=== PATIENT | female | born 1990 | race Caucasian/White ===

== ENCOUNTER 2022-10-09 01:19 | Inpatient (IN) | payer MEDICAID, SELFPAY ==
[2022-10-09] VITALS (14 sets, daily range): BP systolic 87–139; BP diastolic 51–93; PULSE 80–105; RESP 15–24; TEMP 36.2–37.2; O2SAT 90–100; BMI 23.3
--- NOTE | 2022-10-09 01:49 | ED_ITS ---
HPI - Alcohol General Chief Complaint: ETOH/Substance Use Stated Complaint: ETOH Time Seen by Provider: 10/09/22 01:42 Source: EMS Mode of arrival: EMS Limitations: other (Intoxicated) History of Present Illness HPI narrative: Patient comes to the emergency room via EMS. Patient is too intoxicated at this time to give any history, HPI obtained from EMS. Seems that the patient called from home, requesting to be brought to the hospital, stated that she needed help and requesting detox. The patient told EMS that the patient had ?just completed detox? went home and drank a very large amount of vodka without specifying. When patient was asked about SI or HI by EMS, patient denied either. Related Data Allergies Allergy/AdvReac Type Severity Reaction Status Date / Time No Known Allergies Allergy Verified 10/09/22 01:38 Review of Systems Review of Systems: Yes Unobtainable due to mental condition (Alcohol intoxication) PMFSH Past Medical History Medical History Alcohol abuse Social History Social History Advance Directives: No Advance Directives Information Provided: Yes Physical Exam ED Vital Signs: Vital Signs - 24 hr 10/09/22 01:28 10/09/22 02:35 10/09/22 05:27 Temperature 98.6 F 98.0 F Pulse Rate 102 H 96 97 Respiratory Rate 15 24 H 20 Blood Pressure 107/70 108/66 101/59 L Pulse Oximetry 90 L 95 97 Oxygen Delivery Method Room Air Nasal Cannula Room Air Oxygen Flow Rate 2 BMI result Body Mass Index 23.3 Const Other: Appearance: Alert. Easily arousable, somnolent Eyes: bilateral myadriasis, Pupils equal, round and reactive to light. ENT: Pharynx normal. Neck: Normal inspection. Neck supple. No lymph nodes noted. No crepitus CVS: Normal heart rate and rhythm. Pulses normal. Normal S1 and S2 Respiratory: No respiratory distress. Breath sounds normal. No Wheezing. No rales Abdomen: Soft and nontender. No rigidity. No distention. Skin: Skin warm and dry. Normal skin color. Normal skin turgor. Extremities: No lower extremity edema. No Lacerations. No Rash Neuro: Very intoxicated unable to participate in cranial nerve assessment Psych: calm, intoxicated Course Course Course Narrative: Labs pending. We will get a consult from the care team or head athletic trainer/strength coach when the patient is sober. Physician observation started at 01:50 Patient's alcohol level is 545, patient receiving IV fluids. At this time, 05:50, patient is slightly more awake and alert, patient is still too intoxicated but is able to manage getting up to the commode with assistance Medical Decision Making Differential Diagnosis Differential Diagnoses: The differential diagnosis associated with the presentation includes (Alcohol abuse, substance abuse) Admission/Observation Consideration of admission/observation: Escalation of care including admission/observation considered (Patient will remain under observation until she gets over to obtain a consult from the care team or head athletic trainer/strength coach to assist alcohol detox bed) Lab Data Result Diagrams: 10/09/22 01:50 10/09/22 01:50 Labs: Lab Results 10/09/22 10/09/22 10/09/22 Range/Units 01:50 01:50 01:50 WBC 6.7 (4.8-10.8) X10*3/uL RBC 4.40 (4.20-5.50) X10*6/uL Hgb 14.1 (12.0-16.0) g/dl Hct 40.6 (37.0-47.0) % MCV 92.3 (80.0-98.0) fL MCH 32.0 (27.0-33.0) pg MCHC 34.7 (31.0-35.0) g/dl RDW 12.7 (11.0-16.0) % Plt Count 183 (160-400) X10*3/uL MPV 9.6 (9.4-12.3) fL Immature Gran % (Auto) 0.6 H (0.0-0.4) % Neut % (Auto) 17.1 L (45-73) % Lymph % (Auto) 71.6 H (20-40) % [place] % (Auto) 9.1 (2-11) % Eos % (Auto) 1.0 (0-4) % Baso % (Auto) 0.6 (0-2) % Lymph # (Auto) 4.8 (1.2-4.9) X10*3/uL [place] # (Auto) 0.6 (0.1-1.2) X10*3/uL Eos # (Auto) 0.1 (0.0-0.4) X10*3/uL Baso # (Auto) 0.0 (0.0-0.2) X10*3/uL Abs Immat Gran (auto) 0.04 H (0.00-0.03) X10*3/uL Absolute Neuts (auto) 1.1 L (2.0-8.3) x10*3/uL Absolute Nucleated RBC 0.000 (0.0-0.012) X10*3/uL Nucleated RBC % (auto) 0.0 (0.0-0.2) /100WBC Smear Tech's Comments VERIFIED Sodium 144 (135-145) mmol/L Potassium 3.5 (3.3-5.1) mmol/L Chloride 108 (96-108) mmol/L Carbon Dioxide 21 L (22-29) mmol/L Anion Gap 19 (12-20) BUN 6 L (9-16) mg/dL Creatinine 0.74 (0.5-1.4) mg/dL Estim Creat Clear Calc 101.2 Estimated GFR > 60 Random Glucose 125 H (60-115) mg/dL Calcium 9.3 (8.4-10.2) mg/dL Total Bilirubin 0.5 (0.0-1.0) mg/dL Direct Bilirubin 0.3 (0.0-0.5) mg/dL AST 291 H (5-31) U/L ALT 283 H (0-31) U/L Alkaline Phosphatase 95 (39-117) U/L Total Protein 7.7 (6.5-8.0) g/dL Albumin 4.6 (3.5-5.0) g/dL Beta HCG, Quant < 2 mIU/mL Ethyl Alcohol 545 H* mg/dL COVID-19 (YAZ) Negative (Negative) COVID-19 Clin Com See Note Discharge Plan Discharge Clinical Impression: Alcoholic intoxication Patient Disposition: Still a Patient
[2022-10-09 01:57] LABS: Basophils Percent Auto 0.6 % (0-2); Eosinophils Absolute Auto 0.1 X10*3/uL (0.0-0.4); Hematocrit 40.6 % (37.0-47.0); Hemoglobin 14.1 g/dl (12.0-16.0); Imm Gran Abs Auto 0.04 X10*3/uL (0.00-0.03); Imm Gran Pct Auto 0.6 % (0.0-0.4); Lymphocytes Absolute Auto 4.8 X10*3/uL (1.2-4.9); Lymphocytes Percent Auto 71.6 % (20-40); MANUAL DIFF FLAG SCAN; Mean Corpuscular HGB Conc 34.7 g/dl (31.0-35.0); Mean Corpuscular Volume 92.3 fL (80.0-98.0); Mean Platelet Volume 9.6 fL (9.4-12.3); Monocytes Absolute Auto 0.6 X10*3/uL (0.1-1.2); Monocytes Percent Auto 9.1 % (2-11); Neutrophils Absolute Auto 1.1 x10*3/uL (2.0-8.3); Neutrophils Percent Auto 17.1 % (45-73); Platelet Count 183 X10*3/uL (160-400); Red Cell Distribution Width 12.7 % (11.0-16.0); SCAN SMEAR FLAG 1; White Blood Count 6.7 X10*3/uL (4.8-10.8)
[2022-10-09 02:18] LABS: COVID-19 Test Negative (Negative)
[2022-10-09 02:27] LABS: Alanine Aminotransferase 283 U/L (0-31); Albumin Level 4.6 g/dL (3.5-5.0); Alkaline Phosphatase 95 U/L (39-117); Anion Gap 19 (12-20); Aspartate Amino Transferase 291 U/L (5-31); Bilirubin Direct 0.3 mg/dL (0.0-0.5); Bilirubin Total 0.5 mg/dL (0.0-1.0); Blood Urea Nitrogen 6 mg/dL (9-16); Calcium 9.3 mg/dL (8.4-10.2); Carbon Dioxide 21 mmol/L (22-29); Chloride 108 mmol/L (96-108); Creatinine Clr Calc Pharmacy 101.2; Estimated Glomerular Filt Rate > 60; Ethanol 545 mg/dL; Glucose Random 125 mg/dL (60-115); HCG Quantitative < 2 mIU/mL; Potassium 3.5 mmol/L (3.3-5.1); Sodium 144 mmol/L (135-145); Total Protein 7.7 g/dL (6.5-8.0)
--- NOTE | 2022-10-09 02:36 | PC.NURSE ---
Pt sleeping at the bedside. o2 sat noted at 89% RA. Head of the bed elevated. Pt started on 2L NC. Current o2at 96%. Breaths are even and unlabored with equal chest rises. No apparent distress noted. MD aware. Will continue to monitor.
[2022-10-09 02:42] LABS: SLIDE REVIEW VERIFIED
[2022-10-09] MEDS: ondansetron HCL 4 MG/2 ML VIAL IVPUSH ×2 (06:00→14:28)
[2022-10-09] MEDS: 0.9 % Sodium Chloride 2,000 ML 999 ML IVCONT (06:00)
[2022-10-09] MEDS: Acetaminophen 325 MG TABLET 650 MG PO (06:31)
[2022-10-09 08:14] LABS: Amphetamine Screen Urine Not Detected (Not Detect); Barbiturates, Urine Not Detected (Not Detect); Benzodiazepines Screen Urine POSITIVE (Not Detect); Cannabinoid Screen Urine Not Detected (Not Detect); Cocaine Screen Urine Not Detected (Not Detect); Fentanyl, urine Not Detected (Not Detect); Opiate Screen Urine Not Detected (Not Detect); Phencyclidine Screen Urine Not Detected (Not Detect)
--- NOTE | 2022-10-09 10:20 | MHC.CARE ---
CARE Team responded to consult request to meet with patient who is unknown to [facility] and arrived to the ED last night with a BAL of 545. Spoke to patient in room 20 in the main ED, she was alert, oriented and open to this discussion regarding her alcohol use, current needs, resources and barriers to recovery. She appeared her stated age, somewhat disheveled, did maintain eye contact, was tearful at times, said she felt guilty and disappointed with continued relapses. Patient reported that she was at [facility] detox in [place] from 10/02/22-10/06/22 but left AMA because she tested positive for the flu therefore had to isolate in her room and could not be with others or attend groups. Relapsed on alcohol within a day, drank nearly a fifth of vodka yesterday. Patient was scheduled to start [facility] yesterday but called and said she could not attend and believes she can start Tuesday morning. 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 Patient is living with her parents, does not have a car or any day structure. Has an 8 year-old daughter who lives with her father, patient has visitation and DCF is involved. At this time, patient is firm that [facility] will not take her back because she left AMA, that is her preferred facility because she is able to use her phone and has been there several times, she declined referral to [facility] or other local detoxes. Patient is interested in MAT and was given information about [facility], at this time she is not feeling well, Recovery or CARE Team will follow up later to offer detox
[2022-10-09] MEDS: Acetaminophen 325 MG TABLET 975 MG PO (13:15)
[2022-10-09 13:41] LABS: Influenza A Negative (Negative); Influenza B2 Negative (Negative)
[2022-10-09] MEDS: 0.9 % Sodium Chloride 1,000 ML 999 ML IV (14:21)
[2022-10-09] MEDS: LORazepam 2 MG/ML VIAL 1 MG IVPUSH (14:28)
[2022-10-09] MEDS: Ketorolac Tromethamine 30 MG/ML VIAL IVPUSH (14:28)
--- NOTE | 2022-10-09 14:55 | MHC.RECOVSUP ---
? Reason for consult:ETOH o? Current location:ED20? o? Identified substance use concern:? -? Seeking ATS (detox) ?? Intervention: o? ATS bed search completed o? Harm reduction discussion ? Plan:Order LYFT to [facility]. ? Additional information:RC met with pt, discussed harm reduction and detox. RC was successful in finding pt a bed for tonight at 9pm at [facility]. Please have pt dischsrged and sent to [facility] to be admitted for 9 pm tonight.
[2022-10-09] MEDS: LORazepam 1 MG TABLET 2 MG PO (18:49)
[2022-10-10 00:54] VITALS: BP 143/98; PULSE 85; PULSE 98; RESP 23; TEMP 37.3; O2SAT 97
[2022-10-10 01:49] VITALS: BP 141/103; PULSE 85; RESP 16; TEMP 36.8; O2SAT 95
--- NOTE | 2022-10-10 02:19 | P.HPHOSP_ITS ---
History of Present Illness Date of Service: 10/10/22 Chief Complaint: alcohol withdrawal 32-year-old female with past medical history of alcohol abuse presents to the hospital with alcohol intoxication that eventually turned into withdrawal. Patient reports that she was discharged from rehab facility for detox about 1 week ago. Patient reports that she started drinking heavily about 3 days ago, she came into the hospital after calling EMS herself for severe intoxication. On her arrival to the ED patient's alcohol level was found to be over 500. Patient was managed in the ED for alcohol intoxication, patient initially wanted to be sent back to rehab, but then refused, by the time she was ready to be discharged home, she had started with severe withdrawals. Patient feels very anxious, jittery, reports that her last drink was about 12 hours prior. She denies any chest pain, no palpitations, no abdominal pain nausea or vomiting, no diarrhea constipation, no urinary symptoms and no lower extremity edema. on review of her vitals show elevated BP, otherwise stable Labs significant for WBC count of 7.3, hemoglobin of 11.6, hematocrit 30.7, labs otherwise unremarkable patient reports that she does not like phenobarb it does not make her feel well, and requesting Ativan taper Review of Systems Review of Systems: Yes all other systems are reviewed and are negative [facility] Medical History Alcohol abuse Family History Other No family history of coronary artery disease Surgical History No pertinent past surgical history Social History Alcohol intake: current Alcohol intake frequency: a few times a week Alcohol type: hard liquor Smoked in Last 30 Days: No Use of substances other than those prescribed or required for medical reasons: No Advance Directives: No Advance Directives Information Provided: Yes Patient : No Meds Allergies Allergy/AdvReac Type Severity Reaction Status Date / Time No Known Allergies Allergy Verified 10/09/22 01:38 Active Medications: Current Medications Sodium Chloride (Ns) 1,000 mls @ 999 mls/hr IVCONT .Q1H1M ONE Stop: 10/10/22 02:51 Pharmacy Consult (Consult Rx Etoh Phenob Im/Po) 1 each MISCELLANE ONCE PRN; Protocol PRN Reason: Consult order Physical Exam Vital Signs and Narrative: Vital Signs: Last Vital Signs Temp 98.3 F 10/10/22 01:49 Pulse 85 10/10/22 01:49 Resp 16 10/10/22 01:49 BP 141/103 H 10/10/22 01:49 Pulse Ox 95 10/10/22 01:49 O2 Del Method 10/10/22 01:49 O2 Flow Rate 2 10/09/22 02:35 BMI result Body Mass Index 23.3 Const: General: cooperative and no acute distress Orientation/consciousness: patient oriented x3 Eyes: General: appearance normal, both eyes and all related structures Pupils: Equal, round and reactive pupils present Resp: Effort & Inspection: normal respiratory effort Auscultation: clear to auscultation bilaterally Cardio: Rate: regular rate Rhythm: regular rhythm GI: Palpation (GI): Soft to palpation Auscultation: normal bowel sounds Skin: General skin exam: no rashes or lesions noted Neuro: Other: asterixis present General: patient oriented x3 Cranial nerves: Yes Equal, round and reactive pupils present Cognition (Neuro): normal cognition Extrem: General: Yes normal to inspection and Yes no pedal edema Results Labs CBC and Chem 7: 10/10/22 05:39 10/10/22 05:39 Labs: Laboratory Results - last 24 hr 10/09/22 10/09/22 10/09/22 01:50 01:50 01:50 Smear Tech's Comments VERIFIED Anion Gap 19 Estim Creat Clear Calc 101.2 Estimated GFR > 60 Random Glucose 125 H Calcium 9.3 Total Bilirubin 0.5 Direct Bilirubin 0.3 AST 291 H ALT 283 H Alkaline Phosphatase 95 Total Protein 7.7 Albumin 4.6 Beta HCG, Quant < 2 Urine Opiates Screen Urine Fentanyl Screen Ur Barbiturates Screen Ur Phencyclidine Scrn Ur Amphetamines Screen U Benzodiazepines Scrn Urine Cocaine Screen U Marijuana (THC) Screen Ethyl Alcohol 545 H* COVID-19 (YAZ) Negative COVID-19 Clin Com See Note Influenza Type A (ANASTASIA) Influenza Type B (ANASTASIA) Influenza A & B Note 10/09/22 10/09/22 07:51 13:15 Smear Tech's Comments Anion Gap Estim Creat Clear Calc Estimated GFR Random Glucose Calcium Total Bilirubin Direct Bilirubin AST ALT Alkaline Phosphatase Total Protein Albumin Beta HCG, Quant Urine Opiates Screen Not Detected Urine Fentanyl Screen Not Detected Ur Barbiturates Screen Not Detected Ur Phencyclidine Scrn Not Detected Ur Amphetamines Screen Not Detected U Benzodiazepines Scrn POSITIVE H Urine Cocaine Screen Not Detected U Marijuana (THC) Screen Not Detected Ethyl Alcohol COVID-19 (YAZ) COVID-19 Clin Com Influenza Type A (ANASTASIA) Negative Influenza Type B (ANASTASIA) Negative Influenza A & B Note See Note Assessment and Plan (1) Alcoholic intoxication: Status: Acute (2) Alcohol withdrawal: Status: Acute Plan 32-year-old female with past medical history of alcohol abuse, being admitted for alcohol withdrawal # alcohol abuse with withdrawal - denies any history of alcohol withdrawal seizures or delirium - will treat with Ativan protocol for alcohol withdrawal - thiamine and folic acid - patient no longer interested in inpatient rehab DVT prophylaxis: Lovenox Time Spent With Patient Time: Total time managing care of this patient today ____ minutes. Quality Stroke Does the patient have a stroke diagnosis?: No VTE Prior VTE?: No VTE Risk Level:: Medical - low VTE Device Contraindication: Treatment Not Indicated VTE Drug Contraindication: Treatment Not Indicated
[2022-10-10] MEDS: ondansetron HCL 4 MG/2 ML VIAL IVPUSH (03:05)
[2022-10-10] MEDS: LORazepam 2 MG/ML VIAL IVPUSH (03:05)
[2022-10-10] MEDS: 0.9 % Sodium Chloride 1,000 ML 999 ML IVCONT (03:05)
--- NOTE | 2022-10-10 03:24 | PC.NURSE ---
Pt's BP is stable, pt is sinus tachy on the monitor. pt's meds was given as order. pt's CIWA was 14.
[2022-10-10 05:43] LABS: MANUAL DIFF FLAG NO
[2022-10-10 05:45] LABS: Basophils Percent Auto 0.4 % (0-2); Eosinophils Absolute Auto 0.1 X10*3/uL (0.0-0.4); Eosinophils Percent Auto 0.8 % (0-4); Hematocrit 33.7 % (37.0-47.0); Hemoglobin 11.6 g/dl (12.0-16.0); Imm Gran Abs Auto 0.02 X10*3/uL (0.00-0.03); Imm Gran Pct Auto 0.3 % (0.0-0.4); Lymphocytes Absolute Auto 1.5 X10*3/uL (1.2-4.9); Lymphocytes Percent Auto 21.2 % (20-40); Mean Corpuscular HGB Conc 34.4 g/dl (31.0-35.0); Mean Corpuscular Hemoglobin 31.8 pg (27.0-33.0); Mean Corpuscular Volume 92.3 fL (80.0-98.0); Mean Platelet Volume 9.7 fL (9.4-12.3); Monocytes Absolute Auto 0.6 X10*3/uL (0.1-1.2); Neutrophils Percent Auto 69.3 % (45-73); Platelet Count 158 X10*3/uL (160-400); Red Blood Count 3.65 X10*6/uL (4.20-5.50); Red Cell Distribution Width 12.6 % (11.0-16.0); White Blood Count 7.3 X10*3/uL (4.8-10.8)
[2022-10-10] MEDS: LORazepam 1 MG TABLET PO ×4 (06:02→16:05)
--- NOTE | 2022-10-10 06:03 | PC.NURSE ---
Addendum entered by Cruz Yee 10/10/22 06:08: CIWA was a 6. Original Note: Pt's v/S are stable, Pt was medicated as order. On the med rec there is a lorazapam 2mg, it was not given d/t there were an order for the same med IV push, and the IV push was given at 02:00am.
[2022-10-10 06:06] VITALS: BP 134/95; PULSE 91; RESP 20; TEMP 37.4; O2SAT 97
[2022-10-10 06:12] LABS: Anion Gap 12 (12-20); Blood Urea Nitrogen 5 mg/dL (9-16); Calcium 7.5 mg/dL (8.4-10.2); Carbon Dioxide 23 mmol/L (22-29); Chloride 106 mmol/L (96-108); Creatinine Clr Calc Pharmacy 129.1; Estimated Glomerular Filt Rate > 60; Glucose Random 86 mg/dL (60-115); Potassium 3.2 mmol/L (3.3-5.1); Sodium 138 mmol/L (135-145)
[2022-10-10] MEDS: Thiamine HCL 100 MG TABLET PO (07:33)
[2022-10-10] MEDS: Folic Acid 1 MG TABLET PO (07:33)
--- NOTE | 2022-10-10 09:25 | PHA.MEDREC ---
Pharmacy Consult ? Medication Reconciliation Pharmacy has completed the medication reconciliation.
[2022-10-10 10:50] VITALS: BP 126/88; PULSE 77; RESP 18; TEMP 36.4; O2SAT 95
--- NOTE | 2022-10-10 11:26 | MHC.CM.PN ---
CM ATTEMPTED TO MEET W/PT HOWEVER PT NOT ON UNIT, CM TO REVISIT.
[2022-10-10] MEDS: Acetaminophen 325 MG TABLET 650 MG PO (11:55)
[2022-10-10] MEDS: Escitalopram Oxalate 10 MG TABLET PO (12:32)
[2022-10-10] MEDS: Potassium Chloride Packet 20 MEQ PACKET 40 MEQ PO (12:32)
--- NOTE | 2022-10-10 15:06 | PM.EVENT ---
Event Note Date of Service: 10/10/22 Event Note: Patient was admitted worker or withdrawal this mornin by hopsitalist team seen and examined again Still anxious and tremulous Physical exam: unchanged Assessment and plan coordinated in H&P note Continue Ativan protocol, CIWA, thiamine folic acid forest fire prevention specialist consult. Time Spent With Patient Time: Total time managing care of this patient today ____ minutes.
[2022-10-10 15:33] VITALS: BP 130/85; PULSE 75; RESP 18; TEMP 37.1; O2SAT 95
[2022-10-10 16:00] LABS: Alanine Aminotransferase 159 U/L (0-31); Albumin Level 3.8 g/dL (3.5-5.0); Alkaline Phosphatase 67 U/L (39-117); Aspartate Amino Transferase 110 U/L (5-31); Bilirubin Direct 0.4 mg/dL (0.0-0.5); Bilirubin Total 1.1 mg/dL (0.0-1.0); Total Protein 6.2 g/dL (6.5-8.0)
[2022-10-10] MEDS: Magnesium Oxide 400 MG TABLET PO (16:05)
[2022-10-10] MEDS: 0.9 % Sodium Chloride Flush 3 ML SYRINGE IVFLUSH (16:05)
[2022-10-10] MEDS: Magnesium Sulfate/H2O 2 GM/50 ML PIGGYBACK IV (16:06)
--- NOTE | 2022-10-10 16:14 | MHC.CM.PN ---
EMR REVIEWED, PT ADMITTED W/ETOH WITHDRAWAL, CM MET W/PT WHO REPORTS SHE JUST GOT OUT OF [facility] AND HAS OUPT SA TX AT [facility], PT REPORTS SHE IS INDEP W/ALL CARE, DENIES USE OF DME/HOME SERVICES AND IS WILLING TO MEET W/RECOVERY TEAM HOWEVER DOES NOT WANT INPT TX AT THIS TIME. PT VERIFIES PCP IS [facility] CAMACHO, GABRIEL X2 AND PT EDUCATED ON AND DECLINES TO COMPLETE A HCP. ANTIC D/C HOME NO SERVICES, PT WILL ARRANGE FOR [facility] OR [facility] HOME.
--- NOTE | 2022-10-10 18:01 | PM.EVENT ---
Event Note Date of Service: 10/10/22 Event Note: Patient wishing to sign out AMA. States withdrawals are manageable. See was 0-1. Stands the risk. Patient to sign out AMA. States will return to [facility] outpatient in a.m. Time Spent With Patient Time: Total time managing care of this patient today ____ minutes.
--- NOTE | 2022-10-10 18:09 | PC.NURSE ---
pt wanted to leave AMA. pt wanted to be in her own bed and did not believe her withdrawal symptoms were as bad. CIWA score was a 1. Dr. kowalski made aware. dr. kowalski at bedside to talk with patient. pt verbalized understanding of leaving ama and that she would resume her outpt detox program. IV removed. AMA paperwork signed.
[2022-10-10 19:19] LABS: Magnesium 1.2 mg/dL (1.6-2.6)
--- NOTE | 2022-10-11 08:09 | PM.EVENT ---
Event Note Date of Service: 10/11/22 Event Note: Patient was admitted for alcohol withdrawal was started on Ativan subsequently left against medical advice-risk of leaving is against my get medical advise discussed with her in detail length. Final diagnosis: Alcohol withdrawal Elevated LFT possibly related to alcohol use. Hypokalemia and hypomagnesemia-possible related to alcohol use also, repleted but patient left afterwards without any repeat labs. Time Spent With Patient Time: Total time managing care of this patient today ____ minutes.
== END 2022-10-10 18:12 | disposition left against medical advice (07) | DRG 425 ==
LOC: HO.ED 10-10 01:55 → HO.EDOVER 10-10 02:55 → HO.S3 10-10 07:56
PROVIDERS: Physician Assistant; Admitting Provider Internal Medicine; Emergency Provider Emergency Medicine; PCP Nurse Practitioner Family; Visit Provider Internal Medicine
DX: E83.42 Hypomagnesemia (principal); E87.6 Hypokalemia; F10.129 Alcohol abuse with intoxication, unspecified; F10.139 Alcohol abuse with withdrawal, unspecified; Y90.8 Blood alcohol level of 240 mg/100 ml or more; Z20.822 Contact with and (suspected) exposure to COVID-19; Z79.899 Other long term (current) drug therapy
CPT/HCPCS: 36415; 80048; 80076; 80307; 82077; 83735; 84702; 85025; 87502; 87635; 96361; 96374; 96375; 96376; 99285; J1885; J2060; J2405; J3475

== ENCOUNTER 2022-10-12 23:57 | Emergency (ER) | payer OTHER, SELFPAY ==
[2022-10-13 00:10] VITALS: BP 113/88; PULSE 95; O2SAT 95; BMI 29.6
--- NOTE | 2022-10-13 00:24 | ED.ALCOHOL ---
HPI - Alcohol General Chief Complaint: ETOH/Substance Use Stated Complaint: ETOH Time Seen by Provider: 10/13/22 00:10 Source: patient Mode of arrival: EMS Limitations: no limitations History of Present Illness HPI narrative: Patient alcoholic , left detox 2 days ago been drinking vodka mostly comes here as she would like to go to detox now patient did not eat for last 2 days just drinking alcohol no hallucination or delusion no abdominal pain Related Data Home Medications Medication Instructions Recorded Confirmed acetaminophen 325 mg tablet 650 mg PO Q6H PRN Pain 10/10/22 10/10/22 escitalopram oxalate 10 mg tablet 1 tab PO DAILY 10/10/22 10/10/22 folic acid 1 mg tablet 1 tab PO DAILY 10/10/22 10/10/22 multivitamin-iron 9 mg-folic acid 1 tab PO DAILY 10/10/22 10/10/22 400 mcg-calcium and minerals tablet (Therapeutic-M) thiamine HCl (vitamin B1) 100 mg 1 tab PO DAILY 10/10/22 10/10/22 tablet Previous Rx's Medication Instructions Recorded magnesium 250 mg tablet 250 mg PO DAILY #3 tabs 10/11/22 potassium chloride 10 mEq 10 meq PO DAILY #3 caps 10/11/22 capsule,extended release Allergies Allergy/AdvReac Type Severity Reaction Status Date / Time No Known Allergies Allergy Verified 10/09/22 01:38 Review of Systems Review of Systems: Yes all other systems are reviewed and are negative [facility] Past Medical History Medical History Alcohol abuse Surgical History No pertinent past surgical history Family History Family History Other No family history of coronary artery disease Social History Social History Household Members: None Housing: Apartment Do you presently have visiting nurse or other home services: No Alcohol intake: current Alcohol intake frequency: a few times a week Alcohol type: hard liquor Patient Tobacco Use Status: Never used Tobacco Advance Directives: No Advance Directives Information Provided: No service: No Current occupational status: unemployed Physical Exam ED Vital Signs: Vital Signs - 24 hr 10/13/22 02:50 10/13/22 05:31 Temperature 98.6 F 98.5 F Pulse Rate 80 86 Respiratory Rate 22 H 20 Blood Pressure 95/53 L 108/64 Pulse Oximetry 97 97 Oxygen Delivery Method Room Air Room Air BMI result Body Mass Index 29.6 Appearance: Alert. Oriented X3. No acute distress. etoh++ Eyes: PERRLA, No Nystagmus ENT: Pharynx normal. Oral Mucosa moist Neck: Normal inspection. Neck supple. CVS: Normal heart rate and rhythm. Pulses normal. Respiratory: No respiratory distress. Equal air entry bilateral, no wheezing/rales/rhonchi Abdomen: Soft and nontender. Bowel sounds are present, no mass palpable, no CVA tenderness Skin: Skin warm and dry. Normal skin color. Normal skin turgor. Extremities: No lower extremity edema. No calf tenderness Neuro: Oriented X 3. No motor deficit. No sensory deficit.No cerebellar signs , cranial nerves II-XII intact Medical Decision Making Lab Data MDM Lab Attestation statement: I reviewed the patient's lab results. Result Diagrams: 10/13/22 01:16 10/13/22 01:16 Labs: Lab Results 10/13/22 10/13/22 10/13/22 Range/Units 01:16 01:16 01:16 WBC 7.6 (4.8-10.8) X10*3/uL RBC 4.04 L (4.20-5.50) X10*6/uL Hgb 12.6 (12.0-16.0) g/dl Hct 37.6 (37.0-47.0) % MCV 93.1 (80.0-98.0) fL MCH 31.2 (27.0-33.0) pg MCHC 33.5 (31.0-35.0) g/dl RDW 13.0 (11.0-16.0) % Plt Count 239 D (160-400) X10*3/uL MPV 9.6 (9.4-12.3) fL Immature Gran % (Auto) 0.3 (0.0-0.4) % Neut % (Auto) 46.3 (45-73) % Lymph % (Auto) 41.2 H (20-40) % [place] % (Auto) 9.0 (2-11) % Eos % (Auto) 2.5 (0-4) % Baso % (Auto) 0.7 (0-2) % Lymph # (Auto) 3.1 (1.2-4.9) X10*3/uL [place] # (Auto) 0.7 (0.1-1.2) X10*3/uL Eos # (Auto) 0.2 (0.0-0.4) X10*3/uL Baso # (Auto) 0.1 (0.0-0.2) X10*3/uL Abs Immat Gran (auto) 0.02 (0.00-0.03) X10*3/uL Absolute Neuts (auto) 3.5 (2.0-8.3) x10*3/uL Absolute Nucleated RBC 0.000 (0.0-0.012) X10*3/uL Nucleated RBC % (auto) 0.0 (0.0-0.2) /100WBC Sodium 147 H (135-145) mmol/L Potassium 3.8 (3.3-5.1) mmol/L Chloride 109 H (96-108) mmol/L Carbon Dioxide 26 (22-29) mmol/L Anion Gap 16 (12-20) BUN 7 L (9-16) mg/dL Creatinine 0.59 (0.5-1.4) mg/dL Estim Creat Clear Calc 142.3 Estimated GFR > 60 Random Glucose 100 (60-115) mg/dL Calcium 8.9 D (8.4-10.2) mg/dL Magnesium 1.9 (1.6-2.6) mg/dL Total Bilirubin 0.4 (0.0-1.0) mg/dL AST 60 H (5-31) U/L ALT 95 H (0-31) U/L Alkaline Phosphatase 107 (39-117) U/L Total Protein 6.9 (6.5-8.0) g/dL Albumin 4.1 (3.5-5.0) g/dL Lipase 43 (8-78) U/L Beta HCG, Quant < 2 mIU/mL Ethyl Alcohol mg/dL COVID-19 (YAZ) Negative (Negative) COVID-19 Clin Com See Note 10/13/22 Range/Units 01:16 WBC (4.8-10.8) X10*3/uL RBC (4.20-5.50) X10*6/uL Hgb (12.0-16.0) g/dl Hct (37.0-47.0) % MCV (80.0-98.0) fL MCH (27.0-33.0) pg MCHC (31.0-35.0) g/dl RDW (11.0-16.0) % Plt Count (160-400) X10*3/uL MPV (9.4-12.3) fL Immature Gran % (Auto) (0.0-0.4) % Neut % (Auto) (45-73) % Lymph % (Auto) (20-40) % [place] % (Auto) (2-11) % Eos % (Auto) (0-4) % Baso % (Auto) (0-2) % Lymph # (Auto) (1.2-4.9) X10*3/uL [place] # (Auto) (0.1-1.2) X10*3/uL Eos # (Auto) (0.0-0.4) X10*3/uL Baso # (Auto) (0.0-0.2) X10*3/uL Abs Immat Gran (auto) (0.00-0.03) X10*3/uL Absolute Neuts (auto) (2.0-8.3) x10*3/uL Absolute Nucleated RBC (0.0-0.012) X10*3/uL Nucleated RBC % (auto) (0.0-0.2) /100WBC Sodium (135-145) mmol/L Potassium (3.3-5.1) mmol/L Chloride (96-108) mmol/L Carbon Dioxide (22-29) mmol/L Anion Gap (12-20) BUN (9-16) mg/dL Creatinine (0.5-1.4) mg/dL Estim Creat Clear Calc Estimated GFR Random Glucose (60-115) mg/dL Calcium (8.4-10.2) mg/dL Magnesium (1.6-2.6) mg/dL Total Bilirubin (0.0-1.0) mg/dL AST (5-31) U/L ALT (0-31) U/L Alkaline Phosphatase (39-117) U/L Total Protein (6.5-8.0) g/dL Albumin (3.5-5.0) g/dL Lipase (8-78) U/L Beta HCG, Quant mIU/mL Ethyl Alcohol 423 H* mg/dL COVID-19 (YAZ) (Negative) COVID-19 Clin Com Medications Administered Discontinued Medications Generic Name Dose Route Start Last Admin Trade Name Freq PRN Reason Stop Dose Admin Sodium Chloride 1,000 mls @ 999 mls/hr 10/13/22 00:24 10/13/22 03:46 Ns IV 10/13/22 01:24 Infused .Q1H1M ONE Infusion Sodium Chloride 1,000 mls @ 999 mls/hr 10/13/22 03:59 10/13/22 04:00 Ns IV 10/13/22 04:59 Infused .Q1H1M ONE Infusion Discharge Plan Discharge Clinical Impression: Alcoholic intoxication Patient Disposition: Still a Patient Prescriptions: No Action acetaminophen 325 mg tablet 650 mg PO Q6H PRN (Reason: Pain) thiamine HCl (vitamin B1) 100 mg tablet 1 tab PO DAILY folic acid 1 mg tablet 1 tab PO DAILY Therapeutic-M 9 mg iron-400 mcg tablet 1 tab PO DAILY escitalopram oxalate 10 mg tablet 1 tab PO DAILY potassium chloride 10 mEq capsule, extended release 10 meq PO DAILY Qty: 3 0RF magnesium 250 mg tablet 250 mg PO DAILY Qty: 3 0RF Interventions: [place]-Suicide Risk Severity Scale Last Done: 10/13/22 02:46
[2022-10-13 01:22] LABS: MANUAL DIFF FLAG NO
[2022-10-13 01:23] LABS: Basophils Absolute Auto 0.1 X10*3/uL (0.0-0.2); Basophils Percent Auto 0.7 % (0-2); Eosinophils Absolute Auto 0.2 X10*3/uL (0.0-0.4); Eosinophils Percent Auto 2.5 % (0-4); Hematocrit 37.6 % (37.0-47.0); Hemoglobin 12.6 g/dl (12.0-16.0); Imm Gran Abs Auto 0.02 X10*3/uL (0.00-0.03); Imm Gran Pct Auto 0.3 % (0.0-0.4); Lymphocytes Absolute Auto 3.1 X10*3/uL (1.2-4.9); Lymphocytes Percent Auto 41.2 % (20-40); Mean Corpuscular HGB Conc 33.5 g/dl (31.0-35.0); Mean Corpuscular Hemoglobin 31.2 pg (27.0-33.0); Mean Corpuscular Volume 93.1 fL (80.0-98.0); Mean Platelet Volume 9.6 fL (9.4-12.3); Monocytes Absolute Auto 0.7 X10*3/uL (0.1-1.2); Neutrophils Absolute Auto 3.5 x10*3/uL (2.0-8.3); Neutrophils Percent Auto 46.3 % (45-73); Platelet Count 239 X10*3/uL (160-400); Red Blood Count 4.04 X10*6/uL (4.20-5.50); White Blood Count 7.6 X10*3/uL (4.8-10.8)
--- NOTE | 2022-10-13 01:27 | MHC.EDTECH ---
labs drawn, sent to lab. pt ambulated with one assist to bathroom. pt up and drinking gingerale at this time.
[2022-10-13 01:37] LABS: COVID-19 Test Negative (Negative)
[2022-10-13 01:43] LABS: Ethanol 423 mg/dL
[2022-10-13 01:55] LABS: Alanine Aminotransferase 95 U/L (0-31); Albumin Level 4.1 g/dL (3.5-5.0); Alkaline Phosphatase 107 U/L (39-117); Anion Gap 16 (12-20); Aspartate Amino Transferase 60 U/L (5-31); Bilirubin Total 0.4 mg/dL (0.0-1.0); Blood Urea Nitrogen 7 mg/dL (9-16); Calcium 8.9 mg/dL (8.4-10.2); Carbon Dioxide 26 mmol/L (22-29); Chloride 109 mmol/L (96-108); Creatinine Clr Calc Pharmacy 142.3; Estimated Glomerular Filt Rate > 60; Glucose Random 100 mg/dL (60-115); HCG Quantitative < 2 mIU/mL; Lipase 43 U/L (8-78); Magnesium 1.9 mg/dL (1.6-2.6); Potassium 3.8 mmol/L (3.3-5.1); Sodium 147 mmol/L (135-145); Total Protein 6.9 g/dL (6.5-8.0)
[2022-10-13] MEDS: 0.9 % Sodium Chloride 1,000 ML 999 ML IV ×2 (02:45→03:00)
[2022-10-13 02:50] VITALS: BP 95/53; PULSE 80; RESP 22; TEMP 37; O2SAT 97
[2022-10-13 05:31] VITALS: BP 108/64; PULSE 86; RESP 20; TEMP 36.9; O2SAT 97
[2022-10-13 07:15] VITALS: BP 103/60; PULSE 87; RESP 16; TEMP 36.4; O2SAT 96
[2022-10-13] MEDS: chlordiazePOXIDE HCl 25 MG CAPSULE 50 MG PO (07:24)
--- NOTE | 2022-10-13 09:10 | MHC.RECOVRN ---
This technical writer and editor met w/ pt. Pt alert, resting in hui bed. Pt states was at [facility] [place]/[facility] Pt reports reoccurrence of drinking alcohol past few days. Pt reports 10-12 shots daily for past few days. Pt reports no history of ETOH related seizures. Pt states does not feel right, clammy, pins and needles in feed, I want a room/to get admitted . This technical writer and editor reviewed that ED is full, hence hui bed. This technical writer and editor reviewed pt not necessarily going to get admitted if not medically necessary. Pt states I don't feel right, requesting vitals . This technical writer and editor and pt discussed detox. Pt states is not interested in detox at the moment, until after the holidays. Pt has a stable place to stay, pt reports owns a condo. Pt states has a friend that is going to be staying with them for the next few days for support. This technical writer and editor to provide recovery tools, list of detoxes, contact information for pt to follow up in the community. This technical writer and editor spoke with Frida Castañeda, whom was taking another set of vitals.
[2022-10-13 09:11] VITALS: BP 119/66; PULSE 75; RESP 16; TEMP 36.9; O2SAT 96
--- NOTE | 2022-10-13 10:04 | PC.NURSE ---
TEARFUL, NO TREMORS, ALERT, SPEECH CLEAR, SKIN WPD, DOES NOT WANT TO GO TO DETOX UNTIL AFTER JANICE , REPORTS 5 DAYS WITHOUT ETOH WHILE ADMITTED AND AT DETOX FOR A FEW DAYS THEN HAD TWO DAYS OF DRINKING, VS HAVE BEEN STABLE, STEADY GAIT, TO BEDSIDE, VAN VOUCHER PROVIDED
== END 2022-10-13 10:10 | disposition home or self-care (01) ==
PROVIDERS: Internal Medicine; Emergency Provider Student in an Organized Health Care Education/Training Program
DX: F10.220 Alcohol dependence with intoxication, uncomplicated (principal); Y90.8 Blood alcohol level of 240 mg/100 ml or more; Z20.822 Contact with and (suspected) exposure to COVID-19
CPT/HCPCS: 36415; 80053; 82077; 83690; 83735; 84702; 85025; 87635; 96360; 99284

== ENCOUNTER 2022-11-04 10:51 | Emergency (ER) | payer OTHER, SELFPAY ==
--- NOTE | ~2022-11-04 | XR_ITS ---
EXAMINATION: XR CHEST CLINICAL INFORMATION: Alcohol intoxication with low O2 saturation COMPARISON: None TECHNIQUE: 2 views of the chest were obtained. FINDINGS: There is a tiny bit of blunting of the right costophrenic angle laterally but not posteriorly. The exam is otherwise unremarkable and no other significant abnormality is noted involving the heart, lungs, mediastinum, bony thorax or soft tissues. XR/XR chest 2V IMPRESSION: No acute intrathoracic disease.
[2022-11-04 11:13] VITALS: BP 112/73; PULSE 81; RESP 16; O2SAT 90
--- NOTE | 2022-11-04 11:18 | ECG_ITS ---
Test Reason : ETOH INTOXICATION Blood Pressure : / mmHG Vent. Rate : 091 BPM Atrial Rate : 091 BPM P-R Int : 148 ms QRS Dur : 090 ms QT Int : 382 ms P-R-T Axes : 049 047 016 degrees QTc Int : 469 ms Normal sinus rhythm Normal ECG No previous ECGs available Referred By: Emma Chavez Electronically Signed By:Geronimo Quinonez
[2022-11-04 11:36] LABS: MANUAL DIFF FLAG NO
[2022-11-04 11:37] VITALS: BP 112/73; BP 120/76; PULSE 81; PULSE 88; RESP 16; RESP 18; TEMP 36.8; O2SAT 92; O2SAT 97; BMI 34.8
[2022-11-04 11:42] LABS: Prothrombin Time 11.9 SEC (10.0-13.1)
[2022-11-04 11:44] LABS: Basophils Absolute Auto 0.1 X10*3/uL (0.0-0.2); Basophils Percent Auto 0.7 % (0-2); Eosinophils Percent Auto 0.4 % (0-4); Hematocrit 38.1 % (37.0-47.0); Hemoglobin 12.9 g/dl (12.0-16.0); Lymphocytes Absolute Auto 4.5 X10*3/uL (1.2-4.9); Lymphocytes Percent Auto 45.5 % (20-40); Mean Corpuscular HGB Conc 33.9 g/dl (31.0-35.0); Mean Corpuscular Hemoglobin 30.8 pg (27.0-33.0); Mean Corpuscular Volume 90.9 fL (80.0-98.0); Mean Platelet Volume 9.5 fL (9.4-12.3); Monocytes Absolute Auto 0.5 X10*3/uL (0.1-1.2); Monocytes Percent Auto 4.6 % (2-11); Neutrophils Absolute Auto 4.8 x10*3/uL (2.0-8.3); Neutrophils Percent Auto 47.8 % (45-73); Platelet Count 307 X10*3/uL (160-400); Red Blood Count 4.19 X10*6/uL (4.20-5.50); Red Cell Distribution Width 12.2 % (11.0-16.0)
--- NOTE | 2022-11-04 11:44 | MHC.RECOVRN ---
Briefly met with pt in ED10 to discuss substance use. Pt reports drinking half a big bottle of vodka daily x 5 days and is requesting ATS. Pt reports having been at [facility] x 3 weeks and discharging 5 days ago. Pt will go to any ATS with and available bed. T/w will conduct bedsearch.
[2022-11-04] MEDS: Ondansetron ODT 4 MG TAB.RAPDIS TRANSLINGU (11:52)
[2022-11-04 12:01] LABS: Alanine Aminotransferase 41 U/L (0-31); Albumin Level 4.3 g/dL (3.5-5.0); Alkaline Phosphatase 57 U/L (39-117); Anion Gap 14 (12-20); Aspartate Amino Transferase 31 U/L (5-31); Bilirubin Total 0.3 mg/dL (0.0-1.0); Blood Urea Nitrogen 9 mg/dL (9-16); Calcium 8.9 mg/dL (8.4-10.2); Carbon Dioxide 25 mmol/L (22-29); Chloride 104 mmol/L (96-108); Creatinine Clr Calc Pharmacy 91.1; Estimated Glomerular Filt Rate > 60; Ethanol 422 mg/dL; Glucose Random 94 mg/dL (60-115); Lipase 31 U/L (8-78); Magnesium 1.9 mg/dL (1.6-2.6); Potassium 3.3 mmol/L (3.3-5.1); Sodium 140 mmol/L (135-145); Total Protein 7.3 g/dL (6.5-8.0)
[2022-11-04 12:06] LABS: HCG Quantitative < 2 mIU/mL
[2022-11-04 12:22] LABS: Influenza A PCR NEGATIVE (Negative); Influenza B PCR NEGATIVE (Negative); Resp Syncy Virus RNA Qual PCR NEGATIVE (Negative); SARS COV2 PCR INHOUSE NEGATIVE (Negative)
--- NOTE | 2022-11-04 12:35 | ED_ITS ---
HPI - Alcohol General Chief Complaint: ETOH/Substance Use Stated Complaint: ETOH INTOX,WANTS DETOX Time Seen by Provider: 11/04/22 10:57 Source: patient Mode of arrival: ambulatory Limitations: no limitations History of Present Illness HPI narrative: 32-year-old female with a past medical history of alcohol abuse presenting to the ER with complaints of alcohol intoxication requesting detox. Reports she just strained prior to arrival. Reports that she was just discharged from a detox center approximately 5 days ago and felt like she needed to be there for longer. She reports that she was at [facility]. She reports that she drinks half a bottle of vodka daily. Reports she does not mix it with any other drinks. Denies any drug usage. Denies any SI/HI/auditory visualizations thoughts of self-injury. Reports she has never had a withdrawal seizure. Patient reports she is having some nausea. Denies any dizziness, headaches, neck pain/stiffness, fevers, cough, sore throat, chest pain or shortness of breath, abdominal pain, vomiting, constipation, dysuria, abnormal vaginal discharge, diarrhea, rashes, recent travel or sick contacts or any other symptoms complaints or concerns at this time. MD complaint: alcohol intoxication, desires rehab and medical clearance for d etox facility Last drink: Just prior to admission Chronic alcohol use: Yes Previous visits for alcohol intoxication: Yes Recent trauma: No Associated symptoms: nausea Treatments prior to arrival: none Related Data Home Medications Medication Instructions Recorded Confirmed acetaminophen 325 mg tablet 650 mg PO Q6H PRN Pain 10/10/22 10/10/22 escitalopram oxalate 10 mg tablet 1 tab PO DAILY 10/10/22 10/10/22 folic acid 1 mg tablet 1 tab PO DAILY 10/10/22 10/10/22 multivitamin-iron 9 mg-folic acid 1 tab PO DAILY 10/10/22 10/10/22 400 mcg-calcium and minerals tablet (Therapeutic-M) thiamine HCl (vitamin B1) 100 mg 1 tab PO DAILY 10/10/22 10/10/22 tablet Previous Rx's Medication Instructions Recorded magnesium 250 mg tablet 250 mg PO DAILY #3 tabs 10/11/22 potassium chloride 10 mEq 10 meq PO DAILY #3 caps 10/11/22 capsule,extended release Allergies Allergy/AdvReac Type Severity Reaction Status Date / Time No Known Allergies Allergy Verified 10/09/22 01:38 Review of Systems Review of Systems: Constitutional : No Fever, No Chills ENT/Mouth : No Ear Pain, No Nasal Congestion, No sore throat Eyes: No Eye Pain, No Swelling, No Redness Cardiovascular : No Chest Pain, No SOB Respiratory : No Cough, No Sputum, No Dyspnea Gastrointestinal : No ingestions, No Nausea, No Vomiting, No Diarrhea, No Hematochezia, No Melena Genitourinary : No Dysuria, No Urinary Frequency, No Hematuria Musculoskeletal : No Myalgias Skin : No Skin Lesions, No rash Neuro : No Weakness, No Numbness, No Paresthesias, No Dizziness, No Headache Psych : + Anxiety, No Depression, No SI, No thoughts of self injury, No HI, No AVH, Heme/Lymph: No Lymphadenopathy Endocrine : No Polyuria, No Polydipsia Yes all other systems are reviewed and are negative [facility] Past Medical History Attestation statement: The following information was validated with the patient. Source: old records reviewed and nursing notes reviewed Medical History Alcohol abuse Surgical History No pertinent past surgical history Family History Family History Other No family history of coronary artery disease Social History Social History Household Members: None Housing: Apartment Do you presently have visiting nurse or other home services: No Alcohol intake: current Alcohol intake frequency: a few times a week Alcohol type: hard liquor Patient Tobacco Use Status: Never used Tobacco Advance Directives: No Advance Directives Information Provided: No service: No Current occupational status: unemployed Physical Exam ED Vital Signs: Vital Signs - 24 hr 11/04/22 11:13 11/04/22 11:37 11/04/22 11:37 Temperature 98.3 F 98.3 F Pulse Rate 81 81 81 Respiratory Rate 16 16 18 Blood Pressure 112/73 112/73 112/73 Pulse Oximetry 90 L 92 92 Oxygen Delivery Method Room Air Room Air Room Air 11/04/22 15:41 Temperature Pulse Rate 104 H Respiratory Rate 18 Blood Pressure 112/71 Pulse Oximetry 93 Oxygen Delivery Method Room Air BMI result Body Mass Index 34.8 vital signs have been reviewed as normal and appeared to be correct. Blood pressure normal. Heart rate normal. Respiration rate normal. Temperature 90. Oxygen saturation normal. Appearance: Alert. Oriented X3. No acute distress. Head: Normal external exam. Normocephalic. Atraumatic. No Márquez signs noted. No raccoon eyes noted Eyes: PERRLA. EOMI. Conjunctiva and sclera normal. Eyelids normal. ENT: EAC normal. TM's Normal. No septal hematoma noted. No hemotympanum noted. Pharynx normal. Uvula midline. Moist mucous membranes. No lesions/ulcerations or masses noted on the tongue. Normal voice. No trismus noted. No drooling noted. No muffled voice noted. Neck: Normal inspection. Neck supple. FROM. No adenopathy. Thyroid Normal. No tracheal deviation noted. No crepitus is noted. No meningeal signs. No neck mass noted. No signs of trauma noted. CVS: Normal heart rate and rhythm. Heart sound normal. Pulses normal throughout. No murmurs/rales/gallops. Respiratory: No respiratory distress. Painless inspiration. Breath sounds normal. No wheezes/rales/rhonchi noted. Chest nontender. No crepitus is noted. No signs of trauma noted. No accessory muscle usage noted or decreased air movement noted. No signs of trauma. Abdomen: Soft and nontender. Bowel sounds normal in all 4 quadrants. No distention noted. No organomegaly noted. No visible injury noted. Back: No CVA tenderness. Full range of motion noted. Nontender. No signs of trauma. Patient neuro intact bilaterally and distally on all 4 extremities. Patient's reflexes intact bilaterally and distally on all 4 extremities. No rashes/lesion/induration/fluctuance or signs of infection noted. Skin: Skin warm and dry. Normal skin color. Normal skin turgor. No rashes/lesions/lacerations noted. Extremities: No lower extremity edema. No calf tenderness is noted. Extremities exhibit normal range of motion and nontender. Neuro: Oriented X 3. No motor deficit. No sensory deficit. Reflexes normal. Normal steady gait. No focal neuro deficits noted. CN's II-XII intact b ilaterally? Vascular: + radial pulses/+ 2 distal pedal pulses/+2 dorsalis pedis b/l. Normal cap refill. No cyanosis noted to upper extremity nails and lower extremity toes nails. Course Course Course Narrative: 11:20am - 32yoF c PMHx of alcohol abuse currently drinks half a bottle of vodka daily presenting for detox. Reports she drank prior to arrival. Reports some nausea. Denies SI/HI/auditory visualizations thoughts of self-injury. Denies ever having withdrawal seizure from alcohol. Denies any other symptoms complaints or concerns at this time On exam patient is alert and active not in any acute distress. No withdrawal symptoms at this time. Oxygen 90% on room air otherwise all other vitals are within normal limits. Lungs clear to auscultation CV RRR. Abdomen is soft nontender. The patient presents with symptoms consistent with alcohol intoxication disorder. Not consistent with alcohol withdrawal symptom at this time, acute ingestions; no evidence of toxidrome. Not consistent with alcohol ketoacidosis. Plan: Will obtain labs, COVID/RSV/flu swab, drugs of abuse screen, ethanol level, EKG, CIWA wall score. Provide 4 mg of Zofran and re-evaluate. Reevaluation(s) Reevaluation #1: Labs reviewed - patient's ALT 41 which is improved when compared to prior. - Ethanol level 422. - Patient negative for COVID/RSV/flu. Otherwise all other labs are within normal limits. EKG normal sinus rhythm with ventricular rate of 91 with a normal [place] interval normal QRS duration normal QT/QTC interval. No acute ischemic change are noted. No prior EKG in our system to compare to at this time. Therefore at this time patient will need to be sober to be evaluated by the care team/substance health and wellness coach is for possible detox placement. Time: 12:43 Reevaluation #2: - patient was cleared and a bed was found for detox at [facility] although patient reports she is not ready at this time for detox and she would like to be di scharged at this time. Time: 16:13 Medical Decision Making Lab Data [facility] Lab Attestation statement: I reviewed the patient's lab results. 11/04/22 11:31 11/04/22 11:31 Labs: Lab Results 11/04/22 11/04/22 11/04/22 Range/Units 11:26 11:31 11:31 WBC 10.0 (4.8-10.8) X10*3/uL RBC 4.19 L (4.20-5.50) X10*6/uL Hgb 12.9 (12.0-16.0) g/dl Hct 38.1 (37.0-47.0) % MCV 90.9 (80.0-98.0) fL MCH 30.8 (27.0-33.0) pg MCHC 33.9 (31.0-35.0) g/dl RDW 12.2 (11.0-16.0) % Plt Count 307 D (160-400) X10*3/uL MPV 9.5 (9.4-12.3) fL Immature Gran % (Auto) 1.0 H (0.0-0.4) % Neut % (Auto) 47.8 (45-73) % Lymph % (Auto) 45.5 H (20-40) % [place] % (Auto) 4.6 (2-11) % Eos % (Auto) 0.4 (0-4) % Baso % (Auto) 0.7 (0-2) % Lymph # (Auto) 4.5 (1.2-4.9) X10*3/uL [place] # (Auto) 0.5 (0.1-1.2) X10*3/uL Eos # (Auto) 0.0 (0.0-0.4) X10*3/uL Baso # (Auto) 0.1 (0.0-0.2) X10*3/uL Abs Immat Gran (auto) 0.10 H (0.00-0.03) X10*3/uL Absolute Neuts (auto) 4.8 (2.0-8.3) x10*3/uL Absolute Nucleated RBC 0.000 (0.0-0.012) X10*3/uL Nucleated RBC % (auto) 0.0 (0.0-0.2) /100WBC PT 11.9 (10.0-13.1) SEC INR 1.0 (0.9-1.1) Sodium (135-145) mmol/L Potassium (3.3-5.1) mmol/L Chloride (96-108) mmol/L Carbon Dioxide (22-29) mmol/L Anion Gap (12-20) BUN (9-16) mg/dL Creatinine (0.5-1.4) mg/dL Estim Creat Clear Calc Estimated GFR Random Glucose (60-115) mg/dL Calcium (8.4-10.2) mg/dL Magnesium (1.6-2.6) mg/dL Total Bilirubin (0.0-1.0) mg/dL AST (5-31) U/L ALT (0-31) U/L Alkaline Phosphatase (39-117) U/L Total Protein (6.5-8.0) g/dL Albumin (3.5-5.0) g/dL Lipase (8-78) U/L Beta HCG, Quant mIU/mL Urine Color Urine Appearance Urine pH (5.0-9.0) Ur Specific [place] (1.005-1.025) Urine Protein (Neg-Trace) mg/dL Urine Glucose (UA) (Negative) mg/dL Urine Ketones (Negative) mg/dL Urine Blood (Negative) Urine Nitrite (Negative) Ur Leukocyte Esterase (Negative) Urine RBC (0-2) /HPF Urine WBC (0-5) /HPF Ur Squamous Epith Cells (0-2) /HPF Urine Bacteria (None Seen) Hyaline Casts (0-2) /LPF Ethyl Alcohol mg/dL Influenza Type A (PCR) NEGATIVE (Negative) Influenza Type B (PCR) NEGATIVE (Negative) RSV RNA Qual (PCR) NEGATIVE (Negative) SARS-CoV-2 RNA (RT-PCR) NEGATIVE (Negative) 11/04/22 11/04/22 Range/Units 11:31 15:42 WBC (4.8-10.8) X10*3/uL RBC (4.20-5.50) X10*6/uL Hgb (12.0-16.0) g/dl Hct (37.0-47.0) % MCV (80.0-98.0) fL MCH (27.0-33.0) pg MCHC (31.0-35.0) g/dl RDW (11.0-16.0) % Plt Count (160-400) X10*3/uL MPV (9.4-12.3) fL Immature Gran % (Auto) (0.0-0.4) % Neut % (Auto) (45-73) % Lymph % (Auto) (20-40) % Garrard % (Auto) (2-11) % Eos % (Auto) (0-4) % Baso % (Auto) (0-2) % Lymph # (Auto) (1.2-4.9) X10*3/uL [place] # (Auto) (0.1-1.2) X10*3/uL Eos # (Auto) (0.0-0.4) X10*3/uL Baso # (Auto) (0.0-0.2) X10*3/uL Abs Immat Gran (auto) (0.00-0.03) X10*3/uL Absolute Neuts (auto) (2.0-8.3) x10*3/uL Absolute Nucleated RBC (0.0-0.012) X10*3/uL Nucleated RBC % (auto) (0.0-0.2) /100WBC PT (10.0-13.1) SEC INR (0.9-1.1) Sodium 140 (135-145) mmol/L Potassium 3.3 (3.3-5.1) mmol/L Chloride 104 (96-108) mmol/L Carbon Dioxide 25 (22-29) mmol/L Anion Gap 14 (12-20) BUN 9 (9-16) mg/dL Creatinine 0.66 (0.5-1.4) mg/dL Estim Creat Clear Calc 91.1 Estimated GFR > 60 Random Glucose 94 (60-115) mg/dL Calcium 8.9 (8.4-10.2) mg/dL Magnesium 1.9 (1.6-2.6) mg/dL Total Bilirubin 0.3 (0.0-1.0) mg/dL AST 31 (5-31) U/L ALT 41 H (0-31) U/L Alkaline Phosphatase 57 (39-117) U/L Total Protein 7.3 (6.5-8.0) g/dL Albumin 4.3 (3.5-5.0) g/dL Lipase 31 (8-78) U/L Beta HCG, Quant < 2 mIU/mL Urine Color Yellow Urine Appearance Clear Urine pH 6.5 (5.0-9.0) Ur Specific [place] 1.010 (1.005-1.025) Urine Protein Negative (Neg-Trace) mg/dL Urine Glucose (UA) Negative (Negative) mg/dL Urine Ketones Negative (Negative) mg/dL Urine Blood Negative (Negative) Urine Nitrite Negative (Negative) Ur Leukocyte Esterase Trace H (Negative) Urine RBC 0-2 (0-2) /HPF Urine WBC 0-5 (0-5) /HPF Ur Squamous Epith Cells 6-10 (0-2) /HPF Urine Bacteria 2+ (None Seen) Hyaline Casts 0-2 (0-2) /LPF Ethyl Alcohol 422 H* mg/dL Influenza Type A (PCR) (Negative) Influenza Type B (PCR) (Negative) RSV RNA Qual (PCR) (Negative) SARS-CoV-2 RNA (RT-PCR) (Negative) Independent Interpretation I performed an independent interpretation of an: EKG (EKG normal sinus rhythm with ventricular rate of 91 with a normal [place] interval normal QRS duration normal QT/QTC interval. No acute ischemic change are noted. No prior EKG in our system to compare to at this time.) and Plain X-Ray Interpretation: FINDINGS: There is a tiny bit of blunting of the right costophrenic angle laterally but not posteriorly. The exam is otherwise unremarkable and no other significant abnormality is noted involving the heart, lungs, mediastinum, bony thorax or soft tissues. XR/XR chest 2V IMPRESSION: No acute intrathoracic disease. Radiology Impression Discussion of test interpretation with radiology: I have reviewed the radio logist's reading. External Record Review External record reviewed: Inpatient record Social Determinants Patient?s care significantly limited by Social Determinants of Health including: Alcoholism and drug addiction in family Medications Administered Discontinued Medications Generic Name Dose Route Start Last Admin Trade Name Freq PRN Reason Stop Dose Admin Ondansetron HCl 4 mg 11/04/22 11:20 11/04/22 11:52 Ondansetron Odt 4 Mg Tab.Rapdis TRANSLINGU 11/04/22 11:21 4 mg ONCE ONE Administration Discharge Plan Discharge Clinical Impression: Alcoholic intoxication Patient Disposition: Home, Self-Care Instructions: Alcohol Intoxication (ED) Prescriptions: No Action acetaminophen 325 mg tablet 650 mg PO Q6H PRN (Reason: Pain) thiamine HCl (vitamin B1) 100 mg tablet 1 tab PO DAILY folic acid 1 mg tablet 1 tab PO DAILY Therapeutic-M 9 mg iron-400 mcg tablet 1 tab PO DAILY escitalopram oxalate 10 mg tablet 1 tab PO DAILY potassium chloride 10 mEq capsule, extended release 10 meq PO DAILY Qty: 3 0RF magnesium 250 mg tablet 250 mg PO DAILY Qty: 3 0RF Referrals: Physician,Unknown J [Primary Care Provider] - (your pcp as needed)
--- NOTE | 2022-11-04 14:15 | PC.NURSE ---
Patient more awake behavior appropriate vomiting controlled will CTM
--- NOTE | 2022-11-04 14:26 | MHC.RECOVRN ---
[facility] has bed availability, referral being reviewed.
--- NOTE | 2022-11-04 14:30 | PC.NURSE ---
Verified with provider patient can eat will CTM
[2022-11-04 15:41] VITALS: BP 112/71; PULSE 104; RESP 18; O2SAT 93
[2022-11-04 15:55] LABS: Appearance Urine Clear; Color Urine Yellow; Glucose Urine UA Negative (Negative); Leukocyte Esterase Urine Trace (Negative); Nitrite Urine Negative (Negative); PH 6.5 (5.0-9.0); UMIC TRIGGER UACC YES; Urine Blood Negative (Negative); Urine Ketones Negative (Negative); Urine Protein Negative (Neg-Trace)
--- NOTE | 2022-11-04 16:02 | PC.NURSE ---
Patient resting comfortably no distress no agitation noted will CTM
[2022-11-04 16:07] LABS: Bacteria Urine 2+ (None Seen); Hyaline Casts Urine 0-2 /LPF (0-2); RBC Urine 0-2 /HPF (0-2); WBC Urine 0-5 /HPF (0-5)
--- NOTE | 2022-11-04 16:15 | MHC.RECOVRN ---
Pt completed intake with [facility] and offered bed, however, pt declined. Pt states I would rather go to [facility]. Plus I need to go home and get my clothes and stuff. RN and provider aware.
[2022-11-04 16:16] VITALS: BP 110/73; PULSE 106; RESP 18; O2SAT 91
[2022-11-04 16:19] LABS: Amphetamine Screen Urine Not Detected (Not Detect); Barbiturates, Urine Not Detected (Not Detect); Benzodiazepines Screen Urine Not Detected (Not Detect); Cannabinoid Screen Urine Not Detected (Not Detect); Cocaine Screen Urine Not Detected (Not Detect); Fentanyl, urine Not Detected (Not Detect); Opiate Screen Urine Not Detected (Not Detect); Phencyclidine Screen Urine Not Detected (Not Detect)
== END 2022-11-04 16:34 | disposition home or self-care (01) ==
PROVIDERS: Physician Assistant Medical; Emergency Provider Student in an Organized Health Care Education/Training Program
DX: F10.220 Alcohol dependence with intoxication, uncomplicated (principal); Y90.8 Blood alcohol level of 240 mg/100 ml or more; Z79.899 Other long term (current) drug therapy; Z20.822 Contact with and (suspected) exposure to COVID-19; Z20.828 Contact with and (suspected) exposure to other viral communicable diseases
CPT/HCPCS: 0241U; 36415; 71046; 80053; 80307; 81001; 81003; 82077; 83690; 83735; 84702; 85025; 85610; 93005; 99283; 99284

== ENCOUNTER 2022-11-05 10:36 | Emergency (ER) | payer OTHER, SELFPAY ==
[2022-11-05 10:42] VITALS: BP 130/82; PULSE 100; O2SAT 95
[2022-11-05 10:43] VITALS: BP 101/53; PULSE 96; RESP 14; TEMP 36.8; O2SAT 92; BMI 33.3
[2022-11-05 10:52] VITALS: BP 101/53; PULSE 98; RESP 16; TEMP 36.3; O2SAT 90
--- NOTE | 2022-11-05 12:52 | MHC.RECOVRN ---
Met with pt in ED21 to discuss desire for ATS. Pt reports she [place] [facility] [place], declines other [place] referrals. [facility] [place] at [place]. Pt informed and will follow up from home. Provider aware.
--- NOTE | 2022-11-05 14:35 | ED.ALCOHOL ---
HPI - Alcohol General Chief Complaint: ETOH/Substance Use Stated Complaint: ETOH Time Seen by Provider: 11/05/22 10:58 Source: patient and EMS Mode of arrival: EMS History of Present Illness HPI narrative: 32-year-old female with past medical history of ETOH abuse presenting to the ED for ETOH intoxication requesting detox. 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 Patient was seen and treated in our ED yesterday for similar symptoms, excepted to a detox however patient ended up refusing and was discharged home. Denies illicit drug use, recent falls/injury, trauma, headache, abdominal pain, nausea/vomiting. Denies SI/HI MD complaint: alcohol intoxication Last drink: Just prior to admission Related Data Home Medications Medication Instructions Recorded Confirmed acetaminophen 325 mg tablet 650 mg PO Q6H PRN Pain 10/10/22 10/10/22 escitalopram oxalate 10 mg tablet 1 tab PO DAILY 10/10/22 10/10/22 folic acid 1 mg tablet 1 tab PO DAILY 10/10/22 10/10/22 multivitamin-iron 9 mg-folic acid 1 tab PO DAILY 10/10/22 10/10/22 400 mcg-calcium and minerals tablet (Therapeutic-M) thiamine HCl (vitamin B1) 100 mg 1 tab PO DAILY 10/10/22 10/10/22 tablet Previous Rx's Medication Instructions Recorded magnesium 250 mg tablet 250 mg PO DAILY #3 tabs 10/11/22 potassium chloride 10 mEq 10 meq PO DAILY #3 caps 10/11/22 capsule,extended release Allergies Allergy/AdvReac Type Severity Reaction Status Date / Time No Known Allergies Allergy Verified 10/09/22 01:38 Review of Systems Review of Systems: Constitutional: No Fever, No Chills, No Night Sweats, No Fatigue, No Malaise ENT/Mouth: No Ear Pain, No Nasal Congestion, No sore throat, No Rhinorrhea, No Swallowing Difficulty Eyes: No Eye Pain, No Swelling, No Redness Cardiovascular: No Chest Pain, No SOB Respiratory: No Cough, No Sputum, No Dyspnea Gastrointestinal: No Nausea, No Vomiting, No Diarrhea, No Constipation, No Abdominal pain Genitourinary: No Dysuria, No Urinary Frequency, No Hematuria Musculoskeletal: No joint pain, No Myalgias, No Joint Swelling Skin: No Skin Lesions, No rash Neuro: No Weakness, No Headache Psych: No Anxiety/Panic, No Depression, No SI/HI/AH/VH, No Social Issues Yes all other systems are reviewed and are negative Constitutional: Constitutional: Reports as per [facility] Past Medical History Attestation statement: The following information was validated with the patient. Medical History Alcohol abuse Surgical History No pertinent past surgical history Family History Family History Other No family history of coronary artery disease Social History Social History Household Members: None Housing: Apartment Do you presently have visiting nurse or other home services: No Alcohol intake: current Alcohol intake frequency: a few times a week Alcohol type: hard liquor Patient Tobacco Use Status: Never used Tobacco Advance Directives: No Advance Directives Information Provided: Yes service: No Current occupational status: unemployed Physical Exam ED Vital Signs: Vital Signs - 24 hr 11/05/22 10:43 11/05/22 10:52 11/05/22 16:05 Temperature 98.2 F 97.3 F 98.5 F Pulse Rate 96 98 100 Respiratory Rate 14 16 18 Blood Pressure 101/53 L 101/53 L 101/58 L Pulse Oximetry 92 90 L 92 Oxygen Delivery Method Room Air Room Air Room Air BMI result Body Mass Index 33.3 Const Other: + ETOH odor on breath. Disheveled General: no acute distress and intoxicated appearing Orientation/consciousness: patient oriented x3 Limitations: no limitations [facility] Head: Yes normal to inspection and Yes atraumatic Ears: hearing grossly normal bilaterally General nose exam: Normal external nose present Face and sinus: Yes normal facial exam Mouth: Normal oral and palatal mucosa present Throat: Yes posterior oropharynx normal Eyes General: appearance normal, both eyes and all related structures EOM: EOMs intact bilaterally Neck Neck: Yes normal visual inspection and Yes no meningeal signs Resp Effort & Inspection: normal respiratory effort and no respiratory distress Auscultation: clear to auscultation bilaterally Cardio Rate: regular rate Heart sounds: S1 normal heart sound present and S2 normal heart sound present GI Inspection: Yes normal to inspection Palpation (GI): Soft to palpation, nontender, no guarding and not rigid Skin Rashes: no rashes Wounds: no wounds Neuro General: patient oriented x3, tone normal, moves all extremities, no meningeal signs, no focal motor deficits and CN's II-XI intact bilaterally Cranial nerves: Yes CN's II-XII intact bilaterally Extrem General: Yes normal to inspection Course Course Course Narrative: -[id number]--on re-evaluation discussed with patient if she is not willing to go to different detox pat has available beds then she can be discharged home > Now patient is willing to go to [facility]. Recovery aware -patient accepted to [facility] for 18:45. No evidence of withdrawal at this time 1800--ED care transferred to [facility] pending transfer to [facility] Medical Decision Making Medical Decision Making MDM Narrative: 32-year-old female with past medical history of ETOH abuse presenting to the ED for ETOH intoxication requesting detox. 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 On exam sating 90% on RA likely from positioning, ETOH odor on breath, intoxicated, no evidence of trauma, moving all extremities. Seeking detox. No evidence of ETOH withdrawal this time. Labs and Imaging reviewed from yesterday Plan: Recovery team consult Please refer to course for remaining clinical decision making, interpretation of labs/imaging results, and discussions with consultants and/or family members. 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 and was only interested in 1 detox which does not have any available beds.) Lab Data Labs: Lab Results 11/05/22 Range/Units 14:34 Urine Opiates Screen Not Detected (Not Detect) Urine Fentanyl Screen Not Detected (Not Detect) Ur Barbiturates Screen Not Detected (Not Detect) Ur Phencyclidine Scrn Not Detected (Not Detect) Ur Amphetamines Screen Not Detected (Not Detect) U Benzodiazepines Scrn Not Detected (Not Detect) Urine Cocaine Screen Not Detected (Not Detect) U Marijuana (THC) Screen Not Detected (Not Detect) External Record Review External record reviewed: Prior outpatient labs Prior ED record Social Determinants Patient?s care significantly limited by Social Determinants of Health including: Alcoholism and drug addiction in family and Problems related to primary support group Discharge Plan Discharge Clinical Impression: Alcoholic intoxication Patient Disposition: Xfer Inpatient Rehab Fac Transfer Details: [facility] Instructions: Alcohol Intoxication (ED) Prescriptions: No Action acetaminophen 325 mg tablet 650 mg PO Q6H PRN (Reason: Pain) thiamine HCl (vitamin B1) 100 mg tablet 1 tab PO DAILY folic acid 1 mg tablet 1 tab PO DAILY Therapeutic-M 9 mg iron-400 mcg tablet 1 tab PO DAILY escitalopram oxalate 10 mg tablet 1 tab PO DAILY potassium chloride 10 mEq capsule, extended release 10 meq PO DAILY Qty: 3 0RF magnesium 250 mg tablet 250 mg PO DAILY Qty: 3 0RF Referrals: [facility] [Outside]
--- NOTE | 2022-11-05 14:46 | MHC.RECOVRN ---
Pt decided she will go to [facility], currently doing phone intake.
[2022-11-05 15:01] LABS: Amphetamine Screen Urine Not Detected (Not Detect); Barbiturates, Urine Not Detected (Not Detect); Benzodiazepines Screen Urine Not Detected (Not Detect); Cannabinoid Screen Urine Not Detected (Not Detect); Cocaine Screen Urine Not Detected (Not Detect); Fentanyl, urine Not Detected (Not Detect); Opiate Screen Urine Not Detected (Not Detect); Phencyclidine Screen Urine Not Detected (Not Detect)
--- NOTE | 2022-11-05 15:47 | MHC.RECOVRN ---
Pt has bed at [facility] for 6:45PM. Will be transported via Lyft.
[2022-11-05 16:05] VITALS: BP 101/58; PULSE 100; RESP 18; TEMP 36.9; O2SAT 92
--- NOTE | 2022-11-05 18:51 | PC.NURSE ---
pt discharged to [facility], lift provided by care team
== END 2022-11-05 18:52 ==
PROVIDERS: Physician Assistant; Emergency Provider Emergency Medicine
DX: F10.129 Alcohol abuse with intoxication, unspecified (principal); Y90.9 Presence of alcohol in blood, level not specified; Z71.41 Alcohol abuse counseling and surveillance of alcoholic; Z79.899 Other long term (current) drug therapy
CPT/HCPCS: 80307; 99283

== ENCOUNTER 2022-11-18 07:52 | Emergency (ER) | payer OTHER, SELFPAY ==
--- NOTE | 2022-11-18 08:04 | ED.ALCOHOL ---
HPI - Alcohol General Chief Complaint: ETOH/Substance Use Stated Complaint: etoh x 4 days Time Seen by Provider: 11/18/22 07:53 Source: patient, EMS and old records reviewed Mode of arrival: EMS Limitations: no limitations History of Present Illness HPI narrative: 32 yo female with history of ETOH abuse/dependence, history of ETOH withdrawal who presents to the ER from home via EMS for evaluation after she has been drinking heavily for the last 4 days. She reports drinking 1 liter of hard alcohol the last 4 days. She just got out of rehab in [place] where she was for the last 3 weeks. She wants to get more help. She reports she is already feeling like she is detoxing - anxious, headache, nausea. Does not feel well. She lives home alone, has no job, no family. Denies SI. Denies other drug use. She has been to rehab 5 times and wants to go again. MD complaint: alcohol intoxication, alcohol withdrawal, alcohol dependence and desires rehab Last drink: Hours (ago) Chronic alcohol use: Yes Recent trauma: No Associated symptoms: nausea and depression Treatments prior to arrival: none Related Data Home Medications Medication Instructions Recorded Confirmed acetaminophen 325 mg tablet 650 mg PO Q6H PRN Pain 10/10/22 10/10/22 escitalopram oxalate 10 mg tablet 1 tab PO DAILY 10/10/22 10/10/22 folic acid 1 mg tablet 1 tab PO DAILY 10/10/22 10/10/22 multivitamin-iron 9 mg-folic acid 1 tab PO DAILY 10/10/22 10/10/22 400 mcg-calcium and minerals tablet (Therapeutic-M) thiamine HCl (vitamin B1) 100 mg 1 tab PO DAILY 10/10/22 10/10/22 tablet Previous Rx's Medication Instructions Recorded magnesium 250 mg tablet 250 mg PO DAILY #3 tabs 10/11/22 potassium chloride 10 mEq 10 meq PO DAILY #3 caps 10/11/22 capsule,extended release lorazepam 2 mg tablet (Ativan) 2 mg PO TID PRN alcohol withdrawal 11/18/22 #4 tabs Allergies Allergy/AdvReac Type Severity Reaction Status Date / Time No Known Allergies Allergy Verified 10/09/22 01:38 Review of Systems Review of Systems: Yes all other systems are reviewed and are negative [facility] Past Medical History Medical History Alcohol abuse Surgical History No pertinent past surgical history Family History Family History Other No family history of coronary artery disease Social History Social History Household Members: None Housing: Apartment Do you presently have visiting nurse or other home services: No Alcohol intake: current Alcohol intake frequency: a few times a week Alcohol type: hard liquor Patient Tobacco Use Status: Never used Tobacco service: No Current occupational status: unemployed Physical Exam ED Vital Signs: Vital Signs - 24 hr 11/18/22 08:08 11/18/22 08:21 11/18/22 10:16 Temperature 98.5 F 98.8 F 98.2 F Pulse Rate 88 92 105 H Respiratory Rate 16 20 16 Blood Pressure 130/93 H 122/83 105/56 L Pulse Oximetry 94 94 93 Oxygen Delivery Method Room Air Room Air Room Air 11/18/22 12:43 11/18/22 14:45 Temperature 98.3 F Pulse Rate 101 H 98 Respiratory Rate 20 18 Blood Pressure 92/54 L 111/73 Pulse Oximetry 93 96 Oxygen Delivery Method Room Air Room Air BMI result Body Mass Index 28.3 Appearance: Alert. Oriented X3. No acute distress. Smells of alcohol. Eyes: Pupils equal, round and reactive to light. ENT: Pharynx normal. Neck: Normal inspection. Neck supple. CVS: Normal heart rate and rhythm. Pulses normal. Respiratory: No respiratory distress. Breath sounds normal. Abdomen: Soft and nontender. +BS x4 Skin: Skin warm and dry. Normal skin color. Normal skin turgor. No rashes. Extremities: No lower extremity edema. Ecchymosis on right forearm. Neuro: Oriented X 3. No motor deficit. No sensory deficit. Pleasant and appropriate, intermittently slow to respond with slurred speech at times. Course Course Course Narrative: 32 yo female with history of ETOH abuse/dependence, hx withdrawal who recently spent 3 weeks at rehab presents to the ER intoxicated. Will get medical clearance labs and have recovery analyst see her. Reevaluation(s) Reevaluation #1: ETOH level 474. K slightly low, given oral KCl, motrin, zofran. Other labs showing mild transaminitis due to etoh abuse. Will place in physician observation. Physician observation started at 8:55am. 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 At the time observation was started patient's vital signs were stable. Patient is alert and oriented. Neuro exam is non-focal, intoxicated but pleasant. CV: RRR and lungs are clear. Will continue to monitor. Reevaluation #2: Patient is awake, alert, oriented and clinically sober. No bed available at the detox facility that she likes to go to. She reports that she is going to stay sober tonight and follow up with [facility] Ar[facility]. She is worried about withdrawal at home. Her last Ca was 9. Improved with Ativan. Will send 3 tablets of Ativan to her home so that she can manage her symptoms. She states she does not have any alcohol none, she drink at all this morning. She does not have a car to go get it, will were to get her Ativan. Motivation to stay sober is custody of her daughter. We discussed the importance of sobriety. Patient expressed understanding. She will follow-up with Day Garzon tomorrow. Medical Decision Making Differential Diagnosis Differential Diagnoses: The differential diagnosis associated with the presentation includes Alcohol intoxication, alcohol use disorder, alcohol withdrawal, polysubstance abuse, alcoholic hepatitis Admission/Observation Consideration of admission/observation: Escalation of care including admission/observation considered See only 9, improved with Ativan. Stable for discharge home with outpatient services. Consult Healthcare Provider Management of the patient was discussed with: Behavioral Health Provider Case discussed with Martha from recovery, she made appointments for [facility]. Lab Data MDM Lab Attestation statement: I reviewed the patient's lab results. Mild hypokalemia repleted orally, mild transaminitis, no evidence of acute alcoholic hepatitis 11/18/22 08:17 11/18/22 08:17 Labs: Lab Results 11/18/22 11/18/22 11/18/22 Range/Units 08:17 08:17 08:17 WBC 5.3 (4.8-10.8) X10*3/uL RBC 4.16 L (4.20-5.50) X10*6/uL Hgb 12.8 (12.0-16.0) g/dl Hct 36.6 L (37.0-47.0) % MCV 88.0 (80.0-98.0) fL MCH 30.8 (27.0-33.0) pg MCHC 35.0 (31.0-35.0) g/dl RDW 12.5 (11.0-16.0) % Plt Count 214 D (160-400) X10*3/uL MPV 9.0 L (9.4-12.3) fL Immature Gran % (Auto) 0.6 H (0.0-0.4) % Neut % (Auto) 23.7 L (45-73) % Lymph % (Auto) 64.4 H (20-40) % Harmon % (Auto) 10.1 (2-11) % Eos % (Auto) 0.6 (0-4) % Baso % (Auto) 0.6 (0-2) % Lymph # (Auto) 3.4 (1.2-4.9) X10*3/uL Harmon # (Auto) 0.5 (0.1-1.2) X10*3/uL Eos # (Auto) 0.0 (0.0-0.4) X10*3/uL Baso # (Auto) 0.0 (0.0-0.2) X10*3/uL Abs Immat Gran (auto) 0.03 (0.00-0.03) X10*3/uL Absolute Neuts (auto) 1.3 L (2.0-8.3) x10*3/uL Absolute Nucleated RBC 0.000 (0.0-0.012) X10*3/uL Nucleated RBC % (auto) 0.0 (0.0-0.2) /100WBC Smear Tech's Comments VERIFIED Sodium 141 (135-145) mmol/L Potassium 3.2 L (3.3-5.1) mmol/L Chloride 100 (96-108) mmol/L Carbon Dioxide 25 (22-29) mmol/L Anion Gap 19 (12-20) BUN 9 (9-16) mg/dL Creatinine 0.70 (0.5-1.4) mg/dL Estim Creat Clear Calc 117.3 Estimated GFR > 60 Random Glucose 112 (60-115) mg/dL Calcium 8.6 (8.4-10.2) mg/dL Magnesium 1.8 (1.6-2.6) mg/dL Total Bilirubin 0.3 (0.0-1.0) mg/dL Direct Bilirubin < 0.2 (0.0-0.5) mg/dL AST 49 H (5-31) U/L ALT 43 H (0-31) U/L Alkaline Phosphatase 75 (39-117) U/L Total Protein 7.1 (6.5-8.0) g/dL Albumin 4.2 (3.5-5.0) g/dL Urine Color Urine Appearance Urine pH (5.0-9.0) Ur Specific [place] (1.005-1.025) Urine Protein (Neg-Trace) mg/dL Urine Glucose (UA) (Negative) mg/dL Urine Ketones (Negative) mg/dL Urine Blood (Negative) Urine Nitrite (Negative) Ur Leukocyte Esterase (Negative) Urine RBC (0-2) /HPF Urine WBC (0-5) /HPF Ur Squamous Epith Cells (0-2) /HPF Urine Bacteria (None Seen) Hyaline Casts (0-2) /LPF Urine Test (NEGATIVE) Urine Opiates Screen (Not Detect) Urine Fentanyl Screen (Not Detect) Ur Barbiturates Screen (Not Detect) Ur Phencyclidine Scrn (Not Detect) Ur Amphetamines Screen (Not Detect) U Benzodiazepines Scrn (Not Detect) Urine Cocaine Screen (Not Detect) U Marijuana (THC) Screen (Not Detect) Ethyl Alcohol mg/dL COVID-19 (YAZ) Negative (Negative) COVID-19 Clin Com See Note 11/18/22 11/18/22 11/18/22 Range/Units 08:17 08:34 08:34 WBC (4.8-10.8) X10*3/uL RBC (4.20-5.50) X10*6/uL Hgb (12.0-16.0) g/dl Hct (37.0-47.0) % MCV (80.0-98.0) fL MCH (27.0-33.0) pg MCHC (31.0-35.0) g/dl RDW (11.0-16.0) % Plt Count (160-400) X10*3/uL MPV (9.4-12.3) fL Immature Gran % (Auto) (0.0-0.4) % Neut % (Auto) (45-73) % Lymph % (Auto) (20-40) % Harmon % (Auto) (2-11) % Eos % (Auto) (0-4) % Baso % (Auto) (0-2) % Lymph # (Auto) (1.2-4.9) X10*3/uL Harmon # (Auto) (0.1-1.2) X10*3/uL Eos # (Auto) (0.0-0.4) X10*3/uL Baso # (Auto) (0.0-0.2) X10*3/uL Abs Immat Gran (auto) (0.00-0.03) X10*3/uL Absolute Neuts (auto) (2.0-8.3) x10*3/uL Absolute Nucleated RBC (0.0-0.012) X10*3/uL Nucleated RBC % (auto) (0.0-0.2) /100WBC Smear Tech's Comments Sodium (135-145) mmol/L Potassium (3.3-5.1) mmol/L Chloride (96-108) mmol/L Carbon Dioxide (22-29) mmol/L Anion Gap (12-20) BUN (9-16) mg/dL Creatinine (0.5-1.4) mg/dL Estim Creat Clear Calc Estimated GFR Random Glucose (60-115) mg/dL Calcium (8.4-10.2) mg/dL Magnesium (1.6-2.6) mg/dL Total Bilirubin (0.0-1.0) mg/dL Direct Bilirubin (0.0-0.5) mg/dL AST (5-31) U/L ALT (0-31) U/L Alkaline Phosphatase (39-117) U/L Total Protein (6.5-8.0) g/dL Albumin (3.5-5.0) g/dL Urine Color Yellow Urine Appearance Clear Urine pH 6.5 (5.0-9.0) Ur Specific [place] 1.015 (1.005-1.025) Urine Protein 100 (2+) H (Neg-Trace) mg/dL Urine Glucose (UA) Negative (Negative) mg/dL Urine Ketones Trace (Negative) mg/dL Urine Blood Large (3+) H (Negative) Urine Nitrite Negative (Negative) Ur Leukocyte Esterase Trace H (Negative) Urine RBC 3-5 H (0-2) /HPF Urine WBC 0-5 (0-5) /HPF Ur Squamous Epith Cells 6-10 (0-2) /HPF Urine Bacteria None Seen (None Seen) Hyaline Casts 0-2 (0-2) /LPF Urine Test NEGATIVE (NEGATIVE) Urine Opiates Screen (Not Detect) Urine Fentanyl Screen (Not Detect) Ur Barbiturates Screen (Not Detect) Ur Phencyclidine Scrn (Not Detect) Ur Amphetamines Screen (Not Detect) U Benzodiazepines Scrn (Not Detect) Urine Cocaine Screen (Not Detect) U Marijuana (THC) Screen (Not Detect) Ethyl Alcohol 474 H* mg/dL COVID-19 (YAZ) (Negative) COVID-19 Clin Com 11/18/22 Range/Units 08:34 WBC (4.8-10.8) X10*3/uL RBC (4.20-5.50) X10*6/uL Hgb (12.0-16.0) g/dl Hct (37.0-47.0) % MCV (80.0-98.0) fL MCH (27.0-33.0) pg MCHC (31.0-35.0) g/dl RDW (11.0-16.0) % Plt Count (160-400) X10*3/uL MPV (9.4-12.3) fL Immature Gran % (Auto) (0.0-0.4) % Neut % (Auto) (45-73) % Lymph % (Auto) (20-40) % Harmon % (Auto) (2-11) % Eos % (Auto) (0-4) % Baso % (Auto) (0-2) % Lymph # (Auto) (1.2-4.9) X10*3/uL Harmon # (Auto) (0.1-1.2) X10*3/uL Eos # (Auto) (0.0-0.4) X10*3/uL Baso # (Auto) (0.0-0.2) X10*3/uL Abs Immat Gran (auto) (0.00-0.03) X10*3/uL Absolute Neuts (auto) (2.0-8.3) x10*3/uL Absolute Nucleated RBC (0.0-0.012) X10*3/uL Nucleated RBC % (auto) (0.0-0.2) /100WBC Smear Tech's Comments Sodium (135-145) mmol/L Potassium (3.3-5.1) mmol/L Chloride (96-108) mmol/L Carbon Dioxide (22-29) mmol/L Anion Gap (12-20) BUN (9-16) mg/dL Creatinine (0.5-1.4) mg/dL Estim Creat Clear Calc Estimated GFR Random Glucose (60-115) mg/dL Calcium (8.4-10.2) mg/dL Magnesium (1.6-2.6) mg/dL Total Bilirubin (0.0-1.0) mg/dL Direct Bilirubin (0.0-0.5) mg/dL AST (5-31) U/L ALT (0-31) U/L Alkaline Phosphatase (39-117) U/L Total Protein (6.5-8.0) g/dL Albumin (3.5-5.0) g/dL Urine Color Urine Appearance Urine pH (5.0-9.0) Ur Specific [place] (1.005-1.025) Urine Protein (Neg-Trace) mg/dL Urine Glucose (UA) (Negative) mg/dL Urine Ketones (Negative) mg/dL Urine Blood (Negative) Urine Nitrite (Negative) Ur Leukocyte Esterase (Negative) Urine RBC (0-2) /HPF Urine WBC (0-5) /HPF Ur Squamous Epith Cells (0-2) /HPF Urine Bacteria (None Seen) Hyaline Casts (0-2) /LPF Urine Test (NEGATIVE) Urine Opiates Screen Not Detected (Not Detect) Urine Fentanyl Screen Not Detected (Not Detect) Ur Barbiturates Screen Not Detected (Not Detect) Ur Phencyclidine Scrn Not Detected (Not Detect) Ur Amphetamines Screen Not Detected (Not Detect) U Benzodiazepines Scrn POSITIVE H (Not Detect) Urine Cocaine Screen Not Detected (Not Detect) U Marijuana (THC) Screen Not Detected (Not Detect) Ethyl Alcohol mg/dL COVID-19 (YAZ) (Negative) COVID-19 Clin Com External Record Review External record reviewed: Office record, Outpatient record and Prior outpatient radiology Prescription Management I considered prescription management with: Other (Anxiolytics, benzodiazepines for alcohol withdrawal) Chronic Conditions Patient?s care impacted by: Other (Alcohol use disorder) Social Determinants Patient?s care significantly limited by Social Determinants of Health including: Alcoholism and drug addiction in family Medications Administered Discontinued Medications Generic Name Dose Route Start Last Admin Trade Name Freq PRN Reason Stop Dose Admin Ibuprofen 600 mg 11/18/22 08:03 11/18/22 08:24 Ibuprofen 600 Mg Tablet PO 11/18/22 08:04 600 mg ONCE ONE Administration Lorazepam 1 mg 11/18/22 14:30 11/18/22 14:46 Lorazepam 1 Mg Tablet PO 11/18/22 14:31 1 mg ONCE ONE Administration Ondansetron HCl 4 mg 11/18/22 08:03 11/18/22 08:24 Ondansetron Odt 4 Mg Tab.Rapdis TRANSLINGU 11/18/22 08:04 4 mg ONCE ONE Administration Potassium Chloride 40 meq 11/18/22 08:55 11/18/22 09:18 Potassium Chloride Er 20 Meq Tab.Er.Prt PO 11/18/22 08:56 40 meq ONCE ONE Administration Critical Care Time Critical Care Time Critical Care Time: No Discharge Plan Discharge Clinical Impression: Alcoholic intoxication, Transaminitis, Acute hypokalemia Patient Disposition: Home, Self-Care Instructions: Alcohol Use Disorder (ED) Additional Instructions: Do not drink alcohol. Take the prescribed Ativan as needed for withdrawal symptoms. Go to your appointment tomorrow with Day Garzon at [facility]. Prescriptions: New lorazepam [Ativan] 2 mg tablet 2 mg PO TID PRN (Reason: alcohol withdrawal) Qty: 4 0RF No Action acetaminophen 325 mg tablet 650 mg PO Q6H PRN (Reason: Pain) thiamine HCl (vitamin B1) 100 mg tablet 1 tab PO DAILY folic acid 1 mg tablet 1 tab PO DAILY Therapeutic-M 9 mg iron-400 mcg tablet 1 tab PO DAILY escitalopram oxalate 10 mg tablet 1 tab PO DAILY potassium chloride 10 mEq capsule, extended release 10 meq PO DAILY Qty: 3 0RF magnesium 250 mg tablet 250 mg PO DAILY Qty: 3 0RF Referrals: No Tavares NP [Primary Care Provider] - Interventions: [place]-Suicide Risk Severity Scale Last Done: 11/18/22 15:23
[2022-11-18 08:08] VITALS: BP 123/82; BP 130/93; PULSE 86; PULSE 88; RESP 16; TEMP 36.9; O2SAT 94; O2SAT 95; BMI 28.3
[2022-11-18 08:21] VITALS: BP 122/83; PULSE 92; RESP 20; TEMP 37.1; O2SAT 94
[2022-11-18] MEDS: Ondansetron ODT 4 MG TAB.RAPDIS TRANSLINGU (08:24)
[2022-11-18] MEDS: Ibuprofen 600 MG TABLET PO (08:24)
[2022-11-18 08:36] LABS: Basophils Percent Auto 0.6 % (0-2); Eosinophils Percent Auto 0.6 % (0-4); Hematocrit 36.6 % (37.0-47.0); Hemoglobin 12.8 g/dl (12.0-16.0); Imm Gran Abs Auto 0.03 X10*3/uL (0.00-0.03); Imm Gran Pct Auto 0.6 % (0.0-0.4); Lymphocytes Absolute Auto 3.4 X10*3/uL (1.2-4.9); Lymphocytes Percent Auto 64.4 % (20-40); MANUAL DIFF FLAG SCAN; Mean Corpuscular Hemoglobin 30.8 pg (27.0-33.0); Monocytes Absolute Auto 0.5 X10*3/uL (0.1-1.2); Monocytes Percent Auto 10.1 % (2-11); Neutrophils Absolute Auto 1.3 x10*3/uL (2.0-8.3); Neutrophils Percent Auto 23.7 % (45-73); Platelet Count 214 X10*3/uL (160-400); Red Blood Count 4.16 X10*6/uL (4.20-5.50); Red Cell Distribution Width 12.5 % (11.0-16.0); SCAN SMEAR FLAG 1; White Blood Count 5.3 X10*3/uL (4.8-10.8)
[2022-11-18 08:44] LABS: Appearance Urine Clear; Color Urine Yellow; Glucose Urine UA Negative (Negative); Leukocyte Esterase Urine Trace (Negative); Nitrite Urine Negative (Negative); PH 6.5 (5.0-9.0); Specific Gravity - Urine 1.015 (1.005-1.025); UMIC TRIGGER UACC YES; Urine Blood Large (3+) (Negative); Urine Ketones Trace mg/dL (Negative); Urine Protein 100 (2+) mg/dL (Neg-Trace)
[2022-11-18 08:46] LABS: UPreg QC Valid YES; Urine Pregnancy NEGATIVE (NEGATIVE)
[2022-11-18 08:52] LABS: Alanine Aminotransferase 43 U/L (0-31); Albumin Level 4.2 g/dL (3.5-5.0); Alkaline Phosphatase 75 U/L (39-117); Anion Gap 19 (12-20); Aspartate Amino Transferase 49 U/L (5-31); Bilirubin Direct < 0.2 mg/dL (0.0-0.5); Bilirubin Total 0.3 mg/dL (0.0-1.0); Blood Urea Nitrogen 9 mg/dL (9-16); Calcium 8.6 mg/dL (8.4-10.2); Carbon Dioxide 25 mmol/L (22-29); Chloride 100 mmol/L (96-108); Creatinine Clr Calc Pharmacy 117.3; Estimated Glomerular Filt Rate > 60; Ethanol 474 mg/dL; Glucose Random 112 mg/dL (60-115); Magnesium 1.8 mg/dL (1.6-2.6); Potassium 3.2 mmol/L (3.3-5.1); Sodium 141 mmol/L (135-145); Total Protein 7.1 g/dL (6.5-8.0)
[2022-11-18 08:54] LABS: Bacteria Urine None Seen (None Seen); Hyaline Casts Urine 0-2 /LPF (0-2); WBC Urine 0-5 /HPF (0-5)
[2022-11-18 08:55] LABS: COVID-19 Test Negative (Negative); IDNOW Serial# 9DB6401D; SLIDE REVIEW VERIFIED
[2022-11-18 08:55] LABS: Amphetamine Screen Urine Not Detected (Not Detect); Barbiturates, Urine Not Detected (Not Detect); Benzodiazepines Screen Urine POSITIVE (Not Detect); Cannabinoid Screen Urine Not Detected (Not Detect); Cocaine Screen Urine Not Detected (Not Detect); Fentanyl, urine Not Detected (Not Detect); Opiate Screen Urine Not Detected (Not Detect); Phencyclidine Screen Urine Not Detected (Not Detect)
[2022-11-18] MEDS: Potassium Chloride ER 20 MEQ TAB.ER.PRT 40 MEQ PO (09:18)
--- NOTE | 2022-11-18 09:22 | MHC.RECOVRN ---
Met with pt in ED8 to discuss alcohol use and discharge plan. Pt is only intersted in [facility], however, no bed available. Pt reports having been discharged from [facility] about 5 days ago. Discussed recovery resources and supports, pt reports having a naltrexone prescription at home, becomes tearful and states states I've been too scared to start it. Educated pt regarding [facility], pt interested in intake appt. Appt made at the [facility] for 2:15PM on 11/19/22. Pt provided with [facility] information and t/w contact information if needed. ED provider aware.
--- NOTE | 2022-11-18 09:46 | PC.NURSE ---
Patient sleeping no distress noted
[2022-11-18 10:16] VITALS: BP 105/56; PULSE 105; RESP 16; TEMP 36.8; O2SAT 93
--- NOTE | 2022-11-18 12:30 | PC.NURSE ---
Patient sleeping easily aroused will CTM
[2022-11-18 12:43] VITALS: BP 92/54; PULSE 101; RESP 20; TEMP 36.8; O2SAT 93
--- NOTE | 2022-11-18 12:52 | PC.NURSE ---
Patient awake ambulatory to bathroom with steady independent gait
--- NOTE | 2022-11-18 13:40 | PC.NURSE ---
Patient sleeping easily aroused continues to feel unwell per patient some nausea no vomiting headache upset stomach will CTM
[2022-11-18 14:45] VITALS: BP 111/73; PULSE 98; RESP 18; O2SAT 96
[2022-11-18] MEDS: LORazepam 1 MG TABLET PO (14:46)
--- NOTE | 2022-11-18 15:20 | PC.NURSE ---
Patient reports that she doesnt fell
--- NOTE | 2022-11-18 15:21 | PC.NURSE ---
Patient sleeping easily aroused reports minimal improvement post ativan
[2022-11-18] MEDS: LORazepam 1 MG TABLET 2 MG PO (16:35)
[2022-11-18 16:36] VITALS: BP 133/82; PULSE 105; RESP 18; O2SAT 95
== END 2022-11-18 16:50 | disposition home or self-care (01) ==
PROVIDERS: Physician Assistant; Emergency Provider Student in an Organized Health Care Education/Training Program; PCP Nurse Practitioner Family
DX: F10.129 Alcohol abuse with intoxication, unspecified (principal); E87.6 Hypokalemia; R74.01 Elevation of levels of liver transaminase levels; Y90.8 Blood alcohol level of 240 mg/100 ml or more; Z20.828 Contact with and (suspected) exposure to other viral communicable diseases; Z20.822 Contact with and (suspected) exposure to COVID-19; Z79.899 Other long term (current) drug therapy
CPT/HCPCS: 80048; 80076; 80307; 81001; 81025; 82077; 83735; 85025; 87635; 99284

== ENCOUNTER 2022-11-18 20:53 | Emergency (ER) | payer OTHER, SELFPAY ==
[2022-11-18 21:03] VITALS: BP 123/85; PULSE 101; RESP 20; TEMP 37.1; O2SAT 93
[2022-11-18 21:06] VITALS: BP 139/91; PULSE 100; O2SAT 95; BMI 32.3
--- NOTE | 2022-11-18 21:37 | ED_ITS ---
HPI - Alcohol General Chief Complaint: ETOH/Substance Use Stated Complaint: Etoh Time Seen by Provider: 11/18/22 21:04 Source: patient and EMS Mode of arrival: EMS Limitations: no limitations History of Present Illness HPI narrative: Patient comes to the emergency room via ambulance complaining of alcohol intoxication. Patient was discharged this morning for the same reason. Patient states that she went home, had more alcohol to drink. PD was called, EMS brought the patient. Patient states that she feels well, patient requesting food, states she has not eaten since this morning. Denies nausea vomiting or diarrhea at this time. Related Data Home Medications Medication Instructions Recorded Confirmed acetaminophen 325 mg tablet 650 mg PO Q6H PRN Pain 10/10/22 10/10/22 escitalopram oxalate 10 mg tablet 1 tab PO DAILY 10/10/22 10/10/22 folic acid 1 mg tablet 1 tab PO DAILY 10/10/22 10/10/22 multivitamin-iron 9 mg-folic acid 1 tab PO DAILY 10/10/22 10/10/22 400 mcg-calcium and minerals tablet (Therapeutic-M) thiamine HCl (vitamin B1) 100 mg 1 tab PO DAILY 10/10/22 10/10/22 tablet Previous Rx's Medication Instructions Recorded magnesium 250 mg tablet 250 mg PO DAILY #3 tabs 10/11/22 potassium chloride 10 mEq 10 meq PO DAILY #3 caps 10/11/22 capsule,extended release lorazepam 2 mg tablet (Ativan) 2 mg PO TID PRN alcohol withdrawal 11/18/22 #4 tabs Allergies Allergy/AdvReac Type Severity Reaction Status Date / Time No Known Allergies Allergy Verified 10/09/22 01:38 Review of Systems Review of Systems: Constitutional : No Weight loss, No Fever, No Chills, No Night Sweats, No Fatigue, No Malaise ENT/Mouth : No Hearing loss, No Ear Pain, No Nasal Congestion, No Sinus Pain, No Hoarseness, No sore throat, No Rhinorrhea, No Swallowing Difficulty Eyes: No Eye Pain, No Swelling, No Redness, No Foreign Body, No Discharge, No Vision Changes Cardiovascular : No Chest Pain, No SOB, No Dyspnea on Exertion, No Orthopnea, No Edema, No Palpitations Respiratory : No Cough, No Sputum, No Wheezing, No Smoke Exposure, No Dyspnea Gastrointestinal : No Nausea, No Vomiting, No Diarrhea, No Constipation, No abdominal Pain, No Hematochezia, No Melena Genitourinary : no irregular bleeding, No Dysuria, No Urinary Frequency, No Hematuria, No Urinary Incontinence, No Urgency, No Flank Pain, No Urinary Flow Changes, No Hesitancy Musculoskeletal : No joint pain, No Myalgias, No Joint Swelling Skin : No Skin Lesions, No rash Neuro : No Weakness, No Numbness, No Paresthesias, No Loss of Consciousness, No Dizziness, No Headache Psych : No Anxiety/Panic, No Depression, No SI/HI/AH/VH, admits to drinking alcohol Heme/Lymph: No Bruising, No Bleeding,No Lymphadenopathy Endocrine : No Polyuria, No Polydipsia, No Temperature Intolerance [facility] Past Medical History Medical History Alcohol abuse Surgical History No pertinent past surgical history Family History Family History Other No family history of coronary artery disease Social History Social History Household Members: None Housing: Apartment Do you presently have visiting nurse or other home services: No Alcohol intake: current Alcohol intake frequency: 3 or more drinks per day Alcohol type: hard liquor Patient Tobacco Use Status: Never used Tobacco Smoked in Last 30 Days: No Use of substances other than those prescribed or required for medical reasons: No Advance Directives: No Advance Directives Information Provided: No service: No Current occupational status: unemployed Physical Exam ED Vital Signs: Vital Signs - 24 hr 11/18/22 21:03 11/18/22 23:32 Temperature 98.8 F 98.2 F Pulse Rate 101 H 98 Respiratory Rate 20 19 Blood Pressure 123/85 117/80 Pulse Oximetry 93 94 Oxygen Delivery Method Room Air Room Air BMI result Body Mass Index 32.3 Const Other: Appearance: Alert. Oriented X3. No acute distress. Normal speech, not slurry Eyes: Pupils equal, round and reactive to light. ENT: Pharynx normal. Neck: Normal inspection. Neck supple. No lymph nodes noted. No crepitus CVS: Normal heart rate and rhythm. Pulses normal. Normal S1 and S2 Respiratory: No respiratory distress. Breath sounds normal. No Wheezing. No rales Abdomen: Soft and nontender. No rigidity. No distention. Skin: Skin warm and dry. Normal skin color. Normal skin turgor. Extremities: No lower extremity edema. No Lacerations. No Rash Neuro: Oriented X 3. No motor deficit. No sensory deficit. Moving all extremities. No slurred speech. CN 2 through 12 grossly intact Psych: calm, cooperative, normal affect Course Course Course Narrative: -this morning, patient's potassium was slightly decreased and was repleted. We will go ahead and check it again. -chemical recovery operator is aware of the patient, now at bedside. Medical Decision Making Medical Decision Making [facility] Narrative: -patient was seen by the chemical recovery operator. Patient has an appointment at [facility] tomorrow morning. -plan: Metabolic to [facility] and discharge -patient not suicidal homicidal -physician of [facility] started at 00:20 -sign out given to Dr. Dawson Differential Diagnosis Differential Diagnoses: The differential diagnosis associated with the presentation includes (Alcohol intoxication, alcohol dependence) Lab Data 11/18/22 21:58 11/18/22 21:58 Labs: Lab Results 11/18/22 11/18/22 11/18/22 Range/Units 21:58 21:58 21:58 WBC 4.9 (4.8-10.8) X10*3/uL RBC 4.15 L (4.20-5.50) X10*6/uL Hgb 12.8 (12.0-16.0) g/dl Hct 36.6 L (37.0-47.0) % MCV 88.2 (80.0-98.0) fL MCH 30.8 (27.0-33.0) pg MCHC 35.0 (31.0-35.0) g/dl RDW 12.6 (11.0-16.0) % Plt Count 221 (160-400) X10*3/uL MPV 9.1 L (9.4-12.3) fL Immature Gran % (Auto) 0.2 (0.0-0.4) % Neut % (Auto) 22.8 L (45-73) % Lymph % (Auto) 67.1 H (20-40) % [place] % (Auto) 8.9 (2-11) % Eos % (Auto) 0.4 (0-4) % Baso % (Auto) 0.6 (0-2) % Lymph # (Auto) 3.3 (1.2-4.9) X10*3/uL [place] # (Auto) 0.4 (0.1-1.2) X10*3/uL Eos # (Auto) 0.0 (0.0-0.4) X10*3/uL Baso # (Auto) 0.0 (0.0-0.2) X10*3/uL Abs Immat Gran (auto) 0.01 (0.00-0.03) X10*3/uL Absolute Neuts (auto) 1.1 L (2.0-8.3) x10*3/uL Absolute Nucleated RBC 0.000 (0.0-0.012) X10*3/uL Nucleated RBC % (auto) 0.0 (0.0-0.2) /100WBC Sodium 144 (135-145) mmol/L Potassium 3.2 L (3.3-5.1) mmol/L Chloride 103 (96-108) mmol/L Carbon Dioxide 25 (22-29) mmol/L Anion Gap 19 (12-20) BUN 6 L (9-16) mg/dL Creatinine 0.70 (0.5-1.4) mg/dL Estim Creat Clear Calc 125.4 Estimated GFR > 60 Random Glucose 102 (60-115) mg/dL Calcium 8.9 (8.4-10.2) mg/dL Total Bilirubin 0.4 (0.0-1.0) mg/dL Direct Bilirubin 0.2 (0.0-0.5) mg/dL AST 52 H (5-31) U/L ALT 47 H (0-31) U/L Alkaline Phosphatase 73 (39-117) U/L Total Protein 7.2 (6.5-8.0) g/dL Albumin 4.3 (3.5-5.0) g/dL Urine Opiates Screen (Not Detect) Urine Fentanyl Screen (Not Detect) Ur Barbiturates Screen (Not Detect) Ur Phencyclidine Scrn (Not Detect) Ur Amphetamines Screen (Not Detect) U Benzodiazepines Scrn (Not Detect) Urine Cocaine Screen (Not Detect) U Marijuana (THC) Screen (Not Detect) Ethyl Alcohol 422 H* mg/dL 11/18/22 Range/Units 23:43 WBC (4.8-10.8) X10*3/uL RBC (4.20-5.50) X10*6/uL Hgb (12.0-16.0) g/dl Hct (37.0-47.0) % MCV (80.0-98.0) fL MCH (27.0-33.0) pg MCHC (31.0-35.0) g/dl RDW (11.0-16.0) % Plt Count (160-400) X10*3/uL MPV (9.4-12.3) fL Immature Gran % (Auto) (0.0-0.4) % Neut % (Auto) (45-73) % Lymph % (Auto) (20-40) % [place] % (Auto) (2-11) % Eos % (Auto) (0-4) % Baso % (Auto) (0-2) % Lymph # (Auto) (1.2-4.9) X10*3/uL [place] # (Auto) (0.1-1.2) X10*3/uL Eos # (Auto) (0.0-0.4) X10*3/uL Baso # (Auto) (0.0-0.2) X10*3/uL Abs Immat Gran (auto) (0.00-0.03) X10*3/uL Absolute Neuts (auto) (2.0-8.3) x10*3/uL Absolute Nucleated RBC (0.0-0.012) X10*3/uL Nucleated RBC % (auto) (0.0-0.2) /100WBC Sodium (135-145) mmol/L Potassium (3.3-5.1) mmol/L Chloride (96-108) mmol/L Carbon Dioxide (22-29) mmol/L Anion Gap (12-20) BUN (9-16) mg/dL Creatinine (0.5-1.4) mg/dL Estim Creat Clear Calc Estimated GFR Random Glucose (60-115) mg/dL Calcium (8.4-10.2) mg/dL Total Bilirubin (0.0-1.0) mg/dL Direct Bilirubin (0.0-0.5) mg/dL AST (5-31) U/L ALT (0-31) U/L Alkaline Phosphatase (39-117) U/L Total Protein (6.5-8.0) g/dL Albumin (3.5-5.0) g/dL Urine Opiates Screen Not Detected (Not Detect) Urine Fentanyl Screen Not Detected (Not Detect) Ur Barbiturates Screen Not Detected (Not Detect) Ur Phencyclidine Scrn Not Detected (Not Detect) Ur Amphetamines Screen Not Detected (Not Detect) U Benzodiazepines Scrn Not Detected (Not Detect) Urine Cocaine Screen Not Detected (Not Detect) U Marijuana (THC) Screen Not Detected (Not Detect) Ethyl Alcohol mg/dL Medications Administered Discontinued Medications Generic Name Dose Route Start Last Admin Trade Name Freq PRN Reason Stop Dose Admin Potassium Chloride 40 meq 11/18/22 22:34 11/18/22 23:25 Potassium Chloride Packet 20 Meq Packet PO 11/18/22 22:35 40 meq ONCE ONE Administration Discharge Plan Discharge Clinical Impression: Alcohol abuse Patient Disposition: Home, Self-Care Instructions: Abuse of Alcohol (ED) Additional Instructions: Please follow-up with your primary care physician tomorrow. If you have any worsening or new symptoms, please return to the emergency room or call 911 Prescriptions: No Action acetaminophen 325 mg tablet 650 mg PO Q6H PRN (Reason: Pain) thiamine HCl (vitamin B1) 100 mg tablet 1 tab PO DAILY folic acid 1 mg tablet 1 tab PO DAILY Therapeutic-M 9 mg iron-400 mcg tablet 1 tab PO DAILY escitalopram oxalate 10 mg tablet 1 tab PO DAILY potassium chloride 10 mEq capsule, extended release 10 meq PO DAILY Qty: 3 0RF magnesium 250 mg tablet 250 mg PO DAILY Qty: 3 0RF lorazepam [Ativan] 2 mg tablet 2 mg PO TID PRN (Reason: alcohol withdrawal) Qty: 4 0RF Interventions: [facility]-Suicide Risk Severity Scale Last Done: 11/18/22 21:10
--- NOTE | 2022-11-18 21:40 | MHC.RECOVSUP ---
? Reason for consult:ETOH o? Current location:ED18? o? Identified substance use concern:? -? Support ? Intervention: o? MAT started or to be started o? Community resources provided o? Harm reduction discussion ? Plan: o? Follow up tomorrow? ? Additional information:[facility] met with pt and provided her with [facility] card and pamphlet for [facility] services, pt states she has an appointment with [facility] tomorrow.
[2022-11-18 22:02] LABS: MANUAL DIFF FLAG NO
[2022-11-18 22:04] LABS: Basophils Percent Auto 0.6 % (0-2); Eosinophils Percent Auto 0.4 % (0-4); Hematocrit 36.6 % (37.0-47.0); Hemoglobin 12.8 g/dl (12.0-16.0); Imm Gran Abs Auto 0.01 X10*3/uL (0.00-0.03); Imm Gran Pct Auto 0.2 % (0.0-0.4); Lymphocytes Absolute Auto 3.3 X10*3/uL (1.2-4.9); Lymphocytes Percent Auto 67.1 % (20-40); Mean Corpuscular Hemoglobin 30.8 pg (27.0-33.0); Mean Corpuscular Volume 88.2 fL (80.0-98.0); Mean Platelet Volume 9.1 fL (9.4-12.3); Monocytes Absolute Auto 0.4 X10*3/uL (0.1-1.2); Monocytes Percent Auto 8.9 % (2-11); Neutrophils Absolute Auto 1.1 x10*3/uL (2.0-8.3); Neutrophils Percent Auto 22.8 % (45-73); Platelet Count 221 X10*3/uL (160-400); Red Blood Count 4.15 X10*6/uL (4.20-5.50); Red Cell Distribution Width 12.6 % (11.0-16.0); SCAN SMEAR FLAG 1; White Blood Count 4.9 X10*3/uL (4.8-10.8)
[2022-11-18 22:16] LABS: Ethanol 422 mg/dL
[2022-11-18 22:19] LABS: Alanine Aminotransferase 47 U/L (0-31); Albumin Level 4.3 g/dL (3.5-5.0); Alkaline Phosphatase 73 U/L (39-117); Anion Gap 19 (12-20); Aspartate Amino Transferase 52 U/L (5-31); Bilirubin Direct 0.2 mg/dL (0.0-0.5); Bilirubin Total 0.4 mg/dL (0.0-1.0); Blood Urea Nitrogen 6 mg/dL (9-16); Calcium 8.9 mg/dL (8.4-10.2); Carbon Dioxide 25 mmol/L (22-29); Chloride 103 mmol/L (96-108); Creatinine Clr Calc Pharmacy 125.4; Estimated Glomerular Filt Rate > 60; Glucose Random 102 mg/dL (60-115); Potassium 3.2 mmol/L (3.3-5.1); Sodium 144 mmol/L (135-145); Total Protein 7.2 g/dL (6.5-8.0)
[2022-11-18] MEDS: Potassium Chloride Packet 20 MEQ PACKET 40 MEQ PO (23:25)
[2022-11-18 23:32] VITALS: BP 117/80; PULSE 98; RESP 19; TEMP 36.8; O2SAT 94
[2022-11-18 23:59] LABS: Amphetamine Screen Urine Not Detected (Not Detect); Barbiturates, Urine Not Detected (Not Detect); Benzodiazepines Screen Urine Not Detected (Not Detect); Cannabinoid Screen Urine Not Detected (Not Detect); Cocaine Screen Urine Not Detected (Not Detect); Fentanyl, urine Not Detected (Not Detect); Opiate Screen Urine Not Detected (Not Detect); Phencyclidine Screen Urine Not Detected (Not Detect)
[2022-11-19] MEDS: LORazepam 1 MG TABLET 2 MG PO (01:13)
[2022-11-19 01:19] VITALS: BP 121/79; PULSE 97; RESP 16; O2SAT 94
--- NOTE | 2022-11-19 01:19 | PC.NURSE ---
Pt. alert and oriented, reporting moderate anxiety and slight nausea. Pt. scores a 5 on the CIWA scale. Previous score was 2. Pt. had a high etoh level upon arrival. Pt. also reports anxiety over her kids. Pt. medicated with ativan per DEC. Pt. requesting gingerale and food. Provided both to her. Will continue to monitor.
--- NOTE | 2022-11-19 01:37 | MHC.EDTECH ---
PT given a sandwich and Gingerale to eat
--- NOTE | 2022-11-19 02:20 | PC.NURSE ---
Pt. currently sleeping, respirations even and unlabored. No distress noted. Pt. remains on hospital monitor d/t low potassium level. Pt. was medicated previously with PO potassium.
[2022-11-19 05:26] VITALS: BP 121/77; PULSE 105; RESP 20; O2SAT 93
--- NOTE | 2022-11-19 06:13 | PC.NURSE ---
Pt. sleeping, respirations even and unlabored, no distress noted. Will continue to monitor.
[2022-11-19] MEDS: chlordiazePOXIDE HCl 25 MG CAPSULE PO (08:03)
[2022-11-19] MEDS: Ondansetron ODT 4 MG TAB.RAPDIS TRANSLINGU (08:03)
[2022-11-19 10:48] VITALS: BP 128/86; PULSE 110; RESP 16; TEMP 37.2; O2SAT 95
--- NOTE | 2022-11-19 11:44 | MHC.RECOVRN ---
Met with pt in ED18 to discuss discharge plan. Pt laying in bed, on her phone, reporting feeling clammy and not good. Discussed possibility of ATS level of care, pt states I can't go until Tuesday. Pt has appt today at 2PM at the [facility]. Pt still interested in following up with the [facility]. Discussed with Day Garzon APRN. Plan for pt to call to reschedule [facility] appt until more appropriate for outpatient level of care. Pt encouraged to call after ATS or when discharge planning at [facility]. Pt provided with t/w and [facility] contact information. Denies questions or concerns. RN aware.
== END 2022-11-19 12:32 | disposition home or self-care (01) ==
PROVIDERS: Emergency Provider Emergency Medicine; PCP Nurse Practitioner Family
DX: F10.129 Alcohol abuse with intoxication, unspecified (principal); Y90.8 Blood alcohol level of 240 mg/100 ml or more; Z79.899 Other long term (current) drug therapy
CPT/HCPCS: 36415; 80048; 80076; 80307; 82077; 85025; 99284; 99285

== ENCOUNTER 2022-11-19 21:39 | Emergency (ER) | payer OTHER, SELFPAY ==
[2022-11-19 21:50] VITALS: BP 140/92; PULSE 98; O2SAT 97; BMI 46.5
--- NOTE | 2022-11-19 21:56 | ED_ITS ---
HPI - Alcohol General Chief Complaint: ETOH/Substance Use Stated Complaint: ETOH Time Seen by Provider: 11/19/22 21:56 Source: patient and EMS Mode of arrival: EMS Limitations: no limitations History of Present Illness HPI narrative: 32-year-old female presents via EMS for ETOH intoxication and for detox placement. MD complaint: alcohol intoxication, alcohol dependence and desires rehab Last drink: Just prior to admission Chronic alcohol use: Yes Previous visits for alcohol intoxication: Yes Recent trauma: No Associated symptoms: denies other symptoms Treatments prior to arrival: none Related Data Home Medications Medication Instructions Recorded Confirmed acetaminophen 325 mg tablet 650 mg PO Q6H PRN Pain 10/10/22 10/10/22 escitalopram oxalate 10 mg tablet 1 tab PO DAILY 10/10/22 10/10/22 folic acid 1 mg tablet 1 tab PO DAILY 10/10/22 10/10/22 multivitamin-iron 9 mg-folic acid 1 tab PO DAILY 10/10/22 10/10/22 400 mcg-calcium and minerals tablet (Therapeutic-M) thiamine HCl (vitamin B1) 100 mg 1 tab PO DAILY 10/10/22 10/10/22 tablet Previous Rx's Medication Instructions Recorded magnesium 250 mg tablet 250 mg PO DAILY #3 tabs 10/11/22 potassium chloride 10 mEq 10 meq PO DAILY #3 caps 10/11/22 capsule,extended release lorazepam 2 mg tablet (Ativan) 2 mg PO TID PRN alcohol withdrawal 11/18/22 #4 tabs Allergies Allergy/AdvReac Type Severity Reaction Status Date / Time No Known Allergies Allergy Verified 10/09/22 01:38 Review of Systems Review of Systems: Constitutional: No Fever, No Chills Cardiovascular: No Chest Pain, No SOB Respiratory: No Cough, No Dyspnea Gastrointestinal: No Nausea, No Vomiting, No Diarrhea, No abdominal Pain Genitourinary: No Dysuria, No Hematuria Musculoskeletal: No joint pain, No Myalgias, No Joint Swelling Skin: No Skin lacerations, No rash Neuro: No Weakness, No Numbness, No Paresthesias, No Loss of Consciousness, No Dizziness, No Headache Psych: Positive alcohol intoxication and abuse, No Anxiety/Panic, No Depression Yes all other systems are reviewed and are negative PMFSH Past Medical History Attestation statement: The following information was validated with the patient. Source: old records reviewed Medical History Alcohol abuse Surgical History No pertinent past surgical history Family History Family History Other No family history of coronary artery disease Social History Social History Household Members: None Housing: Apartment Do you presently have visiting nurse or other home services: No Alcohol intake: current Alcohol intake frequency: 3 or more drinks per day Alcohol type: hard liquor Patient Tobacco Use Status: Never used Tobacco Smoked in Last 30 Days: No Use of substances other than those prescribed or required for medical reasons: No Advance Directives: No Advance Directives Information Provided: No service: No Current occupational status: unemployed Physical Exam ED Vital Signs: Vital Signs - 24 hr 11/19/22 23:40 Temperature 97.8 F Pulse Rate 93 Respiratory Rate 16 Blood Pressure 107/59 L Pulse Oximetry 95 Oxygen Delivery Method Room Air BMI result Body Mass Index 46.5 Appearance: Alert. Oriented X3. Moderate distress. Intoxicated. Eyes: Pupils equal, round and reactive to light. ENT: Pharynx normal. Neck: Normal inspection. Neck supple. CVS: Normal heart rate and rhythm. Pulses normal. Respiratory: No respiratory distress. Breath sounds normal. Abdomen: Soft and nontender. Skin: Skin warm and dry. Normal skin color. Normal skin turgor. Extremities: No lower extremity edema. Gait not assessed for safety. Neuro: No motor deficit. No sensory deficit. Cranial nerves 2-12 intact Course Course Course Narrative: 32-year-old female presents via EMS for alcohol dependency with withdrawal symptoms. Patient states to drink 40 nips per day and has been doing so for the past several weeks. She was evaluated here yesterday for ETOH intoxication. Patient is requesting detox at this time. Recovery team is not available, will order care team evaluation for detox placement. Will order CIWA Q 2, will medicate as needed. Upon presentation, patient is intoxicated, is not reporting any withdrawal symptoms at this time. Midnight blood alcohol level 430. will not be sober until the morning, care team will evaluate at that time. Patient will be pending detox. Physician observation started at this time. CIWA Q 2, Ativan p.r.n. Q 2 as needed for CIWA score. 01:26 sign-out to Dr. Ross. Medical Decision Making Differential Diagnosis Differential Diagnoses: The differential diagnosis associated with the presentation includes ETOH intoxication, ETOH abuse Consult Healthcare Provider Management of the patient was discussed with: Behavioral Health Provider Lab Data [facility] Lab Attestation statement: I reviewed the patient's lab results. 11/19/22 23:23 11/19/22 23:23 Labs: Lab Results 11/19/22 11/19/22 11/19/22 Range/Units 23:23 23:23 23:23 WBC 6.1 (4.8-10.8) X10*3/uL RBC 4.40 (4.20-5.50) X10*6/uL Hgb 13.5 (12.0-16.0) g/dl Hct 38.9 (37.0-47.0) % MCV 88.4 (80.0-98.0) fL MCH 30.7 (27.0-33.0) pg MCHC 34.7 (31.0-35.0) g/dl RDW 12.5 (11.0-16.0) % Plt Count 219 (160-400) X10*3/uL MPV 9.0 L (9.4-12.3) fL Immature Gran % (Auto) 0.3 (0.0-0.4) % Neut % (Auto) 26.0 L (45-73) % Lymph % (Auto) 64.7 H (20-40) % [place] % (Auto) 8.0 (2-11) % Eos % (Auto) 0.3 (0-4) % Baso % (Auto) 0.7 (0-2) % Lymph # (Auto) 4.0 (1.2-4.9) X10*3/uL [place] # (Auto) 0.5 (0.1-1.2) X10*3/uL Eos # (Auto) 0.0 (0.0-0.4) X10*3/uL Baso # (Auto) 0.0 (0.0-0.2) X10*3/uL Abs Immat Gran (auto) 0.02 (0.00-0.03) X10*3/uL Absolute Neuts (auto) 1.6 L (2.0-8.3) x10*3/uL Absolute Nucleated RBC 0.000 (0.0-0.012) X10*3/uL Nucleated RBC % (auto) 0.0 (0.0-0.2) /100WBC Smear Tech's Comments VERIFIED Sodium 145 (135-145) mmol/L Potassium 3.3 (3.3-5.1) mmol/L Chloride 103 (96-108) mmol/L Carbon Dioxide 28 (22-29) mmol/L Anion Gap 17 (12-20) BUN 4 L (9-16) mg/dL Creatinine 0.63 (0.5-1.4) mg/dL Estim Creat Clear Calc 170.4 Estimated GFR > 60 Random Glucose 100 (60-115) mg/dL Calcium 9.3 (8.4-10.2) mg/dL Total Bilirubin 0.5 (0.0-1.0) mg/dL AST 41 H (5-31) U/L ALT 46 H (0-31) U/L Alkaline Phosphatase 81 (39-117) U/L Total Protein 7.4 (6.5-8.0) g/dL Albumin 4.4 (3.5-5.0) g/dL Salicylates < 5.0 L (15-30) mg/dL Urine Opiates Screen (Not Detect) Urine Fentanyl Screen (Not Detect) Acetaminophen < 17 (<30) mcg/mL Ur Barbiturates Screen (Not Detect) Ur Phencyclidine Scrn (Not Detect) Ur Amphetamines Screen (Not Detect) U Benzodiazepines Scrn (Not Detect) Urine Cocaine Screen (Not Detect) U Marijuana (THC) Screen (Not Detect) Ethyl Alcohol 432 H* mg/dL 11/19/22 Range/Units 23:35 WBC (4.8-10.8) X10*3/uL RBC (4.20-5.50) X10*6/uL Hgb (12.0-16.0) g/dl Hct (37.0-47.0) % MCV (80.0-98.0) fL MCH (27.0-33.0) pg MCHC (31.0-35.0) g/dl RDW (11.0-16.0) % Plt Count (160-400) X10*3/uL MPV (9.4-12.3) fL Immature Gran % (Auto) (0.0-0.4) % Neut % (Auto) (45-73) % Lymph % (Auto) (20-40) % [place] % (Auto) (2-11) % Eos % (Auto) (0-4) % Baso % (Auto) (0-2) % Lymph # (Auto) (1.2-4.9) X10*3/uL [place] # (Auto) (0.1-1.2) X10*3/uL Eos # (Auto) (0.0-0.4) X10*3/uL Baso # (Auto) (0.0-0.2) X10*3/uL Abs Immat Gran (auto) (0.00-0.03) X10*3/uL Absolute Neuts (auto) (2.0-8.3) x10*3/uL Absolute Nucleated RBC (0.0-0.012) X10*3/uL Nucleated RBC % (auto) (0.0-0.2) /100WBC Smear Tech's Comments Sodium (135-145) mmol/L Potassium (3.3-5.1) mmol/L Chloride (96-108) mmol/L Carbon Dioxide (22-29) mmol/L Anion Gap (12-20) BUN (9-16) mg/dL Creatinine (0.5-1.4) mg/dL Estim Creat Clear Calc Estimated GFR Random Glucose (60-115) mg/dL Calcium (8.4-10.2) mg/dL Total Bilirubin (0.0-1.0) mg/dL AST (5-31) U/L ALT (0-31) U/L Alkaline Phosphatase (39-117) U/L Total Protein (6.5-8.0) g/dL Albumin (3.5-5.0) g/dL Salicylates (15-30) mg/dL Urine Opiates Screen Not Detected (Not Detect) Urine Fentanyl Screen Not Detected (Not Detect) Acetaminophen (<30) mcg/mL Ur Barbiturates Screen Not Detected (Not Detect) Ur Phencyclidine Scrn Not Detected (Not Detect) Ur Amphetamines Screen Not Detected (Not Detect) U Benzodiazepines Scrn POSITIVE H (Not Detect) Urine Cocaine Screen Not Detected (Not Detect) U Marijuana (THC) Screen Not Detected (Not Detect) Ethyl Alcohol mg/dL External Record Review External record reviewed: Outpatient record and Prior outpatient labs Social Determinants Patient?s care significantly limited by Social Determinants of Health including: Other Social Determinant of Health Medications Administered Generic Name Dose Route Start Last Admin Trade Name Freq PRN Reason Stop Dose Admin Lorazepam 2 mg 11/20/22 00:34 11/20/22 01:24 Lorazepam 1 Mg Tablet PO 2 mg Q2H PRN Administration Alcohol Withdrawal Discontinued Medications Generic Name Dose Route Start Last Admin Trade Name Freq PRN Reason Stop Dose Admin Sodium Chloride 1,000 mls @ 999 mls/hr 11/19/22 22:00 11/19/22 22:15 Ns IVCONT 11/19/22 23:00 999 mls/hr .[id number] MALA Administration Discharge Plan Discharge Clinical Impression: Alcohol abuse, Alcoholic intoxication Patient Disposition: Still a Patient Prescriptions: No Action acetaminophen 325 mg tablet 650 mg PO Q6H PRN (Reason: Pain) thiamine HCl (vitamin B1) 100 mg tablet 1 tab PO DAILY folic acid 1 mg tablet 1 tab PO DAILY Therapeutic-M 9 mg iron-400 mcg tablet 1 tab PO DAILY escitalopram oxalate 10 mg tablet 1 tab PO DAILY potassium chloride 10 mEq capsule, extended release 10 meq PO DAILY Qty: 3 0RF magnesium 250 mg tablet 250 mg PO DAILY Qty: 3 0RF lorazepam [Ativan] 2 mg tablet 2 mg PO TID PRN (Reason: alcohol withdrawal) Qty: 4 0RF Interventions: [facility]-Suicide Risk Severity Scale Last Done: 11/19/22 22:16
[2022-11-19] MEDS: 0.9 % Sodium Chloride 1,000 ML 999 ML IVCONT (22:15)
--- NOTE | 2022-11-19 22:15 | PC.NURSE ---
est IV line 20g R AC 1L NS per MAR running
--- NOTE | 2022-11-19 22:49 | PC.NURSE ---
pt calm and cooperative desires detox pupils dilated about 5mm in diameter speech slurred pt admits to taking 40+ shots of alc denies any drug use admits to not taking meds prescribed to her when she was discharged yesterday states no seizure hx d/t w/s, however states that experiences APONTE, N/V when in w/d
[2022-11-19 23:28] LABS: Basophils Percent Auto 0.7 % (0-2); Eosinophils Percent Auto 0.3 % (0-4); Hematocrit 38.9 % (37.0-47.0); Hemoglobin 13.5 g/dl (12.0-16.0); Imm Gran Abs Auto 0.02 X10*3/uL (0.00-0.03); Imm Gran Pct Auto 0.3 % (0.0-0.4); Lymphocytes Percent Auto 64.7 % (20-40); MANUAL DIFF FLAG SCAN; Mean Corpuscular HGB Conc 34.7 g/dl (31.0-35.0); Mean Corpuscular Hemoglobin 30.7 pg (27.0-33.0); Mean Corpuscular Volume 88.4 fL (80.0-98.0); Monocytes Absolute Auto 0.5 X10*3/uL (0.1-1.2); Neutrophils Absolute Auto 1.6 x10*3/uL (2.0-8.3); Platelet Count 219 X10*3/uL (160-400); Red Cell Distribution Width 12.5 % (11.0-16.0); SCAN SMEAR FLAG 1; White Blood Count 6.1 X10*3/uL (4.8-10.8)
[2022-11-19 23:40] VITALS: BP 107/59; PULSE 93; RESP 16; TEMP 36.6; O2SAT 95
[2022-11-19 23:50] LABS: Ethanol 432 mg/dL
[2022-11-19 23:51] LABS: SLIDE REVIEW VERIFIED
[2022-11-19 23:57] LABS: Amphetamine Screen Urine Not Detected (Not Detect); Barbiturates, Urine Not Detected (Not Detect); Benzodiazepines Screen Urine POSITIVE (Not Detect); Cannabinoid Screen Urine Not Detected (Not Detect); Cocaine Screen Urine Not Detected (Not Detect); Fentanyl, urine Not Detected (Not Detect); Opiate Screen Urine Not Detected (Not Detect); Phencyclidine Screen Urine Not Detected (Not Detect)
[2022-11-20 00:02] LABS: Acetaminophen LAB < 17 mcg/mL (<30); Alanine Aminotransferase 46 U/L (0-31); Albumin Level 4.4 g/dL (3.5-5.0); Alkaline Phosphatase 81 U/L (39-117); Anion Gap 17 (12-20); Aspartate Amino Transferase 41 U/L (5-31); Bilirubin Total 0.5 mg/dL (0.0-1.0); Blood Urea Nitrogen 4 mg/dL (9-16); Calcium 9.3 mg/dL (8.4-10.2); Carbon Dioxide 28 mmol/L (22-29); Chloride 103 mmol/L (96-108); Creatinine Clr Calc Pharmacy 170.4; Estimated Glomerular Filt Rate > 60; Glucose Random 100 mg/dL (60-115); Potassium 3.3 mmol/L (3.3-5.1); Salicylate < 5.0 mg/dL (15-30); Sodium 145 mmol/L (135-145); Total Protein 7.4 g/dL (6.5-8.0)
--- NOTE | 2022-11-20 00:43 | PC.NURSE ---
Addendum entered by Jose David Romero RN 11/20/22 04:20: The pt has been getting OOB occasionally, asking why isn't this Ativan helping me. I'm feeling worse and I just want to sleep. I ambulated back to patients room with her and obtained her vital signs, which were WNL. She was mildly diaphoretic, admits to a APONTE and to feeling anxious. CIWA score is 9 at this time and PO Ativan has been given per NIBBLER OPERATOR order. Pt is resting in bed, taking PO fluids without difficulty. Will continue to monitor. Original Note: I assumed nursing care of Elisabet at 2300 from [facility]. Elisabet has been resting in hallway stretcher, occasionally sitting up and ambulating to and from the bathroom independently and with slow but steady gait. Elisabet admits to mild nausea. She is taking PO fluids without difficulty. She has been voiing without difficulty - urine spec obtained and sent to lab. IVF's are infusing per provider order. Elisabet is oriented x 3, calm and cooperative. She is voluntary and states she is waiting for a bed to be open a [place] where she would be allowed to have her cell phone while undergoing detox treatment. She denies SI. She denies HI. She is occasionally tearful. There are no tremors, no diaphoresis. She does not appear or admit to bein anxious. She complains of mild nausea without vomiting. No hallucinations. CIWA 2 at this time. PLAN: re-eval in the morning, per Soheila Barnes NP.
[2022-11-20] MEDS: LORazepam 1 MG TABLET 2 MG PO ×2 (01:24→03:29)
[2022-11-20 02:30] VITALS: BP 112/75; PULSE 93; RESP 16; O2SAT 95
[2022-11-20 03:24] LABS: COVID-19 Test Negative (Negative); IDNOW Serial# 6674DD1D
[2022-11-20 03:26] VITALS: BP 112/76; PULSE 93; RESP 16; O2SAT 96
[2022-11-20 06:18] VITALS: BP 113/79; PULSE 94; RESP 16; TEMP 36.6; O2SAT 99
--- NOTE | 2022-11-20 07:07 | PC.NURSE ---
assumed care of patient, pt resting comfortably in bed, VSS, requesting detox, here voluntarily
--- NOTE | 2022-11-20 11:23 | PC.NURSE ---
substance counselor at bedside, pt to be discharged home with resources
--- NOTE | 2022-11-20 11:53 | MHC.RECOVSUP ---
? Reason for consult:Recovery Support o Current location:ED8 o Identified substance use concern: AUD? - Withdrawal ? ?Intervention: o Community resources provided o Harm reduction discussion ? Additional information:?Patient consultation with team prior to entry. Patient disclosed that she would go to detox after a commitment with her daughter this afternoon. Community resources were provided along with harm reduction strategies. Patient was discharged.
== END 2022-11-20 11:25 | disposition home or self-care (01) ==
PROVIDERS: Nurse Practitioner Family; Emergency Provider Internal Medicine
DX: F10.120 Alcohol abuse with intoxication, uncomplicated (principal); Y90.8 Blood alcohol level of 240 mg/100 ml or more; R45.1 Restlessness and agitation; Z20.822 Contact with and (suspected) exposure to COVID-19; Z79.899 Other long term (current) drug therapy
CPT/HCPCS: 36415; 80053; 80143; 80179; 80307; 82077; 85025; 87635; 99284; 99285

== ENCOUNTER 2022-11-20 19:05 | Emergency (ER) | payer OTHER, SELFPAY ==
[2022-11-20 19:12] VITALS: BP 124/84; PULSE 110; RESP 16; O2SAT 97; BMI 29.1
--- NOTE | 2022-11-20 19:25 | ED.ALCOHOL ---
HPI - Alcohol General Chief Complaint: ETOH/Substance Use Stated Complaint: SEEKING DETOX PER EMS Time Seen by Provider: 11/20/22 19:25 Source: patient Mode of arrival: ambulatory Limitations: no limitations History of Present Illness HPI narrative: 32-year-old female presents via EMS for ETOH intoxication. MD complaint: alcohol intoxication Last drink: Just prior to admission Chronic alcohol use: Yes Previous visits for alcohol intoxication: Yes Related Data Home Medications Medication Instructions Recorded Confirmed acetaminophen 325 mg tablet 650 mg PO Q6H PRN Pain 10/10/22 10/10/22 escitalopram oxalate 10 mg tablet 1 tab PO DAILY 10/10/22 10/10/22 folic acid 1 mg tablet 1 tab PO DAILY 10/10/22 10/10/22 multivitamin-iron 9 mg-folic acid 1 tab PO DAILY 10/10/22 10/10/22 400 mcg-calcium and minerals tablet (Therapeutic-M) thiamine HCl (vitamin B1) 100 mg 1 tab PO DAILY 10/10/22 10/10/22 tablet Previous Rx's Medication Instructions Recorded magnesium 250 mg tablet 250 mg PO DAILY #3 tabs 10/11/22 potassium chloride 10 mEq 10 meq PO DAILY #3 caps 10/11/22 capsule,extended release lorazepam 2 mg tablet (Ativan) 2 mg PO TID PRN alcohol withdrawal 11/18/22 #4 tabs Allergies Allergy/AdvReac Type Severity Reaction Status Date / Time No Known Allergies Allergy Verified 10/09/22 01:38 Review of Systems Review of Systems: Yes Unobtainable due to mental status (Intoxicated) [facility] Past Medical History Attestation statement: The following information was validated with the patient. Source: old records reviewed Medical History Alcohol abuse Surgical History No pertinent past surgical history Family History Family History Other No family history of coronary artery disease Social History Social History Household Members: None Housing: Apartment Do you presently have visiting nurse or other home services: No Alcohol intake: current Alcohol intake frequency: 3 or more drinks per day Alcohol type: hard liquor Patient Tobacco Use Status: Never used Tobacco Advance Directives: No Advance Directives Information Provided: No service: No Current occupational status: unemployed Physical Exam ED Vital Signs: Vital Signs - 24 hr 11/20/22 19:12 11/20/22 23:36 11/21/22 00:54 Temperature 98.2 F Pulse Rate 110 H 109 H 97 Respiratory Rate 16 20 16 Blood Pressure 124/84 114/77 115/69 Pulse Oximetry 97 96 97 Oxygen Delivery Method Room Air Room Air Room Air BMI result Body Mass Index 29.1 Appearance: Alert. Intoxicated. Eyes: Pupils equal, round and reactive to light. ENT: Pharynx normal. Neck: Normal inspection. Neck supple. CVS: Normal heart rate and rhythm. Pulses normal. Respiratory: No respiratory distress. Breath sounds normal. Abdomen: Soft and nontender. Skin: Skin warm and dry. Normal skin color. Normal skin turgor. Extremities: No lower extremity edema. Gait not assessed for safety. Neuro: No motor deficit. No sensory deficit. Cranial nerves 2-12 intact. Course Course Course Narrative: 32-year-old female presents via EMS for alcohol intoxication. Patient is unable to speak in sentences. Requiring O2 to maintain oxygen saturation above 90%. This is patient's 3rd presentation in 48 hours for ETOH intoxication. Will order labs. Based on patient's consistent presentation to the emergency department 7 times this past month for alcohol intoxication. At this time I do not feel that this patient is safe to make her own decisions, will order section 12 at this time based on patient's destructive behavior. I feel that this patient requires care team consult and possibly a Section 35. 23:49 patient argumentative, demanding her phone, requesting to leave. Blood alcohol level at 20:00 was 468. Patient is not clinically sober at this time. Patient is threatening this [employer] as well as other staff members, states that her father is a audiology doctor and that ?no one here knows what they are doing?. Care team counselor at bedside, trying to redirect this patient. Patient unable to be redirected. 00:02 patient is verbally aggressive, unable to be redirected. Security called, plan of care is for sedation. 01:51 patient is sleeping, even unlabored respirations. Physician observation. Medical Decision Making Differential Diagnosis Differential Diagnoses: The differential diagnosis associated with the presentation includes Alcohol abuse Consult Healthcare Provider Management of the patient was discussed with: Behavioral Health Provider Lab Data [facility] Lab Attestation statement: I reviewed the patient's lab results. Labs: Lab Results 11/20/22 11/20/22 Range/Units 20:02 20:02 Ethyl Alcohol 468 H* mg/dL COVID-19 ([facility]) Negative (Negative) COVID-19 Clin Com See Note External Record Review External record reviewed: Outpatient record and Prior outpatient labs Chronic Conditions Patient?s care impacted by: Other (Alcoholism) Social Determinants Patient?s care significantly limited by Social Determinants of Health including: Other Social Determinant of Health Medications Administered Discontinued Medications Generic Name Dose Route Start Last Admin Trade Name Freq PRN Reason Stop Dose Admin Diphenhydramine HCl 50 mg 11/21/22 00:01 11/21/22 00:19 Diphenhydramine Hcl 50 Mg/Ml Vial IM 11/21/22 00:02 50 mg ONCE ONE Administration Haloperidol Lactate 5 mg 11/21/22 00:01 11/21/22 00:18 Haloperidol Lactate 5 Mg/Ml Vial IM 11/21/22 00:02 5 mg STAT STA Administration Lorazepam 2 mg 11/21/22 00:01 11/21/22 00:19 Lorazepam 2 Mg/Ml Vial IM 11/21/22 00:02 2 mg STAT STA Administration Discharge Plan Discharge Clinical Impression: Alcohol abuse, Alcoholic intoxication Patient Disposition: Still a Patient Prescriptions: No Action acetaminophen 325 mg tablet 650 mg PO Q6H PRN (Reason: Pain) thiamine HCl (vitamin B1) 100 mg tablet 1 tab PO DAILY folic acid 1 mg tablet 1 tab PO DAILY Therapeutic-M 9 mg iron-400 mcg tablet 1 tab PO DAILY escitalopram oxalate 10 mg tablet 1 tab PO DAILY potassium chloride 10 mEq capsule, extended release 10 meq PO DAILY Qty: 3 0RF magnesium 250 mg tablet 250 mg PO DAILY Qty: 3 0RF lorazepam [Ativan] 2 mg tablet 2 mg PO TID PRN (Reason: alcohol withdrawal) Qty: 4 0RF Interventions: Hopkins-Suicide Risk Severity Scale Last Done: 11/20/22 22:57
[2022-11-20 20:20] LABS: Ethanol 468 mg/dL
[2022-11-20 20:30] LABS: COVID-19 Test Negative (Negative); IDNOW Serial# 6674DD1D
--- NOTE | 2022-11-20 23:05 | PC.NURSE ---
Patient sectioned 12 by Soheila, ED provider for self destructing behavior d/t ETOH abuse. Patient denies SI/HI. Patient is alert to self and place only. Patient reports mild nausea, no vomiting, Patient ambulated by appliance service technician to the restroom. Gait is noted to be slow and unsteady. Patient changed over in the pod jake and pants in presence of appliance service technician and security. Patient belongings to be placed in the pod locker.
--- NOTE | 2022-11-20 23:19 | MHC.CARE ---
CARE Team called Wesley Lubin and she reported having no beds available tonight for a female, however to call tomorrow to verify if any openings.
[2022-11-20 23:36] VITALS: BP 114/77; PULSE 109; RESP 20; O2SAT 96
[2022-11-21] VITALS (10 sets, daily range): BP systolic 91–127; BP diastolic 66–91; PULSE 86–115; RESP 16–20; TEMP 36.6–36.8; O2SAT 95–97
[2022-11-21] MEDS: Haloperidol Lactate 5 MG/ML VIAL IM (00:18)
[2022-11-21] MEDS: LORazepam 2 MG/ML VIAL IM (00:19)
[2022-11-21] MEDS: diphenhydrAMINE HCL 50 MG/ML VIAL IM (00:19)
[2022-11-21 02:06] LABS: Appearance Urine Clear; Color Urine Yellow; Glucose Urine UA Negative (Negative); Leukocyte Esterase Urine Negative (Negative); Nitrite Urine Negative (Negative); PH 7.5 (5.0-9.0); Specific Gravity - Urine <= 1.005 (1.005-1.025); UMIC TRIGGER UA YES; Urine Blood Moderate (2+) (Negative); Urine Ketones Negative (Negative); Urine Protein Negative (Neg-Trace)
[2022-11-21 02:08] LABS: UPreg QC Valid YES; Urine Pregnancy NEGATIVE (NEGATIVE)
[2022-11-21 02:16] LABS: Amphetamine Screen Urine Not Detected (Not Detect); Barbiturates, Urine Not Detected (Not Detect); Benzodiazepines Screen Urine Not Detected (Not Detect); Cannabinoid Screen Urine Not Detected (Not Detect); Cocaine Screen Urine Not Detected (Not Detect); Fentanyl, urine Not Detected (Not Detect); Opiate Screen Urine Not Detected (Not Detect); Phencyclidine Screen Urine Not Detected (Not Detect)
[2022-11-21 02:19] LABS: Bacteria Urine None Seen (None Seen); Hyaline Casts Urine 0-2 /LPF (0-2); RBC Urine 0-2 /HPF (0-2); Squamous Epithelial Cell Urine 0-2 /HPF (0-2); WBC Urine 0-5 /HPF (0-5)
--- NOTE | 2022-11-21 06:04 | PC.NURSE ---
Re-assessment: Pt's V/S are stable, Pt has been sleeping.
[2022-11-21] MEDS: chlordiazePOXIDE HCl 25 MG CAPSULE PO (12:16)
--- NOTE | 2022-11-21 13:17 | MHC.RECOVSUP ---
? Reason for consult:Recovery Support o ?Current location: ED 9? o ?Identified substance use concern: AUD ? - Withdrawal - Seeking ATS (detox) - Support ? ?Intervention: o ATS bed search started/completed/in process o MAT started or to be started o Community resources provided o Harm reduction discussion ? Additional information:?Case consult with Care Team prior to entry. Pt. returned to the ED from yesterday's visit in hopes to get into [facility]. I was able to connect with admissions and complete the process along with a Lift. We reviewed harm reduction strategies and I encouraged her to stay in the process with positive affirmations.
== END 2022-11-21 12:32 | disposition home or self-care (01) ==
PROVIDERS: Nurse Practitioner Family; Emergency Provider Internal Medicine
DX: F10.120 Alcohol abuse with intoxication, uncomplicated (principal); Y90.8 Blood alcohol level of 240 mg/100 ml or more; Z20.822 Contact with and (suspected) exposure to COVID-19; Z79.899 Other long term (current) drug therapy
CPT/HCPCS: 36415; 80307; 81001; 81025; 82077; 87635; 96372; 99285; J1200; J2060

== ENCOUNTER 2022-12-11 18:29 | Emergency (ER) | payer OTHER, SELFPAY ==
[2022-12-11 18:39] VITALS: BP 103/65; BP 129/75; PULSE 103; PULSE 98; RESP 16; TEMP 37; O2SAT 94; O2SAT 98; BMI 33.6
--- NOTE | 2022-12-11 19:36 | ED.GENADULT ---
HPI - General Adult General Chief complaint: ETOH/Substance Use Stated complaint: crisis Time Seen by Provider: 12/11/22 19:06 Source: patient, RN notes reviewed and old records reviewed Mode of arrival: EMS Limitations: other (intoxication) History of Present Illness HPI narrative: 32-year-old female past medical history significant for alcohol abuse presents for evaluation of ?alcohol abuse screen? There is some confusion is the initial complaint. EMS had reported that the patient was suicidal and drunk. The patient told nursing staff and myself separately that she is not depressed or suicidal, she has never been suicidal She reports that she called the ambulance herself ?because I drank too much. ? She states she is feeling ?drunk and hungry. ? She has no other complaints or concerns at this time. Related Data Home Medications Medication Instructions Recorded Confirmed acetaminophen 325 mg tablet 650 mg PO Q6H PRN Pain (Scale 12/11/22 12/11/22 Score 4-6) escitalopram oxalate 20 mg tablet 1 tab PO DAILY 12/11/22 12/11/22 hydroxyzine pamoate 25 mg capsule 1 cap PO TID 12/11/22 12/11/22 melatonin 3 mg tablet 1 tab PO BEDTIME 12/11/22 12/11/22 naltrexone 50 mg tablet 1 tab PO DAILY 12/11/22 12/11/22 trazodone 50 mg tablet 1 tab PO BEDTIME 12/11/22 12/11/22 Allergies Allergy/AdvReac Type Severity Reaction Status Date / Time No Known Allergies Allergy Verified 10/09/22 01:38 Review of Systems Constitutional: Constitutional: Reports as per HPI, Denies chills and Denies fatigue Cardiovascular: Cardiovascular: Denies chest pain and Denies dyspnea Respiratory: Respiratory: Denies cough and Denies dyspnea Gastrointestinal: Gastrointestinal: Denies abdominal pain, Denies constipation and Denies vomiting Genitourinary: Genitourinary: Denies dysuria Endocrine: Endocrine: Denies fatigue PMFSH Past Medical History Medical History Alcohol abuse Surgical History No pertinent past surgical history Family History Family History Other No family history of coronary artery disease Social History Social History Household Members: None Housing: Apartment Do you presently have visiting nurse or other home services: No Alcohol intake: current Alcohol intake frequency: 3 or more drinks per day Alcohol type: hard liquor Patient Tobacco Use Status: Never used Tobacco Advance Directives: No Advance Directives Information Provided: No service: No Current occupational status: unemployed Physical Exam ED Vital Signs: Vital Signs - 24 hr 12/11/22 18:39 Temperature 98.6 F Pulse Rate 98 Respiratory Rate 16 Blood Pressure 103/65 Pulse Oximetry 94 Oxygen Delivery Method Room Air BMI result Body Mass Index 33.6 Const General: healthy appearing, comfortable, no acute distress, alert and awake Nutritional Appearance: well nourished Orientation/consciousness: patient oriented x3 HENMT Head: Yes normocephalic and Yes atraumatic Eyes Eyelids: Yes eyelids normal Conjunctivae: conjunctivae normal Sclerae: sclerae normal Corneas: corneas normal Pupils: Equal, round and reactive pupils present EOM: EOMs intact bilaterally Resp Effort & Inspection: normal respiratory effort, able to speak in complete sentences, no audible wheezes and not labored Skin General skin exam: no rashes or lesions noted and elasticity normal Lesions: no lesions Rashes: no rashes Neuro General: patient oriented x3 Cranial nerves: Yes Equal, round and reactive pupils present Extrem General: Yes full ROM Course Reevaluation(s) Reevaluation #1: Patient is requesting discharge at this time. The patient's alcohol level came back at 368. She is very clear that she was never suicidal. The patient is ambulating with a steady, even gait, speaking in clear sensorium. She is getting agitated as she had not been allowed to leave yet. I reviewed her history, her alcohol has been well over 400 many times and as high as 545. The patient is high risk for withdrawal to keep her against her will. We will discharge the patient and she will call for a sober ride home. Time: 21:51 Medical Decision Making Medical Decision Making MDM Narrative: 32-year-old female presents for evaluation of alcohol abuse. There is some question of whether she was initially reporting SI. She denies this to all staff members at this hospital but it was reported by EMS. The patient will require a sober re-evaluation and possible care team consult. Differential Diagnosis Alcohol abuse Alcohol use disorder Acute alcohol intoxication Substance abuse Polysubstance abuse Depression Suicidal ideation Lab Data 02/18/23 21:01 12/11/22 21:01 Labs: Lab Results 12/11/22 12/11/22 12/11/22 Range/Units 20:27 21:01 21:01 WBC 7.0 (4.8-10.8) X10*3/uL RBC 4.56 (4.20-5.50) X10*6/uL Hgb 13.7 (12.0-16.0) g/dl Hct 40.7 (37.0-47.0) % MCV 89.3 (80.0-98.0) fL MCH 30.0 (27.0-33.0) pg MCHC 33.7 (31.0-35.0) g/dl RDW 12.9 (11.0-16.0) % Plt Count 320 D (160-400) X10*3/uL MPV 9.1 L (9.4-12.3) fL Immature Gran % (Auto) 0.6 H (0.0-0.4) % Neut % (Auto) 42.7 L (45-73) % Lymph % (Auto) 51.0 H (20-40) % Ponce % (Auto) 4.5 (2-11) % Eos % (Auto) 0.3 (0-4) % Baso % (Auto) 0.9 (0-2) % Lymph # (Auto) 3.6 (1.2-4.9) X10*3/uL Ponce # (Auto) 0.3 (0.1-1.2) X10*3/uL Eos # (Auto) 0.0 (0.0-0.4) X10*3/uL Baso # (Auto) 0.1 (0.0-0.2) X10*3/uL Abs Immat Gran (auto) 0.04 H (0.00-0.03) X10*3/uL Absolute Neuts (auto) 3.0 (2.0-8.3) x10*3/uL Absolute Nucleated RBC 0.000 (0.0-0.012) X10*3/uL Nucleated RBC % (auto) 0.0 (0.0-0.2) /100WBC Sodium 141 (135-145) mmol/L Potassium 4.0 D (3.3-5.1) mmol/L Chloride 100 (96-108) mmol/L Carbon Dioxide 21 L (22-29) mmol/L Anion Gap 24 H (12-20) BUN 9 (9-16) mg/dL Creatinine 0.66 (0.5-1.4) mg/dL Estim Creat Clear Calc 135.6 Estimated GFR > 60 Random Glucose 76 (60-115) mg/dL Calcium 9.1 (8.4-10.2) mg/dL Magnesium (1.6-2.6) mg/dL Total Bilirubin 0.4 (0.0-1.0) mg/dL AST 27 (5-31) U/L ALT 33 H (0-31) U/L Alkaline Phosphatase 65 (39-117) U/L Total Protein 7.4 (6.5-8.0) g/dL Albumin 4.5 (3.5-5.0) g/dL Ethyl Alcohol mg/dL COVID-19 ([facility]) Negative (Negative) COVID-19 Clin Com See Note 12/11/22 Range/Units 21:01 WBC (4.8-10.8) X10*3/uL RBC (4.20-5.50) X10*6/uL Hgb (12.0-16.0) g/dl Hct (37.0-47.0) % MCV (80.0-98.0) fL MCH (27.0-33.0) pg MCHC (31.0-35.0) g/dl RDW (11.0-16.0) % Plt Count (160-400) X10*3/uL MPV (9.4-12.3) fL Immature Gran % (Auto) (0.0-0.4) % Neut % (Auto) (45-73) % Lymph % (Auto) (20-40) % Ponce % (Auto) (2-11) % Eos % (Auto) (0-4) % Baso % (Auto) (0-2) % Lymph # (Auto) (1.2-4.9) X10*3/uL Ponce # (Auto) (0.1-1.2) X10*3/uL Eos # (Auto) (0.0-0.4) X10*3/uL Baso # (Auto) (0.0-0.2) X10*3/uL Abs Immat Gran (auto) (0.00-0.03) X10*3/uL Absolute Neuts (auto) (2.0-8.3) x10*3/uL Absolute Nucleated RBC (0.0-0.012) X10*3/uL Nucleated RBC % (auto) (0.0-0.2) /100WBC Sodium (135-145) mmol/L Potassium (3.3-5.1) mmol/L Chloride (96-108) mmol/L Carbon Dioxide (22-29) mmol/L Anion Gap (12-20) BUN (9-16) mg/dL Creatinine (0.5-1.4) mg/dL Estim Creat Clear Calc Estimated GFR Random Glucose (60-115) mg/dL Calcium (8.4-10.2) mg/dL Magnesium 1.8 (1.6-2.6) mg/dL Total Bilirubin (0.0-1.0) mg/dL AST (5-31) U/L ALT (0-31) U/L Alkaline Phosphatase (39-117) U/L Total Protein (6.5-8.0) g/dL Albumin (3.5-5.0) g/dL Ethyl Alcohol 386 H* mg/dL COVID-19 ([facility]) (Negative) COVID-19 Clin Com Discharge Plan Discharge Clinical Impression: Alcoholic intoxication Patient Disposition: Home, Self-Care Instructions: Alcohol Intoxication (ED) Additional Instructions: Avoid excessive consumption of alcohol Return to the ER for any depressive or suicidal thoughts Prescriptions: No Action acetaminophen 325 mg tablet 650 mg PO Q6H PRN (Reason: Pain (Scale Score 4-6)) trazodone 50 mg tablet 1 tab PO BEDTIME naltrexone 50 mg tablet 1 tab PO DAILY melatonin 3 mg tablet 1 tab PO BEDTIME hydroxyzine pamoate 25 mg capsule 1 cap PO TID escitalopram oxalate 20 mg tablet 1 tab PO DAILY
[2022-12-11 21:07] LABS: MANUAL DIFF FLAG NO
[2022-12-11 21:08] LABS: COVID-19 Test Negative (Negative); IDNOW Serial# BCCEAD1C
[2022-12-11 21:13] LABS: Basophils Absolute Auto 0.1 X10*3/uL (0.0-0.2); Basophils Percent Auto 0.9 % (0-2); Eosinophils Percent Auto 0.3 % (0-4); Hematocrit 40.7 % (37.0-47.0); Hemoglobin 13.7 g/dl (12.0-16.0); Imm Gran Abs Auto 0.04 X10*3/uL (0.00-0.03); Imm Gran Pct Auto 0.6 % (0.0-0.4); Lymphocytes Absolute Auto 3.6 X10*3/uL (1.2-4.9); Mean Corpuscular HGB Conc 33.7 g/dl (31.0-35.0); Mean Corpuscular Volume 89.3 fL (80.0-98.0); Mean Platelet Volume 9.1 fL (9.4-12.3); Monocytes Absolute Auto 0.3 X10*3/uL (0.1-1.2); Monocytes Percent Auto 4.5 % (2-11); Neutrophils Percent Auto 42.7 % (45-73); Platelet Count 320 X10*3/uL (160-400); Red Blood Count 4.56 X10*6/uL (4.20-5.50); Red Cell Distribution Width 12.9 % (11.0-16.0)
[2022-12-11 21:38] LABS: Ethanol 386 mg/dL; Magnesium 1.8 mg/dL (1.6-2.6)
[2022-12-11 21:40] LABS: Alanine Aminotransferase 33 U/L (0-31); Albumin Level 4.5 g/dL (3.5-5.0); Alkaline Phosphatase 65 U/L (39-117); Anion Gap 24 (12-20); Aspartate Amino Transferase 27 U/L (5-31); Bilirubin Total 0.4 mg/dL (0.0-1.0); Blood Urea Nitrogen 9 mg/dL (9-16); Calcium 9.1 mg/dL (8.4-10.2); Carbon Dioxide 21 mmol/L (22-29); Chloride 100 mmol/L (96-108); Creatinine Clr Calc Pharmacy 135.6; Estimated Glomerular Filt Rate > 60; Glucose Random 76 mg/dL (60-115); Sodium 141 mmol/L (135-145); Total Protein 7.4 g/dL (6.5-8.0)
== END 2022-12-11 22:07 | disposition home or self-care (01) ==
PROVIDERS: Emergency Provider Emergency Medicine
DX: F10.220 Alcohol dependence with intoxication, uncomplicated (principal); Y90.8 Blood alcohol level of 240 mg/100 ml or more; Z20.822 Contact with and (suspected) exposure to COVID-19
CPT/HCPCS: 36415; 80053; 82077; 83735; 85025; 87635; 99283

== ENCOUNTER 2022-12-16 21:21 | Emergency (ER) | payer OTHER, SELFPAY ==
--- NOTE | ~2022-12-16 | CT_ITS ---
EXAMINATION: CT CHEST, ABDOMEN AND PELVIS WITH CONTRAST CLINICAL INFORMATION: Fall, trauma COMPARISON: None TECHNIQUE: Multidetector volumetric imaging was performed through the chest, abdomen and pelvis following the administration of 85 mL of Omnipaque 350 intravenous contrast. Sagittal and coronal reformatted images were obtained on the technologist's workstation. Axial MIP volume rendering provided. This CT examination was performed using dose optimization techniques as appropriate, variously including the following: *Automated exposure control *Adjustment of mA and/or kV according to patient size (this includes techniques or standardized protocols for targeted exams where dose is matched to indication/reason for exam; i.e. extremities or head) *Use of iterative reconstruction technique DLP: 892 mGy-cm FINDINGS: CHEST: Lungs: No regions of consolidation bilaterally. Mediastinum: Visualized thyroid gland is unremarkable. There are subcentimeter mediastinal lymph nodes within the range of normal variation. Cardiac size is within normal limits; no pericardial effusion. Aorta appears unremarkable. Pleura: There is no significant effusion. No pleural mass or thickening. Chest Wall/Axilla: Unremarkable. ABDOMEN/PELVIS: Liver, Gallbladder, Biliary Tree: The liver is normal in size, shape, and attenuation. No focal hepatic lesion or biliary ductal dilatation is present. Cholelithiasis is noted. Pancreas: Unremarkable. Spleen: Unremarkable. Adrenal Glands: Unremarkable. Kidneys and Ureters: Bilateral nephrograms are symmetric. No hydronephrosis or obstructing calculus identified. Bladder: Mild diffuse mural prominence which may be due to underdistention. Gastrointestinal Tract: No evidence of bowel obstruction or significant wall thickening. The appendix is unremarkable. No free fluid or free air is seen. Abdominal Wall: No hernia is demonstrated. Lymphovascular Structures: Lymph nodes: Normal. Vascular: Unremarkable. Pelvic Viscera: Unremarkable. OSSEOUS STRUCTURES: No acute fracture identified. 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 CT/CT abdomen pelvis w IV con IMPRESSION: 1. No acute traumatic findings identified in the chest, abdomen, or pelvis. 2. Cholelithiasis.
--- NOTE | ~2022-12-16 | CT_ITS ---
EXAMINATION: NONCONTRAST HEAD CT NONCONTRAST CERVICAL SPINE CT INDICATION INFORMATION: Fall, pain COMPARISON: None TECHNIQUE: Separate noncontrast CT examinations of the head and cervical spine were performed. Coronal head CT images and coronal and sagittal cervical spine images were created at the technologist workstation. DLP: 1210 mGy-cm DOSE LOWERING TECHNIQUES: This CT examination was performed using dose optimization techniques as appropriate, variously including the following: - Automated exposure control - Adjustment of mA and/or kV according to patient size (this includes techniques or standardized protocols for targeted exams were dose is matched to indication/reason for exam; i.e. extremities or head) - Use of iterative reconstruction technique FINDINGS: Head: There is no evidence of acute intracranial hemorrhage or territorial infarction. No abnormal mass-effect or midline shift is seen. Funes to white matter differentiation is well preserved. No extra-axial fluid collections are identified. The ventricles are normal in size. There is no abnormal attenuation within the brain parenchyma. The osseous structures and soft tissues are normal. The mastoid air cells and visualized portions of the paranasal sinuses are well-aerated. Cervical spine: There is reversal of the normal cervical lordosis. There is otherwise anatomic alignment of the vertebral bodies and posterior elements. Vertebral body heights are maintained. There is disc space narrowing at C4-C5 with partial ankylosis posteriorly. No evidence of acute fracture. No prevertebral soft tissue swelling. Visualized portions of the lung apices are unremarkable. The thyroid gland is unremarkable. CT/CT cervical spine wo IV con IMPRESSION: No acute findings identified in the head or cervical spine.
--- NOTE | ~2022-12-16 | CT_ITS ---
EXAMINATION: NONCONTRAST HEAD CT NONCONTRAST CERVICAL SPINE CT INDICATION INFORMATION: Fall, pain COMPARISON: None TECHNIQUE: Separate noncontrast CT examinations of the head and cervical spine were performed. Coronal head CT images and coronal and sagittal cervical spine images were created at the technologist workstation. DLP: 1210 mGy-cm DOSE LOWERING TECHNIQUES: This CT examination was performed using dose optimization techniques as appropriate, variously including the following: - Automated exposure control - Adjustment of mA and/or kV according to patient size (this includes techniques or standardized protocols for targeted exams were dose is matched to indication/reason for exam; i.e. extremities or head) - Use of iterative reconstruction technique FINDINGS: Head: There is no evidence of acute intracranial hemorrhage or territorial infarction. No abnormal mass-effect or midline shift is seen. Funes to white matter differentiation is well preserved. No extra-axial fluid collections are identified. The ventricles are normal in size. There is no abnormal attenuation within the brain parenchyma. The osseous structures and soft tissues are normal. The mastoid air cells and visualized portions of the paranasal sinuses are well-aerated. Cervical spine: There is reversal of the normal cervical lordosis. There is otherwise anatomic alignment of the vertebral bodies and posterior elements. Vertebral body heights are maintained. There is disc space narrowing at C4-C5 with partial ankylosis posteriorly. No evidence of acute fracture. No prevertebral soft tissue swelling. Visualized portions of the lung apices are unremarkable. The thyroid gland is unremarkable. CT/CT head/brain wo IV con IMPRESSION: No acute findings identified in the head or cervical spine.
[2022-12-16 21:33] VITALS: BP 104/72; PULSE 110; PULSE 114; RESP 16; TEMP 36.2; O2SAT 94; O2SAT 95; BMI 33.3
--- NOTE | 2022-12-16 22:00 | PC.NURSE ---
PT A&Ox3, calm and cooperative. Denies SI/HI. States she wants to be sectioned 35. Reports last drink of a lot of vodka was at 8pm. CIWA score 0.
--- NOTE | 2022-12-16 22:10 | ECG_ITS ---
Test Reason : FALL- etoh Blood Pressure : / mmHG Vent. Rate : 096 BPM Atrial Rate : 096 BPM P-R Int : 134 ms QRS Dur : 086 ms QT Int : 356 ms P-R-T Axes : 051 048 031 degrees QTc Int : 449 ms Normal sinus rhythm Normal ECG When compared with ECG of 04-NOV-2022 11:38, No significant change was found Referred By: Jesus Flores Electronically Signed By:SERJIO LIN
--- NOTE | 2022-12-16 22:29 | PC.NURSE ---
IV line established, blood work collected and sent to lab.
[2022-12-16 22:36] LABS: MANUAL DIFF FLAG NO
[2022-12-16 22:37] LABS: Basophils Percent Auto 0.4 % (0-2); Eosinophils Percent Auto 0.3 % (0-4); Hemoglobin 13.9 g/dl (12.0-16.0); Imm Gran Abs Auto 0.03 X10*3/uL (0.00-0.03); Imm Gran Pct Auto 0.3 % (0.0-0.4); Lymphocytes Absolute Auto 4.4 X10*3/uL (1.2-4.9); Lymphocytes Percent Auto 44.3 % (20-40); Mean Corpuscular HGB Conc 33.9 g/dl (31.0-35.0); Mean Corpuscular Hemoglobin 30.3 pg (27.0-33.0); Mean Corpuscular Volume 89.3 fL (80.0-98.0); Mean Platelet Volume 8.8 fL (9.4-12.3); Monocytes Absolute Auto 0.5 X10*3/uL (0.1-1.2); Monocytes Percent Auto 4.6 % (2-11); Neutrophils Percent Auto 50.1 % (45-73); Platelet Count 225 X10*3/uL (160-400); Red Blood Count 4.59 X10*6/uL (4.20-5.50); Red Cell Distribution Width 13.2 % (11.0-16.0); White Blood Count 9.9 X10*3/uL (4.8-10.8)
--- NOTE | 2022-12-16 22:39 | ED.GENADULT ---
HPI - General Adult General Chief complaint: ETOH/Substance Use Stated complaint: ETOH Time Seen by Provider: 12/16/22 22:05 Source: patient and EMS Mode of arrival: EMS Limitations: other (poor historian ) History of Present Illness HPI narrative: This is a 32-year-old female history of alcohol abuse, transaminitis presenting to the emergency department with acute alcohol intoxication via ambulance, according to EMS and patient patient was seen earlier today at [facility], she requested detox and wanted a Section 35, she reports that they did not have a bed for placement so she decided to leave against medical advice and start drinking again. Patient tells me she drank ?a lot of vodka ?, she reports she drinks around 18 nips of vodka a day, last drink was just prior to arrival. Patient tells me she would like detox. Denies SI and HI. Very intoxicated, I was called to evaluate this patient after she was found on the ground near her bed, unsure if she hit her head, she did not lose consciousness. Not on blood thinners. Denies pain or medical complaints however poor historian and intoxicated Related Data Home Medications Medication Instructions Recorded Confirmed acetaminophen 325 mg tablet 650 mg PO Q6H PRN Pain (Scale 12/11/22 12/11/22 Score 4-6) escitalopram oxalate 20 mg tablet 1 tab PO DAILY 12/11/22 12/11/22 hydroxyzine pamoate 25 mg capsule 1 cap PO TID 12/11/22 12/11/22 melatonin 3 mg tablet 1 tab PO BEDTIME 12/11/22 12/11/22 naltrexone 50 mg tablet 1 tab PO DAILY 12/11/22 12/11/22 trazodone 50 mg tablet 1 tab PO BEDTIME 12/11/22 12/11/22 Allergies Allergy/AdvReac Type Severity Reaction Status Date / Time No Known Allergies Allergy Verified 10/09/22 01:38 Review of Systems Review of Systems: Constitutional : No Weight loss, No Fever, No Chills, No Fatigue, No Malaise ENT/Mouth : No sore throat, No Rhinorrhea Eyes: No Eye Pain, No Swelling, No Redness Cardiovascular : No Chest Pain, No SOB, No Dyspnea on Exertion, No Orthopnea, No Edema, No Palpitations Respiratory : No Cough, No Sputum, No Wheezing Gastrointestinal : No Nausea, No Vomiting, No Diarrhea, No Constipation, No abdominal Pain, No Hematochezia, No Melena Genitourinary : No Dysuria, No Urinary Frequency, No Hematuria, Musculoskeletal : No joint pain, No Myalgias, No Joint Swelling Skin : No Skin Lesions, No rash Neuro : No Weakness, No Numbness, No Dizziness, No Headache Psych : No Anxiety/Panic, No Depression All other systems reviewed and are negative Yes all other systems are reviewed and are negative [facility] Past Medical History Attestation statement: The following information was validated with the patient. Source: old records reviewed and nursing notes reviewed Medical History Alcohol abuse Surgical History No pertinent past surgical history Family History Family History Other No family history of coronary artery disease Social History Social History Household Members: None Housing: Apartment Do you presently have visiting nurse or other home services: No Alcohol intake: current Alcohol intake frequency: 3 or more drinks per day Alcohol type: hard liquor Patient Tobacco Use Status: Never used Tobacco Smoked in Last 30 Days: No Use of substances other than those prescribed or required for medical reasons: No Advance Directives: No Advance Directives Information Provided: Yes Patient : No service: No Current occupational status: unemployed Physical Exam ED Vital Signs: Vital Signs - 24 hr 12/16/22 21:33 Temperature 97.1 F Pulse Rate 110 H Respiratory Rate 16 Blood Pressure 104/72 Pulse Oximetry 94 Oxygen Delivery Method Room Air BMI result Body Mass Index 33.3 Vital signs significant for slight tachycardia. Appearance: Alert.? Oriented X3.? No acute distress.? Patient smells like alcohol Head: Normocephalic, atraumatic, no step-offs or deformities Eyes: Pupils equal, round and reactive to light.? ENT: Pharynx normal.? Neck: Normal inspection.? Neck supple.? CVS: Normal heart rate and rhythm.? Pulses normal.? Respiratory: No respiratory distress.? Breath sounds normal.? Abdomen: Soft and nontender.? Skin: Skin warm and dry.? Normal skin color.? Normal skin turgor.? Extremities: No lower extremity edema.? No calf ttp. 5/5 strength to bilateral upper and lower extremities Neuro: Oriented X 3.? No motor deficit.? No sensory deficit. CN 2-12 intact Course Reevaluation(s) Reevaluation #1: Patient's CBC appears to be around patient's baseline. Patient's chemistry with no acute electrolyte abnormalities requiring intervention. UA without infection. Urine toxicology negative. Ethanol level 488. COVID negative. At this time CT scans pending. Patient requesting detox Time: 01:22 Reevaluation #2: Patient will be placed in observation to allow more time to be evaluated by the coach operator, into a well for clinical sobriety. Scans pending. Sign out to Time: 01:25 Medical Decision Making Medical Decision Making [facility] Narrative: 2219 32-year-old female presents w/acute alcohol intoxication, seeking detox. Fell in this department, unwhitnessed denies LOC. PE- intoxicated female. Following commands. Neuro nonfocal. Smells like alcohol. Will obtain medical clearance and have her evaluated by the coach operator is and or care team. Will obtain trauma scans as patient did fall and she is under the influence of alcohol will rule out traumatic injuries to chest, abdomen and pelvis and will rule out intracranial hemorrhage in stroke. Although unlikely. Differential Diagnosis Differential Diagnoses: The differential diagnosis associated with the presentation includes Will obtain trauma scans as patient did fall and she is under the influence of alcohol will rule out traumatic injuries to chest, abdomen and pelvis and will rule out intracranial hemorrhage in stroke. Although unlikely. Admission/Observation Consideration of admission/observation: Escalation of care including admission/observation considered Likely detox bed search. Lab Data [facility] Lab Attestation statement: I reviewed the patient's lab results. 12/16/22 22:18 12/16/22 22:18 Labs: Lab Results 12/16/22 12/16/22 12/16/22 Range/Units 22:18 22:18 22:18 WBC 9.9 (4.8-10.8) X10*3/uL RBC 4.59 (4.20-5.50) X10*6/uL Hgb 13.9 (12.0-16.0) g/dl Hct 41.0 (37.0-47.0) % MCV 89.3 (80.0-98.0) fL MCH 30.3 (27.0-33.0) pg MCHC 33.9 (31.0-35.0) g/dl RDW 13.2 (11.0-16.0) % Plt Count 225 D (160-400) X10*3/uL MPV 8.8 L (9.4-12.3) fL Immature Gran % (Auto) 0.3 (0.0-0.4) % Neut % (Auto) 50.1 (45-73) % Lymph % (Auto) 44.3 H (20-40) % Gulf % (Auto) 4.6 (2-11) % Eos % (Auto) 0.3 (0-4) % Baso % (Auto) 0.4 (0-2) % Lymph # (Auto) 4.4 (1.2-4.9) X10*3/uL [place] # (Auto) 0.5 (0.1-1.2) X10*3/uL Eos # (Auto) 0.0 (0.0-0.4) X10*3/uL Baso # (Auto) 0.0 (0.0-0.2) X10*3/uL Abs Immat Gran (auto) 0.03 (0.00-0.03) X10*3/uL Absolute Neuts (auto) 5.0 (2.0-8.3) x10*3/uL Absolute Nucleated RBC 0.000 (0.0-0.012) X10*3/uL Nucleated RBC % (auto) 0.0 (0.0-0.2) /100WBC Sodium 147 H (135-145) mmol/L Potassium 3.3 (3.3-5.1) mmol/L Chloride 108 (96-108) mmol/L Carbon Dioxide 24 (22-29) mmol/L Anion Gap 18 (12-20) BUN 6 L (9-16) mg/dL Creatinine 0.68 (0.5-1.4) mg/dL Estim Creat Clear Calc 130.9 Estimated GFR > 60 Random Glucose 111 (60-115) mg/dL Calcium 9.0 (8.4-10.2) mg/dL Magnesium 1.7 (1.6-2.6) mg/dL Total Bilirubin 0.6 (0.0-1.0) mg/dL AST 32 H (5-31) U/L ALT 24 (0-31) U/L Alkaline Phosphatase 63 (39-117) U/L Total Protein 7.7 (6.5-8.0) g/dL Albumin 4.5 (3.5-5.0) g/dL Beta HCG, Quant < 2 mIU/mL Urine Color Urine Appearance Urine pH (5.0-9.0) Ur Specific [place] (1.005-1.025) Urine Protein (Neg-Trace) mg/dL Urine Glucose (UA) (Negative) mg/dL Urine Ketones (Negative) mg/dL Urine Blood (Negative) Urine Nitrite (Negative) Ur Leukocyte Esterase (Negative) Urine RBC (0-2) /HPF Urine WBC (0-5) /HPF Ur Squamous Epith Cells (0-2) /HPF Urine Bacteria (None Seen) Hyaline Casts (0-2) /LPF Urine Opiates Screen (Not Detect) Urine Fentanyl Screen (Not Detect) Ur Barbiturates Screen (Not Detect) Ur Phencyclidine Scrn (Not Detect) Ur Amphetamines Screen (Not Detect) U Benzodiazepines Scrn (Not Detect) Urine Cocaine Screen (Not Detect) U Marijuana (THC) Screen (Not Detect) Ethyl Alcohol 488 H* mg/dL COVID-19 (YAZ) (Negative) COVID-19 Clin Com 12/16/22 12/16/22 12/16/22 Range/Units 22:19 23:42 23:42 WBC (4.8-10.8) X10*3/uL RBC (4.20-5.50) X10*6/uL Hgb (12.0-16.0) g/dl Hct (37.0-47.0) % MCV (80.0-98.0) fL MCH (27.0-33.0) pg MCHC (31.0-35.0) g/dl RDW (11.0-16.0) % Plt Count (160-400) X10*3/uL MPV (9.4-12.3) fL Immature Gran % (Auto) (0.0-0.4) % Neut % (Auto) (45-73) % Lymph % (Auto) (20-40) % Gulf % (Auto) (2-11) % Eos % (Auto) (0-4) % Baso % (Auto) (0-2) % Lymph # (Auto) (1.2-4.9) X10*3/uL [place] # (Auto) (0.1-1.2) X10*3/uL Eos # (Auto) (0.0-0.4) X10*3/uL Baso # (Auto) (0.0-0.2) X10*3/uL Abs Immat Gran (auto) (0.00-0.03) X10*3/uL Absolute Neuts (auto) (2.0-8.3) x10*3/uL Absolute Nucleated RBC (0.0-0.012) X10*3/uL Nucleated RBC % (auto) (0.0-0.2) /100WBC Sodium (135-145) mmol/L Potassium (3.3-5.1) mmol/L Chloride (96-108) mmol/L Carbon Dioxide (22-29) mmol/L Anion Gap (12-20) BUN (9-16) mg/dL Creatinine (0.5-1.4) mg/dL Estim Creat Clear Calc Estimated GFR Random Glucose (60-115) mg/dL Calcium (8.4-10.2) mg/dL Magnesium (1.6-2.6) mg/dL Total Bilirubin (0.0-1.0) mg/dL AST (5-31) U/L ALT (0-31) U/L Alkaline Phosphatase (39-117) U/L Total Protein (6.5-8.0) g/dL Albumin (3.5-5.0) g/dL Beta HCG, Quant mIU/mL Urine Color Yellow Urine Appearance Clear Urine pH 7.0 (5.0-9.0) Ur Specific [place] <= 1.005 (1.005-1.025) Urine Protein Negative (Neg-Trace) mg/dL Urine Glucose (UA) Negative (Negative) mg/dL Urine Ketones Negative (Negative) mg/dL Urine Blood Negative (Negative) Urine Nitrite Negative (Negative) Ur Leukocyte Esterase Trace H (Negative) Urine RBC 0-2 (0-2) /HPF Urine WBC 0-5 (0-5) /HPF Ur Squamous Epith Cells 0-2 (0-2) /HPF Urine Bacteria None Seen (None Seen) Hyaline Casts 0-2 (0-2) /LPF Urine Opiates Screen Not Detected (Not Detect) Urine Fentanyl Screen Not Detected (Not Detect) Ur Barbiturates Screen Not Detected (Not Detect) Ur Phencyclidine Scrn Not Detected (Not Detect) Ur Amphetamines Screen Not Detected (Not Detect) U Benzodiazepines Scrn Not Detected (Not Detect) Urine Cocaine Screen Not Detected (Not Detect) U Marijuana (THC) Screen Not Detected (Not Detect) Ethyl Alcohol mg/dL COVID-19 (YAZ) Negative (Negative) COVID-19 Clin Com See Note Independent Interpretation I performed an independent interpretation of an: CT Scan Radiology Impression Discussion of test interpretation with radiology: I have reviewed the radiologist's reading. Core Measures AMI core measures followed: Yes Measure exclusions: not indicated Critical Care Time Critical Care Time Critical Care Time: No Discharge Plan Discharge Clinical Impression: Alcohol abuse, Alcoholic intoxication, Fall Patient Disposition: Still a Patient Prescriptions: No Action acetaminophen 325 mg tablet 650 mg PO Q6H PRN (Reason: Pain (Scale Score 4-6)) trazodone 50 mg tablet 1 tab PO BEDTIME naltrexone 50 mg tablet 1 tab PO DAILY melatonin 3 mg tablet 1 tab PO BEDTIME hydroxyzine pamoate 25 mg capsule 1 cap PO TID escitalopram oxalate 20 mg tablet 1 tab PO DAILY Interventions: [place]-Suicide Risk Severity Scale Last Done: 12/16/22 21:38
[2022-12-16 22:51] LABS: COVID-19 Test Negative (Negative); IDNOW Serial# 08D9AD1C
[2022-12-16 22:52] LABS: Ethanol 488 mg/dL
[2022-12-16 22:54] LABS: Alanine Aminotransferase 24 U/L (0-31); Albumin Level 4.5 g/dL (3.5-5.0); Alkaline Phosphatase 63 U/L (39-117); Anion Gap 18 (12-20); Aspartate Amino Transferase 32 U/L (5-31); Bilirubin Total 0.6 mg/dL (0.0-1.0); Blood Urea Nitrogen 6 mg/dL (9-16); Carbon Dioxide 24 mmol/L (22-29); Chloride 108 mmol/L (96-108); Creatinine Clr Calc Pharmacy 130.9; Estimated Glomerular Filt Rate > 60; Glucose Random 111 mg/dL (60-115); Magnesium 1.7 mg/dL (1.6-2.6); Potassium 3.3 mmol/L (3.3-5.1); Sodium 147 mmol/L (135-145); Total Protein 7.7 g/dL (6.5-8.0)
--- NOTE | 2022-12-16 23:45 | PC.NURSE ---
Pt ambulated to BR with staff assist, unsteady gait.
[2022-12-16 23:47] LABS: Appearance Urine Clear; Color Urine Yellow; Glucose Urine UA Negative (Negative); Leukocyte Esterase Urine Trace (Negative); Nitrite Urine Negative (Negative); Specific Gravity - Urine <= 1.005 (1.005-1.025); UMIC TRIGGER UACC YES; Urine Blood Negative (Negative); Urine Ketones Negative (Negative); Urine Protein Negative (Neg-Trace)
[2022-12-16 23:55] LABS: Bacteria Urine None Seen (None Seen); Hyaline Casts Urine 0-2 /LPF (0-2); RBC Urine 0-2 /HPF (0-2); Squamous Epithelial Cell Urine 0-2 /HPF (0-2); WBC Urine 0-5 /HPF (0-5)
[2022-12-17 00:01] LABS: Amphetamine Screen Urine Not Detected (Not Detect); Barbiturates, Urine Not Detected (Not Detect); Benzodiazepines Screen Urine Not Detected (Not Detect); Cannabinoid Screen Urine Not Detected (Not Detect); Cocaine Screen Urine Not Detected (Not Detect); Fentanyl, urine Not Detected (Not Detect); Opiate Screen Urine Not Detected (Not Detect); Phencyclidine Screen Urine Not Detected (Not Detect)
[2022-12-17 00:19] LABS: HCG Quantitative < 2 mIU/mL
--- NOTE | 2022-12-17 01:06 | PC.NURSE ---
RADHA Brice watched Pt lower self to knees on the floor. Pt states I need to use the bathroom and get more water, is the only way to get things around here . Pt redirected and told to ask for needs, not to climb out of stretcher.
--- NOTE | 2022-12-17 01:46 | MHC.EDTECH ---
at approxiamately 0100 as this fiction and nonfiction writer prose was leaving room 14. I witnessed this patient put her self on the floor. When I got to her and asked why she put herself on the floor she stated I put myself on the floor because thats the only way I can get some help. Patient also stated that all she wants to do is go pee have some more gingerale and get sectioned for help. This fiction and nonfiction writer prose helped patient up to the bathroom then back to her bed.
[2022-12-17] MEDS: iohexoL 350 MG/ML 100 ML INFUS..BTL 85 ML IV (02:09)
--- NOTE | 2022-12-17 02:20 | PC.NURSE ---
This investigative writer was in a Pt room when Pt stated Im just going to put myself on the floor to get some attention , Pt redirectef a
[2022-12-17 03:27] VITALS: BP 107/61; PULSE 119; RESP 18; O2SAT 95
[2022-12-17] MEDS: LORazepam 1 MG TABLET 2 MG PO ×2 (03:35→09:46)
[2022-12-17] MEDS: Fluconazole 150 MG TABLET PO (03:36)
[2022-12-17 06:09] VITALS: BP 108/61; PULSE 100; RESP 19; TEMP 37.1; O2SAT 94
--- NOTE | 2022-12-17 09:44 | MHC.RECOVRN ---
This marketing copywriter met w/ patient, patient was resting under blankets, awake to verbal command. Patient reports not drinking for one month, reoccurrence past few weeks. Patient reports drinking daily for past 10 days, 15 nips daily. 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 Patient has been through [facility], [facility] in the past. Patient reports called [facility] this week and is on the waitlist. Patient is not interested in [facility] detox bedsearch at this time. Reivewed resouces and left at bedside. Reviewed risks of withdrawal and importance of medical management of withdrawal. Patient verbalized understanding. This marketing copywriter to coordinate [employer] transport for patient. Provider aware.
[2022-12-17] MEDS: Nystatin Cream 15 GM TUBE 1 APPL TOPICAL (10:24)
--- NOTE | 2022-12-17 11:14 | PC.NURSE ---
change in plan of care pt was taken for a section 35 by [facility].
== END 2022-12-17 11:14 | disposition home or self-care (01) ==
PROVIDERS: Physician Assistant; Emergency Provider Internal Medicine
DX: F10.220 Alcohol dependence with intoxication, uncomplicated (principal); Y90.8 Blood alcohol level of 240 mg/100 ml or more; Z91.81 History of falling; Z20.822 Contact with and (suspected) exposure to COVID-19; Z79.899 Other long term (current) drug therapy; R74.01 Elevation of levels of liver transaminase levels; R00.0 Tachycardia, unspecified
CPT/HCPCS: 36415; 70450; 71260; 72125; 74177; 80053; 80307; 81001; 82077; 83735; 84702; 85025; 87635; 93005; 99285; Q9967

== ENCOUNTER 2023-01-20 12:24 | Emergency (ER) | payer OTHER, SELFPAY ==
[2023-01-20 12:30] VITALS: BP 117/76; BP 130/90; PULSE 90; PULSE 92; RESP 18; TEMP 37; O2SAT 94; BMI 33.3
--- NOTE | 2023-01-20 12:37 | ED.GENADULT ---
HPI - General Adult General Chief complaint: ETOH/Substance Use <COMFORT Valenzuela - Last Filed: 01/20/23 17:41> Stated complaint: ETOH <COMFORT Valenzuela - Last Filed: 01/20/23 17:41> Time Seen by Provider: 01/20/23 12:36 <COMFORT Valenzuela - Last Filed: 01/20/23 17:41> Source: patient and EMS <COMFORT Valenzuela - Last Filed: 01/20/23 17:41> Mode of arrival: EMS <COMFORT Valenzuela - Last Filed: 01/20/23 17:41> Limitations: no limitations <COMFORT Valenzuela - Last Filed: 01/20/23 17:41> History of Present Illness HPI narrative: Patient is a 32 year old assigned female at with a history of alcohol abuse presenting to the emergency department today, intoxicated, requesting more help via a section 12. Patient states that she was in a treatment facility for 10 days and got out 4 days ago and would like more help by getting a section 12 placed on her. Patient states that she denies any HI or SI. Patient denies any dizziness, lightheadedness, abdominal pain, nausea, vomiting, fever, chills, blurry vision, double vision, loss of vision, chest pain, difficulty breathing, shortness of breath, back pain, night sweats, pain with urination, increased urinary frequency, increased urinary urgency, blood in her urine or stool, syncope or a near syncopal episode, recent trauma or falls, bowel incontinence, bladder incontinence, bowel retention, bladder retention, or any other complaints at this time. <COMFORT Valenzuela - Last Filed: 01/20/23 17:41> Severity: mild <COMFORT Valenzuela - Last Filed: 01/20/23 17:41> Relieving factors: none <COMFORT Valenzuela - Last Filed: 01/20/23 17:41> Exacerbating factors: none <COMFORT Valenzuela - Last Filed: 01/20/23 17:41> Associated symptoms: denies other symptoms <COMFORT Valenzuela - Last Filed: 01/20/23 17:41> Treatments prior to arrival: none <COMFORT Valenzuela - Last Filed: 01/20/23 17:41> Related Data Home medications: Home Medications Medication Instructions Recorded Confirmed acetaminophen 325 mg tablet 650 mg PO Q6H PRN Pain (Scale 12/11/22 12/11/22 Score 4-6) escitalopram oxalate 20 mg tablet 1 tab PO DAILY 12/11/22 12/11/22 hydroxyzine pamoate 25 mg capsule 1 cap PO TID 12/11/22 12/11/22 melatonin 3 mg tablet 1 tab PO BEDTIME 12/11/22 12/11/22 naltrexone 50 mg tablet 1 tab PO DAILY 12/11/22 12/11/22 trazodone 50 mg tablet 1 tab PO BEDTIME 12/11/22 12/11/22 escitalopram oxalate 20 mg tablet 1 tab PO DAILY 12/17/22 12/17/22 <COMFORT Valenzuela - Last Filed: 01/20/23 17:41> Allergies/adverse reactions: Allergies Allergy/AdvReac Type Severity Reaction Status Date / Time No Known Allergies Allergy Verified 01/20/23 12:53 <COMFORT Valenzuela - Last Filed: 01/20/23 17:41> Review of Systems Constitutional: Constitutional: Reports no additional constitutional complaints, Denies chills, Denies fever(s) and Denies night sweats <COMFORT Valenzuela - Last Filed: 01/20/23 17:41> Eyes: Eyes: Reports no additional eye complaints, Denies blurry vision, Denies change in vision, Denies diplopia, Denies eye discharge, Denies loss of vision and Denies eye pain <COMFORT Valenzuela Last Filed: 01/20/23 17:41> ENT: Denies dizziness <COMFORT Valenzuela - Last Filed: 01/20/23 17:41> Cardiovascular: Cardiovascular: Reports no additional cardiovascular complaints, Denies chest pain, Denies lightheadedness, Denies Loss of Consciousness and Denies dyspnea <COMFORT Valenzuela - Last Filed: 01/20/23 17:41> Respiratory: Respiratory: Reports no additional respiratory complaints and Denies dyspnea <COMFORT Valenzuela Last Filed: 01/20/23 17:41> Gastrointestinal: Gastrointestinal: Reports no additional gastrointestinal complaints, Denies abdominal pain, Denies melena, Denies hematochezia, Denies change in bowel habits and Denies change in stool character <COMFORT Valenzuela - Last Filed: 01/20/23 17:41> Genitourinary: Genitourinary: Denies hematuria, Denies urinary frequency, Denies dysuria, Denies urinary incontinence, Denies urinary hesitancy and Denies urinary urgency <COMFORT Valenzuela - Last Filed: 01/20/23 17:41> Musculoskeletal: Musculoskeletal: Reports no additional musculoskeletal complaints, Denies numbness and Denies tingling <COMFORT Valenzuela - Last Filed: 01/20/23 17:41> Neurologic: Denies dizziness, Denies loss of vision, Denies numbness and Denies tingling <COMFORT Valenzuela - Last Filed: 01/20/23 17:41> Psychiatric: Psychiatric: Reports no additional psychiatric complaints <COMFORT Valenzuela - Last Filed: 01/20/23 17:41> Endocrine: Endocrine: Reports no additional endocrine complaints <COMFORT Valenzuela - Last Filed: 01/20/23 17:41> Hematologic/Lymphatic: Hematologic/Lymphatic: Reports no additional hematologic/lymphatic complaints <COMFOTR Valenzuela - Last Filed: 01/20/23 17:41> Allergic/Immunologic: Allergic/Immunologic: Reports no additional allergic/immunologic complaints <COMFORT Valenzuela - Last Filed: 01/20/23 17:41> PMFSH Past Medical History Attestation statement: The following information was validated with the patient. <COMFORT Valenzuela - Last Filed: 01/20/23 17:41> Source: old records reviewed and nursing notes reviewed <COMFORT Valenzuela - Last Filed: 01/20/23 17:41> Medical History: Medical History Alcohol abuse <COMFORT Valenzuela - Last Filed: 01/20/23 17:41> Surgical History: Surgical History No pertinent past surgical history <COMFORT Valenzuela - Last Filed: 01/20/23 17:41> Family History Family History: Family History Other No family history of coronary artery disease <COMFORT Valenzuela - Last Filed: 01/20/23 17:41> Social History Social History: Social History Household Members: None Housing: Apartment Do you presently have visiting nurse or other home services: No Alcohol intake: current Alcohol intake frequency: 3 or more drinks per day Alcohol type: hard liquor Patient Tobacco Use Status: Never used Tobacco Use of substances other than those prescribed or required for medical reasons: No Advance Directives: No service: No Current occupational status: unemployed <COMFORT Valenzuela - Last Filed: 01/20/23 17:41> Physical Exam ED Vital Signs: Vital Signs - 24 hr 01/20/23 12:30 01/20/23 14:00 01/20/23 16:00 Temperature 98.6 F Pulse Rate 92 124 H 112 H Respiratory Rate 18 16 14 Blood Pressure 117/76 126/83 Pulse Oximetry 94 88 L 94 Oxygen Delivery Method Room Air Room Air Nasal Cannula Oxygen Flow Rate 1.5 01/20/23 18:00 Temperature 98.4 F Pulse Rate 121 H Respiratory Rate 18 Blood Pressure 116/78 Pulse Oximetry 95 Oxygen Delivery Method Room Air Oxygen Flow Rate BMI result Body Mass Index 33.3 <COMFORT Valenzuela - Last Filed: 01/20/23 17:41> Vital Signs - 24 hr 01/20/23 12:30 01/20/23 14:00 01/20/23 16:00 Temperature 98.6 F Pulse Rate 92 124 H 112 H Respiratory Rate 18 16 14 Blood Pressure 117/76 126/83 Pulse Oximetry 94 88 L 94 Oxygen Delivery Method Room Air Room Air Nasal Cannula Oxygen Flow Rate 1.5 01/20/23 18:00 Temperature 98.4 F Pulse Rate 121 H Respiratory Rate 18 Blood Pressure 116/78 Pulse Oximetry 95 Oxygen Delivery Method Room Air Oxygen Flow Rate BMI result Body Mass Index 33.3 <Juan Esparza - Last Filed: 01/20/23 20:06> Const General: cooperative, no acute distress, alert and awake <COMFORT Valenzuela - Last Filed: 01/20/23 17:41> Nutritional Appearance: well nourished <COMFORT Valenzuela - Last Filed: 01/20/23 17:41> Orientation/consciousness: patient oriented x3 <COMFORT Valenzuela - Last Filed: 01/20/23 17:41> Limitations: no limitations <Yennifer Rene SC - Last Filed: 01/20/23 17:41> HENMT Head: Yes normal to inspection and Yes atraumatic <Yennifer Rene SC - Last Filed: 01/20/23 17:41> Ears: hearing grossly normal bilaterally and external ears normal <Yennifer Rene SC - Last Filed: 01/20/23 17:41> General nose exam: Normal external nose present, no nasal discharge noted and no epistaxis <Yennifer Rene SC - Last Filed: 01/20/23 17:41> Face and sinus: Yes normal facial exam, No abrasion and No laceration <Yennifer Rene SC - Last Filed: 01/20/23 17:41> Mouth: Normal oral and palatal mucosa present, no drooling and no muffled voice <Yennifer Rene SC - Last Filed: 01/20/23 17:41> Eyes General: appearance normal, both eyes and all related structures <Yennifer Rene SC - Last Filed: 01/20/23 17:41> Periorbital: periorbital findings normal <Yennifer Rene SC - Last Filed: 01/20/23 17:41> Eyelids: Yes eyelids normal <Yennifer Rene SC - Last Filed: 01/20/23 17:41> Conjunctivae: conjunctivae normal <Yennifer Rene SC - Last Filed: 01/20/23 17:41> Pupils: Equal, round and reactive pupils present <Yennifer Callawaynajma SC - Last Filed: 01/20/23 17:41> EOM: EOMs intact bilaterally <Yennifer Callawaynajma SC - Last Filed: 01/20/23 17:41> Neck Neck: Yes normal visual inspection, Yes full ROM and Yes no lymphadenopathy <Yennifer Callawaynajma SC - Last Filed: 01/20/23 17:41> Chest Chest palpation & inspection: normal inspection of the chest <Yennifer Callawaynajma SC - Last Filed: 01/20/23 17:41> Resp Effort & Inspection: normal respiratory effort and able to speak in complete sentences <Yennifer Rene SC - Last Filed: 01/20/23 17:41> Auscultation: clear to auscultation bilaterally <Yennifer Reen PA - Last Filed: 01/20/23 17:41> Cardio Rate: regular rate <Yennifer Rene PA - Last Filed: 01/20/23 17:41> Rhythm: regular rhythm <Yennifer Rene PA - Last Filed: 01/20/23 17:41> GI Inspection: Yes normal to inspection <Yennifer Rene PA - Last Filed: 01/20/23 17:41> Palpation (GI): Soft to palpation, not firm, nontender and no guarding <Yennifer Rene PA - Last Filed: 01/20/23 17:41> Neuro General: patient oriented x3 and moves all extremities <Yennifer Rene PA - Last Filed: 01/20/23 17:41> Cranial nerves: Yes Equal, round and reactive pupils present <Yennifer Rene PA - Last Filed: 01/20/23 17:41> Cognition (Neuro): normal cognition <Yennifer Rene PA - Last Filed: 01/20/23 17:41> Motor exam (neuro): 5/5 motor strength present throughout <Yennifer Rene PA - Last Filed: 01/20/23 17:41> Sensory Exam: Normal double simultaneous stimulation for sensation <Yennifer Rene PA - Last Filed: 01/20/23 17:41> Coordination: [id number] test normal <Yennifer Rene PA - Last Filed: 01/20/23 17:41> Extrem General: Yes normal to inspection, Yes full ROM and Yes capillary refill normal <Yennifer Rene PA - Last Filed: 01/20/23 17:41> Psych Appearance: grossly normal <Yennifer Rene PA - Last Filed: 01/20/23 17:41> Mental Status: mental status grossly normal <Yennifer Rene PA - Last Filed: 01/20/23 17:41> Affect: normal affect <Yennifer Rene PA - Last Filed: 01/20/23 17:41> Attitude: cooperative <Yennifer Rene PA - Last Filed: 01/20/23 17:41> Thought process: Normal thought process present <Yennifer Callawaynajma PA - Last Filed: 01/20/23 17:41> Thought content: Normal thought content present <COMFORT Valenzuela - Last Filed: 01/20/23 17:41> Insight: Good insight present (Psych) <COMFORT Valenzuela - Last Filed: 01/20/23 17:41> Course Reevaluation(s) Reevaluation #1: 32-year-old female received in sign-out pending care team assessment. Unfortunately erythema not be able to evaluate the patient for another 7 hours. The patient was involuntarily stain to be seen by the care team. She not no longer wants to wait. She would like to be discharged home with the care of her father. I evaluate the patient personally and she denies any SI or HI. She will seek inpatient detox on her own an outpatient basis. The patient did request 1 dose of Ativan to help prevent the urge to drink more when she gets home. I feel this is appropriate. <Juan Esparza - Last Filed: 01/20/23 20:06> Time: 20:04 <Juan Esparza - Last Filed: 01/20/23 20:06> Medications Administered Discontinued Medications Generic Name Dose Route Start Last Admin Trade Name Freq PRN Reason Stop Dose Admin Lorazepam 2 mg 01/20/23 15:30 01/20/23 15:46 Lorazepam 1 Mg Tablet PO 01/20/23 15:31 2 mg ONCE ONE Administration Lorazepam 2 mg 01/20/23 16:39 01/20/23 16:46 Lorazepam 2 Mg/Ml Vial IVPUSH 01/20/23 16:40 2 mg ONCE ONE Administration <COMFORT Valenzuela - Last Filed: 01/20/23 17:41> Medications Administered Discontinued Medications Generic Name Dose Route Start Last Admin Trade Name Freq PRN Reason Stop Dose Admin Lorazepam 2 mg 01/20/23 15:30 01/20/23 15:46 Lorazepam 1 Mg Tablet PO 01/20/23 15:31 2 mg ONCE ONE Administration Lorazepam 2 mg 01/20/23 16:39 01/20/23 16:46 Lorazepam 2 Mg/Ml Vial IVPUSH 01/20/23 16:40 2 mg ONCE ONE Administration <Juan Esparza - Last Filed: 01/20/23 20:06> Medical Decision Making Medical Decision Making [facility] Narrative: Patient is a 32 year old assigned female at with a history of alcohol abuse presenting to the emergency department today requesting more help. Patient's physical exam was unremarkable. Patient's blood work was unremarkable except for the ethanol level of 456. Patient's urine showed no acute process. Patient is currently awaiting evaluation from the CARE / Recovery team. <COMFORT Valenzuela - Last Filed: 01/20/23 17:41> Differential Diagnosis Differential Diagnoses: The differential diagnosis associated with the presentation includes <COMFORT Valenzuela - Last Filed: 01/20/23 17:41> alcohol intoxication <COMFORT Valenzuela - Last Filed: 01/20/23 17:41> Lab Data [facility] Lab Attestation statement: I reviewed the patient's lab results. <COMFORT Valenzuela - Last Filed: 01/20/23 17:41> Result Diagrams: 01/20/23 13:32 01/20/23 13:32 <COMFORT Valenzuela - Last Filed: 01/20/23 17:41> Labs: Lab Results 01/20/23 01/20/23 01/20/23 Range/Units 13:32 13:32 13:32 WBC 5.7 (4.8-10.8) X10*3/uL RBC 4.49 (4.20-5.50) X10*6/uL Hgb 13.8 (12.0-16.0) g/dl Hct 40.5 (37.0-47.0) % MCV 90.2 (80.0-98.0) fL MCH 30.7 (27.0-33.0) pg MCHC 34.1 (31.0-35.0) g/dl RDW 13.2 (11.0-16.0) % Plt Count 189 (160-400) X10*3/uL MPV 9.4 (9.4-12.3) fL Immature Gran % (Auto) 0.4 (0.0-0.4) % Neut % (Auto) 39.7 L (45-73) % Lymph % (Auto) 55.2 H (20-40) % [place] % (Auto) 3.5 (2-11) % Eos % (Auto) 0.7 (0-4) % Baso % (Auto) 0.5 (0-2) % Lymph # (Auto) 3.1 (1.2-4.9) X10*3/uL [place] # (Auto) 0.2 (0.1-1.2) X10*3/uL Eos # (Auto) 0.0 (0.0-0.4) X10*3/uL Baso # (Auto) 0.0 (0.0-0.2) X10*3/uL Abs Immat Gran (auto) 0.02 (0.00-0.03) X10*3/uL Absolute Neuts (auto) 2.3 (2.0-8.3) x10*3/uL Absolute Nucleated RBC 0.000 (0.0-0.012) X10*3/uL Nucleated RBC % (auto) 0.0 (0.0-0.2) /100WBC Sodium 145 (135-145) mmol/L Potassium 4.3 D (3.3-5.1) mmol/L Chloride 102 (96-108) mmol/L Carbon Dioxide 29 (22-29) mmol/L Anion Gap 18 (12-20) BUN 8 L (9-16) mg/dL Creatinine 0.70 (0.5-1.4) mg/dL Estim Creat Clear Calc 127.2 Estimated GFR > 60 Random Glucose 87 (60-115) mg/dL Calcium 9.0 (8.4-10.2) mg/dL Total Bilirubin 0.6 (0.0-1.0) mg/dL AST 51 H (5-31) U/L ALT 46 H (0-31) U/L Alkaline Phosphatase 58 (39-117) U/L Total Protein 7.4 (6.5-8.0) g/dL Albumin 4.4 (3.5-5.0) g/dL Urine Color Urine Appearance Urine pH (5.0-9.0) Ur Specific [place] (1.005-1.025) Urine Protein (Neg-Trace) mg/dL Urine Glucose (UA) (Negative) mg/dL Urine Ketones (Negative) mg/dL Urine Blood (Negative) Urine Nitrite (Negative) Ur Leukocyte Esterase (Negative) Urine RBC (0-2) /HPF Urine WBC (0-5) /HPF Ur Squamous Epith Cells (0-2) /HPF Urine Bacteria (None Seen) Hyaline Casts (0-2) /LPF Urine Test (NEGATIVE) Salicylates < 5.0 L (15-30) mg/dL Urine Opiates Screen (Not Detect) Urine Fentanyl Screen (Not Detect) Acetaminophen < 17 (<30) mcg/mL Ur Barbiturates Screen (Not Detect) Ur Phencyclidine Scrn (Not Detect) Ur Amphetamines Screen (Not Detect) U Benzodiazepines Scrn (Not Detect) Urine Cocaine Screen (Not Detect) U Marijuana (THC) Screen (Not Detect) Ethyl Alcohol 456 H* mg/dL COVID-19 (YAZ) Negative (Negative) COVID-19 Clin Com See Note 01/20/23 01/20/23 01/20/23 Range/Units 14:30 14:30 14:30 WBC (4.8-10.8) X10*3/uL RBC (4.20-5.50) X10*6/uL Hgb (12.0-16.0) g/dl Hct (37.0-47.0) % MCV (80.0-98.0) fL MCH (27.0-33.0) pg MCHC (31.0-35.0) g/dl RDW (11.0-16.0) % Plt Count (160-400) X10*3/uL MPV (9.4-12.3) fL Immature Gran % (Auto) (0.0-0.4) % Neut % (Auto) (45-73) % Lymph % (Auto) (20-40) % [place] % (Auto) (2-11) % Eos % (Auto) (0-4) % Baso % (Auto) (0-2) % Lymph # (Auto) (1.2-4.9) X10*3/uL [place] # (Auto) (0.1-1.2) X10*3/uL Eos # (Auto) (0.0-0.4) X10*3/uL Baso # (Auto) (0.0-0.2) X10*3/uL Abs Immat Gran (auto) (0.00-0.03) X10*3/uL Absolute Neuts (auto) (2.0-8.3) x10*3/uL Absolute Nucleated RBC (0.0-0.012) X10*3/uL Nucleated RBC % (auto) (0.0-0.2) /100WBC Sodium (135-145) mmol/L Potassium (3.3-5.1) mmol/L Chloride (96-108) mmol/L Carbon Dioxide (22-29) mmol/L Anion Gap (12-20) BUN (9-16) mg/dL Creatinine (0.5-1.4) mg/dL Estim Creat Clear Calc Estimated GFR Random Glucose (60-115) mg/dL Calcium (8.4-10.2) mg/dL Total Bilirubin (0.0-1.0) mg/dL AST (5-31) U/L ALT (0-31) U/L Alkaline Phosphatase (39-117) U/L Total Protein (6.5-8.0) g/dL Albumin (3.5-5.0) g/dL Urine Color Yellow Urine Appearance Clear Urine pH 6.5 (5.0-9.0) Ur Specific [place] <= 1.005 (1.005-1.025) Urine Protein Negative (Neg-Trace) mg/dL Urine Glucose (UA) Negative (Negative) mg/dL Urine Ketones Trace (Negative) mg/dL Urine Blood Small (1+) H (Negative) Urine Nitrite Negative (Negative) Ur Leukocyte Esterase Negative (Negative) Urine RBC 0-2 (0-2) /HPF Urine WBC 0-5 (0-5) /HPF Ur Squamous Epith Cells 0-2 (0-2) /HPF Urine Bacteria None Seen (None Seen) Hyaline Casts 0-2 (0-2) /LPF Urine Test NEGATIVE (NEGATIVE) Salicylates (15-30) mg/dL Urine Opiates Screen Not Detected (Not Detect) Urine Fentanyl Screen Not Detected (Not Detect) Acetaminophen (<30) mcg/mL Ur Barbiturates Screen Not Detected (Not Detect) Ur Phencyclidine Scrn Not Detected (Not Detect) Ur Amphetamines Screen Not Detected (Not Detect) U Benzodiazepines Scrn Not Detected (Not Detect) Urine Cocaine Screen Not Detected (Not Detect) U Marijuana (THC) Screen Not Detected (Not Detect) Ethyl Alcohol mg/dL COVID-19 (YAZ) (Negative) COVID-19 Clin Com <COMFORT Valenzuela - Last Filed: 01/20/23 17:41> Lab Results 01/20/23 01/20/23 01/20/23 Range/Units 13:32 13:32 13:32 WBC 5.7 (4.8-10.8) X10*3/uL RBC 4.49 (4.20-5.50) X10*6/uL Hgb 13.8 (12.0-16.0) g/dl Hct 40.5 (37.0-47.0) % MCV 90.2 (80.0-98.0) fL MCH 30.7 (27.0-33.0) pg MCHC 34.1 (31.0-35.0) g/dl RDW 13.2 (11.0-16.0) % Plt Count 189 (160-400) X10*3/uL MPV 9.4 (9.4-12.3) fL Immature Gran % (Auto) 0.4 (0.0-0.4) % Neut % (Auto) 39.7 L (45-73) % Lymph % (Auto) 55.2 H (20-40) % [place] % (Auto) 3.5 (2-11) % Eos % (Auto) 0.7 (0-4) % Baso % (Auto) 0.5 (0-2) % Lymph # (Auto) 3.1 (1.2-4.9) X10*3/uL [place] # (Auto) 0.2 (0.1-1.2) X10*3/uL Eos # (Auto) 0.0 (0.0-0.4) X10*3/uL Baso # (Auto) 0.0 (0.0-0.2) X10*3/uL Abs Immat Gran (auto) 0.02 (0.00-0.03) X10*3/uL Absolute Neuts (auto) 2.3 (2.0-8.3) x10*3/uL Absolute Nucleated RBC 0.000 (0.0-0.012) X10*3/uL Nucleated RBC % (auto) 0.0 (0.0-0.2) /100WBC Sodium 145 (135-145) mmol/L Potassium 4.3 D (3.3-5.1) mmol/L Chloride 102 (96-108) mmol/L Carbon Dioxide 29 (22-29) mmol/L Anion Gap 18 (12-20) BUN 8 L (9-16) mg/dL Creatinine 0.70 (0.5-1.4) mg/dL Estim Creat Clear Calc 127.2 Estimated GFR > 60 Random Glucose 87 (60-115) mg/dL Calcium 9.0 (8.4-10.2) mg/dL Total Bilirubin 0.6 (0.0-1.0) mg/dL AST 51 H (5-31) U/L ALT 46 H (0-31) U/L Alkaline Phosphatase 58 (39-117) U/L Total Protein 7.4 (6.5-8.0) g/dL Albumin 4.4 (3.5-5.0) g/dL Urine Color Urine Appearance Urine pH (5.0-9.0) Ur Specific [place] (1.005-1.025) Urine Protein (Neg-Trace) mg/dL Urine Glucose (UA) (Negative) mg/dL Urine Ketones (Negative) mg/dL Urine Blood (Negative) Urine Nitrite (Negative) Ur Leukocyte Esterase (Negative) Urine RBC (0-2) /HPF Urine WBC (0-5) /HPF Ur Squamous Epith Cells (0-2) /HPF Urine Bacteria (None Seen) Hyaline Casts (0-2) /LPF Urine Test (NEGATIVE) Salicylates < 5.0 L (15-30) mg/dL Urine Opiates Screen (Not Detect) Urine Fentanyl Screen (Not Detect) Acetaminophen < 17 (<30) mcg/mL Ur Barbiturates Screen (Not Detect) Ur Phencyclidine Scrn (Not Detect) Ur Amphetamines Screen (Not Detect) U Benzodiazepines Scrn (Not Detect) Urine Cocaine Screen (Not Detect) U Marijuana (THC) Screen (Not Detect) Ethyl Alcohol 456 H* mg/dL COVID-19 (YAZ) Negative (Negative) COVID-19 Clin Com See Note 01/20/23 01/20/23 01/20/23 Range/Units 14:30 14:30 14:30 WBC (4.8-10.8) X10*3/uL RBC (4.20-5.50) X10*6/uL Hgb (12.0-16.0) g/dl Hct (37.0-47.0) % MCV (80.0-98.0) fL MCH (27.0-33.0) pg MCHC (31.0-35.0) g/dl RDW (11.0-16.0) % Plt Count (160-400) X10*3/uL MPV (9.4-12.3) fL Immature Gran % (Auto) (0.0-0.4) % Neut % (Auto) (45-73) % Lymph % (Auto) (20-40) % [place] % (Auto) (2-11) % Eos % (Auto) (0-4) % Baso % (Auto) (0-2) % Lymph # (Auto) (1.2-4.9) X10*3/uL [place] # (Auto) (0.1-1.2) X10*3/uL Eos # (Auto) (0.0-0.4) X10*3/uL Baso # (Auto) (0.0-0.2) X10*3/uL Abs Immat Gran (auto) (0.00-0.03) X10*3/uL Absolute Neuts (auto) (2.0-8.3) x10*3/uL Absolute Nucleated RBC (0.0-0.012) X10*3/uL Nucleated RBC % (auto) (0.0-0.2) /100WBC Sodium (135-145) mmol/L Potassium (3.3-5.1) mmol/L Chloride (96-108) mmol/L Carbon Dioxide (22-29) mmol/L Anion Gap (12-20) BUN (9-16) mg/dL Creatinine (0.5-1.4) mg/dL Estim Creat Clear Calc Estimated GFR Random Glucose (60-115) mg/dL Calcium (8.4-10.2) mg/dL Total Bilirubin (0.0-1.0) mg/dL AST (5-31) U/L ALT (0-31) U/L Alkaline Phosphatase (39-117) U/L Total Protein (6.5-8.0) g/dL Albumin (3.5-5.0) g/dL Urine Color Yellow Urine Appearance Clear Urine pH 6.5 (5.0-9.0) Ur Specific [place] <= 1.005 (1.005-1.025) Urine Protein Negative (Neg-Trace) mg/dL Urine Glucose (UA) Negative (Negative) mg/dL Urine Ketones Trace (Negative) mg/dL Urine Blood Small (1+) H (Negative) Urine Nitrite Negative (Negative) Ur Leukocyte Esterase Negative (Negative) Urine RBC 0-2 (0-2) /HPF Urine WBC 0-5 (0-5) /HPF Ur Squamous Epith Cells 0-2 (0-2) /HPF Urine Bacteria None Seen (None Seen) Hyaline Casts 0-2 (0-2) /LPF Urine Test NEGATIVE (NEGATIVE) Salicylates (15-30) mg/dL Urine Opiates Screen Not Detected (Not Detect) Urine Fentanyl Screen Not Detected (Not Detect) Acetaminophen (<30) mcg/mL Ur Barbiturates Screen Not Detected (Not Detect) Ur Phencyclidine Scrn Not Detected (Not Detect) Ur Amphetamines Screen Not Detected (Not Detect) U Benzodiazepines Scrn Not Detected (Not Detect) Urine Cocaine Screen Not Detected (Not Detect) U Marijuana (THC) Screen Not Detected (Not Detect) Ethyl Alcohol mg/dL COVID-19 (YAZ) (Negative) COVID-19 Clin Com <Juan Esparza - Last Filed: 01/20/23 20:06> Discharge Plan Discharge Clinical Impression: Alcohol abuse <COMFORT Valenzuela - Last Filed: 01/20/23 17:41> Patient Disposition: Home, Self-Care <COMFORT Valenzuela - Last Filed: 01/20/23 17:41> Instructions: Abuse of Alcohol (ED) <OCMFORT Valenzuela - Last Filed: 01/20/23 17:41> Additional Instructions: Return for any new or worsening symptoms. Otherwise plan to search for detox on your own as planned <COMFORT Valenzuela - Last Filed: 01/20/23 17:41> Prescriptions: No Action escitalopram oxalate 20 mg tablet 1 tab PO DAILY acetaminophen 325 mg tablet 650 mg PO Q6H PRN (Reason: Pain (Scale Score 4-6)) trazodone 50 mg tablet 1 tab PO BEDTIME naltrexone 50 mg tablet 1 tab PO DAILY melatonin 3 mg tablet 1 tab PO BEDTIME hydroxyzine pamoate 25 mg capsule 1 cap PO TID escitalopram oxalate 20 mg tablet 1 tab PO DAILY <COMFORT Valenzuela - Last Filed: 01/20/23 17:41> Interventions: Elmo-Suicide Risk Severity Scale Last Done: 01/20/23 12:52 <COMFORT Valenzuela - Last Filed: 01/20/23 17:41>
--- NOTE | 2023-01-20 12:55 | PC.NURSE ---
Addendum entered by Yon Saini RN 01/20/23 13:02: NON-COMPLIANT WITH MEDS Original Note: FROM HOME. RELEASE FROM SECT 35 4-5 DAYS AGO. WAS UPSET BECAUSE OF BEING D/C'd , STARTED DRINKING AGAIN. DAILY DRINKER, LAST DRINK VODKA X1 HR AGO. A+O x4. REQUESTING TO BE SECTION 12. DENIES SI/HI.
[2023-01-20 13:36] LABS: MANUAL DIFF FLAG NO
[2023-01-20 13:38] LABS: Basophils Percent Auto 0.5 % (0-2); Eosinophils Percent Auto 0.7 % (0-4); Hematocrit 40.5 % (37.0-47.0); Hemoglobin 13.8 g/dl (12.0-16.0); Imm Gran Abs Auto 0.02 X10*3/uL (0.00-0.03); Imm Gran Pct Auto 0.4 % (0.0-0.4); Lymphocytes Absolute Auto 3.1 X10*3/uL (1.2-4.9); Lymphocytes Percent Auto 55.2 % (20-40); Mean Corpuscular HGB Conc 34.1 g/dl (31.0-35.0); Mean Corpuscular Hemoglobin 30.7 pg (27.0-33.0); Mean Corpuscular Volume 90.2 fL (80.0-98.0); Mean Platelet Volume 9.4 fL (9.4-12.3); Monocytes Absolute Auto 0.2 X10*3/uL (0.1-1.2); Monocytes Percent Auto 3.5 % (2-11); Neutrophils Absolute Auto 2.3 x10*3/uL (2.0-8.3); Neutrophils Percent Auto 39.7 % (45-73); Platelet Count 189 X10*3/uL (160-400); Red Blood Count 4.49 X10*6/uL (4.20-5.50); Red Cell Distribution Width 13.2 % (11.0-16.0); White Blood Count 5.7 X10*3/uL (4.8-10.8)
[2023-01-20 13:59] LABS: Alanine Aminotransferase 46 U/L (0-31); Albumin Level 4.4 g/dL (3.5-5.0); Alkaline Phosphatase 58 U/L (39-117); Anion Gap 18 (12-20); Aspartate Amino Transferase 51 U/L (5-31); Bilirubin Total 0.6 mg/dL (0.0-1.0); Blood Urea Nitrogen 8 mg/dL (9-16); Carbon Dioxide 29 mmol/L (22-29); Chloride 102 mmol/L (96-108); Creatinine Clr Calc Pharmacy 127.2; Estimated Glomerular Filt Rate > 60; Ethanol 456 mg/dL; Glucose Random 87 mg/dL (60-115); Potassium 4.3 mmol/L (3.3-5.1); Salicylate < 5.0 mg/dL (15-30); Sodium 145 mmol/L (135-145); Total Protein 7.4 g/dL (6.5-8.0)
[2023-01-20 14:00] VITALS: BP 126/83; PULSE 124; RESP 16; O2SAT 88
[2023-01-20 14:10] LABS: COVID-19 Test Negative (Negative); IDNOW Serial# BCCEAD1C
[2023-01-20 14:17] LABS: Acetaminophen LAB < 17 mcg/mL (<30)
--- NOTE | 2023-01-20 14:26 | PC.NURSE ---
PT CHANGED INTO HOSPITAL ATTIRE, BELONGINGS LIST COMPLETED, PT'S BELONGINGS PLACED IN LOCKER 10, PT HAS HER CELL PHONE WITH HER, SECURITY AWARE. SNACK GIVEN, PT SWALLOWED LIQUIDS AND SOLIDS WITHOUT DIFFICULTY. PT SEEN BY EM FROM RECOVERY TEAM. WILL CONTINUE TO MONITOR.
--- NOTE | 2023-01-20 14:31 | MHC.RECOVRN ---
This publications writer met w/ patient, patient was resting in bed, under blanket, alert to verbal command. Patient reports interested in Section 12, patient denies SI/HI. Patient states does not want Section 35, patient unsure about detox at this time. Patient states had called [facility], patient states [facility] will not take for detox. Patient incoherent at times, addiction/recovery team to follow up when patient more alert/awake in regard to detox and/or recovery supports. Provider aware.
[2023-01-20 14:41] LABS: UPreg QC Valid YES; Urine Pregnancy NEGATIVE (NEGATIVE)
[2023-01-20 14:42] LABS: Appearance Urine Clear; Color Urine Yellow; Glucose Urine UA Negative (Negative); Leukocyte Esterase Urine Negative (Negative); Nitrite Urine Negative (Negative); PH 6.5 (5.0-9.0); Specific Gravity - Urine <= 1.005 (1.005-1.025); UMIC TRIGGER UA YES; Urine Blood Small (1+) (Negative); Urine Ketones Trace mg/dL (Negative); Urine Protein Negative (Neg-Trace)
[2023-01-20 14:50] LABS: Bacteria Urine None Seen (None Seen); Hyaline Casts Urine 0-2 /LPF (0-2); RBC Urine 0-2 /HPF (0-2); Squamous Epithelial Cell Urine 0-2 /HPF (0-2); WBC Urine 0-5 /HPF (0-5)
[2023-01-20 14:51] LABS: Amphetamine Screen Urine Not Detected (Not Detect); Barbiturates, Urine Not Detected (Not Detect); Benzodiazepines Screen Urine Not Detected (Not Detect); Cannabinoid Screen Urine Not Detected (Not Detect); Cocaine Screen Urine Not Detected (Not Detect); Fentanyl, urine Not Detected (Not Detect); Opiate Screen Urine Not Detected (Not Detect); Phencyclidine Screen Urine Not Detected (Not Detect)
[2023-01-20] MEDS: LORazepam 1 MG TABLET 2 MG PO (15:46)
[2023-01-20 16:00] VITALS: PULSE 112; RESP 14; O2SAT 94
[2023-01-20] MEDS: LORazepam 2 MG/ML VIAL IVPUSH (16:46)
--- NOTE | 2023-01-20 16:50 | PC.NURSE ---
20g IV INSERTED IN LAC. VSS, PT DENIES SI/HI. LAST CIWA 5. WILL CONTINUE TO MONITOR.
--- NOTE | 2023-01-20 17:54 | PC.NURSE ---
Patient becoming more oriented, she is asking staff for opinions on what she should do, she continues to ask about being sectioned for her mental health, however continues to deny SI/HI. She is ambulating around unit and having some increased activity. She is a/ox4.
[2023-01-20 18:00] VITALS: BP 116/78; PULSE 121; RESP 18; TEMP 36.9; O2SAT 95
--- NOTE | 2023-01-20 18:28 | PC.NURSE ---
Updated job coach/job developer, coming on shift of situation and that patient was requesting to talk with him. He is currently bedside with patient
[2023-01-20 20:00] VITALS: BP 125/74; PULSE 133; RESP 18; TEMP 36.9; O2SAT 95
[2023-01-20] MEDS: LORazepam 1 MG TABLET PO (20:18)
--- NOTE | 2023-01-20 20:35 | MHC.RECOVSUP ---
? Reason for consult:ETOH o? Current location:ED18? o? Identified substance use concern:? -? Support ? Intervention: o? Community resources provided o? Harm reduction discussion ? Plan:Discharge ? Additional information:ISABELLE met with this pt and discussed treatment, but the pt refused to go back to treatment because she just spent 28 days in sec 35. Rc provided pt with recovery resources.
--- NOTE | 2023-01-20 20:37 | PC.NURSE ---
Assumed care of pt. at 1900. Pt. sitting in bed at this time with dad at bedside. Pt. states she doesn't want to wait for care team who won't be able to meet with her until 330am when she's clinically sober. Pt. just wants to leave. Pt. continues to deny SI/HI. Pt. spoke with provider as she's ready to go home. D/C processed. Pt. will continue to seek detox on her own with the help of her dad.
== END 2023-01-20 20:41 | disposition home or self-care (01) ==
PROVIDERS: Physician Assistant Medical; Emergency Provider Emergency Medicine; PCP Nurse Practitioner Family
DX: F10.129 Alcohol abuse with intoxication, unspecified (principal); Y90.8 Blood alcohol level of 240 mg/100 ml or more; Z20.822 Contact with and (suspected) exposure to COVID-19; Z20.828 Contact with and (suspected) exposure to other viral communicable diseases; Z79.899 Other long term (current) drug therapy
CPT/HCPCS: 36415; 80053; 80143; 80179; 80307; 81001; 81025; 82077; 85025; 87635; 96374; 99284; 99285; J2060

== ENCOUNTER 2023-01-20 22:02 | Emergency (ER) | payer OTHER, SELFPAY ==
[2023-01-20 22:04] VITALS: BP 126/87; PULSE 132; RESP 18; TEMP 36.3; O2SAT 94; BMI 33.3
[2023-01-20 23:09] LABS: COVID-19 Test Negative (Negative)
[2023-01-20 23:11] LABS: Ethanol 218 mg/dL
[2023-01-20] MEDS: LORazepam 1 MG TABLET 2 MG PO (23:30)
[2023-01-21 00:42] LABS: Amphetamine Screen Urine Not Detected (Not Detect); Barbiturates, Urine Not Detected (Not Detect); Benzodiazepines Screen Urine POSITIVE (Not Detect); Cannabinoid Screen Urine Not Detected (Not Detect); Cocaine Screen Urine Not Detected (Not Detect); Fentanyl, urine Not Detected (Not Detect); Opiate Screen Urine Not Detected (Not Detect); Phencyclidine Screen Urine Not Detected (Not Detect)
--- NOTE | 2023-01-21 01:57 | ED.ALCOHOL ---
HPI - Alcohol General Chief Complaint: Psychiatric Symptoms Stated Complaint: crisis, threatening to hurt herself Time Seen by Provider: 01/20/23 22:59 Source: patient Mode of arrival: ambulatory Limitations: no limitations History of Present Illness HPI narrative: History of depression and alcohol use since age 16 was sober for 28 days after a month stay in detox started drinking again for last 5 days was just discharged from the ER 2 hours ago as patient refused detox. Patient was bagging her dad to bring her to the liquor store for 2 nibs a she threatened to her dad saying she will jump out of the car if she if he does not bring drink for her. Patient denied any SI at this time patient had last drink around noon time ETOH level 218 on arrival Related Data Home Medications Medication Instructions Recorded Confirmed escitalopram oxalate 20 mg tablet 1 tab PO DAILY 12/11/22 01/20/23 hydroxyzine pamoate 25 mg capsule 1 cap PO TID 12/11/22 01/20/23 gabapentin 100 mg capsule 100 mg PO TID 01/20/23 01/20/23 Allergies Allergy/AdvReac Type Severity Reaction Status Date / Time No Known Allergies Allergy Verified 01/20/23 12:53 Review of Systems Review of Systems: Yes all other systems are reviewed and are negative [facility] Past Medical History Medical History Alcohol abuse Surgical History No pertinent past surgical history Family History Family History Other No family history of coronary artery disease Social History Social History Household Members: None Housing: Apartment Do you presently have visiting nurse or other home services: No Alcohol intake: current Alcohol intake frequency: 3 or more drinks per day Alcohol type: hard liquor Patient Tobacco Use Status: Never used Tobacco Use of substances other than those prescribed or required for medical reasons: No Advance Directives: No Advance Directives Information Provided: No service: No Current occupational status: unemployed Physical Exam ED Vital Signs: Vital Signs - 24 hr 01/20/23 22:04 01/21/23 06:20 Temperature 97.4 F 98.0 F Pulse Rate 132 H 102 H Respiratory Rate 18 16 Blood Pressure 126/87 133/86 Pulse Oximetry 94 93 Oxygen Delivery Method Room Air Room Air BMI result Body Mass Index 33.3 Appearance: Alert. Oriented X3. No acute distress. Anxios Eyes: PERRLA, No Nystagmus ENT: Pharynx normal. Oral Mucosa moist Neck: Normal inspection. Neck supple. CVS: Normal heart rate and rhythm. Pulses normal. Respiratory: No respiratory distress. Equal air entry bilateral, no wheezing/rales/rhonchi Abdomen: Soft and nontender. Bowel sounds are present, no mass palpable, no CVA tenderness Skin: Skin warm and dry. Normal skin color. Normal skin turgor. Extremities: No lower extremity edema. No calf tenderness psych: Depression+ slight anxious+ denies SI/HI/hallucination Neuro: Oriented X 3. No motor deficit. No sensory deficit.No cerebellar signs , cranial nerves II-XII intact Medical Decision Making Lab Data MDM Lab Attestation statement: I reviewed the patient's lab results. Labs: Lab Results 01/20/23 01/20/23 01/21/23 Range/Units 22:50 22:50 00:26 Urine Opiates Screen Not Detected (Not Detect) Urine Fentanyl Screen Not Detected (Not Detect) Ur Barbiturates Screen Not Detected (Not Detect) Ur Phencyclidine Scrn Not Detected (Not Detect) Ur Amphetamines Screen Not Detected (Not Detect) U Benzodiazepines Scrn POSITIVE H (Not Detect) Urine Cocaine Screen Not Detected (Not Detect) U Marijuana (THC) Screen Not Detected (Not Detect) Ethyl Alcohol 218 mg/dL COVID-19 (YAZ) Negative (Negative) COVID-19 Clin Com See Note Medications Administered Generic Name Dose Route Start Last Admin Trade Name Freq PRN Reason Stop Dose Admin Lorazepam 2 mg 01/21/23 05:47 01/21/23 06:07 Lorazepam 1 Mg Tablet PO 2 mg RQ4H WHILE AWAKE PRN Administration Alcohol Withdrawal Discontinued Medications Generic Name Dose Route Start Last Admin Trade Name Freq PRN Reason Stop Dose Admin Lorazepam 2 mg 01/20/23 23:23 01/20/23 23:30 Lorazepam 1 Mg Tablet PO 01/20/23 23:24 2 mg ONCE ONE Administration Discharge Plan Discharge Clinical Impression: Alcohol abuse Patient Disposition: Still a Patient Prescriptions: No Action hydroxyzine pamoate 25 mg capsule 1 cap PO TID escitalopram oxalate 20 mg tablet 1 tab PO DAILY gabapentin 100 mg capsule 100 mg PO TID Interventions: [place]-Suicide Risk Severity Scale Last Done: 01/21/23 00:36
--- NOTE | 2023-01-21 04:03 | PC.NURSE ---
Pt. seen earlier in the ER, but returned by Dad when she threatened to jump out of car if he wouldn't stop to buy her some alcohol. Pt. states that she didn't want to hurt herself and denies SI/HI. Pt. states she was upset and just wanted the alcohol and sleep. Pt. calm and cooperative since arrival. Pt. was medicated with PO ativan and has been asleep since. Care Team came by to see pt, however, pt. sleeping. Advised Glenn with care team to allow pt. to sleep and assess in the morning as pt. had stated she had been unable to sleep much over the last several days. Pt. has expressed that she needs more help than solely for detox stating she has unresolved mental health issues and would benefit from dual diagnosis treatment. Informed Care Team, Glenn, about this and he will pass along info to the morning staff. Pt's dad came in to see pt, however, pt. sleeping, therefore, he states he will wait in the waiting room and to inform him when pt. awake.
--- NOTE | 2023-01-21 04:21 | MHC.CARE ---
Pt was here at the ER on 01/20/23 seeking Detox and a section 12. Pt had a BAL of 456 at that time. She recently got out of a section 35 facility 5 days prior but has been drinking since. Pt initially requested Detox but didn't want to wait until 3:30am to be seen by the Care Team after her BAL was at 100. Pt requested discharge to her [facility] care. Pt was discharged. She returned back to the ER at 10:50pm after threatening to jump out of her Dads car because he wouldn't buy more alcohol for her. Pt is resting at 4am nurse López recommended that she be allowed to sleep and be seen in the morning with the possible thought of considering a Dual Diagnosis program referral for her.
[2023-01-21] MEDS: LORazepam 1 MG TABLET 2 MG PO ×2 (06:07→10:10)
--- NOTE | 2023-01-21 06:10 | PC.NURSE ---
Pt. woke up reporting some slight nausea, anxiety and a moderate headache. Pt. scores an 8 on the CIWA scale. Pt. medicated with ativan per DEC.
[2023-01-21 06:20] VITALS: BP 133/86; PULSE 102; RESP 16; TEMP 36.7; O2SAT 93
--- NOTE | 2023-01-21 08:16 | PC.NURSE ---
CARE team at bedside. Dad remains at bedside
[2023-01-21 09:30] VITALS: BP 141/85; PULSE 112; RESP 16; O2SAT 97
--- NOTE | 2023-01-21 09:55 | PC.NURSE ---
Plan for pt to see CARE team to determine detox and outpatient therapy services. Pt continues to deny SI or HI. Declines meds as pt states she doesn't take them regularly and reports already taking Lexapro. Awaiting CARE team. Dad at bedside at this time. VSS.
--- NOTE | 2023-01-21 10:12 | PC.NURSE ---
community living coach speaking with pt at this time
--- NOTE | 2023-01-21 11:33 | MHC.RECOVSUP ---
Met with pt in ED16 for potential ATS bed search. Pt reports having been discharged from section 35 and was drinking for approx 4 days before coming to the ED. Pt is currently not interested in attending an ATS facility as she would like to attend [facility] and therapy appointments. Pt is interested in meeting with [facility] and an appointment was made for 01/28/23 at 2pm. Pt will be dc today to stay at her fathers with a prescription of Librium that her father will help administer.
== END 2023-01-21 11:26 | disposition home or self-care (01) ==
PROVIDERS: Emergency Provider Internal Medicine
DX: F10.129 Alcohol abuse with intoxication, unspecified (principal); R00.0 Tachycardia, unspecified; R45.851 Suicidal ideations; Y90.7 Blood alcohol level of 200-239 mg/100 ml; Z20.822 Contact with and (suspected) exposure to COVID-19; Z20.828 Contact with and (suspected) exposure to other viral communicable diseases; Z79.899 Other long term (current) drug therapy
CPT/HCPCS: 36415; 80307; 82077; 87635; 99285; S9485

== ENCOUNTER → 2023-01-28 13:51 | Outpatient (BNVA) | payer OTHER, SELFPAY | PROVIDERS: Visit Provider Nurse Practitioner Psychiatric/Mental Health | DX: Z13.89 Encounter for screening for other disorder (principal) ==

== ENCOUNTER 2023-02-15 18:20 | Emergency (ER) | payer OTHER, SELFPAY ==
[2023-02-15 18:29] VITALS: BP 114/75; BP 136/97; PULSE 85; PULSE 98; RESP 18; TEMP 36.3; O2SAT 94; O2SAT 97; BMI 34.0
--- NOTE | 2023-02-15 20:31 | MHC.RECOVSUP ---
? Reason for consult:ETOH o? Current location:ED12? o? Identified substance use concern:? -? Seeking ATS (detox) -? Support ? Intervention: o? ATS bed search started/completed/in process o? Community resources provided ? Plan: o? Bed search in progress to [facility] o? Follow up tomorrow? ? Additional information:ISABELLE met with this pt and spoke to her about treatment, the pt stated she didn't want to at first but then agreed to go. ISABELLE called [facility] and they said to call back tomorrow, ISABELLE tried to call [facility] but no one answered the phone. ISABELLE also emailed staff at [facility], but they have no female beds available [facility]. Please follow up tomorrow.
[2023-02-15 20:37] VITALS: BP 108/63; PULSE 102; RESP 18; TEMP 36.7; O2SAT 96
[2023-02-15] MEDS: LORazepam 1 MG TABLET 2 MG PO (20:45)
[2023-02-15 21:20] LABS: Ethanol 362 mg/dL
--- NOTE | 2023-02-15 21:23 | ED_ITS ---
HPI - Alcohol General Chief Complaint: ETOH/Substance Use Stated Complaint: ETOH Time Seen by Provider: 02/15/23 18:26 Source: patient Mode of arrival: EMS Limitations: no limitations History of Present Illness HPI narrative: Patient comes to the emergency room complaining of alcohol intoxication. Patient was found home drunk by her father, the patient's father wanted to bring her to the emergency room but the patient declined, an ambulance was called and brought her to emergency room. Patient states that she has tried several times to stop drinking but she is having a rough time. Patient denies SI or HI. Related Data Home Medications Medication Instructions Recorded Confirmed escitalopram oxalate 20 mg tablet 1 tab PO DAILY 12/11/22 01/20/23 hydroxyzine pamoate 25 mg capsule 1 cap PO TID 12/11/22 01/20/23 gabapentin 100 mg capsule 100 mg PO TID 01/20/23 01/20/23 Previous Rx's Medication Instructions Recorded chlordiazepoxide HCl 25 mg capsule 25 mg PO Q6H PRN alcohol 01/21/23 withdrawal 3 days #10 caps Allergies Allergy/AdvReac Type Severity Reaction Status Date / Time No Known Allergies Allergy Verified 01/20/23 12:53 Review of Systems Review of Systems: Constitutional : No Weight loss, No Fever, No Chills, No Night Sweats, No Fatigue, No Malaise ENT/Mouth : No Hearing loss, No Ear Pain, No Nasal Congestion, No Sinus Pain, No Hoarseness, No sore throat, No Rhinorrhea, No Swallowing Difficulty Eyes: No Eye Pain, No Swelling, No Redness, No Foreign Body, No Discharge, No Vision Changes Cardiovascular : No Chest Pain, No SOB, No Dyspnea on Exertion, No Orthopnea, No Edema, No Palpitations Respiratory : No Cough, No Sputum, No Wheezing, No Smoke Exposure, No Dyspnea Gastrointestinal : No Nausea, No Vomiting, No Diarrhea, No Constipation, No abdominal Pain, No Hematochezia, No Melena Genitourinary : no irregular bleeding, No Dysuria, No Urinary Frequency, No Hematuria, No Urinary Incontinence, No Urgency, No Flank Pain, No Urinary Flow Changes, No Hesitancy Musculoskeletal : No joint pain, No Myalgias, No Joint Swelling Skin : No Skin Lesions, No rash Neuro : No Weakness, No Numbness, No Paresthesias, No Loss of Consciousness, No Dizziness, No Headache Psych : No Anxiety/Panic, No Depression, No SI/HI/AH/VH, alcohol abuse, trying to stop drinking but is hard for Heme/Lymph: No Bruising, No Bleeding,No Lymphadenopathy Endocrine : No Polyuria, No Polydipsia, No Temperature Intolerance [facility] Past Medical History Medical History Alcohol abuse Surgical History No pertinent past surgical history Family History Family History Other No family history of coronary artery disease Social History Social History Household Members: None Housing: Apartment Do you presently have visiting nurse or other home services: No Alcohol intake: current Alcohol intake frequency: 3 or more drinks per day Alcohol type: hard liquor Patient Tobacco Use Status: Never used Tobacco Smoked in Last 30 Days: No Use of substances other than those prescribed or required for medical reasons: No Advance Directives: No Advance Directives Information Provided: No Patient : No service: No Current occupational status: unemployed Physical Exam ED Vital Signs: Vital Signs - 24 hr 02/15/23 18:29 02/15/23 20:37 Temperature 97.3 F 98.0 F Pulse Rate 98 102 H Respiratory Rate 18 18 Blood Pressure 114/75 108/63 Pulse Oximetry 94 96 Oxygen Delivery Method Room Air Room Air BMI result Body Mass Index 34.0 Const Other: Appearance: Alert. Oriented X3. Intoxicated, still able to have a coherent conversation. Eyes: Pupils equal, round and reactive to light. ENT: Pharynx normal. Neck: Normal inspection. Neck supple. No lymph nodes noted. No crepitus CVS: Normal heart rate and rhythm. Pulses normal. Normal S1 and S2 Respiratory: No respiratory distress. Breath sounds normal. No Wheezing. No rales Abdomen: Soft and nontender. No rigidity. No distention. Skin: Skin warm and dry. Normal skin color. Normal skin turgor. Extremities: No lower extremity edema. No Lacerations. No Rash Neuro: Oriented X 3. No motor deficit. No sensory deficit. Moving all extremities. No slurred speech. CN 2 through 12 grossly intact Psych: calm, cooperative, crying Medical Decision Making Medical Decision Making MDM Narrative: -the care team evaluated the patient -initially patient was resistance to go to detox but eventually she agreed. -patient will likely have a bed by the morning. -patient received 1 dose of p.o. Ativan and 25 mg of Librium -physician operation started at 21:20 -sign-out given to Dr. Gill Differential Diagnosis Differential Diagnoses: The differential diagnosis associated with the presentation includes (Alcohol abuse, substance abuse, anxiety/depression) Admission/Observation Consideration of admission/observation: Escalation of care including admission/observation considered (Patient is under observation, patient will likely have a bed for detox in the morning) Lab Data Labs: Lab Results 02/15/23 Range/Units 20:56 Ethyl Alcohol 362 H* mg/dL Medications Administered Discontinued Medications Generic Name Dose Route Start Last Admin Trade Name Freq PRN Reason Stop Dose Admin Chlordiazepoxide HCl 25 mg 02/15/23 20:24 02/15/23 20:45 Chlordiazepoxide Hcl 25 Mg Capsule PO 02/15/23 20:25 Not Given ONCE ONE Lorazepam 2 mg 02/15/23 20:24 02/15/23 20:45 Lorazepam 1 Mg Tablet PO 02/15/23 20:25 2 mg ONCE ONE Administration Discharge Plan Discharge Clinical Impression: Alcoholic intoxication, Alcohol abuse Patient Disposition: Still a Patient Prescriptions: No Action hydroxyzine pamoate 25 mg capsule 1 cap PO TID escitalopram oxalate 20 mg tablet 1 tab PO DAILY gabapentin 100 mg capsule 100 mg PO TID chlordiazepoxide HCl 25 mg capsule 25 mg PO Q6H PRN (Reason: alcohol withdrawal) 3 Days Qty: 10 0RF
[2023-02-15 22:52] LABS: UPreg QC Valid YES
[2023-02-15 22:53] LABS: Appearance Urine Cloudy; Color Urine Yellow; Glucose Urine UA Negative (Negative); Leukocyte Esterase Urine Negative (Negative); Nitrite Urine Negative (Negative); UMIC TRIGGER UACC YES; Urine Blood Negative (Negative); Urine Ketones Trace mg/dL (Negative); Urine Protein 30 (1+) mg/dL (Neg-Trace)
[2023-02-15 22:54] LABS: Urine Pregnancy NEGATIVE (NEGATIVE)
[2023-02-15 22:58] LABS: Bacteria Urine 1+ (None Seen); Hyaline Casts Urine 0-2 /LPF (0-2); RBC Urine 0-2 /HPF (0-2); Squamous Epithelial Cell Urine >20 /HPF (0-2); WBC Urine 0-5 /HPF (0-5)
[2023-02-15 23:02] LABS: Amphetamine Screen Urine Not Detected (Not Detect); Barbiturates, Urine Not Detected (Not Detect); Benzodiazepines Screen Urine Not Detected (Not Detect); Cannabinoid Screen Urine Not Detected (Not Detect); Cocaine Screen Urine Not Detected (Not Detect); Fentanyl, urine Not Detected (Not Detect); Opiate Screen Urine Not Detected (Not Detect); Phencyclidine Screen Urine Not Detected (Not Detect)
[2023-02-16] VITALS: BP 101/59; PULSE 125; RESP 16; TEMP 37.3; O2SAT 95
[2023-02-16 01:55] VITALS: BP 112/79; PULSE 116; RESP 20; TEMP 36.9; O2SAT 95
[2023-02-16] MEDS: LORazepam 1 MG TABLET PO ×2 (02:23→08:13)
[2023-02-16 04:02] VITALS: BP 121/87; PULSE 101; RESP 19; TEMP 36.6; O2SAT 98
[2023-02-16 06:47] VITALS: BP 117/77; PULSE 113; RESP 18; TEMP 36.6; O2SAT 97
[2023-02-16 08:06] VITALS: BP 136/92; PULSE 119; RESP 16; O2SAT 96
== END 2023-02-16 08:20 | disposition home or self-care (01) ==
PROVIDERS: Emergency Provider Emergency Medicine
DX: F10.129 Alcohol abuse with intoxication, unspecified (principal); Y90.8 Blood alcohol level of 240 mg/100 ml or more; Z79.899 Other long term (current) drug therapy; Z71.41 Alcohol abuse counseling and surveillance of alcoholic
CPT/HCPCS: 36415; 80307; 81001; 81025; 82077; 99285

== ENCOUNTER 2023-03-03 11:58 | Emergency (ER) | payer OTHER, SELFPAY ==
--- NOTE | 2023-03-03 12:41 | ED_ITS ---
HPI - General Adult General Chief complaint: ETOH/Substance Use Stated complaint: alcohol withdraws Time Seen by Provider: 03/03/23 13:15 Source: patient Mode of arrival: EMS History of Present Illness HPI narrative: 33-year-old female who arrives via EMS, currently in an IOP but states that she relapsed approximately 2 weeks ago and last drank today. Patient becomes tearful when she is asked what her goals are for this visit because at this time she denies wanting to enter into an inpatient program. She denies any other medical problems and states her LMP-02/23/23 Related Data Home Medications Medication Instructions Recorded Confirmed escitalopram oxalate 20 mg tablet 1 tab PO DAILY 12/11/22 01/20/23 hydroxyzine pamoate 25 mg capsule 1 cap PO TID 12/11/22 01/20/23 gabapentin 100 mg capsule 100 mg PO TID 01/20/23 01/20/23 Previous Rx's Medication Instructions Recorded chlordiazepoxide HCl 25 mg capsule 25 mg PO Q6H PRN alcohol 01/21/23 withdrawal 3 days #10 caps Allergies Allergy/AdvReac Type Severity Reaction Status Date / Time No Known Allergies Allergy Verified 03/03/23 12:48 Review of Systems Review of Systems: Pertinent positives and negatives as stated in HPI [facility] Past Medical History Source: nursing notes reviewed Medical History Alcohol abuse Surgical History No pertinent past surgical history Family History Family History Other No family history of coronary artery disease Social History Social History Household Members: None Housing: Apartment Do you presently have visiting nurse or other home services: No Alcohol intake: current Alcohol intake frequency: 3 or more drinks per day Alcohol type: hard liquor Patient Tobacco Use Status: Never used Tobacco Advance Directives: No Advance Directives Information Provided: No service: No Current occupational status: unemployed Physical Exam ED Vital Signs: Vital Signs - 24 hr 03/03/23 12:42 03/03/23 14:31 03/03/23 16:00 Temperature 98.0 F 98 F 97.9 F Pulse Rate 109 H 95 84 Respiratory Rate 16 18 16 Blood Pressure 106/52 L 110/70 115/71 Pulse Oximetry 93 93 97 Oxygen Delivery Method Room Air Room Air Room Air 03/03/23 18:45 03/03/23 20:08 Temperature 98.4 F Pulse Rate 96 86 Respiratory Rate 18 14 Blood Pressure 119/77 121/78 Pulse Oximetry 94 96 Oxygen Delivery Method Room Air Room Air BMI result Body Mass Index 34.9 VITAL SIGNS: Reviewed. GENERAL: Well developed, well nourished, in no acute distress. HEAD: Normocephalic/atraumatic EYES: PERRLA, EOMI EARS: Ext canals without abnormality NOSE: Nares patent bilateral OROPHARYNX: no oral lesions noted, posterior pharynx clear NECK: Supple, no adenopathy LUNGS: Normal breath sounds. No adventitious sounds or accessory muscle use. SpO2<93> CARDIOVASCULAR: Regular rate and rhythm without noted murmurs ABDOMEN: Soft, epigastric discomfort, non-distended with bowel sounds. MUSCULOSKELETAL: No tenderness, deformities, or effusions noted on gross inspection. EXTREMITIES: No cyanosis, clubbing or edema. SKIN: Inspection of the skin reveals no rashes NEUROLOGIC: Alert but drowsy and oriented x 4. Strength and sensation to light touch were grossly intact x 4. Course Course Course Narrative: This is an RME: Additional HPI, ROS, PE not included below will be deferred to primary provider. 33 year old female presents w/ alcohol withdrawal unclear when last drink was. Typically drinks a lot of hard liquor. Unsure why she called the ambulance. Denies SI and HI. Poor historian but states has been sober for a while Pe patient lethargic appearing, drowsy. CIWA 0 Plan- labs, UA, DEL REAL Medications Administered Discontinued Medications Generic Name Dose Route Start Last Admin Trade Name Freq PRN Reason Stop Dose Admin Sodium Chloride 1,000 mls @ 999 mls/hr 03/03/23 14:00 03/03/23 15:31 Ns IV 03/03/23 15:00 Infused .Q1H1M MALA Infusion Sodium Chloride 1,000 mls @ 999 mls/hr 03/03/23 14:30 03/03/23 18:02 Ns IV 03/03/23 15:30 Infused .Q1H1M MALA Infusion Ondansetron HCl 4 mg 03/03/23 16:23 03/03/23 16:28 Ondansetron Hcl 4 Mg/2 Ml Vial IVPUSH 03/03/23 16:24 4 mg ONCE ONE Administration Ondansetron HCl 4 mg 03/03/23 19:42 03/03/23 19:46 Ondansetron Hcl 4 Mg/2 Ml Vial IVPUSH 03/03/23 19:43 4 mg ONCE ONE Administration Medical Decision Making Medical Decision Making [facility] Narrative: 33-year-old female with known severe alcohol use disorder arrives with last drink from this morning, denies SI/HI/wanting detox. Will hydrate and obtain basic labs. She denies any history of seizures. Review of all investigations negative for anything other than alcohol intoxication, patient is on a see walk, she continues to decline any further detox offer rings, she denies any SI/HI, she does not want to calling friends or family. Patient placed in physician observation because the patient needed more time for sobriety. At the time observation was started the patient's vital signs were stable, patient is alert and oriented, neuro: Nonfocal, CV RRR, lungs clear -I received sign-out from Dr. Church -patient is alert and oriented x4, no acute distress, vitals are stable, patient is ambulatory without any assistance. Patient is clinically sober ready for discharge -patient declined detox, denies SI or HI Differential Diagnosis Please see the discussion above Lab Data Please see the discussion above 03/03/23 13:26 03/03/23 13:26 Labs: Lab Results 03/03/23 03/03/23 03/03/23 Range/Units 13:26 13:26 13:46 WBC 9.3 (4.8-10.8) X10*3/uL RBC 4.80 (4.20-5.50) X10*6/uL Hgb 14.4 (12.0-16.0) g/dl Hct 41.5 (37.0-47.0) % MCV 86.5 (80.0-98.0) fL MCH 30.0 (27.0-33.0) pg MCHC 34.7 (31.0-35.0) g/dl RDW 12.6 (11.0-16.0) % Plt Count 441 H D (160-400) X10*3/uL MPV 9.0 L (9.4-12.3) fL Immature Gran % (Auto) 0.6 H (0.0-0.4) % Neut % (Auto) 45.3 (45-73) % Lymph % (Auto) 49.5 H (20-40) % Lyon % (Auto) 3.9 (2-11) % Eos % (Auto) 0.2 (0-4) % Baso % (Auto) 0.5 (0-2) % Lymph # (Auto) 4.6 (1.2-4.9) X10*3/uL Lyon # (Auto) 0.4 (0.1-1.2) X10*3/uL Eos # (Auto) 0.0 (0.0-0.4) X10*3/uL Baso # (Auto) 0.1 (0.0-0.2) X10*3/uL Abs Immat Gran (auto) 0.06 H (0.00-0.03) X10*3/uL Absolute Neuts (auto) 4.2 (2.0-8.3) x10*3/uL Absolute Nucleated RBC 0.000 (0.0-0.012) X10*3/uL Nucleated RBC % (auto) 0.0 (0.0-0.2) /100WBC Sodium 144 (135-145) mmol/L Potassium 3.9 (3.3-5.1) mmol/L Chloride 104 (96-108) mmol/L Carbon Dioxide 27 (22-29) mmol/L Anion Gap 17 (12-20) BUN 6 L (9-16) mg/dL Creatinine 0.74 (0.5-1.4) mg/dL Estim Creat Clear Calc 122.2 Estimated GFR > 60 Random Glucose 114 (60-115) mg/dL Calcium 9.5 (8.4-10.2) mg/dL Magnesium 2.1 (1.6-2.6) mg/dL Total Bilirubin 0.3 (0.0-1.0) mg/dL AST 25 (5-31) U/L ALT 20 (0-31) U/L Alkaline Phosphatase 62 (39-117) U/L Total Protein 8.0 (6.5-8.0) g/dL Albumin 4.6 (3.5-5.0) g/dL Lipase 18 (8-78) U/L Beta HCG, Quant < 2 mIU/mL Urine Color Urine Appearance Urine pH (5.0-9.0) Ur Specific [place] (1.005-1.025) Urine Protein (Neg-Trace) mg/dL Urine Glucose (UA) (Negative) mg/dL Urine Ketones (Negative) mg/dL Urine Blood (Negative) Urine Nitrite (Negative) Ur Leukocyte Esterase (Negative) Urine RBC (0-2) /HPF Urine WBC (0-5) /HPF Ur Squamous Epith Cells (0-2) /HPF Urine Bacteria (None Seen) Hyaline Casts (0-2) /LPF Urine Opiates Screen (Not Detect) Urine Fentanyl Screen (Not Detect) Ur Barbiturates Screen (Not Detect) Ur Phencyclidine Scrn (Not Detect) Ur Amphetamines Screen (Not Detect) U Benzodiazepines Scrn (Not Detect) Urine Cocaine Screen (Not Detect) U Marijuana (THC) Screen (Not Detect) Ethyl Alcohol 418 H* mg/dL COVID-19 (YAZ) Negative (Negative) COVID-19 Clin Com See Note 03/03/23 03/03/23 Range/Units 17:15 17:15 WBC (4.8-10.8) X10*3/uL RBC (4.20-5.50) X10*6/uL Hgb (12.0-16.0) g/dl Hct (37.0-47.0) % MCV (80.0-98.0) fL MCH (27.0-33.0) pg MCHC (31.0-35.0) g/dl RDW (11.0-16.0) % Plt Count (160-400) X10*3/uL MPV (9.4-12.3) fL Immature Gran % (Auto) (0.0-0.4) % Neut % (Auto) (45-73) % Lymph % (Auto) (20-40) % Lyon % (Auto) (2-11) % Eos % (Auto) (0-4) % Baso % (Auto) (0-2) % Lymph # (Auto) (1.2-4.9) X10*3/uL Lyon # (Auto) (0.1-1.2) X10*3/uL Eos # (Auto) (0.0-0.4) X10*3/uL Baso # (Auto) (0.0-0.2) X10*3/uL Abs Immat Gran (auto) (0.00-0.03) X10*3/uL Absolute Neuts (auto) (2.0-8.3) x10*3/uL Absolute Nucleated RBC (0.0-0.012) X10*3/uL Nucleated RBC % (auto) (0.0-0.2) /100WBC Sodium (135-145) mmol/L Potassium (3.3-5.1) mmol/L Chloride (96-108) mmol/L Carbon Dioxide (22-29) mmol/L Anion Gap (12-20) BUN (9-16) mg/dL Creatinine (0.5-1.4) mg/dL Estim Creat Clear Calc Estimated GFR Random Glucose (60-115) mg/dL Calcium (8.4-10.2) mg/dL Magnesium (1.6-2.6) mg/dL Total Bilirubin (0.0-1.0) mg/dL AST (5-31) U/L ALT (0-31) U/L Alkaline Phosphatase (39-117) U/L Total Protein (6.5-8.0) g/dL Albumin (3.5-5.0) g/dL Lipase (8-78) U/L Beta HCG, Quant mIU/mL Urine Color Yellow Urine Appearance Cloudy Urine pH 7.5 (5.0-9.0) Ur Specific [place] 1.015 (1.005-1.025) Urine Protein Negative (Neg-Trace) mg/dL Urine Glucose (UA) Negative (Negative) mg/dL Urine Ketones Negative (Negative) mg/dL Urine Blood Moderate (2+) H (Negative) Urine Nitrite Negative (Negative) Ur Leukocyte Esterase Trace H (Negative) Urine RBC 0-2 (0-2) /HPF Urine WBC 0-5 (0-5) /HPF Ur Squamous Epith Cells >20 (0-2) /HPF Urine Bacteria 1+ (None Seen) Hyaline Casts 0-2 (0-2) /LPF Urine Opiates Screen Not Detected (Not Detect) Urine Fentanyl Screen Not Detected (Not Detect) Ur Barbiturates Screen Not Detected (Not Detect) Ur Phencyclidine Scrn Not Detected (Not Detect) Ur Amphetamines Screen Not Detected (Not Detect) U Benzodiazepines Scrn Not Detected (Not Detect) Urine Cocaine Screen Not Detected (Not Detect) U Marijuana (THC) Screen Not Detected (Not Detect) Ethyl Alcohol mg/dL COVID-19 (YAZ) (Negative) COVID-19 Clin Com Independent Interpretation I performed an independent interpretation of an: EKG Discharge Plan Discharge Clinical Impression: Alcoholic intoxication, Alcohol use disorder, severe, dependence Patient Disposition: Home, Self-Care Instructions: Alcohol Intoxication (ED), Abuse of Alcohol (ED) Additional Instructions: Please follow-up with your primary care physician tomorrow. If you have any worsening or new symptoms, please return to the emergency room or call 911 Prescriptions: No Action hydroxyzine pamoate 25 mg capsule 1 cap PO TID escitalopram oxalate 20 mg tablet 1 tab PO DAILY gabapentin 100 mg capsule 100 mg PO TID chlordiazepoxide HCl 25 mg capsule 25 mg PO Q6H PRN (Reason: alcohol withdrawal) 3 Days Qty: 10 0RF
[2023-03-03 12:42] VITALS: BP 106/52; PULSE 109; RESP 16; TEMP 36.7; O2SAT 93; BMI 34.9
[2023-03-03 12:51] VITALS: BP 143/99; PULSE 110; O2SAT 94
[2023-03-03 13:32] LABS: MANUAL DIFF FLAG NO
[2023-03-03 13:36] LABS: Basophils Absolute Auto 0.1 X10*3/uL (0.0-0.2); Basophils Percent Auto 0.5 % (0-2); Eosinophils Percent Auto 0.2 % (0-4); Hematocrit 41.5 % (37.0-47.0); Hemoglobin 14.4 g/dl (12.0-16.0); Imm Gran Abs Auto 0.06 X10*3/uL (0.00-0.03); Imm Gran Pct Auto 0.6 % (0.0-0.4); Lymphocytes Absolute Auto 4.6 X10*3/uL (1.2-4.9); Lymphocytes Percent Auto 49.5 % (20-40); Mean Corpuscular HGB Conc 34.7 g/dl (31.0-35.0); Mean Corpuscular Volume 86.5 fL (80.0-98.0); Monocytes Absolute Auto 0.4 X10*3/uL (0.1-1.2); Monocytes Percent Auto 3.9 % (2-11); Neutrophils Absolute Auto 4.2 x10*3/uL (2.0-8.3); Neutrophils Percent Auto 45.3 % (45-73); Platelet Count 441 X10*3/uL (160-400); Red Cell Distribution Width 12.6 % (11.0-16.0); White Blood Count 9.3 X10*3/uL (4.8-10.8)
[2023-03-03] MEDS: 0.9 % Sodium Chloride 1,000 ML 999 ML IV ×2 (13:56→15:32)
[2023-03-03 14:15] LABS: Alanine Aminotransferase 20 U/L (0-31); Albumin Level 4.6 g/dL (3.5-5.0); Alkaline Phosphatase 62 U/L (39-117); Anion Gap 17 (12-20); Aspartate Amino Transferase 25 U/L (5-31); Bilirubin Total 0.3 mg/dL (0.0-1.0); Blood Urea Nitrogen 6 mg/dL (9-16); Calcium 9.5 mg/dL (8.4-10.2); Carbon Dioxide 27 mmol/L (22-29); Chloride 104 mmol/L (96-108); Creatinine Clr Calc Pharmacy 122.2; Estimated Glomerular Filt Rate > 60; Ethanol 418 mg/dL; Glucose Random 114 mg/dL (60-115); HCG Quantitative < 2 mIU/mL; Lipase 18 U/L (8-78); Magnesium 2.1 mg/dL (1.6-2.6); Potassium 3.9 mmol/L (3.3-5.1); Sodium 144 mmol/L (135-145)
[2023-03-03 14:30] LABS: COVID-19 Test Negative (Negative); IDNOW Serial# 08D9AD1C
[2023-03-03 14:31] VITALS: BP 110/70; PULSE 95; RESP 18; TEMP 36.6; O2SAT 93
--- NOTE | 2023-03-03 15:26 | PC.NURSE ---
patient sleeping. respirations are equal and unlabored. no signs of distress noted. will CTM
[2023-03-03 16:00] VITALS: BP 115/71; PULSE 84; RESP 16; TEMP 36.6; O2SAT 97
[2023-03-03] MEDS: ondansetron HCL 4 MG/2 ML VIAL IVPUSH ×2 (16:28→19:46)
--- NOTE | 2023-03-03 16:46 | MHC.RECOVSUP ---
Met with pt in ED20 for potential ATS bed search. Pt is not interested in ATS or any recovery assistance at this time. Pt had no other questions or concerns at this time. T/W informed nurse.
[2023-03-03 17:35] LABS: Appearance Urine Cloudy; Color Urine Yellow; Glucose Urine UA Negative (Negative); Leukocyte Esterase Urine Trace (Negative); Nitrite Urine Negative (Negative); PH 7.5 (5.0-9.0); Specific Gravity - Urine 1.015 (1.005-1.025); UMIC TRIGGER UACC YES; Urine Blood Moderate (2+) (Negative); Urine Ketones Negative (Negative); Urine Protein Negative (Neg-Trace)
[2023-03-03 17:39] LABS: Amphetamine Screen Urine Not Detected (Not Detect); Barbiturates, Urine Not Detected (Not Detect); Benzodiazepines Screen Urine Not Detected (Not Detect); Cannabinoid Screen Urine Not Detected (Not Detect); Cocaine Screen Urine Not Detected (Not Detect); Opiate Screen Urine Not Detected (Not Detect); Phencyclidine Screen Urine Not Detected (Not Detect)
[2023-03-03 17:42] LABS: Fentanyl, urine Not Detected (Not Detect)
--- NOTE | 2023-03-03 17:50 | PC.NURSE ---
patient reports feeling unwell . IVP zofran admin. will CTM for signs of withdrawal. call pacheco within reach
[2023-03-03 18:26] LABS: Bacteria Urine 1+ (None Seen); Hyaline Casts Urine 0-2 /LPF (0-2); RBC Urine 0-2 /HPF (0-2); Squamous Epithelial Cell Urine >20 /HPF (0-2); WBC Urine 0-5 /HPF (0-5)
[2023-03-03 18:45] VITALS: BP 119/77; PULSE 96; RESP 18; O2SAT 94
--- NOTE | 2023-03-03 19:20 | MHC.EDTECH ---
Patient is repeating she does not feel good, she feels like she is going into withdrawals. I attached the monitor to the patient and notified the nurse Nick. Ken
--- NOTE | 2023-03-03 20:07 | MHC.EDTECH ---
Gave patient 7.5oz abilio. SG
[2023-03-03 20:08] VITALS: BP 121/78; PULSE 86; RESP 14; TEMP 36.9; O2SAT 96
[2023-03-04 00:17] VITALS: BP 116/60; PULSE 80; RESP 17; O2SAT 97
== END 2023-03-04 00:18 | disposition home or self-care (01) ==
PROVIDERS: Physician Assistant; Emergency Provider Student in an Organized Health Care Education/Training Program
DX: F10.229 Alcohol dependence with intoxication, unspecified (principal); Y90.8 Blood alcohol level of 240 mg/100 ml or more; Z20.822 Contact with and (suspected) exposure to COVID-19; Z20.828 Contact with and (suspected) exposure to other viral communicable diseases; Z79.899 Other long term (current) drug therapy; Z71.41 Alcohol abuse counseling and surveillance of alcoholic
CPT/HCPCS: 80053; 80307; 81001; 83690; 83735; 84702; 85025; 87635; 96361; 96374; 96376; 99285; J2405

== ENCOUNTER 2023-04-29 16:53 | Emergency (ER) | payer MEDICAID, SELFPAY ==
[2023-04-29 16:58] VITALS: BP 126/56; BP 129/84; PULSE 106; PULSE 99; RESP 16; TEMP 36.5; O2SAT 94; O2SAT 96; BMI 34.1
--- NOTE | 2023-04-29 17:03 | ED.ALCOHOL ---
HPI - Alcohol General Chief Complaint: ETOH/Substance Use Stated Complaint: etoh, per ems Time Seen by Provider: 04/29/23 16:57 Source: patient Limitations: no limitations History of Present Illness HPI narrative: Patient comes to the emergency room complaining of alcohol intoxication and seeking detox. Patient states that she has tried several times to detox, last time 2 weeks ago. Patient meets to drinking alcohol heavily. Denies any falls. Related Data Home Medications Medication Instructions Recorded Confirmed escitalopram oxalate 20 mg tablet 1 tab PO DAILY 12/11/22 01/20/23 hydroxyzine pamoate 25 mg capsule 1 cap PO TID 12/11/22 01/20/23 gabapentin 100 mg capsule 100 mg PO TID 01/20/23 01/20/23 Previous Rx's Medication Instructions Recorded chlordiazepoxide HCl 25 mg capsule 25 mg PO Q6H PRN alcohol 01/21/23 withdrawal 3 days #10 caps Allergies Allergy/AdvReac Type Severity Reaction Status Date / Time No Known Allergies Allergy Verified 03/03/23 12:48 Review of Systems Review of Systems: Constitutional : No Weight loss, No Fever, No Chills, No Night Sweats, No Fatigue, No Malaise ENT/Mouth : No Hearing loss, No Ear Pain, No Nasal Congestion, No Sinus Pain, No Hoarseness, No sore throat, No Rhinorrhea, No Swallowing Difficulty Eyes: No Eye Pain, No Swelling, No Redness, No Foreign Body, No Discharge, No Vision Changes Cardiovascular : No Chest Pain, No SOB, No Dyspnea on Exertion, No Orthopnea, No Edema, No Palpitations Respiratory : No Cough, No Sputum, No Wheezing, No Smoke Exposure, No Dyspnea Gastrointestinal : No Nausea, No Vomiting, No Diarrhea, No Constipation, No abdominal Pain, No Hematochezia, No Melena Genitourinary : no irregular bleeding, No Dysuria, No Urinary Frequency, No Hematuria, No Urinary Incontinence, No Urgency, No Flank Pain, No Urinary Flow Changes, No Hesitancy Musculoskeletal : No joint pain, No Myalgias, No Joint Swelling Skin : No Skin Lesions, No rash Neuro : No Weakness, No Numbness, No Paresthesias, No Loss of Consciousness, No Dizziness, No Headache Psych : No Anxiety/Panic, No Depression, No SI/HI/AH/VH, complaining of alcohol intoxication Heme/Lymph: No Bruising, No Bleeding,No Lymphadenopathy Endocrine : No Polyuria, No Polydipsia, No Temperature Intolerance [facility] Past Medical History Medical History Alcohol abuse Surgical History No pertinent past surgical history Family History Family History Other No family history of coronary artery disease Social History Social History Household Members: None Housing: Apartment Do you presently have visiting nurse or other home services: No Alcohol intake: current Alcohol intake frequency: 3 or more drinks per day Alcohol type: hard liquor Patient Tobacco Use Status: Never used Tobacco Advance Directives: No Advance Directives Information Provided: No service: No Current occupational status: unemployed Physical Exam ED Vital Signs: Vital Signs - 24 hr 04/29/23 16:58 04/29/23 19:03 04/29/23 21:06 Temperature 97.7 F 98.5 F Pulse Rate 99 131 H 120 H Respiratory Rate 16 16 16 Blood Pressure 129/84 131/93 H 134/86 Pulse Oximetry 96 94 98 Oxygen Delivery Method Room Air Room Air Room Air 04/29/23 21:53 Temperature 97.4 F Pulse Rate 127 H Respiratory Rate 17 Blood Pressure 115/67 Pulse Oximetry 93 Oxygen Delivery Method BMI result Body Mass Index 34.1 Const Other: Appearance: Alert. Oriented X3. No acute distress. Patient intoxicated but able to answer coherently Eyes: Pupils equal, round and reactive to light. ENT: Pharynx normal. Neck: Normal inspection. Neck supple. No lymph nodes noted. No crepitus CVS: Normal heart rate and rhythm. Pulses normal. Normal S1 and S2 Respiratory: No respiratory distress. Breath sounds normal. No Wheezing. No rales Abdomen: Soft and nontender. No rigidity. No distention. Skin: Skin warm and dry. Normal skin color. Normal skin turgor. Extremities: No lower extremity edema. No Lacerations. No Rash Neuro: Oriented X 3. No motor deficit. No sensory deficit. Moving all extremities. No slurred speech. CN 2 through 12 grossly intact Psych: calm, cooperative, normal affect Course Course Course Narrative: -all of patient's labs pending -patient is not suicidal or homicidal, Section 12 not indicated -care team consult pending -physician observation started at 17:05 Medical Decision Making Medical Decision Making MDM Narrative: - the kidney evaluated the patient. They tried several facilities for detox. However, there are no beds available. Patient was given information to make her own phone calls - just before being discharged. Patient was starting to get anxious, tachycardic. Patient was given IV fluids and Ativan. Patient's heart rate back to 90, Resting comfortably. Patient ready for discharge - my interpretation of EKG: Normal sinus rhythm, heart rate 115, no ST segment depression or elevation, no T-wave inversion, QTC 481 - troponin negative Differential Diagnosis Differential Diagnoses: The differential diagnosis associated with the presentation includes ( alcohol intoxication, substance abuse) Lab Data 04/29/23 17:12 04/29/23 17:12 Labs: Lab Results 04/29/23 04/29/23 04/29/23 Range/Units 17:12 17:12 17:12 WBC 5.8 (4.8-10.8) X10*3/uL RBC 4.70 (4.20-5.50) X10*6/uL Hgb 14.0 (12.0-16.0) g/dl Hct 42.0 (37.0-47.0) % MCV 89.4 (80.0-98.0) fL MCH 29.8 (27.0-33.0) pg MCHC 33.3 (31.0-35.0) g/dl RDW 13.4 (11.0-16.0) % Plt Count 335 (160-400) X10*3/uL MPV 8.9 L (9.4-12.3) fL Immature Gran % (Auto) 0.2 (0.0-0.4) % Neut % (Auto) 27.6 L (45-73) % Lymph % (Auto) 64.6 H (20-40) % Elbert % (Auto) 5.5 (2-11) % Eos % (Auto) 0.7 (0-4) % Baso % (Auto) 1.4 (0-2) % Lymph # (Auto) 3.8 (1.2-4.9) X10*3/uL Elbert # (Auto) 0.3 (0.1-1.2) X10*3/uL Eos # (Auto) 0.0 (0.0-0.4) X10*3/uL Baso # (Auto) 0.1 (0.0-0.2) X10*3/uL Abs Immat Gran (auto) 0.01 (0.00-0.03) X10*3/uL Absolute Neuts (auto) 1.6 L (2.0-8.3) x10*3/uL Absolute Nucleated RBC 0.000 (0.0-0.012) X10*3/uL Nucleated RBC % (auto) 0.0 (0.0-0.2) /100WBC Smear Tech's Comments VERIFIED Sodium 142 (135-145) mmol/L Potassium 3.7 (3.3-5.1) mmol/L Chloride 100 (96-108) mmol/L Carbon Dioxide 25 (22-29) mmol/L Anion Gap 21 H (12-20) BUN 6 L (9-16) mg/dL Creatinine 0.70 (0.5-1.4) mg/dL Estim Creat Clear Calc 127.6 Estimated GFR > 60 Random Glucose 101 (60-115) mg/dL Calcium 9.4 (8.4-10.2) mg/dL Magnesium 2.1 (1.6-2.6) mg/dL Total Bilirubin 0.5 (0.0-1.0) mg/dL Direct Bilirubin 0.2 (0.0-0.5) mg/dL AST 48 H (5-31) U/L ALT 29 (0-31) U/L Alkaline Phosphatase 76 (39-117) U/L Troponin I High Sens (<3.5-17.0) ng/L Total Protein 8.4 H (6.5-8.0) g/dL Albumin 4.7 (3.5-5.0) g/dL Beta HCG, Quant < 2 mIU/mL Urine Opiates Screen (Not Detect) Urine Fentanyl Screen (Not Detect) Ur Barbiturates Screen (Not Detect) Ur Phencyclidine Scrn (Not Detect) Ur Amphetamines Screen (Not Detect) U Benzodiazepines Scrn (Not Detect) Urine Cocaine Screen (Not Detect) U Marijuana (THC) Screen (Not Detect) Ethyl Alcohol 509 H* mg/dL 04/29/23 04/29/23 Range/Units 21:48 Unknown WBC (4.8-10.8) X10*3/uL RBC (4.20-5.50) X10*6/uL Hgb (12.0-16.0) g/dl Hct (37.0-47.0) % MCV (80.0-98.0) fL MCH (27.0-33.0) pg MCHC (31.0-35.0) g/dl RDW (11.0-16.0) % Plt Count (160-400) X10*3/uL MPV (9.4-12.3) fL Immature Gran % (Auto) (0.0-0.4) % Neut % (Auto) (45-73) % Lymph % (Auto) (20-40) % Elbert % (Auto) (2-11) % Eos % (Auto) (0-4) % Baso % (Auto) (0-2) % Lymph # (Auto) (1.2-4.9) X10*3/uL Elbert # (Auto) (0.1-1.2) X10*3/uL Eos # (Auto) (0.0-0.4) X10*3/uL Baso # (Auto) (0.0-0.2) X10*3/uL Abs Immat Gran (auto) (0.00-0.03) X10*3/uL Absolute Neuts (auto) (2.0-8.3) x10*3/uL Absolute Nucleated RBC (0.0-0.012) X10*3/uL Nucleated RBC % (auto) (0.0-0.2) /100WBC Smear Tech's Comments Sodium (135-145) mmol/L Potassium (3.3-5.1) mmol/L Chloride (96-108) mmol/L Carbon Dioxide (22-29) mmol/L Anion Gap (12-20) BUN (9-16) mg/dL Creatinine (0.5-1.4) mg/dL Estim Creat Clear Calc Estimated GFR Random Glucose (60-115) mg/dL Calcium (8.4-10.2) mg/dL Magnesium (1.6-2.6) mg/dL Total Bilirubin (0.0-1.0) mg/dL Direct Bilirubin (0.0-0.5) mg/dL AST (5-31) U/L ALT (0-31) U/L Alkaline Phosphatase (39-117) U/L Troponin I High Sens < 2.7 (<3.5-17.0) ng/L Total Protein (6.5-8.0) g/dL Albumin (3.5-5.0) g/dL Beta HCG, Quant mIU/mL Urine Opiates Screen Not Detected (Not Detect) Urine Fentanyl Screen Not Detected (Not Detect) Ur Barbiturates Screen Not Detected (Not Detect) Ur Phencyclidine Scrn Not Detected (Not Detect) Ur Amphetamines Screen Not Detected (Not Detect) U Benzodiazepines Scrn Not Detected (Not Detect) Urine Cocaine Screen Not Detected (Not Detect) U Marijuana (THC) Screen Not Detected (Not Detect) Ethyl Alcohol mg/dL Medications Administered Discontinued Medications Generic Name Dose Route Start Last Admin Trade Name Freq PRN Reason Stop Dose Admin Sodium Chloride 1,000 mls @ 999 mls/hr 04/29/23 23:21 04/30/23 01:04 Ns IVCONT 04/30/23 00:21 Infused .Q1H1M ONE Infusion Lorazepam 2 mg 04/29/23 23:21 04/29/23 23:26 Lorazepam 2 Mg/Ml Vial IVPUSH 04/29/23 23:22 2 mg ONCE ONE Administration Discharge Plan Discharge Clinical Impression: Alcohol abuse, Alcoholic intoxication Patient Disposition: Home, Self-Care Instructions: Alcohol Intoxication (ED) Additional Instructions: Please follow-up with your primary care physician tomorrow. If you have any worsening or new symptoms, please return to the emergency room or call 911 Prescriptions: No Action hydroxyzine pamoate 25 mg capsule 1 cap PO TID escitalopram oxalate 20 mg tablet 1 tab PO DAILY gabapentin 100 mg capsule 100 mg PO TID chlordiazepoxide HCl 25 mg capsule 25 mg PO Q6H PRN (Reason: alcohol withdrawal) 3 Days Qty: 10 0RF
--- NOTE | 2023-04-29 17:11 | PC.NURSE ---
Addendum entered by Marisela Pappas 04/29/23 17:59: Addendum: JOSE 2, Dr. Seth manjarrez. Original Note: per pt seeking detox for ETOH, reports that she has had 20 shots of volka today.
[2023-04-29 19:03] VITALS: BP 131/93; PULSE 131; RESP 16; O2SAT 94
--- NOTE | 2023-04-29 20:10 | MHC.RECOVSUP ---
? Reason for consult:ETOH o? Current location:ED22H? o? Identified substance use concern:? -? Seeking ATS (detox) -? Support ? Intervention: o? ATS bed search started/completed/in process o? Community resources provided ? Plan: Continue bed search ? Additional information:RC met with this pt and discussed treatment options, pt stated she's interested in ATS treatment, RC started bedsearch and informed Dr. Ann of the plan. RC called multiple detox facilities, but couldn't find a bed for her. ISABELLE provided this pt with recovery resources as well as business card. Please follow up in the morning.
[2023-04-29 21:06] VITALS: BP 134/86; PULSE 120; RESP 16; TEMP 36.9; O2SAT 98
--- NOTE | 2023-04-29 21:27 | MHC.EDTECH ---
patient complaining of chest pain ,pt was moved to room 20 ,ekg taken and was read by provider ,vitals re check and patient was hooked up to service coordinator elderly facility .
[2023-04-29 21:53] VITALS: BP 115/67; PULSE 127; RESP 17; TEMP 36.3; O2SAT 93
--- NOTE | 2023-04-29 22:50 | MHC.EDTECH ---
Assist patient onto commode. Brought patient feminine pad, hospital underwear, and hygiene wipes. Then assist patient back onto bed.
--- NOTE | 2023-04-29 23:50 | PC.NURSE ---
restless/agitated, speech clear; attempting to get into rehab facility for alcohol detox; states had been sober for 2 years but broke up with boyfriend and started drinking again. gait steady. awaiting dispo.
== END 2023-04-30 01:39 | disposition home or self-care (01) ==
PROVIDERS: Emergency Provider Emergency Medicine
DX: F10.129 Alcohol abuse with intoxication, unspecified (principal); R00.0 Tachycardia, unspecified; Y90.8 Blood alcohol level of 240 mg/100 ml or more; Z79.899 Other long term (current) drug therapy
CPT/HCPCS: 36415; 80048; 80076; 80307; 83735; 84484; 84702; 85025; 93005; 96361; 96374; 99284; 99285; J2060

== ENCOUNTER 2024-10-19 16:09 | Emergency (ER) | payer SELFPAY ==
--- NOTE | ~2024-10-19 | CT_ITS ---
CLINICAL HISTORY: chest pain CTA chest with 3-D postprocessing Comparison: 12/16/22 Findings: Study quality is adequate for the diagnosis of pulmonary embolism. No pulmonary embolism. Heart size within normal limits. RV/LV ratio is normal. No calcified coronary artery disease. No aortic dissection or aneurysm. No calcified atherosclerotic disease. No lymphadenopathy. No pulmonary pathology. No pneumothorax or pleural effusion. No acute osseous or soft tissue abnormality. No acute pathology in the imaged portion of the upper abdomen. Impression: No pulmonary embolism or other acute findings. This document has been electronically signed by: Fany Monson MD on 10/19/2024 19:34:13
--- NOTE | ~2024-10-19 | CT_ITS ---
CLINICAL HISTORY: flank pain CT abdomen and pelvis with contrast Comparison: None Findings: No consolidation at the lung bases. Cholelithiasis. No gallbladder wall thickening or pericholecystic fluid. No hydronephrosis or nephrolithiasis. No focal decreased enhancement of the kidneys. Retroverted uterus. Unremarkable bladder. The other solid organs are unremarkable. No bowel wall thickening or dilation. A normal appendix is identified. Normal vasculature. No lymphadenopathy. No ascites. No acute osseous abnormality. Impression: No acute findings. This document has been electronically signed by: Fany Monson MD on 10/19/2024 19:16:07
--- NOTE | ~2024-10-19 | XR_ITS ---
EXAMINATION: XR CHEST CLINICAL INFORMATION: chest pain COMPARISON: CT chest 12/17/2022 TECHNIQUE: 2 views of the chest were obtained. FINDINGS: No significant abnormality is noted involving the heart, lungs, mediastinum, bony thorax or soft tissues. XR/XR chest 2V IMPRESSION: Unremarkable chest examination. Electronically signed by: Abel Mckeon MD 10/19/2024 05:43 PM [facility]
--- NOTE | 2024-10-19 16:12 | ECG_ITS ---
Test Reason : CP Blood Pressure : / mmHG Vent. Rate : 111 BPM Atrial Rate : 111 BPM P-R Int : 156 ms QRS Dur : 088 ms QT Int : 340 ms P-R-T Axes : 043 041 012 degrees QTc Int : 462 ms Sinus tachycardia Nonspecific ST and T wave abnormality Abnormal ECG When compared with ECG of 29-APR-2023 20:55, No significant change was found Referred By: Generic ED Physician Electronically Signed By:Geronimo Quinonez
[2024-10-19 16:28] VITALS: BP 117/63; PULSE 108; RESP 20; TEMP 36.3; O2SAT 98; BMI 39.9
[2024-10-19 16:41] LABS: MANUAL DIFF FLAG NO
[2024-10-19 16:45] LABS: Basophils Absolute Auto 0.1 X10*3/uL (0.0-0.2); Basophils Percent Auto 0.5 % (0-2); Eosinophils Absolute Auto 0.1 X10*3/uL (0.0-0.4); Eosinophils Percent Auto 0.9 % (0-4); Hematocrit 30.7 % (37.0-47.0); Hemoglobin 9.6 g/dl (12.0-16.0); Imm Gran Abs Auto 0.07 X10*3/uL (0.00-0.03); Imm Gran Pct Auto 0.5 % (0.0-0.4); Lymphocytes Absolute Auto 2.2 X10*3/uL (1.2-4.9); Lymphocytes Percent Auto 16.1 % (20-40); Mean Corpuscular HGB Conc 31.3 g/dl (31.0-35.0); Mean Corpuscular Hemoglobin 23.5 pg (27.0-33.0); Mean Corpuscular Volume 75.1 fL (80.0-98.0); Mean Platelet Volume 10.4 fL (9.4-12.3); Monocytes Absolute Auto 0.7 X10*3/uL (0.1-1.2); Monocytes Percent Auto 4.9 % (2-11); Neutrophils Absolute Auto 10.6 x10*3/uL (2.0-8.3); Neutrophils Percent Auto 77.1 % (45-73); Platelet Count 317 X10*3/uL (160-400); Red Blood Count 4.09 X10*6/uL (4.20-5.50); Red Cell Distribution Width 16.5 % (11.0-16.0); White Blood Count 13.8 X10*3/uL (4.8-10.8)
[2024-10-19 17:01] LABS: Alanine Aminotransferase 65 U/L (0-31); Albumin Level 4.3 g/dL (3.5-5.0); Alkaline Phosphatase 81 U/L (39-117); Anion Gap 11 (12-20); Aspartate Amino Transferase 62 U/L (5-31); Bilirubin Direct 0.2 mg/dL (0.0-0.5); Bilirubin Total 0.3 mg/dL (0.0-1.0); Blood Urea Nitrogen 8 mg/dL (9-16); Calcium 8.7 mg/dL (8.4-10.2); Carbon Dioxide 23 mmol/L (22-29); Chloride 107 mmol/L (96-108); Creatinine Clr Calc Pharmacy 131.9; Estimated Glomerular Filt Rate > 60; Glucose Random 135 mg/dL (60-115); Lipase 15 U/L (8-78); Potassium 3.2 mmol/L (3.3-5.1); Sodium 138 mmol/L (135-145); Total Protein 7.1 g/dL (6.5-8.0)
[2024-10-19 17:09] LABS: Troponin-I High Sensitivity < 2.7 ng/L (<3.5-17.0)
[2024-10-19 17:09] LABS: HCG Quantitative < 2 mIU/mL
[2024-10-19 17:13] LABS: D Dimer High Sensitivity < 150 NG/ML
[2024-10-19 17:21] LABS: Influenza A PCR NEGATIVE (Negative); Influenza B PCR NEGATIVE (Negative); Resp Syncy Virus RNA Qual PCR NEGATIVE (Negative); SARS COV2 PCR INHOUSE NEGATIVE (Negative)
--- NOTE | 2024-10-19 17:34 | PC.NURSE ---
Pt presents to ED from home, reports chest pain radiating to back and ABD X3 days, worsening. Also reports bubbles in urine and feeling sweaty for past month. Alert and oriented, breathing even and unlabored, skin warm and dry. NSR on bedside conveyor monitor.
[2024-10-19 17:35] VITALS: BP 101/50; PULSE 82; RESP 15; TEMP 36.3; O2SAT 97
--- NOTE | 2024-10-19 17:42 | ED.CHESTPAIN ---
HPI - Chest Pain General Chief Complaint: Chest Pain Stated Complaint: chest pain/vomiting Time Seen by Provider: 10/19/24 16:19 Source: patient History of Present Illness ED Provider: Jorge Luis MOLINA narrative: 34yo female presenting for back and chest pain. Patient states she has been experiencing lower back pain for 3 days and 1 day of chest pain. Her back pain is constant and her chest pain is substernal, intermittent and unrelated to activity. She has also had a few episodes of emesis and has felt clammy during this time. She denies SOB, dysuria/hematuria, fevers. She endorses 1 month of bubbly urine Related Data Home Medications ?Medication ?Instructions ?Recorded ?Confirmed escitalopram oxalate 20 mg tablet 1 tab PO DAILY 12/11/22 01/20/23 hydroxyzine pamoate 25 mg capsule 1 cap PO TID 12/11/22 01/20/23 gabapentin 100 mg capsule 100 mg PO TID 01/20/23 01/20/23 Previous Rx's ?Medication ?Instructions ?Recorded chlordiazepoxide HCl 25 mg capsule 25 mg PO Q6H PRN alcohol 01/21/23 withdrawal 3 days #10 caps Allergies Allergy/AdvReac Type Severity Reaction Status Date / Time No Known Allergies Allergy Verified 10/19/24 16:32 Review of Systems Review of Systems: Pt endorses chest pain and back pain Yes all other systems are reviewed and are negative FORMERLY [facility], [facility] Past Medical History Medical History Alcohol abuse Surgical History No pertinent past surgical history Family History Family History Other No family history of coronary artery disease Social History Social History Household Members: None Housing: Apartment Do you presently have visiting nurse or other home services: No Alcohol intake: former Patient Tobacco Use Status: Never used Tobacco Smoked in Last 30 Days: No Use of substances other than those prescribed or required for medical reasons: Yes Substance Use Type: Marijuana Advance Directives: No Advance Directives Information Provided: No Patient : No service: No Current occupational status: unemployed Physical Exam Vital Signs: Vital Signs: Last Vital Signs Temp 98.1 F 10/19/24 20:52 Pulse 77 10/19/24 20:52 Resp 15 10/19/24 20:52 BP 111/57 L 10/19/24 20:52 Pulse Ox 96 10/19/24 20:52 O2 Del Method Room Air 10/19/24 20:52 BMI result Body Mass Index 39.9 Well appearing female in no acute distress Lungs ctab [id number] tachycardic with regular rhythm abd soft, nondistended, nontender no lower ext edema,calf swelling/tenderness Medications Administered Discontinued Medications Generic Name Dose Route Start Last Admin Trade Name Berry PRN Reason Stop Dose Admin Iohexol 85 ml 10/19/24 18:58 10/19/24 18:58 Iohexol 350 Mg/Ml 100 Ml Infus..Btl IV 10/19/24 18:59 85 ml ONCE ONE Administration Ketorolac Tromethamine 15 mg 10/19/24 21:05 10/19/24 21:10 Ketorolac Tromethamine 15 Mg/Ml Vial IVPUSH 10/19/24 21:06 15 mg ONCE ONE Administration Medical Decision Making Medical Decision Making [facility] Narrative: 34yo female presenting for chest pain and back pain I am concerned for the following; PE, nephrolithiasis, enteririts, pancreatitis, biliary dz - labs and imaging studies ordered - ECG demonstrating ST depressions in septal and anterior leads; troponin negative x2 - lab work notable for mild anemia, elevated white count, mildly elevated LFTs - CT showed cholelithiasis without cholecystitis - h&H stable on rpt CBC Patient sxs likely secondary to cholelithiasis. She is rating the pain 8/10. I offered ultrasound and surgery consultation however patient declined stating that she does not currently have insurance and that she will have insurance Oct 24. She would like to followup with surgery outpatient. I told her that it would be best if she stayed however she states she does not want a high bill as she is paying out of pocket. I gave her strict return precautions and explained that she could develop cholecystitis so it is reported that she returns if her symptoms persist or worsen. I put referral for surgery in patients DC paperwork Lab Data 10/19/24 21:13 10/19/24 16:38 Labs: Lab Results 10/19/24 10/19/24 10/19/24 Range/Units 16:37 16:38 16:41 WBC 13.8 H (4.8-10.8) X10*3/uL RBC 4.09 L (4.20-5.50) X10*6/uL Hgb 9.6 L D (12.0-16.0) g/dl Hct 30.7 L D (37.0-47.0) % MCV 75.1 L (80.0-98.0) fL MCH 23.5 L (27.0-33.0) pg MCHC 31.3 (31.0-35.0) g/dl RDW 16.5 H (11.0-16.0) % Plt Count 317 (160-400) X10*3/uL MPV 10.4 (9.4-12.3) fL Immature Gran % (Auto) 0.5 H (0.0-0.4) % Neut % (Auto) 77.1 H (45-73) % Lymph % (Auto) 16.1 L (20-40) % Rooks % (Auto) 4.9 (2-11) % Eos % (Auto) 0.9 (0-4) % Baso % (Auto) 0.5 (0-2) % Lymph # (Auto) 2.2 (1.2-4.9) X10*3/uL Rooks # (Auto) 0.7 (0.1-1.2) X10*3/uL Eos # (Auto) 0.1 (0.0-0.4) X10*3/uL Baso # (Auto) 0.1 (0.0-0.2) X10*3/uL Abs Immat Gran (auto) 0.07 H (0.00-0.03) X10*3/uL Absolute Neuts (auto) 10.6 H (2.0-8.3) x10*3/uL Absolute Nucleated RBC 0.000 (0.0-0.012) X10*3/uL Nucleated RBC % (auto) 0.0 (0.0-0.2) /100WBC D-Dimer High Sensitivty < 150 NG/ML Sodium 138 (135-145) mmol/L Potassium 3.2 L (3.3-5.1) mmol/L Chloride 107 (96-108) mmol/L Carbon Dioxide 23 (22-29) mmol/L Anion Gap 11 L (12-20) BUN 8 L (9-16) mg/dL Creatinine 0.73 (0.5-1.4) mg/dL Estim Creat Clear Calc 131.9 Estimated GFR > 60 Random Glucose 135 H (60-115) mg/dL Calcium 8.7 D (8.4-10.2) mg/dL Total Bilirubin 0.3 (0.0-1.0) mg/dL Direct Bilirubin 0.2 (0.0-0.5) mg/dL AST 62 H (5-31) U/L ALT 65 H (0-31) U/L Alkaline Phosphatase 81 (39-117) U/L Troponin I High Sens < 2.7 (<3.5-17.0) ng/L Total Protein 7.1 (6.5-8.0) g/dL Albumin 4.3 (3.5-5.0) g/dL Lipase 15 (8-78) U/L Beta HCG, Quant < 2 mIU/mL Urine Color Urine Appearance Urine pH (5.0-9.0) Ur Specific [place] (1.005-1.025) Urine Protein (Neg-Trace) mg/dL Urine Glucose (UA) (Negative) mg/dL Urine Ketones (Negative) mg/dL Urine Blood (Negative) Urine Nitrite (Negative) Ur Leukocyte Esterase (Negative) Influenza Type A (PCR) NEGATIVE (Negative) Influenza Type B (PCR) NEGATIVE (Negative) RSV RNA Qual (PCR) NEGATIVE (Negative) SARS-CoV-2 RNA (RT-PCR) NEGATIVE (Negative) 10/19/24 10/19/24 10/19/24 Range/Units 20:22 21:04 21:13 WBC 14.0 H (4.8-10.8) X10*3/uL RBC 3.80 L (4.20-5.50) X10*6/uL Hgb 9.1 L (12.0-16.0) g/dl Hct 28.3 L (37.0-47.0) % MCV 74.5 L (80.0-98.0) fL MCH 23.9 L (27.0-33.0) pg MCHC 32.2 (31.0-35.0) g/dl RDW 16.6 H (11.0-16.0) % Plt Count 296 (160-400) X10*3/uL MPV 10.8 (9.4-12.3) fL Immature Gran % (Auto) 0.4 (0.0-0.4) % Neut % (Auto) 83.0 H (45-73) % Lymph % (Auto) 11.6 L (20-40) % Rooks % (Auto) 4.6 (2-11) % Eos % (Auto) 0.1 (0-4) % Baso % (Auto) 0.3 (0-2) % Lymph # (Auto) 1.6 (1.2-4.9) X10*3/uL Rooks # (Auto) 0.6 (0.1-1.2) X10*3/uL Eos # (Auto) 0.0 (0.0-0.4) X10*3/uL Baso # (Auto) 0.0 (0.0-0.2) X10*3/uL Abs Immat Gran (auto) 0.05 H (0.00-0.03) X10*3/uL Absolute Neuts (auto) 11.7 H (2.0-8.3) x10*3/uL Absolute Nucleated RBC 0.000 (0.0-0.012) X10*3/uL Nucleated RBC % (auto) 0.0 (0.0-0.2) /100WBC D-Dimer High Sensitivty NG/ML Sodium (135-145) mmol/L Potassium (3.3-5.1) mmol/L Chloride (96-108) mmol/L Carbon Dioxide (22-29) mmol/L Anion Gap (12-20) BUN (9-16) mg/dL Creatinine (0.5-1.4) mg/dL Estim Creat Clear Calc Estimated GFR Random Glucose (60-115) mg/dL Calcium (8.4-10.2) mg/dL Total Bilirubin (0.0-1.0) mg/dL Direct Bilirubin (0.0-0.5) mg/dL AST (5-31) U/L ALT (0-31) U/L Alkaline Phosphatase (39-117) U/L Troponin I High Sens < 2.7 (<3.5-17.0) ng/L Total Protein (6.5-8.0) g/dL Albumin (3.5-5.0) g/dL Lipase (8-78) U/L Beta HCG, Quant mIU/mL Urine Color Yellow Urine Appearance Clear Urine pH 6.5 (5.0-9.0) Ur Specific [place] >= 1.030 H (1.005-1.025) Urine Protein Trace (Neg-Trace) mg/dL Urine Glucose (UA) Negative (Negative) mg/dL Urine Ketones Negative (Negative) mg/dL Urine Blood Negative (Negative) Urine Nitrite Negative (Negative) Ur Leukocyte Esterase Negative (Negative) Influenza Type A (PCR) (Negative) Influenza Type B (PCR) (Negative) RSV RNA Qual (PCR) (Negative) SARS-CoV-2 RNA (RT-PCR) (Negative) Discharge Plan Discharge Clinical Impression: Anemia Qualifiers: Anemia type: unspecified type Qualified Code(s): D64.9 - Anemia, unspecified Cholelithiasis Qualifiers: Cholelithiasis location: other site Biliary obstruction: without biliary obstruction Qualified Code(s): K80.80 - Other cholelithiasis without obstruction Patient Disposition: Home, Self-Care Instructions: Acute Low Back Pain (ED) Additional Instructions: Please calll the surgeon listed in your discharge paperwork to schedule an appointment for next week. If you develop any new or worsening symptoms please return to the emergency department Prescriptions: No Action hydroxyzine pamoate 25 mg capsule 1 cap PO TID escitalopram oxalate 20 mg tablet 1 tab PO DAILY gabapentin 100 mg capsule 100 mg PO TID chlordiazepoxide HCl 25 mg capsule 25 mg PO Q6H PRN (Reason: alcohol withdrawal) 3 Days Qty: 10 0RF Referrals: Alexei Rowe MD [Physician] - 5 days (Symptomatic cholelithiasis) Print Language: Vietnamese
[2024-10-19] MEDS: iohexoL 350 MG/ML 100 ML INFUS..BTL 85 ML IV (18:58)
[2024-10-19 20:29] LABS: Appearance Urine Clear; Color Urine Yellow; Glucose Urine UA Negative (Negative); Leukocyte Esterase Urine Negative (Negative); Nitrite Urine Negative (Negative); PH 6.5 (5.0-9.0); Specific Gravity - Urine >= 1.030 (1.005-1.025); Urine Blood Negative (Negative); Urine Ketones Negative (Negative); Urine Protein Trace mg/dL (Neg-Trace)
[2024-10-19 20:52] VITALS: BP 111/57; PULSE 77; RESP 15; TEMP 36.7; O2SAT 96
[2024-10-19] MEDS: Ketorolac Tromethamine 15 MG/ML VIAL IVPUSH (21:10)
[2024-10-19 21:22] LABS: Basophils Percent Auto 0.3 % (0-2); Eosinophils Percent Auto 0.1 % (0-4); Hematocrit 28.3 % (37.0-47.0); Hemoglobin 9.1 g/dl (12.0-16.0); Imm Gran Abs Auto 0.05 X10*3/uL (0.00-0.03); Imm Gran Pct Auto 0.4 % (0.0-0.4); Lymphocytes Absolute Auto 1.6 X10*3/uL (1.2-4.9); Lymphocytes Percent Auto 11.6 % (20-40); MANUAL DIFF FLAG NO; Mean Corpuscular HGB Conc 32.2 g/dl (31.0-35.0); Mean Corpuscular Hemoglobin 23.9 pg (27.0-33.0); Mean Corpuscular Volume 74.5 fL (80.0-98.0); Mean Platelet Volume 10.8 fL (9.4-12.3); Monocytes Absolute Auto 0.6 X10*3/uL (0.1-1.2); Monocytes Percent Auto 4.6 % (2-11); Neutrophils Absolute Auto 11.7 x10*3/uL (2.0-8.3); Platelet Count 296 X10*3/uL (160-400); Red Cell Distribution Width 16.6 % (11.0-16.0)
[2024-10-19 21:32] LABS: Troponin-I High Sensitivity < 2.7 ng/L (<3.5-17.0)
[2024-10-19 21:57] VITALS: BP 111/57; PULSE 77; RESP 15; TEMP 36.7; O2SAT 96
== END 2024-10-19 22:02 | disposition home or self-care (01) ==
PROVIDERS: Emergency Provider Student in an Organized Health Care Education/Training Program; PCP Nurse Practitioner Family
DX: D64.9 Anemia, unspecified (principal); K80.80 Other cholelithiasis without obstruction; R07.89 Other chest pain; R11.2 Nausea with vomiting, unspecified; R10.2 Pelvic and perineal pain; M54.50 Low back pain, unspecified; Z79.899 Other long term (current) drug therapy; Z03.818 Encounter for observation for suspected exposure to other biological agents ruled out
CPT/HCPCS: 0241U; 36415; 71046; 71275; 74177; 80048; 80076; 81003; 83690; 84484; 84702; 85025; 85379; 93005; 96374; 99284; 99285; J1885; Q9967

== ENCOUNTER → 2024-10-19 16:12 | Outpatient (BNV) | payer SELFPAY | PROVIDERS: Emergency Provider Student in an Organized Health Care Education/Training Program; PCP Nurse Practitioner Family; Visit Provider Internal Medicine Cardiovascular Disease | DX: R94.31 Abnormal electrocardiogram [ECG] [EKG] (principal) | CPT/HCPCS: 93010 ==

== ENCOUNTER → 2024-10-19 16:19 | Outpatient (BNV) | payer SELFPAY | PROVIDERS: Emergency Provider Student in an Organized Health Care Education/Training Program; PCP Nurse Practitioner Family; Visit Provider Radiology Diagnostic Radiology | DX: R07.9 Chest pain, unspecified (principal); K80.80 Other cholelithiasis without obstruction | CPT/HCPCS: 71046; 71275; 74177 ==

== ENCOUNTER 2024-10-23 09:07 | Outpatient (AMB) | payer MEDICAID, SELFPAY ==
--- NOTE | 2024-10-23 09:10 | A.OFFVIS_ITS ---
Vital Signs 10/23/24 09:14 Height 5 ft 5 in Weight 235 lb BMI 39.1 BP 115/65 Blood Pressure Location Rt brachial Position Sitting Pulse 78 Intake Visit Reasons: gallbladder Intake Note: Patient referred after ED visit for abdominal pain. Patient c/o: on and off abdominal pain for the past [address] abd/pelvis: 10-19-2024 Applications Developer Required: No Accompanied by: Self / Same As Patient Allergies No Known Allergies Allergy (Verified 10/23/24 09:15) HPI Comments Details: Patient presents here status post recent ER visit for is being described as biliary colic. She is had multiple episodes of right upper quadrant/epigastric pain radiating around to her back. Workup in the ER including CT scan demo nstrated cholelithiasis. Patient has noted above has had several attacks this over the years. Because of increased frequency, she presents here for further evaluation. She does have fatty food intolerance. She is regular bowel habits. She is never been jaundiced before. Chart was reviewed and patient evaluate [facility] Medical History Alcohol abuse Surgical History No pertinent past surgical history Family History Other No family history of coronary artery disease Social History Household Members: None Housing: Apartment Do you presently have visiting nurse or other home services: No Alcohol intake: former Patient Tobacco Use Status: Never used Tobacco Substance Use Type: Marijuana service: No Current occupational status: unemployed Physical Exam Vital Signs: Last Vital Signs Pulse 78 10/23/24 09:14 BP 115/65 10/23/24 09:14 BMI result Body Mass Index 39.1 Eyes Other: Anicteric Chest Other: Chest breath sounds bilaterally, HS 1 in 2 GI Other: Abdomen corpulent, soft, benign Assessment & Plan Assessment & Plan (1) Recurrent biliary colic: Code(s): K80.50 - Calculus of bile duct without cholangitis or cholecystitis without obstruction Category: Surgical Plan I discussed with the patient therapeutic options which are continue conservative therapy, fatty food intolerance or laparoscopic possible open cholecystectomy. Risks, benefits, alternatives of the lateral were reviewed with the patient included but not limited to bleeding, infection, recurrence of symptoms, numbness, pain, scarring, bowel or bile duct injury or leak. At present, patient was planning a vacation and will consider the procedure when she returns. All questions answered. In the meantime she is encouraged to avoid greasy, fatty, fried foods. Coding Level of Care Code New Pt Level 4 (11513) Diagnoses Recurrent biliary colic K80.50
[2024-10-23 09:14] VITALS: BP 115/65; PULSE 78; BMI 39.1
== END 2024-10-23 09:41 | disposition home or self-care (01) ==
PROVIDERS: PCP Nurse Practitioner Family; Visit Provider Surgery
DX: K80.50 Calculus of bile duct without cholangitis or cholecystitis without obstruction (principal)
CPT/HCPCS: 99204

== ENCOUNTER → 2024-10-23 09:07 | Outpatient (BNVA) | payer SELFPAY | PROVIDERS: PCP Nurse Practitioner Family; Visit Provider Surgery | DX: K80.50 Calculus of bile duct without cholangitis or cholecystitis without obstruction (principal) | CPT/HCPCS: 99202 ==

== ENCOUNTER 2025-02-28 14:30 | Inpatient (IN) | payer BC, SELFPAY ==
[2025-02-28] VITALS (16 sets, daily range): BP systolic 92–126; BP diastolic 39–80; PULSE 29–94; RESP 12–18; TEMP 36.2–36.9; O2SAT 96–99; BMI 36.7
--- NOTE | ~2025-02-28 | XR_ITS ---
EXAMINATION: XR CHEST 1 VIEW HISTORY: Weakness COMPARISON: Comparison is made with the prior examination dated 10/19/2024. FINDINGS: A single AP portable view of the chest performed at 3:33 PM is submitted. The lungs are expanded and clear. There is no pleural effusion, pneumothorax, or pulmonary vascular congestion. The heart is normal in size. The bones are intact. XR/XR chest 1V IMPRESSION: No acute cardiopulmonary abnormality. Electronically signed by: Carlo Coleman MD 02/28/2025 03:42 PM EDT
--- NOTE | ~2025-02-28 | CT_ITS ---
CLINICAL HISTORY: Upper and lower extremity weakness R O mass effect CT head without contrast Comparison: 12/16/22 Findings: No acute hemorrhage. No extra-axial fluid collection. No hydrocephalus, mass-effect or herniation. Funes-white differentiation is maintained. White matter is within normal limits for age. No acute orbital pathology. No acute soft tissue abnormality. No fracture. The visualized paranasal sinuses are predominantly clear. The mastoid air cells are clear. Impression: No acute findings. This document has been electronically signed by: Fany Monson MD on 02/28/2025 19:09:09
--- NOTE | ~2025-02-28 | XR_ITS ---
CLINICAL HISTORY: central line placement Chest Radiograph Comparison: CR/SR - XR CHEST 1V - 02/28/25 15:[address]/SR - CT ANGIO CHEST PE PROTOCOL - 10/19/24 18:39 EST Findings: Right central venous catheter with the tip terminating at the cavoatrial junction. No cardiomegaly. Normal mediastinal contours. No pneumothorax. No opacity. No pleural effusion. Normal upper abdomen. No acute fracture. Impression: Properly positioned right central venous catheter. This document has been electronically signed by: Fany Monson MD on 02/28/2025 18:25:17
--- NOTE | 2025-02-28 14:43 | MHC.EDTECH ---
Patient is complaining of muscular pain for the past couple of days. Patient is also complaining of general weakness. History of Alcohol abuse disorder sober for 2 years. Patient takes Lexapro for depression and anxiety.
--- NOTE | 2025-02-28 14:47 | ED_ITS ---
HPI - Weakness General Chief complaint: Syncope Stated complaint: SZ,SYNCOPE PER EMS Time Seen by Provider: 02/28/25 14:46 Source: patient Mode of arrival: EMS Limitations: no limitations History of Present Illness ED Provider: Dr. Randy Wing HPI Narrative: 35-year-old female history of alcohol use disorder in remission, transaminitis, depression, anxiety who presents emergency department for evaluation of severe weakness and a syncopal episode that occurred at urgent care when she was getting a Point of care glucose fingerstick. States she did start a new exercise routine where she is walking 1-3 2 to 3 times a week. She also states that she has been using weights in her upper extremities and has been doing squats. This did over the past 3 days she has had muscle soreness. She states that she now has difficulty lifting her arms and legs. She also states that her neck feels very weak. She denied any numbness of her extremities. She denied any recent viral illnesses, rhinorrhea, sore throat, cough. She states she did have a therapeutic October 2024. States that fasting where she will fast for 10 hours and then eat normal food. In the emergency department the patient was awake and alert and answers questions appropriately. The patient has severe muscle of her upper and lower extremities. Related Data Home Medications ?Medication ?Instructions ?Recorded ?Confirmed escitalopram oxalate 20 mg tablet 1 tab PO DAILY 12/11/22 02/28/25 ibuprofen 125 mg-acetaminophen 250 2 tab PO TID PRN Pain 02/28/25 02/28/25 mg tablet (Motrin Dual Action with Tylenol) vitamin B complex 1 tab PO DAILY 02/28/25 02/28/25 Allergies Allergy/AdvReac Type Severity Reaction Status Date / Time No Known Allergies Allergy Verified 02/28/25 14:53 Review of Systems 2 Review of Systems: Yes all other systems are reviewed and are negative [facility] Past Medical History [facility] Narrative: Social history: She denies tobacco and alcohol use Medical History Alcohol abuse Surgical History No pertinent past surgical history Family History Family History Other No family history of coronary artery disease Social History Social History Household Members: Family Housing: House Do you presently have visiting nurse or other home services: No Alcohol intake: former Patient Tobacco Use Status: Never used Tobacco Substance Use Type: Marijuana service: No Current occupational status: unemployed Physical Exam 2 Vital Signs: Vital Signs: Last Vital Signs Temp 98.1 F 03/01/25 16:00 Pulse 70 03/01/25 21:00 Resp 14 03/01/25 21:00 BP 114/69 03/01/25 21:00 Pulse Ox 98 03/01/25 20:00 O2 Del Method Room Air 03/01/25 21:00 BMI result Body Mass Index 36.7 vital signs were normal Exam: General: Awake, alert in no distress, the patient has profound weakness of herupper and lower extremities in his unable to hold her arms or legs up against gravity Head: Normocephalic, atraumatic EENT: PERRL, Lids normal, sclera normal, conjunctiva normal, nose normal , ears normal, throat without erythema or exudates Neck: Supple, no adenopathy Lung: breath sounds symmetric, no wheezing, rales or rhonchi Chest: symmetric movement, nontender Heart: regular rate and rhythm, normal S1, S2 no murmurs or rubs Abdomen: soft, non-tender, nondistended, normal bowel sounds Back: no vertebral tenderness, no CVAT Extremities: no deformities, moves all extremities symmetrically Neuro: General: Awake, alert, oriented, normal speech Cranial nerves: cranial nerves intact Strength: profound weakness upper and lower extremities including her hands and fingers, minimally able tohold her arms and legs up against gravity Reflexes: absent Psych: Pleasant, cooperative Medications Administered Generic Name Dose Route Start Last Admin Trade Name Jjq PRN Reason Stop Dose Admin Enoxaparin Sodium 40 mg 02/28/25 16:30 03/01/25 16:13 Enoxaparin Sodium 40 Mg/0.4 Ml Syringe SUBCUT 40 mg Q24H MALA Administration Escitalopram Oxalate 20 mg 03/01/25 18:05 03/01/25 18:08 Escitalopram Oxalate 20 Mg Tablet PO Not Given DAILY MALA Potassium Chloride 40 meq in 100 mls @ 50 mls/hr 03/01/25 20:00 03/01/25 20:00 Potassium Chloride/H20 IV 03/01/25 23:59 50 mls/hr Q2H MALA Administration Ondansetron HCl 4 mg 02/28/25 19:29 02/28/25 19:40 Ondansetron Hcl 4 Mg/2 Ml Vial IVPUSH 4 mg Q8H PRN Administration Nausea and Vomiting Sodium Chloride 3 ml 03/01/25 08:00 03/01/25 16:13 0.9 % Sodium Chloride Flush 3 Ml Syringe IVFLUSH 3 ml QSHIFT MALA Administration Discontinued Medications Generic Name Dose Route Start Last Admin Trade Name Freq PRN Reason Stop Dose Admin Sodium Chloride 1,000 mls @ 999 mls/hr 02/28/25 15:11 02/28/25 17:35 Ns IV 02/28/25 16:11 Infused .Q1H1M STA Infusion Potassium Chloride 10 meq in 100 mls @ 100 mls/hr 02/28/25 16:15 02/28/25 19:23 Potassium Chloride/H20 IV 02/28/25 20:14 Not Given Q1H MALA Lactated Ringer's 1,000 mls @ 999 mls/hr 02/28/25 16:06 02/28/25 17:37 Lr IV 02/28/25 17:06 Infused .Q1H1M STA Infusion Lactated Ringer's 1,000 mls @ 999 mls/hr 02/28/25 16:06 02/28/25 19:08 Lr IV 02/28/25 17:06 Infused .Q1H1M STA Infusion Lactated Ringer's 1,000 mls @ 999 mls/hr 02/28/25 16:07 02/28/25 19:08 Lr IV 02/28/25 17:07 Infused .Q1H1M STA Infusion Potassium Chloride/Sodium Chloride 40 meq in 1,000 mls @ 250 mls/hr 02/28/25 16:30 03/01/25 00:44 Kcl 40 Meq In 0.9 % Sodium Chl IVCONT Not Given .Q4H MALA Potassium Chloride 40 meq in 100 mls @ 50 mls/hr 02/28/25 20:00 02/28/25 23:39 Potassium Chloride/H20 IV 02/28/25 23:59 Infused Q2H MALA Infusion Potassium Phosphate 15 mmol in 250 mls @ 62.5 mls/hr 02/28/25 20:00 03/01/25 03:34 Kphos IV 03/01/25 03:59 Infused Q4H MALA Infusion Potassium Chloride 40 meq in 100 mls @ 50 mls/hr 03/01/25 01:30 03/01/25 05:11 Potassium Chloride/H20 IV 03/01/25 05:29 Infused Q2H MALA Infusion Potassium Chloride 40 meq in 100 mls @ 50 mls/hr 03/01/25 06:15 03/01/25 12:30 Potassium Chloride/H20 IV 03/01/25 10:14 Infused Q2H MALA Infusion Potassium Chloride 10 meq in 100 mls @ 100 mls/hr 03/01/25 09:30 03/01/25 14:50 Potassium Chloride/H20 IV 03/01/25 13:29 Infused Q1H MALA Infusion Potassium Chloride 10 meq in 100 mls @ 100 mls/hr 03/01/25 09:30 03/01/25 10:44 Potassium Chloride/H20 IV 03/01/25 13:29 Not Given Q1H MALA Magnesium Sulfate 2 gm in 50 mls @ 25 mls/hr 03/01/25 09:20 03/01/25 12:35 Magnesium Sulfate/H2o IV 03/01/25 11:19 Infused ONCE ONE Infusion Potassium Chloride 10 meq in 100 mls @ 100 mls/hr 03/01/25 14:00 03/01/25 19:05 Potassium Chloride/H20 IV 03/01/25 17:59 Infused Q1H MALA Infusion Potassium Chloride 10 meq in 100 mls @ 100 mls/hr 03/01/25 18:00 03/01/25 19:54 Potassium Chloride/H20 IV 03/01/25 21:59 Not Given Q1H MALA Midazolam HCl 4 mg 02/28/25 16:53 02/28/25 17:04 Midazolam Hcl 2 Mg/2 Ml Vial IVPUSH 02/28/25 16:54 4 mg ONCE ONE Administration Potassium Chloride 40 meq 02/28/25 19:23 02/28/25 20:30 Potassium Chloride Er 20 Meq Tab.Er.Prt PO 02/28/25 19:24 Not Given ONCE ONE Potassium Chloride 40 meq 03/01/25 01:25 03/01/25 01:34 Potassium Chloride Er 20 Meq Tab.Er.Prt PO 03/01/25 01:26 40 meq ONCE ONE Administration Potassium Chloride 40 meq 03/01/25 06:11 03/01/25 06:34 Potassium Chloride Er 20 Meq Tab.Er.Prt PO 03/01/25 06:12 40 meq ONCE ONE Administration Medical Decision Making Medical Decision Making MDM Narrative: 35-year-old female history of alcohol use disorder in remission, transaminitis, depression, anxiety who presents emergency department for evaluation of severe weakness and a syncopal episode that occurred at urgent care when she was getting a Point of care glucose fingerstick. States she did start a new exercise routine where she is walking 1-3 2 to 3 times a week. She also states that she has been using weights in her upper extremities and has been doing squats. This did over the past 3 days she has had muscle soreness. She states that she now has difficulty lifting her arms and legs. She also states that her neck feels very weak. She denied any numbness of her extremities. She denied any recent viral illnesses, rhinorrhea, sore throat, cough. She states she did have a therapeutic October 2024. States that fasting where she will fast for 10 hours and then eat normal food. vital signs were unremarkable. Examination revealed profound weakness of upper and lower extremities with loss of reflexes. Differential diagnosis: Includes but is not limited to rhabdomyolysis, Guillain-Harper syndrome, renal failure, electrolyte abnormalities, anemia Course: 16:39: Independent interpretation patient's laboratory evaluation is as follows: microcytic anemia with an H&H of 10.5 and 31.0 with an MCV of 71.8- this is chronic. Coags were normal. Venous blood gas revealed an elevated pH of 7.48 with a normal pCO2 and bicarb. Potassium was severely low at 1.7. Chloride elevated 110. Six 9. Glucose was elevated 144. AST and ALT were elevated to 39 and 111. Bilirubin and alk-phos were normal. CK was greater than 4267. CRP was elevated 1.30. ESR was elevated 23. BNP was normal. Lipase was normal. Quantitative beta-hCG was below detectable limits. Alcohol was below detectable limits. COVID-19, influenza and RSV tests were negative. Troponin was detectable but not elevated at 5.9. Urinalysis and Drug screen urine pending collection. The patient's severe hypokalemia is most likely the cause of her weakness and rhabdomyolysis. At this time I do not have a clear cause for her hypokalemia, the patient has been doing 10 hour intermittent fasting but I do not think that this is sufficient enough to cause such as severe deficit in her potassium. Patient was ordered to get potassium chloride 10 mEq IV Q hour x4 and potassium chloride 40 mEq orally. I also ordered 3 L of lactated Ringer's IV to treat her rhabdomyolysis. The patient did have a severe bradycardic episode while she was getting her blood drawn by the emergency veterinary technician assistant. I did discuss the patient's presentation with the covering store clerk, Dr. Allan and the patient will be admitted to the ICU for further treatment. Admission/Observation Consideration of admission/observation: Escalation of care including admission/observation considered ( Your) Consult Healthcare Provider Management of the patient was discussed with: Records Officer (Fur Remodeler, Dr. Allan) Lab Data MDM Lab Attestation statement: I reviewed the patient's lab results. 03/01/25 05:25 03/01/25 17:22 Labs: Lab Results 02/28/25 02/28/25 02/28/25 Range/Units 15:16 15:17 15:18 WBC 10.4 (4.8-10.8) X10*3/uL RBC 4.32 (4.20-5.50) X10*6/uL Hgb 10.5 L (12.0-16.0) g/dl Hct 31.0 L (37.0-47.0) % MCV 71.8 L (80.0-98.0) fL MCH 24.3 L (27.0-33.0) pg MCHC 33.9 (31.0-35.0) g/dl RDW 16.9 H (11.0-16.0) % Plt Count 356 (160-400) X10*3/uL MPV 9.8 (9.4-12.3) fL Immature Gran % (Auto) 0.5 H (0.0-0.4) % Neut % (Auto) 77.1 H (45-73) % Lymph % (Auto) 15.8 L (20-40) % Ness % (Auto) 5.9 (2-11) % Eos % (Auto) 0.3 (0-4) % Baso % (Auto) 0.4 (0-2) % Lymph # (Auto) 1.6 (1.2-4.9) X10*3/uL Ness # (Auto) 0.6 (0.1-1.2) X10*3/uL Eos # (Auto) 0.0 (0.0-0.4) X10*3/uL Baso # (Auto) 0.0 (0.0-0.2) X10*3/uL Abs Immat Gran (auto) 0.05 H (0.00-0.03) X10*3/uL Absolute Neuts (auto) 8.0 (2.0-8.3) x10*3/uL Absolute Nucleated RBC 0.000 (0.0-0.012) X10*3/uL Nucleated RBC % (auto) 0.0 (0.0-0.2) /100WBC ESR 23 H (0-20) MM/HR PT 12.4 (10.9-12.4) SEC INR 1.1 (0.9-1.1) APTT 31.5 (26.0-36.8) SEC VBG pH (7.32-7.43) VBG pCO2 mmHg VBG pO2 mmHg VBG HCO3 (22-26) mmol/L VBG O2 Saturation % VBG Base Excess mmol/L Sodium 143 (135-145) mmol/L Potassium 1.7 L* D (3.3-5.1) mmol/L Chloride 110 H (96-108) mmol/L Carbon Dioxide 22 (22-29) mmol/L Anion Gap 13 (12-20) BUN 11 (9-16) mg/dL Creatinine 0.69 (0.5-1.4) mg/dL Estim Creat Clear Calc 132.0 Estimated GFR > 60 Random Glucose 144 H (60-115) mg/dL Lactic Acid 1.9 (0.5-2.0) mmol/L Calcium 9.3 D (8.4-10.2) mg/dL Magnesium 2.2 (1.6-2.6) mg/dL Total Bilirubin 0.5 (0.0-1.0) mg/dL AST 239 H (5-31) U/L ALT 111 H (0-31) U/L Alkaline Phosphatase 61 (39-117) U/L Total Creatine Kinase > 4267 H (26-140) U/L Troponin I High Sens 5.9 D (<3.5-17.0) ng/L C-Reactive Protein 1.30 H (< or = 0.50) mg/dL B-Natriuretic Peptide 30 (<100) pg/mL Total Protein 6.9 (6.5-8.0) g/dL Albumin 4.2 (3.5-5.0) g/dL Lipase 16 (8-78) U/L TSH 1.43 (0.32-4.0) uIU/mL Beta HCG, Quant < 2 mIU/mL Ethyl Alcohol < 10 mg/dL Influenza Type A (PCR) NEGATIVE (Negative) Influenza Type B (PCR) NEGATIVE (Negative) RSV RNA Qual (PCR) NEGATIVE (Negative) SARS-CoV-2 RNA (RT-PCR) NEGATIVE (Negative) 02/28/25 Range/Units 15:23 WBC (4.8-10.8) X10*3/uL RBC (4.20-5.50) X10*6/uL Hgb (12.0-16.0) g/dl Hct (37.0-47.0) % MCV (80.0-98.0) fL MCH (27.0-33.0) pg MCHC (31.0-35.0) g/dl RDW (11.0-16.0) % Plt Count (160-400) X10*3/uL MPV (9.4-12.3) fL Immature Gran % (Auto) (0.0-0.4) % Neut % (Auto) (45-73) % Lymph % (Auto) (20-40) % Ness % (Auto) (2-11) % Eos % (Auto) (0-4) % Baso % (Auto) (0-2) % Lymph # (Auto) (1.2-4.9) X10*3/uL Ness # (Auto) (0.1-1.2) X10*3/uL Eos # (Auto) (0.0-0.4) X10*3/uL Baso # (Auto) (0.0-0.2) X10*3/uL Abs Immat Gran (auto) (0.00-0.03) X10*3/uL Absolute Neuts (auto) (2.0-8.3) x10*3/uL Absolute Nucleated RBC (0.0-0.012) X10*3/uL Nucleated RBC % (auto) (0.0-0.2) /100WBC ESR (0-20) MM/HR PT (10.9-12.4) SEC INR (0.9-1.1) APTT (26.0-36.8) SEC VBG pH 7.48 H (7.32-7.43) VBG pCO2 30 mmHg VBG pO2 154 mmHg VBG HCO3 22 (22-26) mmol/L VBG O2 Saturation 99.0 % VBG Base Excess 0.2 mmol/L Sodium (135-145) mmol/L Potassium (3.3-5.1) mmol/L Chloride (96-108) mmol/L Carbon Dioxide (22-29) mmol/L Anion Gap (12-20) BUN (9-16) mg/dL Creatinine (0.5-1.4) mg/dL Estim Creat Clear Calc Estimated GFR Random Glucose (60-115) mg/dL Lactic Acid (0.5-2.0) mmol/L Calcium (8.4-10.2) mg/dL Magnesium (1.6-2.6) mg/dL Total Bilirubin (0.0-1.0) mg/dL AST (5-31) U/L ALT (0-31) U/L Alkaline Phosphatase (39-117) U/L Total Creatine Kinase (26-140) U/L Troponin I High Sens (<3.5-17.0) ng/L C-Reactive Protein (< or = 0.50) mg/dL B-Natriuretic Peptide (<100) pg/mL Total Protein (6.5-8.0) g/dL Albumin (3.5-5.0) g/dL Lipase (8-78) U/L TSH (0.32-4.0) uIU/mL Beta HCG, Quant mIU/mL Ethyl Alcohol mg/dL Influenza Type A (PCR) (Negative) Influenza Type B (PCR) (Negative) RSV RNA Qual (PCR) (Negative) SARS-CoV-2 RNA (RT-PCR) (Negative) Independent Interpretation I performed an independent interpretation of an: EKG Interpretation: my interpretation patient's 12 EKG done at teen 51 hours is as follows: Normal sinus rhythm rate of 78, normal AL interval, prolonged QRS of 104 milliseconds, normal QTC interval, less than [address] segment depression leads 1, 3, AVF, V2 through V6. Compared to an EKG dated 10/19/[address] segment depressions in 1, 2, aVL, V3 through V6 are old. Patient's rhythm strip during her syncopal episode is below: My interpretation is severe bradycardia with 6 second pause Radiology Impression Radiologist Impression: XR chest 1V IMPRESSION: No acute cardiopulmonary abnormality. Electronically signed by: Carlo Coleman MD 02/28/2025 03:42 PM EDT RP Procedures Central Line Placement Right IJ: Time Out Performed: Yes Patient Placed on Monitor/Pulse Ox: Yes Prep: mask, gown and gloves Central Line Prep: Chlorhexidine scrub and sterile drapes applied Local Anesthetic: lidocaine 1% Amount of anesthesia used (mL): 1 Ultrasound Used for Placement: Yes Central Line Lumen Inserted: triple Post Procedure: sutured in place, good blood return, all ports aspirated, flushed, capped and sterile dressing applied Post Procedure X-Ray: tip of catheter in good position and no pneumothorax seen Patient Tolerated Procedure: well Additional Comments: Performed by Aleida Escamilla PA-C Critical Care Time Critical Care Time Critical Care Time: Yes Total Critical Care Time: 80 Attestation: Critical Care: The patient was critically ill with a high probability of imminent or life threatening deterioration. I spent greater than 30 minutes of discontinuous time evaluating the patient,delivering critical care at the bedside, discussing and evaluating pertinent data with consultants. Critical care time does not include time spent performing separately billable procedures or teaching. Total time spent performing critical care was 80 minutes. Discharge Plan Discharge Clinical Impression: Acute hypokalemia, Weakness, Bradycardia, Syncope, Rhabdomyolysis Patient Disposition: Admitted As Inpatient Interventions: Admission Worksheet (ED) Last Done: 02/28/25 18:45 Discharge Date/Time: 02/28/25 18:46
--- NOTE | 2025-02-28 14:48 | ECG_ITS ---
Test Reason : WEAKNESS Blood Pressure : */* mmHG Vent. Rate : 78 BPM Atrial Rate : 78 BPM P-R Int : 156 ms QRS Dur : 104 ms QT Int : 302 ms P-R-T Axes : 41 30 237 degrees QTcB Int : 344 ms Normal sinus rhythm Marked ST abnormality, possible lateral subendocardial injury Abnormal ECG When compared with ECG of 19-Oct-2024 16:14, Nonspecific T wave abnormality, worse in Anterolateral leads Referred By: Randy Wing Electronically Signed By: SERJIO LIN
--- NOTE | 2025-02-28 14:52 | ECG_ITS ---
Test Reason : WEAKNESS Blood Pressure : */* mmHG Vent. Rate : 82 BPM Atrial Rate : 82 BPM P-R Int : 152 ms QRS Dur : 118 ms QT Int : 436 ms P-R-T Axes : 41 25 7 degrees QTcB Int : 509 ms Normal sinus rhythm Marked ST abnormality, possible lateral subendocardial injury Abnormal ECG When compared with ECG of 28-Feb-2025 14:52, QT has lengthened Referred By: Randy Wing Electronically Signed By: SERJIO LIN
--- NOTE | 2025-02-28 15:10 | PC.NURSE ---
receiving report from Reshma mclean noticed the pt's heart rate dropped to 29, pt is alert, pale, diaphoretic, pt was getting his labs drawn, pacer pads applied for precaution pt did report that she went to urgent care today because not feeling, all her 4 extremities not feeling right-hurting and feels like she does not have control of the muscles, it started with her right hand middle fingers then spread to the entire arm, pt does appear to have difficulty raising her arms- right worse then the left, strength is also weaker on the right then the left, pt appears to have control of the lower extremities, but also reports weaker, states that her gate has been off and almost fell, sinus portia to sinus on the monitor
--- NOTE | 2025-02-28 15:15 | PC.NURSE ---
Pt became vagal during blood draw, provider called in. Pt recovered with HOB down. HR braydcardic during episode and provider in immediately eo eval. Pt A&O X4 following.
[2025-02-28 15:23] LABS: MANUAL DIFF FLAG NO
[2025-02-28 15:24] LABS: Basophils Percent Auto 0.4 % (0-2); Eosinophils Percent Auto 0.3 % (0-4); Hemoglobin 10.5 g/dl (12.0-16.0); Imm Gran Abs Auto 0.05 X10*3/uL (0.00-0.03); Imm Gran Pct Auto 0.5 % (0.0-0.4); Lymphocytes Absolute Auto 1.6 X10*3/uL (1.2-4.9); Lymphocytes Percent Auto 15.8 % (20-40); Mean Corpuscular HGB Conc 33.9 g/dl (31.0-35.0); Mean Corpuscular Hemoglobin 24.3 pg (27.0-33.0); Mean Corpuscular Volume 71.8 fL (80.0-98.0); Mean Platelet Volume 9.8 fL (9.4-12.3); Monocytes Absolute Auto 0.6 X10*3/uL (0.1-1.2); Monocytes Percent Auto 5.9 % (2-11); Neutrophils Percent Auto 77.1 % (45-73); Platelet Count 356 X10*3/uL (160-400); Red Blood Count 4.32 X10*6/uL (4.20-5.50); Red Cell Distribution Width 16.9 % (11.0-16.0); White Blood Count 10.4 X10*3/uL (4.8-10.8)
[2025-02-28 15:27] LABS: Venous Blood Gas Refer to POC result
[2025-02-28 15:28] LABS: VBG Base Excess 0.2 mmol/L; VBG HCO3 22 mmol/L (22-26); VBG pCO2 30 mmHg; VBG pH 7.48 (7.32-7.43); VBG pO2 154 mmHg
[2025-02-28 15:33] LABS: INTERNATIONAL NORM RATIO 1.1 (0.9-1.1); Prothrombin Time 12.4 SEC (10.9-12.4)
[2025-02-28 15:36] LABS: Partial Thromboplastin Time 31.5 SEC (26.0-36.8)
[2025-02-28 15:41] LABS: Lactic Acid 1.9 mmol/L (0.5-2.0)
[2025-02-28 15:47] LABS: Troponin-I High Sensitivity 5.9 ng/L (<3.5-17.0)
[2025-02-28] MEDS: 0.9 % Sodium Chloride 1,000 ML 999 ML IV (15:56)
[2025-02-28 16:01] LABS: Alanine Aminotransferase 111 U/L (0-31); Albumin Level 4.2 g/dL (3.5-5.0); Anion Gap 13 (12-20); Aspartate Amino Transferase 239 U/L (5-31); Bilirubin Total 0.5 mg/dL (0.0-1.0); Blood Urea Nitrogen 11 mg/dL (9-16); Calcium 9.3 mg/dL (8.4-10.2); Carbon Dioxide 22 mmol/L (22-29); Chloride 110 mmol/L (96-108); Erythrocyte Sedimentation Rate 23 MM/HR (0-20); Estimated Glomerular Filt Rate > 60; Ethanol < 10 mg/dL; Glucose Random 144 mg/dL (60-115); HCG Quantitative < 2 mIU/mL; Lipase 16 U/L (8-78); Magnesium 2.2 mg/dL (1.6-2.6); Potassium 1.7 mmol/L (3.3-5.1); Sodium 143 mmol/L (135-145); Total Protein 6.9 g/dL (6.5-8.0)
[2025-02-28 16:01] LABS: TSH reflex Free T4 1.43 uIU/mL (0.32-4.0)
[2025-02-28 16:06] LABS: B Type Natriuretic Peptide 30 pg/mL (<100)
[2025-02-28 16:08] LABS: Influenza A PCR NEGATIVE (Negative); Influenza B PCR NEGATIVE (Negative); Resp Syncy Virus RNA Qual PCR NEGATIVE (Negative); SARS COV2 PCR INHOUSE NEGATIVE (Negative)
--- OUTSIDE RECORDS SUMMARY | 2025-02-28 16:18 | XMS_ITS | Clinical Summary ---
Author Organization [employer] Address [address] [facility] [address] [place] [address] Care Team Providers Care Road Boss Name Role Phone No Tavares KIMBERLY Primary Care Provider [phone] Allergies No known active allergies Medications B Complex Vitamins (vitamin B complex) tablet Take 1 tablet by mouth in the morning. 90 tablet 3 08/24/2023 Active escitalopram (Lexapro) 20 MG tabletIndicatio ns:Generalized anxiety disorder TAKE 1 TABLET BY MOUTH EVERY DAY IN THE MORNING 90 tablet 3 06/04/2024 Active Active Problems Problem Noted Date Diagnosed Date Less than 8 weeks gestation of 024 Assessment & Plan (11/05/2023 10:31 AM EST): States she has irregular periods but her LMP was the week before ; she has not had any periods since then. She states that she feels ; when she was with her daughter >9y ago she had symptoms similar including a little bit of nausea, sore breasts, and craving fruit. She also has not had a period for appx 8w. She took 2 home urine tests this week and they were both positive. The pt states she is feeling guilty that she is at this point. She has been sober and would like to maintain that sobriety. She is also gaining back her daughter from her mother (who has guardianship). She states that she does not think that she will be able to take care of her daughter, maintain her sobriety, and take care of a . She has had a discussion with her partner as well, who is also in agreement with her plan to obtain an . She has had an before, in 2009 when she was 20. She stated that she went to a place in [place] and they gave her the medical pill to take at home. She states she experienced the worse cramping and bleeding she has ever had. She states she would not like to go that route again. We obtained a urine test, which was positive. We obtained labwork to obtain a quantitative Hcg. We discussed her options. I was able to get information for her for [facility] in [facility], which performs in-office abortions. She states that she would like this option. We discussed the general procedure and complications that would/could arise. We discussed that they would also talk to her about the whole procedure. We discussed that they would tell her about the complications and they have the ability to watch her and if there are any complications, they would be able to deal with/send her to [facility], which is right near them. She seems better after talking today. She will call them on Tuesday. Follow up as needed. We also discussed that if she needs to talk to someone about this, we can help her with that as well. Class 1 obesity 11/24/2022 Alcohol use disorder, mild, in early remission 1 12/16/2021 Folate deficiency 10/15/2022 Elevated liver enzymes 10/15/2022 Gastroesophageal reflux dise ase, unspecified whether esophagitis present 10/15/2022 Generalized anxiety disorder 10/15/2022 Menorrhagia with irregular cycle 10/15/2022 Obesity 10/15/2022 Palpitations 10/15/2022 Resolved Problems Problem Noted Date Diagnosed Date Resolved Date Adjustment disorder with academic inhibition 2 12/02/2022 Anxiety 10/15/2022 12/02/2022 Normal 06/24/2014 11/24/2022 Peripheral neuropathy 2022 Immunizations Name Administration Dates Next Due Pfizer Covid-19 Vaccine 12+ 12/19/2020, 1 TD (adult), 2 Lf tetanus tox oid, preservative free, adsorbed 07/14/2024 Family History Medical History Relation Name Comments No Known Problems Father Asthma Half-Brother Diabetes Maternal Grandfather Hypertension Maternal Grandfather Neuropathy Maternal Grandmother Diabetes Mother No Known Problems Paternal Grandfather Diverticulitis Paternal Grandmother Relation Name Status Comments Brother Alive Father Alive Half-Brother Alive Maternal Grandfather Alive Maternal Grandmother Mother Alive Paternal Grandfather Alive Paternal Grandmother Alive Social History Tobacco Use Types Packs/Day Years Used Date Smoking Tobacco: Never Passive Smoke Exposure: Never Smokeless Tobacco: Never Tobacco Cessation:Counseling Given: Not Answered Alcohol Use Standard Drinks/Week Comments Not Currently 0 (1 standard drink = 0.6 oz pur e alcohol) Alcohol Answer Date Recorded How often do you have a drink containing alcohol ? 0 07/14/2024 How many drinks containing a lcohol do you have on a typical day when you are drinking? 0 07/14/2024 How often do you have six or more drinks on one occasion? 0 07/14/2024 Housing Stability Answer Date Recorded What is your housing situation today? I have jarek saleh 07/14/[address] you li ve. Do you have problems with any of the following? None of the above 07/14/2024 Food Insecurity Answer Date Recorded Within the past 12 months, y ou worried that your food would run out before you got money to buy more: Never True 07/14/2024 Within the past 12 months,th e food you bought just didn't last and you didn't have enough money to get more: Never True Transportation Answer Date Recorded In the past 12 months, has l ack of transportation kept you from medical appts, meetings, work or from getting things needed for daily living? No 07/14/2024 Intimate Partner Violence Answer Date R ecorded Within the last year, have y ou been afraid of your partner or ex-partner? 2 07/14/2024 Within the last year, have y ou been humiliated or emotionally abused in other ways by your partner or ex-partner? 2 Within the last year, have y ou been kicked, hit, slapped, or otherwise physically hurt by your partner or ex-partner? 2 07/14/2024 Within the last year, have y ou been raped or forced to have any kind of sexual activity by your partner or ex-partner? 2 07/14/2024 Utilities Answer Date Recorded In the past 12 months, has t he electric, gas, oil or water company threatened to shut off services in your home? No 07/14/2024 Depression Answer Date Recorded Patient Health Questionnaire-2 Score 0 07/14/2024 Internet Access Answer Date Recorded Internet Access Q1 Yes 07/14/2024 Internet Access Q2 Not on file 07/14/2024 Education Answer Date Recorded What is the highest level of school you have completed or the highest degree you have received? 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 Not on file Not on file Last Filed Vital Signs Vital Sign Reading Time Taken Comments Blood Pressure 123/79 07/14/2024 9:33 AM EDT Pulse 94 07/14/2024 9:33 AM EDT Temperature 36.4 ??C (97.5 ??F) 07/14/2024 9:33 AM ED T Respiratory Rate 16 05/23/2023 4:10 PM EDT Oxygen Saturation 94% 07/14/2024 9:33 AM EDT Inhaled Oxygen Concentration - - Weight 109 kg (240 lb) 07/14/2024 9:33 AM EDT Height 165.1 cm (5' 5 ) 07/14/2024 9:33 AM EDT Body Mass Index 39.94 07/14/2024 9:33 AM EDT Plan of Treatment Health Maintenance Due Date Last Done Comments Hepatitis B Vaccines (1 of 3 - 19+ 3-dose series) 01/26/2008 Lipid Panel 09/29/2023 09/29/2018 COVID-19 Vaccine ( - 2023-2 5 season) 2024 12/19/2020, 11/28/2020 Influenza Vaccine (#1) 2024 DTaP/Tdap/Td Vaccines (1 - Tdap) 07/15/2024 07/14/2024 Pap Smear 05/06/2025 05/06/2022 Alcohol/Substance Use Screening 07/14/2025 07/14/2024 Depression Screening 07/14/2025 07/14/2024, 07/14/2024 SDOH Screening 07/14/2025 07/14/2024 Family Planning (PISQ) 10/29/2025 10/29/2024 Tobacco Screening 10/29/2025 10/29/2024 Cervical Cancer Screening 05/06/2027 HPV/Cotest 05/06/2027 05/06/2022 Zoster Vaccines (1 of 2) 2039 RSV Patients and Patients Aged 60 years or older (1 - 1-dose 75+ series) 01/26/2064 Hepatitis C Screening Completed 05/23/2017 HIV Screening Completed 10/27/2020 HIB Vaccines Aged Out No longer eligi ble based on patient's age to complete this topic HPV Vaccines Aged Out No longer eligi ble based on patient's age to complete this topic Hepatitis A Vaccines Aged Out No long er eligible based on patient's age to complete this topic IPV Vaccines Aged Out No longer eligi ble based on patient's age to complete this topic Meningococcal Vaccine Aged Out No aiyana aaron eligible based on patient's age to complete this topic Pneumococcal Vaccine: Pediatrics (0 to 5 Years) and At-Risk Patients (6 to 49) Years) Aged Out No longer eligible b ased on patient's age to complete this topic RSV under 20 months Aged Out No longe r eligible based on patient's age to complete this topic Rotavirus Vaccines Aged Out No longer eligible based on patient's age to complete this topic Procedures Procedure Name Priority Date/Time Associated Diagnosis Comments ZZZ HISTORICAL PAP THIN PREP PAP WITH HPV AND CT/GC, ZACKARY IF HPV+/CYT Routine 05/06/2022 9:10 AM EDT HIV 1/2 ANTIGEN/ANTIBODY, FOURTH GENERATION W/RFL Routine 10/27/2020 4:29 PM EST LIPID PANEL, STANDARD Routine 09/29/2018 HEPATITIS C ANTIBODY (EXTERNAL RESULTS ONLY) Routine 05/23/2017 3:07 PM EDT from Last 3 Months or Most Recently Relevant to Health Maintenance Results * -PAP THIN PREP PAP WITH HPV AND CT/GC, ZACKARY IF HPV+/CYT- (05/06/2022 9:10 AM EDT) PAP, LB WITH CT/GC AND HPV Patient Name: ANGY, [facility] Comment: Patient : ?[id number] (Age: 32) Lab Accession #: ? [id number] Collection Date: ? 05/06/2022 Accession Date: ? 05/06/2022 Sign Out Date: ? 05/11/2022 Tissue Source: 1: THINPREP FRONT OFFICE ATTENDANT PAP TEST, CERVICAL/VAGINAL: Final Diagnosis: NEGATIVE FOR INTRAEPITHELIAL LESION OR MALIGNANCY. Satisfactory for evaluation. ??Endocervical/transformation zone present. Procedures/Addenda: Human Papilloma Virus, High-Risk(Reflex GT) ? Status: Signed Out Interpretation: Negative Methodology: [employer] Aptima HPV mRNA assay (Nucleic Acid Amplification Test, NAAT) Clinical History: Date of Last Menstrual Period: ?? 04/23/2022 Menstrual History: ?? not available Contraceptive History: ??not available Ancillary Testing: ??HPV (Reflex GT) Chlamydia/GC Case imaged by the ThinPrep Imaging System with manual rescreening or review. Performed at [facility] dep 05/06/2022 9:10 AM EDT [facility] HISTORICAL/NON ORDERABLE LABS Final Result Performing Organization Address [facility] Number [facility] [address] [place] [address], * -HIV AB-AG 4TH GENERATION (10/27/2020 4:29 PM EST) RESULT 4TH GEN HIV AB-AG NEGATIVE (NEG) [facility] Comment: Negative for antibodies to HIV 1 and HIV 2 and P24 antigen. Reference range: Negative Additional note: Written patient authorization is required for each separate release of this test result. This test was performed on the Saborstud[employer] immunoassay system. 10/27/2020 4:29 PM EST No [facility] LAB BLOOD ORDERABLES Final Re sult Performing Organization Address [facility] Phone Number [facility] [address] [place] [address], * Lipid Panel, Standard (09/29/2018) Triglycerides 122 40 - 160 mg/dL Cholesterol 184 0 - 200 mg/dL HDL Cholesterol 44 35 - 70 mg/dL LDL Cholesterol 116 mg/dL Blood Venous blood specimen / Unknown Historical Provider LAB BLOOD ORDERABLES June l Result * Hepatitis C Antibody (05/23/2017 3:07 PM EDT) Hepatitis C Antibody Nonreactive Comment:negative Blood 05/23/2017 3:07 PM EDT Historical Provider POINT OF CARE TEST ENTER/ EDIT ORDERABLES Final Result from Last 3 Months or Most Recently Relevant to Health Maintenance Insurance [facility] Care Teams Road Boss Relationship Specialty Start Date End Date No Tavares CNP [address] [place] [address] PCP - General Family Medicine 10/21/22
--- OUTSIDE RECORDS SUMMARY | 2025-02-28 16:18 | XMS_ITS | Clinical Summary ---
Author Organization [facility] Address [address] [place] [address] Care Team Providers Care Navigation Officer Name Role Phone Unavailable Primary Care Provider Unavailabl e Social History Tobacco Use Types Packs/Day Years Used Date Smoking Tobacco: Never Assessed Comments Unknown Sex and Gender Information Value Date Recorded Sex Assigned at Not on file Legal Sex Female 11:31 PM EST Gender Identity Not on file Sexual Orientation Not on file Plan of Treatment Health Maintenance Due Date Last Done Comments DTaP,Tdap,and Td Vaccines (1 - Tdap) 01/26/2008 Hepatitis B Vaccines (1 of 3 - 19+ 3-dose series) 01/26/2008 Cervical Cancer Screening: P ap Smear 2010 Depression Screening 09/26/2022 HIV Screening 09/26/2022 Hepatitis C Screening 09/26/2022 Social Influencers of Health Screening 09/26/2022 COVID-19 Vaccine (2023-2 5 season) 2024 Influenza Vaccine (Season Ended) 2025 HIB Vaccines Aged Out No longer eligi [...] on patient's age to complete this topic MMR Vaccines Aged Out No longer eligi ble based on patient's age to complete this topic Meningococcal ACWY Vaccine Aged Out N o longer eligible based on patient's age to complete this topic Meningococcal B Vaccine Aged Out No l onger eligible based on patient's age to complete this topic Pneumococcal Vaccine: Pediat rics (0 to 5 Years) and At-Risk Patients (6 to 64 Years) Aged Out No longer eligible b ased on patient's age to complete this topic RSV Immunization Patients Un olamide 20 months Aged Out No longer eligible b ased on patient's age to complete this topic Varicella Vaccines Aged Out No longer eligible based on patient's age to complete this topic
--- OUTSIDE RECORDS SUMMARY | 2025-02-28 16:18 | XMS_ITS | Encounter Summary ---
Author Organization [employer] Address [address] [facility] [address] [place] [address] Care Team Providers Care Strainer Mill Operator Name Role Phone No Tavares CNP Primary Care Provider Encounter Details Date Type Department Care Team (Late st Contact Info) Description 10/26/2024 Orders Only [facility] [address] [place] [address] No Tavares CNP [address] [place] [address] Social History Tobacco Use Types Packs/Day Years Used Date Smoking Tobacco: Never Passive Smoke Exposure: Never Smokeless Tobacco: Never Alcohol Use Standard Drinks/Week Comments Not Currently [...] the past 12 months, has t he [employer], gas, oil or water company threatened to [...] file Not on file Not on file documented as of this encounter Plan of Treatment Not on file documented as of this encounter Procedures Procedure Name Priority Date/Time Associated Diagnosis Comments XR CHEST 2 VIEWS Routine 10/19/2024 11:[address] ANGIOGRAM CHEST INTERPRETATION Routine 10/19/2024 11:[address] ABDOMEN PELVIS W CONTRAST Routine 10/19/2024 11:35 AM EST documented in this encounter Results * XR Chest 2 Views (10/19/2024 11:37 AM EST) Anatomical Region Laterality Modality Chest Radiographic Guerita ging us No Tavares NURSE MANAGER IMG XR PROCEDURES Final Resul t * CT angiogram chest interpretation (10/19/2024 11:36 AM EST) Anatomical Region Laterality Modality Computed Tomogra phy No Tavares [facility] CT PROCEDURES Final Resul t * CT Abdomen Pelvis w/ Contrast (10/19/2024 11:35 AM EST) Anatomical Region Laterality Modality Body, Pelvis, Abdomen Computed T omography No Tavares [facility] CT PROCEDURES Final Resul t documented in this encounter Visit Diagnoses Not on filedocumented in this encounter Care Teams Strainer Mill Operator Relationship Specialty Start Date End Date No Tavares CNP [address] [place] [address] PCP - General Family Medicine 10/21/22 documented as of this encounter
--- OUTSIDE RECORDS SUMMARY | 2025-02-28 16:18 | XMS_ITS | Encounter Summary ---
Author Organization [facility] Address [address] [place] [address] [address] [place] [address] Care Team Providers Care Poultry Hatchery Laborer Name Role Phone No Tavares CNP Primary Care Provider [phone] Encounter Details Date Type Department Care Team (Late st Contact Info) Description 10/15/2022 Orders Only [facility] [address] [place] [address] Catalnia Ortiz [place] Social History Tobacco Use Types Packs/Day Years Used Date Smoking Tobacco: Never Assessed Comments Unknown Sex and Gender Information Value Date Recorded Sex Assigned at Female 11/24/2022 2:26 PM EST Legal Sex Female 8:38 PM EDT Gender Identity Female 11/24/2022 2:26 PM EST Sexual Orientation Straight 11/24/2022 2: 26 PM EST documented as of this encounter Plan of Treatment Not on file documented as of this encounter Visit Diagnoses Not on filedocumented in this encounter Care Teams Poultry Hatchery Laborer Relationship Specialty Start Date End Date No Tavares CNP [address] [place] [address] PCP - General Family Medicine 10/21/22 documented as of this encounter
[2025-02-28] MEDS: Lactated Ringers 1,000 ML 999 ML IV ×3 (16:19→17:37)
[2025-02-28] MEDS: Potassium Chloride/H20 10 MEQ/100 ML PIGGYBACK 100 MEQ IV ×2 (16:19→17:41)
[2025-02-28 16:25] LABS: Alkaline Phosphatase 61 U/L (39-117)
[2025-02-28] MEDS: Enoxaparin Sodium 40 MG/0.4 ML SYRINGE SUBCUT (16:50)
[2025-02-28] MEDS: Midazolam HCl 2 MG/2 ML VIAL 4 MG IVPUSH (17:04)
--- NOTE | 2025-02-28 17:27 | P.HPCC_ITS ---
History of Present Illness Date of Service: 02/28/25 Chief Complaint: Weakness 35-year-old apparently healthy lady with past medical history of anxiety/depression on Lexapro, taking some marijuana gummies but no other medications or drugs note is some weakness in the arm and pain in the neck for which she went to a urgent care. In the urgent care when they were drawing a blood sample patient went unresponsive due to a syncopal episode so was sent to the ED. In the ED patient is found to have severe hypokalemia with potassium of 1.7, EKG changes and an episode of sinus pause so MICU was consulted. Offered patient also has rhabdomyolysis with CPK of 4500. She denies taking any new medications, drugs or any recreational substances. She is on a intermittent fasting diet, but still eats fruits. She had episode of diarrhea a few weeks ago but not in the recent past, no vomiting, no nausea, no fever, no other symptoms. No family history of potassium related problems or muscle weakness No thyroid issues or blood pressure issues Review of Systems 2 Constitutional: Constitutional: Reports anorexia, Reports body ache(s), Denies chills and Denies daytime sleepiness Eyes: Eyes: Denies exophthalmos and Denies change in vision ENT: Reports Normal hearing present, Denies bleeding gums, Reports vertigo and Reports dizziness Cardiovascular: Cardiovascular: Denies Abdominal Cramping after Meds and Denies Abdominal Distension Respiratory: Respiratory: Denies change in phlegm color, Denies chest congestion and Denies cough Gastrointestinal: Gastrointestinal: Denies abdominal pain, Denies belching and Denies melena Genitourinary: Genitourinary: Denies abnormal menses and Denies abnormal vaginal bleeding Musculoskeletal: Musculoskeletal: Denies abnormal gait and Denies joint swelling Integumentary/Breasts: Skin/Breast: Denies bleeding lesions and Denies breast swelling Neurologic: Reports Normal hearing present, Denies Neuro-related abnormal movements, Denies abnormal gait, Denies behavioral changes, Denies burning sensations, Reports vertigo and Reports dizziness Psychiatric: Psychiatric: Denies behavioral changes and Denies change in appetite PMFSH Past Medical History Medical History Alcohol abuse Family History Family History Other No family history of coronary artery disease Surgical History Surgical History No pertinent past surgical history Social History Social History Household Members: None Housing: Apartment Do you presently have visiting nurse or other home services: No Alcohol intake: former Patient Tobacco Use Status: Never used Tobacco Smoked in Last 30 Days: No Use of substances other than those prescribed or required for medical reasons: Yes Substance Use Type: Other Advance Directives: No Advance Directives Information Provided: No service: No Current occupational status: unemployed Meds Allergies Allergy/AdvReac Type Severity Reaction Status Date / Time No Known Allergies Allergy Verified 02/28/25 14:53 Active Medications: Current Medications Enoxaparin Sodium (Enoxaparin Sodium 40 Mg/0.4 Ml Syringe) 40 mg SUBCUT Q24H MALA Last Admin: 02/28/25 16:50 Dose: 40 mg Potassium Chloride (Potassium Chloride/H20) 10 meq in 100 mls @ 100 mls/hr IV Q1H MALA Stop: 02/28/25 20:14 Last Admin: 02/28/25 16:19 Dose: 100 mls/hr Potassium Chloride/Sodium Chloride (Kcl 40 Meq In 0.9 % Sodium Chl) 40 meq in 1,000 mls @ 250 mls/hr IVCONT .Q4H [facility] Home Medications ?Medication ?Instructions ?Recorded ?Confirmed ?Last Taken ?Type escitalopram oxalate 20 mg tablet 1 tab PO DAILY 12/11/22 10/23/24 Unknown History hydroxyzine pamoate 25 mg capsule 1 cap PO TID 12/11/22 10/23/24 Unknown History gabapentin 100 mg capsule 100 mg PO TID 01/20/23 10/23/24 Unknown History Physical Exam 2 Vital Signs: Vital Signs: Last Vital Signs Temp 98.1 F 02/28/25 14:46 Pulse 81 02/28/25 17:21 Resp 18 02/28/25 15:22 BP 96/41 L 02/28/25 17:21 Pulse Ox 99 02/28/25 14:46 O2 Del Method Room Air 02/28/25 14:46 BMI result Body Mass Index 36.7 General: Young lady in mild acute distress, tired appearing, lying in the bed Nutritional Appearance: well nourished and overweight Eyes: appearance normal, both eyes and all related structures; Alignment and Position: alignment normal and position normal Neck: No lymphadenopathy, no thyromegaly Resp: bilateral air entry equal, occasional added sounds present Cardio: Regular rate, regular rhythm; Heart sounds: S1 normal heart sound present and S2 normal heart sound present GI: soft, nontender, no guarding, no hepatosplenomegaly : bladder normal to inspection, bladder normal to palpation, no renal angle tenderness Skin: no rashes or lesions noted and elasticity normal Neuro: oriented to person, oriented to place, oriented to time and moves all extremities Neuro: Cranial nerves: Yes Normal hearing present Results Labs 02/28/25 15:16 02/28/25 15:17 Labs: Laboratory Results - last 24 hr 02/28/25 02/28/25 02/28/25 15:16 15:17 15:18 MCV 71.8 L MCH 24.3 L MCHC 33.9 RDW 16.9 H Plt Count 356 MPV 9.8 Immature Gran % (Auto) 0.5 H Neut % (Auto) 77.1 H Lymph % (Auto) 15.8 L Orange % (Auto) 5.9 Eos % (Auto) 0.3 Baso % (Auto) 0.4 Lymph # (Auto) 1.6 Orange # (Auto) 0.6 Eos # (Auto) 0.0 Baso # (Auto) 0.0 Abs Immat Gran (auto) 0.05 H Absolute Neuts (auto) 8.0 Absolute Nucleated RBC 0.000 Nucleated RBC % (auto) 0.0 ESR 23 H PT 12.4 INR 1.1 APTT 31.5 VBG pH VBG pCO2 VBG pO2 VBG HCO3 VBG O2 Saturation VBG Base Excess Anion Gap 13 Estim Creat Clear Calc 132.0 Estimated GFR > 60 Random Glucose 144 H Lactic Acid 1.9 Calcium 9.3 D Magnesium 2.2 Total Bilirubin 0.5 AST 239 H ALT 111 H Alkaline Phosphatase 61 Total Creatine Kinase > 4267 H C-Reactive Protein 1.30 H B-Natriuretic Peptide 30 Total Protein 6.9 Albumin 4.2 Lipase 16 TSH 1.43 Beta HCG, Quant < 2 Ethyl Alcohol < 10 Influenza Type A (PCR) NEGATIVE Influenza Type B (PCR) NEGATIVE RSV RNA Qual (PCR) NEGATIVE SARS-CoV-2 RNA (RT-PCR) NEGATIVE 02/28/25 15:23 MCV MCH MCHC RDW Plt Count MPV Immature Gran % (Auto) Neut % (Auto) Lymph % (Auto) Orange % (Auto) Eos % (Auto) Baso % (Auto) Lymph # (Auto) [place] # (Auto) Eos # (Auto) Baso # (Auto) Abs Immat Gran (auto) Absolute Neuts (auto) Absolute Nucleated RBC Nucleated RBC % (auto) ESR PT INR APTT VBG pH 7.48 H VBG pCO2 30 VBG pO2 154 VBG HCO3 22 VBG O2 Saturation 99.0 VBG Base Excess 0.2 Anion Gap Estim Creat Clear Calc Estimated GFR Random Glucose Lactic Acid Calcium Magnesium Total Bilirubin AST ALT Alkaline Phosphatase Total Creatine Kinase C-Reactive Protein B-Natriuretic Peptide Total Protein Albumin Lipase TSH Beta HCG, Quant Ethyl Alcohol Influenza Type A (PCR) Influenza Type B (PCR) RSV RNA Qual (PCR) SARS-CoV-2 RNA (RT-PCR) Imaging Radiologist's Impressions: Impressions Chest X-Ray 02/28/25 14:49 IMPRESSION: No acute cardiopulmonary abnormality. Electronically signed by: Carlo Coleman MD 02/28/2025 03:42 PM EDT RP Assessment and Plan (1) Bradycardia: Status: Acute (2) Transaminitis: Status: Acute (3) Acute hypokalemia: Status: Acute (4) Rhabdomyolysis: Status: Acute Plan Acute hypokalemia: Presented with a potassium of 1.7 Unclear etiology as of now; denies any diarrhea, nausea, vomiting, fever, cough. No family history of thyrotoxicosis or periodic paralysis or suggestive of hyperaldosteronism. Blood pressure is normal possibly ruling out hyperaldosteronism. No new medications or diet. Urine drug screen negative. Magnesium levels normal We will get urine potassium to look for renal etiology versus extra renal etiology We will get an ABG to look for PH and CO2 levels Rhabdomyolysis: Possibly secondary to hypokalemia We will start the patient on NS with potassium chloride at 250 cc/hour with a goal of urine output more than 150 cc/hour Closely monitor urine output transaminitis: AST ALT elevated Possibly secondary to rhabdomyolysis Sinus pause and bradycardia: Secondary to hypokalemia Placing a central line to give large doses of KCl BMP, Mag, phos every 4 hours until the potassium improves Prophylaxis: Lovenox
--- NOTE | 2025-02-28 17:27 | PC.NURSE ---
central line 16 triple lumen placed in the right jugular pt tolerated the procedure well
[2025-02-28 17:40] LABS: Potassium Urine Random 17.1 mmol/L
[2025-02-28 17:44] LABS: Amphetamine Screen Urine Not Detected (Not Detect); Barbiturates, Urine Not Detected (Not Detect); Benzodiazepines Screen Urine Not Detected (Not Detect); Buprenorphine Scr Not Detected (Not Detect); Cannabinoid Screen Urine POSITIVE (Not Detect); Cocaine Screen Urine Not Detected (Not Detect); Fentanyl, urine Not Detected (Not Detect); Methadone Screen, Urine Not Detected (Not Detect); Opiate Screen Urine Not Detected (Not Detect); Oxycodone Screen Urine Not Detected (Not Detect); Phencyclidine Screen Urine Not Detected (Not Detect)
[2025-02-28] MEDS: KCl 40 mEq in 0.9 % Sodium Chl 40 MEQ/1,000 ML IV.SOLN 250 MEQ IVCONT (17:48)
[2025-02-28 17:52] LABS: Appearance Urine Clear; Color Urine Yellow; Glucose Urine UA Negative (Negative); Leukocyte Esterase Urine Trace (Negative); Nitrite Urine Negative (Negative); PH 8.5 (5.0-9.0); UMIC TRIGGER UACC YES; Urine Blood Negative (Negative); Urine Ketones Negative (Negative); Urine Protein Negative (Neg-Trace)
[2025-02-28 18:01] LABS: ABG Base Excess -0.9 mmol/L; ABG HCO3 21 mmol/L (22-26); ABG pCO2 29 mmHg (32-45); ABG pH 7.47 (7.35-7.45); ABG pO2 97 mmHg (83-108)
[2025-02-28 18:12] LABS: Phosphorus 1.6 mg/dL (2.7-4.5)
[2025-02-28 18:20] LABS: Anion Gap 11 (12-20); Blood Urea Nitrogen 8 mg/dL (9-16); Calcium 8.6 mg/dL (8.4-10.2); Carbon Dioxide 22 mmol/L (22-29); Chloride 112 mmol/L (96-108); Creatinine Clr Calc Pharmacy 171.9; Estimated Glomerular Filt Rate > 60; Glucose Random 110 mg/dL (60-115); Phosphorus 1.5 mg/dL (2.7-4.5); Potassium 1.5 mmol/L (3.3-5.1); Sodium 143 mmol/L (135-145)
--- NOTE | 2025-02-28 18:25 | PC.NURSE ---
report given to icu
[2025-02-28 18:28] LABS: Free T4 (Free Thyroxine) 0.74 ng/dL (0.71-1.85); Thyroid Stimulating Hormone 0.76 uIU/mL (0.32-4.0)
[2025-02-28 18:33] LABS: Bacteria Urine Trace (None Seen); Hyaline Casts Urine 0-2 /LPF (0-2); RBC Urine 0-2 /HPF (0-2); WBC Urine 0-5 /HPF (0-5)
--- NOTE | 2025-02-28 18:48 | PHA.MEDREC ---
Addendum entered by Navin Benton [facility] 02/28/25 19:38: MED REC CHECKED BY [facility] ED Original Note: Pharmacy Consult ? Medication Reconciliation Pharmacy has completed the medication reconciliation. Spoke with patient and she confirmed her medications.
[2025-02-28] MEDS: Potassium Chloride/H20 40 MEQ/100 ML PIGGYBACK 50 MEQ IV ×2 (19:40→21:36)
[2025-02-28] MEDS: ondansetron HCL 4 MG/2 ML VIAL IVPUSH (19:40)
[2025-02-28] MEDS: Potassium Phosphate/NS 15 MMOL/250 ML PLAST..BAG 62.5 MMOL IV ×2 (19:52→23:41)
[2025-03-01] VITALS (24 sets, daily range): BP systolic 98–122; BP diastolic 51–73; PULSE 57–85; RESP 12–23; TEMP 36.4–36.7; O2SAT 92–99; BMI 36.7
[2025-03-01 01:25] LABS: Alanine Aminotransferase 90 U/L (0-31); Albumin Level 3.5 g/dL (3.5-5.0); Anion Gap 12 (12-20); Aspartate Amino Transferase 193 U/L (5-31); Bilirubin Total 0.5 mg/dL (0.0-1.0); Blood Urea Nitrogen 7 mg/dL (9-16); Carbon Dioxide 22 mmol/L (22-29); Chloride 113 mmol/L (96-108); Creatinine Clr Calc Pharmacy 159.8; Estimated Glomerular Filt Rate > 60; Glucose Random 111 mg/dL (60-115); Potassium 1.8 mmol/L (3.3-5.1); Sodium 145 mmol/L (135-145); Total Protein 5.8 g/dL (6.5-8.0)
[2025-03-01] MEDS: Potassium Chloride ER 20 MEQ TAB.ER.PRT 40 MEQ PO ×2 (01:34→06:34)
[2025-03-01] MEDS: Potassium Chloride/H20 40 MEQ/100 ML PIGGYBACK 50 MEQ IV ×6 (01:43→22:05)
[2025-03-01 01:50] LABS: Alkaline Phosphatase 51 U/L (39-117)
[2025-03-01 05:30] LABS: MANUAL DIFF FLAG NO
[2025-03-01 05:31] LABS: Basophils Percent Auto 0.5 % (0-2); Eosinophils Percent Auto 0.3 % (0-4); Hematocrit 25.8 % (37.0-47.0); Hemoglobin 8.7 g/dl (12.0-16.0); Imm Gran Abs Auto 0.03 X10*3/uL (0.00-0.03); Imm Gran Pct Auto 0.3 % (0.0-0.4); Lymphocytes Absolute Auto 2.6 X10*3/uL (1.2-4.9); Lymphocytes Percent Auto 29.6 % (20-40); Mean Corpuscular HGB Conc 33.7 g/dl (31.0-35.0); Mean Corpuscular Hemoglobin 24.1 pg (27.0-33.0); Mean Corpuscular Volume 71.5 fL (80.0-98.0); Mean Platelet Volume 9.6 fL (9.4-12.3); Monocytes Absolute Auto 0.6 X10*3/uL (0.1-1.2); Monocytes Percent Auto 6.9 % (2-11); Neutrophils Absolute Auto 5.4 x10*3/uL (2.0-8.3); Neutrophils Percent Auto 62.4 % (45-73); Platelet Count 268 X10*3/uL (160-400); Red Blood Count 3.61 X10*6/uL (4.20-5.50); Red Cell Distribution Width 17.2 % (11.0-16.0); White Blood Count 8.7 X10*3/uL (4.8-10.8)
[2025-03-01 06:04] LABS: Alanine Aminotransferase 88 U/L (0-31); Albumin Level 3.5 g/dL (3.5-5.0); Alkaline Phosphatase 51 U/L (39-117); Anion Gap 12 (12-20); Aspartate Amino Transferase 184 U/L (5-31); Bilirubin Total 0.4 mg/dL (0.0-1.0); Blood Urea Nitrogen 6 mg/dL (9-16); Calcium 7.9 mg/dL (8.4-10.2); Carbon Dioxide 23 mmol/L (22-29); Chloride 112 mmol/L (96-108); Creatinine Clr Calc Pharmacy 154.4; Estimated Glomerular Filt Rate > 60; Glucose Random 103 mg/dL (60-115); Potassium 2.1 mmol/L (3.3-5.1); Sodium 145 mmol/L (135-145); Total Protein 5.8 g/dL (6.5-8.0)
[2025-03-01 06:15] LABS: Vitamin B12 442 pg/mL (200-900)
[2025-03-01] MEDS: 0.9 % Sodium Chloride Flush 3 ML SYRINGE IVFLUSH ×2 (08:00→16:13)
[2025-03-01 09:15] LABS: Phosphorus 2.9 mg/dL (2.7-4.5)
[2025-03-01 09:20] LABS: Anion Gap 11 (12-20); Blood Urea Nitrogen 6 mg/dL (9-16); Calcium 8.1 mg/dL (8.4-10.2); Carbon Dioxide 24 mmol/L (22-29); Chloride 112 mmol/L (96-108); Creatinine Clr Calc Pharmacy 146.9; Estimated Glomerular Filt Rate > 60; Glucose Random 111 mg/dL (60-115); Potassium 2.2 mmol/L (3.3-5.1); Sodium 145 mmol/L (135-145)
[2025-03-01] MEDS: Potassium Chloride/H20 10 MEQ/100 ML PIGGYBACK 100 MEQ IV ×9 (10:32→18:26)
[2025-03-01] MEDS: Magnesium Sulfate/H2O 2 GM/50 ML PIGGYBACK IV (10:32)
--- NOTE | 2025-03-01 10:40 | MHC.CM.PN ---
CM MET WITH PT AT BEDSIDE IN ICU. PT LIVES ALONE WITH YOUNG DAUGHTER. 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 PT DECLINES COMPLETING A HCP AT THIS TIME. PCP SUKHWINDER CAMACHO NP. DP: HOME, NO SERVICES ANTICIPATED. PT HAS OWN RIDE HOME. CM WILL CONTINUE TO FOLLOW FOR ANY CHANGE TO DC PLAN/NEEDS.
[2025-03-01 13:41] LABS: Anion Gap 9 (12-20); Blood Urea Nitrogen 4 mg/dL (9-16); Calcium 8.2 mg/dL (8.4-10.2); Carbon Dioxide 23 mmol/L (22-29); Chloride 109 mmol/L (96-108); Creatinine Clr Calc Pharmacy 146.9; Estimated Glomerular Filt Rate > 60; Glucose Random 133 mg/dL (60-115); Potassium 2.4 mmol/L (3.3-5.1); Sodium 139 mmol/L (135-145)
[2025-03-01] MEDS: Enoxaparin Sodium 40 MG/0.4 ML SYRINGE SUBCUT (16:13)
--- NOTE | 2025-03-01 16:59 | P.PNCC_ITS ---
Subjective Subjective Date of Service: 03/01/25 Interval History: No new complaints, feeling better Potassium is improving up to 2.5 this morning Critical Care Time (minutes): 35 Physical Exam 2 Vital Signs: Vital Signs: Last Vital Signs Temp 98.1 F 03/01/25 16:00 Pulse 70 03/01/25 16:00 Resp 19 03/01/25 16:00 BP 98/52 L 03/01/25 16:00 Pulse Ox 97 03/01/25 16:00 O2 Del Method Room Air 03/01/25 16:00 BMI result Body Mass Index 36.7 General: Young pleasant lady not in any distress sitting in the bed Nutritional Appearance: well nourished and overweight Eyes: appearance normal, both eyes and all related structures; Alignment and Position: alignment normal and position normal Neck: No lymphadenopathy, no thyromegaly Resp: bilateral air entry equal, not added sounds present Cardio: Regular rate, regular rhythm; Heart sounds: S1 normal heart sound present and S2 normal heart sound present GI: soft, nontender, no guarding, no hepatosplenomegaly : bladder normal to inspection, bladder normal to palpation, no renal angle tenderness Skin: no rashes or lesions noted and elasticity normal Neuro: oriented to person, oriented to place, oriented to time and moves all extremities Objective Data Labs 03/01/25 05:25 03/01/25 13:16 Labs: Laboratory Results - last 24 hr 02/28/25 02/28/25 02/28/25 17:22 17:23 17:49 WBC RBC Hgb Hct MCV MCH MCHC RDW Plt Count MPV Immature Gran % (Auto) Neut % (Auto) Lymph % (Auto) [place] % (Auto) Eos % (Auto) Baso % (Auto) Lymph # (Auto) [place] # (Auto) Eos # (Auto) Baso # (Auto) Abs Immat Gran (auto) Absolute Neuts (auto) Absolute Nucleated RBC Nucleated RBC % (auto) O2 Saturation ABG pH at Pt Temp ABG pCO2 at Pt Temp ABG pO2 at Pt Temp ABG HCO3 ABG Base Excess (Actual) Sodium 143 Potassium 1.5 L* Chloride 112 H Carbon Dioxide 22 Anion Gap 11 L BUN 8 L Creatinine 0.53 Estim Creat Clear Calc 171.9 Estimated GFR > 60 Random Glucose 110 Calcium 8.6 D Phosphorus 1.6 L Magnesium Total Bilirubin AST ALT Alkaline Phosphatase Total Creatine Kinase Total Protein Albumin Vitamin B12 TSH Free T4 Urine Color Yellow Urine Appearance Clear Urine pH 8.5 Ur Specific [place] 1.010 Urine Protein Negative Urine Glucose (UA) Negative Urine Ketones Negative Urine Blood Negative Urine Nitrite Negative Ur Leukocyte Esterase Trace H Urine RBC 0-2 Urine WBC 0-5 Ur Squamous Epith Cells 3-5 Urine Bacteria Trace Hyaline Casts 0-2 Ur Random Sodium 88.0 Ur Random Potassium 17.1 Ur Random Chloride 96.0 Urine Opiates Screen Not Detected Ur Buprenorphine Scrn Not Detected Ur Oxycodone Screen Not Detected Urine Methadone Screen Not Detected Urine Fentanyl Screen Not Detected Ur Barbiturates Screen Not Detected Ur Phencyclidine Scrn Not Detected Ur Amphetamines Screen Not Detected U Benzodiazepines Scrn Not Detected Urine Cocaine Screen Not Detected U Marijuana (THC) Screen POSITIVE H 02/28/25 02/28/25 03/01/25 17:49 17:57 00:30 WBC RBC Hgb Hct MCV MCH MCHC RDW Plt Count MPV Immature Gran % (Auto) Neut % (Auto) Lymph % (Auto) [place] % (Auto) Eos % (Auto) Baso % (Auto) Lymph # (Auto) [place] # (Auto) Eos # (Auto) Baso # (Auto) Abs Immat Gran (auto) Absolute Neuts (auto) Absolute Nucleated RBC Nucleated RBC % (auto) O2 Saturation 99.0 ABG pH at Pt Temp 7.47 H ABG pCO2 at Pt Temp 29 L ABG pO2 at Pt Temp 97 ABG HCO3 21 L ABG Base Excess (Actual) -0.9 Sodium 145 Potassium 1.8 L* Chloride 113 H Carbon Dioxide 22 Anion Gap 12 BUN 7 L Creatinine 0.57 Estim Creat Clear Calc 159.8 Estimated GFR > 60 Random Glucose 111 Calcium 8.0 L D Phosphorus 1.5 L Magnesium 2.0 Total Bilirubin 0.5 AST 193 H ALT 90 H Alkaline Phosphatase 51 Total Creatine Kinase 8350 H Total Protein 5.8 L Albumin 3.5 Vitamin B12 TSH 0.76 Free T4 0.74 Urine Color Urine Appearance Urine pH Ur Specific [place] Urine Protein Urine Glucose (UA) Urine Ketones Urine Blood Urine Nitrite Ur Leukocyte Esterase Urine RBC Urine WBC Ur Squamous Epith Cells Urine Bacteria Hyaline Casts Ur Random Sodium Ur Random Potassium Ur Random Chloride Urine Opiates Screen Ur Buprenorphine Scrn Ur Oxycodone Screen Urine Methadone Screen Urine Fentanyl Screen Ur Barbiturates Screen Ur Phencyclidine Scrn Ur Amphetamines Screen U Benzodiazepines Scrn Urine Cocaine Screen U Marijuana (THC) Screen 03/01/25 03/01/25 03/01/25 05: 08:29 08:29 WBC 8.7 RBC 3.61 L Hgb 8.7 L Hct 25.8 L MCV 71.5 L MCH 24.1 L MCHC 33.7 RDW 17.2 H Plt Count 268 MPV 9.6 Immature Gran % (Auto) 0.3 Neut % (Auto) 62.4 Lymph % (Auto) 29.6 [place]rack[place] % (Auto) 6.9 Eos % (Auto) 0.3 Baso % (Auto) 0.5 Lymph # (Auto) 2.6 [place] # (Auto) 0.6 Eos # (Auto) 0.0 Baso # (Auto) 0.0 Abs Immat Gran (auto) 0.03 Absolute Neuts (auto) 5.4 Absolute Nucleated RBC 0.000 Nucleated RBC % (auto) 0.0 O2 Saturation ABG pH at Pt Temp ABG pCO2 at Pt Temp ABG pO2 at Pt Temp ABG HCO3 ABG Base Excess (Actual) Sodium 145 145 Cancelled Potassium 2.1 L* 2.2 L* Chloride 112 H Carbon Dioxide 23 Anion Gap 12 BUN 6 L Creatinine 0.59 Estim Creat Clear Calc 154.4 Estimated GFR > 60 Random Glucose 103 Calcium 7.9 L Phosphorus Magnesium Total Bilirubin 0.4 AST 184 H ALT 88 H Alkaline Phosphatase 51 Total Creatine Kinase Total Protein 5.8 L Albumin 3.5 Vitamin B12 442 TSH Free T4 Urine Color Urine Appearance Urine pH Ur Specific [place] Urine Protein Urine Glucose (UA) Urine Ketones Urine Blood Urine Nitrite Ur Leukocyte Esterase Urine RBC Urine WBC Ur Squamous Epith Cells Urine Bacteria Hyaline Casts Ur Random Sodium Ur Random Potassium Ur Random Chloride Urine Opiates Screen Ur Buprenorphine Scrn Ur Oxycodone Screen Urine Methadone Screen Urine Fentanyl Screen Ur Barbiturates Screen Ur Phencyclidine Scrn Ur Amphetamines Screen U Benzodiazepines Scrn Urine Cocaine Screen U Marijuana (THC) Screen 03/01/25 03/01/25 03/01/25 08:29 08:29 08:29 WBC RBC Hgb Hct MCV MCH MCHC RDW Plt Count MPV Immature Gran % (Auto) Neut % (Auto) Lymph % (Auto) [place] % (Auto) Eos % (Auto) Baso % (Auto) Lymph # (Auto) [place] # (Auto) Eos # (Auto) Baso # (Auto) Abs Immat Gran (auto) Absolute Neuts (auto) Absolute Nucleated RBC Nucleated RBC % (auto) O2 Saturation ABG pH at Pt Temp ABG pCO2 at Pt Temp ABG pO2 at Pt Temp ABG HCO3 ABG Base Excess (Actual) Sodium Potassium Cancelled Chloride 112 H Cancelled Carbon Dioxide 24 Cancelled Anion Gap 11 L BUN Creatinine Estim Creat Clear Calc Estimated GFR Random Glucose Calcium Phosphorus Magnesium Total Bilirubin AST ALT Alkaline Phosphatase Total Creatine Kinase Total Protein Albumin Vitamin B12 TSH Free T4 Urine Color Urine Appearance Urine pH Ur Specific [place] Urine Protein Urine Glucose (UA) Urine Ketones Urine Blood Urine Nitrite Ur Leukocyte Esterase Urine RBC Urine WBC Ur Squamous Epith Cells Urine Bacteria Hyaline Casts Ur Random Sodium Ur Random Potassium Ur Random Chloride Urine Opiates Screen Ur Buprenorphine Scrn Ur Oxycodone Screen Urine Methadone Screen Urine Fentanyl Screen Ur Barbiturates Screen Ur Phencyclidine Scrn Ur Amphetamines Screen U Benzodiazepines Scrn Urine Cocaine Screen U Marijuana (THC) Screen 03/01/25 03/01/25 03/01/25 08:29 08:29 08:29 WBC RBC Hgb Hct MCV MCH MCHC RDW Plt Count MPV Immature Gran % (Auto) Neut % (Auto) Lymph % (Auto) [place] % (Auto) Eos % (Auto) Baso % (Auto) Lymph # (Auto) [place] # (Auto) Eos # (Auto) Baso # (Auto) Abs Immat Gran (auto) Absolute Neuts (auto) Absolute Nucleated RBC Nucleated RBC % (auto) O2 Saturation ABG pH at Pt Temp ABG pCO2 at Pt Temp ABG pO2 at Pt Temp ABG HCO3 ABG Base Excess (Actual) Sodium Potassium Chloride Carbon Dioxide Anion Gap Cancelled BUN 6 L Cancelled Creatinine 0.62 Cancelled Estim Creat Clear Calc 146.9 Estimated GFR Random Glucose Calcium Phosphorus Magnesium Total Bilirubin AST ALT Alkaline Phosphatase Total Creatine Kinase Total Protein Albumin Vitamin B12 TSH Free T4 Urine Color Urine Appearance Urine pH Ur Specific [place] Urine Protein Urine Glucose (UA) Urine Ketones Urine Blood Urine Nitrite Ur Leukocyte Esterase Urine RBC Urine WBC Ur Squamous Epith Cells Urine Bacteria Hyaline Casts Ur Random Sodium Ur Random Potassium Ur Random Chloride Urine Opiates Screen Ur Buprenorphine Scrn Ur Oxycodone Screen Urine Methadone Screen Urine Fentanyl Screen Ur Barbiturates Screen Ur Phencyclidine Scrn Ur Amphetamines Screen U Benzodiazepines Scrn Urine Cocaine Screen U Marijuana (THC) Screen 03/01/25 03/01/25 03/01/25 08:29 08:29 08:29 WBC RBC Hgb Hct MCV MCH MCHC RDW Plt Count MPV Immature Gran % (Auto) Neut % (Auto) Lymph % (Auto) [place] % (Auto) Eos % (Auto) Baso % (Auto) Lymph # (Auto) [place] # (Auto) Eos # (Auto) Baso # (Auto) Abs Immat Gran (auto) Absolute Neuts (auto) Absolute Nucleated RBC Nucleated RBC % (auto) O2 Saturation ABG pH at Pt Temp ABG pCO2 at Pt Temp ABG pO2 at Pt Temp ABG HCO3 ABG Base Excess (Actual) Sodium Potassium Chloride Carbon Dioxide Anion Gap BUN Creatinine Estim Creat Clear Calc Cancelled Estimated GFR > 60 Cancelled Random Glucose 111 Cancelled Calcium 8.1 L Phosphorus Magnesium Total Bilirubin AST ALT Alkaline Phosphatase Total Creatine Kinase Total Protein Albumin Vitamin B12 TSH Free T4 Urine Color Urine Appearance Urine pH Ur Specific [place] Urine Protein Urine Glucose (UA) Urine Ketones Urine Blood Urine Nitrite Ur Leukocyte Esterase Urine RBC Urine WBC Ur Squamous Epith Cells Urine Bacteria Hyaline Casts Ur Random Sodium Ur Random Potassium Ur Random Chloride Urine Opiates Screen Ur Buprenorphine Scrn Ur Oxycodone Screen Urine Methadone Screen Urine Fentanyl Screen Ur Barbiturates Screen Ur Phencyclidine Scrn Ur Amphetamines Screen U Benzodiazepines Scrn Urine Cocaine Screen U Marijuana (THC) Screen 03/01/25 03/01/25 08:29 13:16 WBC RBC Hgb Hct MCV MCH MCHC RDW Plt Count MPV Immature Gran % (Auto) Neut % (Auto) Lymph % (Auto) [place] % (Auto) Eos % (Auto) Baso % (Auto) Lymph # (Auto) [place] # (Auto) Eos # (Auto) Baso # (Auto) Abs Immat Gran (auto) Absolute Neuts (auto) Absolute Nucleated RBC Nucleated RBC % (auto) O2 Saturation ABG pH at Pt Temp ABG pCO2 at Pt Temp ABG pO2 at Pt Temp ABG HCO3 ABG Base Excess (Actual) Sodium 139 Potassium 2.4 L* Chloride 109 H Carbon Dioxide 23 Anion Gap 9 L BUN 4 L Creatinine 0.62 Estim Creat Clear Calc 146.9 Estimated GFR > 60 Random Glucose 133 H Calcium Cancelled 8.2 L Phosphorus 2.9 Magnesium 2.0 Total Bilirubin AST ALT Alkaline Phosphatase Total Creatine Kinase 8551 H Total Protein Albumin Vitamin B12 TSH Free T4 Urine Color Urine Appearance Urine pH Ur Specific [place] Urine Protein Urine Glucose (UA) Urine Ketones Urine Blood Urine Nitrite Ur Leukocyte Esterase Urine RBC Urine WBC Ur Squamous Epith Cells Urine Bacteria Hyaline Casts Ur Random Sodium Ur Random Potassium Ur Random Chloride Urine Opiates Screen Ur Buprenorphine Scrn Ur Oxycodone Screen Urine Methadone Screen Urine Fentanyl Screen Ur Barbiturates Screen Ur Phencyclidine Scrn Ur Amphetamines Screen U Benzodiazepines Scrn Urine Cocaine Screen U Marijuana (THC) Screen Progress Note: A&P Assessment and plan (1) Alcohol abuse: Status: Acute (2) Alcoholic intoxication: Status: Acute (3) Alcohol withdrawal: Status: Acute (4) Bradycardia: Status: Acute (5) Transaminitis: Status: Acute (6) Acute hypokalemia: Status: Acute Plan Acute hypokalemia: Presented with a potassium of 1.7, now potassium is up to 2.4 Patient had a history of 3 weeks of diarrhea multiple episodes a day that stopped 2 weeks ago which might have decreased her potassium results in the body. No family history of thyrotoxicosis or periodic paralysis or suggestive of hyperaldosteronism. Blood pressure is normal possibly ruling out hyperaldosteronism. No new medications or diet. Urine drug screen negative. Magnesium levels normal Urine potassium less than 20 suggestive of extrarenal etiology On aggressive KCl replacement protocol receiving over 100 mEq of potassium this morning. Rhabdomyolysis: Possibly secondary to hypokalemia Continue NS with potassium chloride at 250 cc/hour with a goal of urine output more than 150 cc/hour Closely monitor urine output transaminitis: AST ALT elevated Possibly secondary to rhabdomyolysis Continue BMP, Mag, phos every 4 hours until the potassium improves Prophylaxis: Lovenox . Quality Stroke Does the patient have a stroke diagnosis?: No VTE Prior VTE?: No VTE Risk Level:: Medical - low VTE Device Contraindication: N/A - Device Ordered VTE Drug Contraindication: N/A - Med Ordered
[2025-03-01 18:31] LABS: Anion Gap 12 (12-20); Blood Urea Nitrogen 3 mg/dL (9-16); Calcium 8.2 mg/dL (8.4-10.2); Carbon Dioxide 23 mmol/L (22-29); Chloride 109 mmol/L (96-108); Estimated Glomerular Filt Rate > 60; Glucose Random 113 mg/dL (60-115); Potassium 2.1 mmol/L (3.3-5.1); Sodium 142 mmol/L (135-145)
--- NOTE | 2025-03-01 18:55 | PC.NURSE ---
patient alert and oriented x4, on RA, lung sounds clear, denies pain or discomfort, K+ replenishment continues as ordered, see MAR for full details. Weakness improved from yesterday as stated per patient, up to commode and self repositioning. tolerating diet well.
[2025-03-01 21:43] LABS: Anion Gap 12 (12-20); Blood Urea Nitrogen 3 mg/dL (9-16); Calcium 8.1 mg/dL (8.4-10.2); Carbon Dioxide 22 mmol/L (22-29); Chloride 109 mmol/L (96-108); Estimated Glomerular Filt Rate > 60; Glucose Random 99 mg/dL (60-115); Potassium 2.4 mmol/L (3.3-5.1); Sodium 141 mmol/L (135-145)
[2025-03-01] MEDS: Potassium Chloride Packet 20 MEQ PACKET 40 MEQ PO (21:49)
[2025-03-02] VITALS (17 sets, daily range): BP systolic 92–117; BP diastolic 52–73; PULSE 55–72; RESP 13–27; TEMP 36.2–36.8; O2SAT 93–99; BMI 36.7
[2025-03-02] MEDS: Potassium Chloride/H20 40 MEQ/100 ML PIGGYBACK 50 MEQ IV ×2 (00:12→02:24)
[2025-03-02] MEDS: 0.9 % Sodium Chloride Flush 3 ML SYRINGE IVFLUSH ×4 (00:13→20:11)
[2025-03-02 00:57] LABS: Anion Gap 12 (12-20); Blood Urea Nitrogen 3 mg/dL (9-16); Calcium 8.1 mg/dL (8.4-10.2); Carbon Dioxide 24 mmol/L (22-29); Chloride 110 mmol/L (96-108); Creatinine Clr Calc Pharmacy 175.2; Estimated Glomerular Filt Rate > 60; Glucose Random 92 mg/dL (60-115); Sodium 143 mmol/L (135-145)
[2025-03-02 05:04] LABS: MANUAL DIFF FLAG NO
[2025-03-02 05:11] LABS: Basophils Percent Auto 0.6 % (0-2); Eosinophils Absolute Auto 0.1 X10*3/uL (0.0-0.4); Eosinophils Percent Auto 1.8 % (0-4); Hematocrit 27.4 % (37.0-47.0); Hemoglobin 8.9 g/dl (12.0-16.0); Imm Gran Abs Auto 0.02 X10*3/uL (0.00-0.03); Imm Gran Pct Auto 0.4 % (0.0-0.4); Lymphocytes Absolute Auto 2.2 X10*3/uL (1.2-4.9); Lymphocytes Percent Auto 40.7 % (20-40); Mean Corpuscular HGB Conc 32.5 g/dl (31.0-35.0); Mean Corpuscular Hemoglobin 23.9 pg (27.0-33.0); Mean Corpuscular Volume 73.7 fL (80.0-98.0); Mean Platelet Volume 10.5 fL (9.4-12.3); Monocytes Absolute Auto 0.5 X10*3/uL (0.1-1.2); Monocytes Percent Auto 9.7 % (2-11); Neutrophils Absolute Auto 2.6 x10*3/uL (2.0-8.3); Neutrophils Percent Auto 46.8 % (45-73); Platelet Count 275 X10*3/uL (160-400); Red Blood Count 3.72 X10*6/uL (4.20-5.50); Red Cell Distribution Width 17.7 % (11.0-16.0); White Blood Count 5.5 X10*3/uL (4.8-10.8)
[2025-03-02 05:28] LABS: Alanine Aminotransferase 112 U/L (0-31); Albumin Level 3.6 g/dL (3.5-5.0); Alkaline Phosphatase 52 U/L (39-117); Anion Gap 11 (12-20); Aspartate Amino Transferase 258 U/L (5-31); Bilirubin Total 0.6 mg/dL (0.0-1.0); Blood Urea Nitrogen 3 mg/dL (9-16); Calcium 8.1 mg/dL (8.4-10.2); Carbon Dioxide 23 mmol/L (22-29); Chloride 112 mmol/L (96-108); Creatinine Clr Calc Pharmacy 165.6; Estimated Glomerular Filt Rate > 60; Glucose Random 92 mg/dL (60-115); Magnesium 2.5 mg/dL (1.6-2.6); Phosphorus 3.4 mg/dL (2.7-4.5); Potassium 3.3 mmol/L (3.3-5.1); Sodium 143 mmol/L (135-145); Total Protein 5.8 g/dL (6.5-8.0)
[2025-03-02] MEDS: Potassium Chloride Packet 20 MEQ PACKET 40 MEQ PO ×2 (08:10→19:54)
--- NOTE | 2025-03-02 12:36 | PC.NURSE ---
assumed cared 0700 on 03/02/25 patient A+Ox4, up to recliner already on initial assessment, refusing bed and chair alarms, independent in room, with minimal assistance for cords attached to monitor. patient sinus rhythm with brief episodes of sinus bradycardia, on room air, states strength is greatly improved when compared with time of admission. potassium in labs are no longer critical, see lab results. stated this morning patient is likely to be transferred out later today or when bed available.
--- NOTE | 2025-03-02 14:38 | PM.CCPN ---
Subjective Subjective Date of Service: 03/02/25 Interval History: No new complaints for, feeling better potassium increased to 3.5 this morning Critical Care Time (minutes): 35 Physical Exam Vital Signs: Vital Signs: Last Vital Signs Temp 97.2 F 03/02/25 04:00 Pulse 58 03/02/25 13:00 Resp 15 03/02/25 13:00 BP 117/73 03/02/25 13:00 Pulse Ox 99 03/02/25 13:00 O2 Del Method Room Air 03/02/25 13:00 BMI result Body Mass Index 36.7 General: Not in acute distress, comfortable, sitting in the chair Nutritional Appearance: well nourished and overweight Eyes: appearance normal, both eyes and all related structures; Alignment and Position: alignment normal and position normal Neck: No lymphadenopathy, no thyromegaly Resp: bilateral air entry equal, no added sounds present Cardio: Regular rate, regular rhythm; Heart sounds: S1 normal heart sound present and S2 normal heart sound present GI: soft, nontender, no guarding, no hepatosplenomegaly : bladder normal to inspection, bladder normal to palpation, no renal angle tenderness Skin: no rashes or lesions noted and elasticity normal Neuro: oriented to person, oriented to place, oriented to time and moves all extremities Objective Data Labs 03/02/25 04:39 03/02/25 04:39 Labs: Laboratory Results - last 24 hr 03/01/25 03/01/25 03/02/25 17:22 21:12 00:09 WBC RBC Hgb Hct MCV MCH MCHC RDW Plt Count MPV Immature Gran % (Auto) Neut % (Auto) Lymph % (Auto) Mclean % (Auto) Eos % (Auto) Baso % (Auto) Lymph # (Auto) Mclean # (Auto) Eos # (Auto) Baso # (Auto) Abs Immat Gran (auto) Absolute Neuts (auto) Absolute Nucleated RBC Nucleated RBC % (auto) Sodium 142 141 143 Potassium 2.1 L* 2.4 L* 3.0 L D Chloride 109 H 109 H 110 H Carbon Dioxide 23 22 24 Anion Gap 12 12 12 BUN 3 L 3 L 3 L Creatinine 0.58 0.58 0.52 Estim Creat Clear Calc 157.0 157.0 175.2 Estimated GFR > 60 > 60 > 60 Random Glucose 113 99 92 Calcium 8.2 L 8.1 L 8.1 L Phosphorus Magnesium Total Bilirubin AST ALT Alkaline Phosphatase Total Creatine Kinase Total Protein Albumin 03/02/25 04:39 WBC 5.5 RBC 3.72 L Hgb 8.9 L Hct 27.4 L MCV 73.7 L MCH 23.9 L MCHC 32.5 RDW 17.7 H Plt Count 275 MPV 10.5 Immature Gran % (Auto) 0.4 Neut % (Auto) 46.8 Lymph % (Auto) 40.7 H Mclean % (Auto) 9.7 Eos % (Auto) 1.8 Baso % (Auto) 0.6 Lymph # (Auto) 2.2 Mclean # (Auto) 0.5 Eos # (Auto) 0.1 Baso # (Auto) 0.0 Abs Immat Gran (auto) 0.02 Absolute Neuts (auto) 2.6 Absolute Nucleated RBC 0.000 Nucleated RBC % (auto) 0.0 Sodium 143 Potassium 3.3 Chloride 112 H Carbon Dioxide 23 Anion Gap 11 L BUN 3 L Creatinine 0.55 Estim Creat Clear Calc 165.6 Estimated GFR > 60 Random Glucose 92 Calcium 8.1 L Phosphorus 3.4 Magnesium 2.5 Total Bilirubin 0.6 AST 258 H ALT 112 H Alkaline Phosphatase 52 Total Creatine Kinase 08020 H Total Protein 5.8 L Albumin 3.6 Microbiology Microbiology Results: Microbiology 02/28/25 15:24 Blood - Venous Blood Culture - Preliminary No growth after 24 hours. 02/28/25 15:16 Blood - Venous Blood Culture - Preliminary No growth after 24 hours. Progress Note: A&P Assessment and plan (1) Acute hypokalemia: Status: Acute (2) Rhabdomyolysis: Status: Acute Plan Acute hypokalemia: Presented with a potassium of 1.7, now potassium is up to 3.5 Patient had a history of 3 weeks of diarrhea multiple episodes a day that stopped 2 weeks ago which might have decreased her potassium results in the body. No family history of thyrotoxicosis or periodic paralysis or suggestive of hyperaldosteronism. Blood pressure is normal possibly ruling out hyperaldosteronism. No new medications or diet. Urine drug screen negative. Magnesium levels normal Urine potassium less than 20 suggestive of extrarenal etiology On aggressive KCl replacement, currently mostly on oral potassium chloride Rhabdomyolysis: Possibly secondary to hypokalemia CPK increased overnight after stopping the fluids, we will restart NS with potassium chloride at 250 cc/hour with a goal of urine output more than 150 cc/hour Closely monitor urine output transaminitis: AST ALT elevated Possibly secondary to rhabdomyolysis We will decrease the BMP checks to q.12 hours Prophylaxis: Lovenox Quality Stroke Does the patient have a stroke diagnosis?: No VTE Prior VTE?: No VTE Risk Level:: Medical - low VTE Device Contraindication: N/A - Device Ordered VTE Drug Contraindication: N/A - Med Ordered
--- NOTE | 2025-03-02 15:06 | PM.EVENT ---
Event Note Date of Service: 03/02/25 Event Note: Discussed with ICU provider, Transfer 35 year old women admitted to the ICU for extremity paralysis and found to have severe hypokalemia Hypokalemia. Resolved 1.7 on admission unknown etiology, ? GI losses as pti had diarrhea for 3 weeks 10 days prior to admission no hx of HPP but patient reports hypokalemia in the past normal TSH Replaced in ICU with oral and IV potassium normal mag continue K repalcement Rhabomyolysis [place] to [place] [address], IV fluids resumed normal kidney function Transaminitis ? related to Rhabo Follow Mental health continue home medications Microcytic anemia chronic no obvious bleeding check iron studies in am Hx of ETOH neg on admission no signs of withdrawal DVT prophylaxis with Lovenox Full code Time Spent With Patient Time: Total time managing care of this patient today ____ minutes.
[2025-03-02] MEDS: KCl 40 mEq in 0.9 % Sodium Chl 40 MEQ/1,000 ML IV.SOLN 100 MEQ IVCONT (15:18)
[2025-03-03] VITALS: BP 115/67; PULSE 72; RESP 20; TEMP 37.1; O2SAT 97
[2025-03-03] MEDS: KCl 40 mEq in 0.9 % Sodium Chl 40 MEQ/1,000 ML IV.SOLN 100 MEQ IVCONT (01:10)
[2025-03-03 03:50] VITALS: BP 90/50; PULSE 56; RESP 20; TEMP 36.9; O2SAT 98
[2025-03-03 08:00] VITALS: BP 100/60; PULSE 80; RESP 16; TEMP 36.8; O2SAT 96
[2025-03-03 08:19] LABS: Alanine Aminotransferase 131 U/L (0-31); Albumin Level 3.9 g/dL (3.5-5.0); Alkaline Phosphatase 57 U/L (39-117); Anion Gap 11 (12-20); Aspartate Amino Transferase 228 U/L (5-31); Bilirubin Direct 0.1 mg/dL (0.0-0.5); Bilirubin Total 0.5 mg/dL (0.0-1.0); Blood Urea Nitrogen 3 mg/dL (9-16); Calcium 8.5 mg/dL (8.4-10.2); Carbon Dioxide 19 mmol/L (22-29); Chloride 114 mmol/L (96-108); Creatinine Clr Calc Pharmacy 159.8; Estimated Glomerular Filt Rate > 60; Glucose Random 90 mg/dL (60-115); Iron 28 mcg/dL (30-160); Percent Iron Saturation 9 % (15-50); Potassium 3.4 mmol/L (3.3-5.1); Sodium 141 mmol/L (135-145); Total Iron Binding Capacity 297 mcg/dL (228-428); Total Protein 6.5 g/dL (6.5-8.0); Unsaturated Iron Binding 269 ug/dL
[2025-03-03] MEDS: Escitalopram Oxalate 20 MG TABLET PO (09:31)
[2025-03-03] MEDS: Potassium Chloride Packet 20 MEQ PACKET 40 MEQ PO (09:32)
--- NOTE | 2025-03-03 10:26 | PM.DS ---
DS: Providers Provider Date of Service: 03/03/25 Date of admission: 02/28/25 16:23 Date of discharge: 03/03/25 Primary care physician: No Tavares NP DS: Diagnosis Discharge Diagnosis (1) Acute hypokalemia: Status: Acute (2) Rhabdomyolysis: Status: Acute DS: Summary Hospital Course Hospital Course: History and physical as per admitting provider. 35-year-old apparently healthy lady with past medical history of anxiety/depression on Lexapro, taking some marijuana gummies but no other medications or drugs note is some weakness in the arm and pain in the neck for which she went to a urgent care. In the urgent care when they were drawing a blood sample patient went unresponsive due to a syncopal episode so was sent to the ED. In the ED patient is found to have severe hypokalemia with potassium of 1.7, EKG changes and an episode of sinus pause so MICU was consulted. Offered patient also has rhabdomyolysis with CPK of 4500. She denies taking any new medications, drugs or any recreational substances. She is on a intermittent fasting diet, but still eats fruits. She had episode of diarrhea a few weeks ago but not in the recent past, no vomiting, no nausea, no fever, no other symptoms. No family history of potassium related problems or muscle weakness No thyroid issues or blood pressure issues 35-year-old woman treated in the ICU initially for hypokalemia, severe with initial potassium 1.7 found at admission. Patient had approximately 3 weeks of diarrhea and vomiting therefore symptoms were likely secondary to GI losses. Patient presented with numbness and tingling of her hands and lower extremities. She had IV and oral replacement and potassium did resolve and she will continue a couple of more days of potassium replacement at home. She was also noted to have rhabdomyolysis likely secondary to hypokalemia which peaked at 11,851, she was treated with IV fluids and at 1 point stopped and therefore that is why the CPK peaked that high. IV fluids were restarted and CPK came down to 9800. During this time patient's renal function has remained completely normal. She was noted to have some transaminitis likely secondary to rhabdomyolysis. Unfortunately the patient decided to leave against medical advice, it was thought that since her CPK was still elevated she required at least 1 more day of IV fluids but she reported that she would be able to hydrate at home and wanted to leave and not complete treatment. Patient was allowed to sign out against medical advice. The patient has decided to leave against medical advice. She has normal mental status and adequate capacity to make medical decisions. The patient refuses hospital admission and wants to be discharged. The risks have been explained to the patient including worsening illness, chronic pain, permanent disability and even . The benefits of admission have also been explained including the availability of nurses, medical providers, close monitoring, IV medications, diagnostic imaging, treatments, etc.. The patient was able to understand and state the risks and benefits of hospital admission. The patient was given opportunities to ask questions prior to leaving. Mental health. Continue home medications Chronic microcytic anemia. No obvious bleeding during hospitalization. Stable History of alcohol abuse. Negative on this admission and no signs of withdrawal. Time Attestation Discharge Coordination Time (in mins): 36 Quality: Safe Use of Opioids Does Pt have an Active Cancer Diagnosis on the Problem List?: No Quality: Stroke Does the patient have a stroke diagnosis?: No Physical Exam Vital Signs: Vital Signs: Last Vital Signs Temp 98.3 F 03/03/25 08:00 Pulse 80 03/03/25 08:00 Resp 16 03/03/25 08:00 BP 100/60 03/03/25 08:00 Pulse Ox 96 03/03/25 08:00 O2 Del Method Room Air 03/03/25 08:00 BMI result Body Mass Index 36.7 Appearing in no acute distress head is normocephalic atraumatic eyes pupils are PERRLA sclera is anicteric mouth throat mucous membranes are intact and moist neck is supple no lymphadenopathy, no JVD noted lung sounds are clear to auscultation heart regular rate rhythm, clear S1, S2 positive bowel sounds, abdomen is soft, nontender neuro patient is alert x3, no focal deficits DS: Data Data Completed and Pending Completed studies during hospitalization [Text1]: Procedures Detoxification Services for Substance Abuse Treatment (10/10/22) Labs on day of discharge: Laboratory Results - last 24 hr 03/03/25 03/03/25 03/03/25 06:22 06:22 06:22 Hold Purple Top SEE NOTE Sodium 141 Cancelled Potassium 3.4 Cancelled Chloride 114 H Carbon Dioxide Anion Gap BUN Creatinine Estim Creat Clear Calc Estimated GFR Random Glucose Calcium Iron TIBC % Saturation Unsat Iron Binding Total Bilirubin Direct Bilirubin AST ALT Alkaline Phosphatase Total Creatine Kinase Total Protein Albumin 03/03/25 03/03/25 03/03/25 06:22 06:22 06:22 Hold Purple Top Sodium Potassium Chloride Cancelled Carbon Dioxide 19 L Cancelled Anion Gap 11 L Cancelled BUN 3 L Creatinine Estim Creat Clear Calc Estimated GFR Random Glucose Calcium Iron TIBC % Saturation Unsat Iron Binding Total Bilirubin Direct Bilirubin AST ALT Alkaline Phosphatase Total Creatine Kinase Total Protein Albumin 03/03/25 03/03/25 03/03/25 06:22 06:22 06:22 Hold Purple Top Sodium Potassium Chloride Carbon Dioxide Anion Gap BUN Cancelled Creatinine 0.57 Cancelled Estim Creat Clear Calc 159.8 Cancelled Estimated GFR > 60 Random Glucose Calcium Iron TIBC % Saturation Unsat Iron Binding Total Bilirubin Direct Bilirubin AST ALT Alkaline Phosphatase Total Creatine Kinase Total Protein Albumin 03/03/25 03/03/25 03/03/25 06:22 06:22 06:22 Hold Purple Top Sodium Potassium Chloride Carbon Dioxide Anion Gap BUN Creatinine Estim Creat Clear Calc Estimated GFR Cancelled Random Glucose 90 Cancelled Calcium 8.5 Cancelled Iron 28 L TIBC 297 % Saturation 9 L Unsat Iron Binding 269 Total Bilirubin 0.5 Direct Bilirubin 0.1 AST 228 H ALT 131 H Alkaline Phosphatase 57 Total Creatine Kinase 9691 H Total Protein 6.5 Albumin 3.9 Preliminary micro results at discharge 02/28/25 15:24 Blood Culture - Preliminary Blood - Venous No growth after 48 hours. 02/28/25 15:16 Blood Culture - Preliminary Blood - Venous No growth after 48 hours. Discharge Plan Discharge Anticipated Discharge Date/Time: 03/03/25 10:23 Patient Disposition: Left Against Medical Advice Discharge Diagnosis: Symptomatic Hypokalemia Rhabdomyolysis Transaminitis Referrals: No Tavares NP [Primary Care Provider] - 1 Week Discharge Medications: New potassium chloride 20 mEq Packet 40 meq PO BID Qty: 10 0RF Continued escitalopram oxalate 20 mg tablet 1 tab PO DAILY vitamin B complex Tablet 1 tab PO DAILY ibuprofen-acetaminophen [Motrin Dual Action W-Tylenol] 125-250 mg Tablet 2 tab PO TID PRN (Reason: Pain) Discharge Orders: Discharge Order (Routine); Ordered 03/03/25 Ordered By: Misa Lee Diet: Advance to usual diet Activity on Discharge: As tolerated Print Language: Sudanese Other Ambulatory Orders: Basic Metabolic Panel (Routine) Timeframe: 3 Days Facility: [facility] - Location: Laboratory Ordered By: Misa Lee Creatine Kinase Total (Routine) Timeframe: 3 Days Facility: [facility] - Location: Laboratory Ordered By: Misa Lee Care Plan Goals: The patient has decided to leave against medical advice. She has normal mental status and adequate capacity to make medical decisions. The patient refuses hospital admission and wants to be discharged. The risks have been explained to the patient including worsening illness, chronic pain, permanent disability and even . The benefits of admission have also been explained including the availability of nurses, medical providers, close monitoring, IV medications, diagnostic imaging, treatments, etc.. The patient was able to understand and state the risks and benefits of hospital admission. The patient was given opportunities to ask questions prior to leaving. Health Concerns: Symptomatic Hypokalemia Rhabdomyolysis Transaminitis Plan of Treatment: Follow-up with primary care provider as needed Take all medications as prescribed Assessment: See discharge summary Discharge Date/Time: 03/03/25 11:26
--- NOTE | 2025-03-03 11:03 | MHC.CM.PN ---
Pt left AMA.
== END 2025-03-03 11:26 | disposition left against medical advice (07) | DRG 351 ==
LOC: HO.ED 16:36 → HO.EDOVER 16:40 → HO.ICU 16:44 → HO.IMC 03-02 15:22
PROVIDERS: Physician Assistant Medical; Admitting Provider Internal Medicine Critical Care Medicine; Emergency Provider Emergency Medicine Emergency Medical Services; PCP Nurse Practitioner Family; Visit Provider Nurse Practitioner Acute Care
DX: M62.82 Rhabdomyolysis (principal); E87.6 Hypokalemia; F10.11 Alcohol abuse, in remission; Z20.822 Contact with and (suspected) exposure to COVID-19; Z79.899 Other long term (current) drug therapy
CPT/HCPCS: 0241U; 36415; 70450; 71045; 80048; 80053; 80076; 80307; 81001; 82436; 82550; 82607; 82803; 83540; 83605; 83690; 83735; 83880; 84100; 84133; 84300; 84439; 84443; 84484; 84702; 85025; 85610; 85652; 85730; 86140; 87040; 93005; 99285; J1650; J2250; J2405; J3475; J3480; J7120

== ENCOUNTER → 2025-02-28 14:48 | Outpatient (BNV) | payer BC, SELFPAY | PROVIDERS: Admitting Provider Internal Medicine Critical Care Medicine; Emergency Provider Emergency Medicine Emergency Medical Services; PCP Nurse Practitioner Family; Visit Provider Internal Medicine | DX: R94.31 Abnormal electrocardiogram [ECG] [EKG] (principal); R53.1 Weakness | CPT/HCPCS: 93010 ==

== ENCOUNTER → 2025-02-28 14:49 | Outpatient (BNV) | payer SELFPAY | PROVIDERS: Emergency Provider Emergency Medicine Emergency Medical Services; Visit Provider Radiology Diagnostic Radiology | DX: R53.1 Weakness (principal); Z95.9 Presence of cardiac and vascular implant and graft, unspecified | CPT/HCPCS: 70450; 71045 ==

== ENCOUNTER → 2025-02-28 16:23 | Outpatient (BNV) | payer BC, SELFPAY | PROVIDERS: Admitting Provider Internal Medicine Critical Care Medicine; Emergency Provider Emergency Medicine Emergency Medical Services; PCP Nurse Practitioner Family; Visit Provider Nurse Practitioner Acute Care | DX: E87.6 Hypokalemia (principal); M62.82 Rhabdomyolysis | CPT/HCPCS: 99239; 99499 ==

== ENCOUNTER → 2025-02-28 16:23 | Outpatient (BNV) | payer BC, SELFPAY | PROVIDERS: Admitting Provider Internal Medicine Critical Care Medicine; Emergency Provider Emergency Medicine Emergency Medical Services; PCP Nurse Practitioner Family; Visit Provider Internal Medicine Critical Care Medicine | DX: R00.1 Bradycardia, unspecified (principal); R74.01 Elevation of levels of liver transaminase levels; E87.6 Hypokalemia; M62.82 Rhabdomyolysis | CPT/HCPCS: 99223 ==

== ENCOUNTER 2025-03-06 16:38 | Outpatient (REF) | payer BC, SELFPAY ==
--- OUTSIDE RECORDS SUMMARY | 2025-03-06 16:40 | XMS_ITS | Clinical Summary ---
Author Organization [employer] Address [address] [place] [address] Care Team Providers Care Cotton Weigher Name Role Phone No Tavares KIMBERLY Primary Care Provider [phone] Allergies No known active allergies Medications B [...] that she went to a place in [place] and they gave her the medical pill [...] information for her for [facility] in [facility], which performs in-office abortions. She states [...] be able to deal with/send her to [facility], which is right near them. She [...] 12/02/2022 Normal 06/24/2014 11/24/2022 Peripheral neuropathy 2022 Encounters Date Type Department Care Team Description 03/04/2025 Orders Only [facility] Information Management [address] [place] [address] No Tavares CNP 03/04/2025 Telephone [facility] MEDICAL [address] [place] [address] No Tavares CNP Hospital Follow-up; Care Coordination 03/01/2025 Telephone [facility] MEDICAL [address] [place] [address] No Tavares CNP Documents from Fax folder from Last 3 Months Immunizations Immunization Administration Dates Next Due Pfizer Covid-19 Vaccine [...] 07/14/2024 9:33 AM EDT Plan of Treatment Upcoming Encounters Date Type Department Care Team (Late st Contact Info) Description 03/07/2025 1:30 PM EDT Telemedicine [address] [address] No Tavares, INDUSTRIAL PSYCHOLOGY PROFESSOR [address] [place] [address] Health Maintenance Due Date Last Done Comments Hepatitis B Vaccines (1 of 3 - 19+ 3-dose series) 01/26/2008 Lipid Panel 09/29/2023 09/29/2018 COVID-19 Vaccine (3 - 2023-2 5 season) 2024 12/19/2020, 11/28/2020 [...] Procedure Name Priority Date/Time Associated Diagnosis Comments CBC WITH AUTO DIFFERENTIAL Routine 02/28/2025 11:06 AM EDT XR CHEST 1 VIEW Routine 02/28/2025 11:[address] HEAD WO CONTRAST Routine 02/28/2025 1 1:04 AM EDT ECG 12-LEAD Routine 02/28/2025 11:03 AM EDT ZZZ HISTORICAL PAP THIN PREP PAP WITH HPV AND CT/GC, ZACKARY IF HPV+/CYT Routine 05/06/2022 9:10 AM EDT HIV 1/2 ANTIGEN/ANTIBODY, FOURTH GENERATION W/RFL Routine 10/27/2020 4:29 PM EST LIPID PANEL, STANDARD Routine 09/29/2018 HEPATITIS C ANTIBODY (EXTERNAL RESULTS ONLY) Routine 05/23/2017 3:07 PM EDT from Last 3 Months or Most Recently Relevant to Health Maintenance Results * CBC auto differential (02/28/2025 11:06 AM EDT) Blood Venous blood specimen / Unknown No Plickers INDUSTRIAL PSYCHOLOGY PROFESSOR LAB BLOOD ORDERABLES Final Re sult * XR Chest 1 View (02/28/2025 11:05 AM EDT) Anatomical Region Laterality Modality Chest Radiographic Guerita ging No [email or web address] INDUSTRIAL PSYCHOLOGY PROFESSOR IMG XR PROCEDURES Final Resul t * CT HEAD WO CONTRAST (02/28/2025 11:04 AM EDT) Anatomical Region Laterality Modality Computed Tomogra phy No [employer] INDUSTRIAL PSYCHOLOGY PROFESSOR IMG CT PROCEDURES Final Resul t * ECG 12 lead (02/28/2025 11:03 AM EDT) No Plickers INDUSTRIAL PSYCHOLOGY PROFESSOR ECG ORDERABLES Final Result * -PAP THIN PREP PAP WITH HPV AND CT/GC, ZACKARY IF HPV+/CYT- (05/06/2022 9:10 AM EDT) PAP, LB WITH CT/GC AND HPV Patient Name: KAN MUNOZ [facility] Comment: Patient : ?[id number] (Age: 32) Lab Accession #: ? [id number] Collection Date: ? 05/06/2022 Accession Date: ? 05/06/2022 Sign Out Date: ? 05/11/2022 Tissue Source: 1: THINPREP FLAT HAMMERER PAP TEST, CERVICAL/VAGINAL: Final Diagnosis: NEGATIVE FOR INTRAEPITHELIAL LESION OR MALIGNANCY. Satisfactory for evaluation. ??Endocervical/transformation zone present. Procedures/Addenda: Human Papilloma Virus, High-Risk(Reflex GT) ? Status: Signed Out Interpretation: Negative Methodology: [employer] Aptima HPV mRNA assay (Nucleic Acid Amplification Test, NAAT) Clinical History: Date of Last Menstrual Period: ?? 04/23/2022 Menstrual History: ?? not available Contraceptive History: ??not available Ancillary Testing: ??HPV (Reflex GT) Chlamydia/GC Case imaged by the ThinPrep Imaging System with manual rescreening or review. Performed at [facility] Reference Laboratory dep 05/06/2022 9:10 AM EDT No Tavares INDUSTRIAL PSYCHOLOGY PROFESSOR HISTORICAL/NON ORDERABLE LABS Final Result [facility] [address] * -HIV AB-AG 4TH GENERATION (10/27/2020 4:29 PM EST) RESULT 4TH GEN HIV AB-AG NEGATIVE (NEG) [facility] Comment: Negative for antibodies to HIV 1 and HIV 2 and P24 antigen. Reference range: Negative Additional note: Written patient authorization is required for each separate release of this test result. This test was performed on the MyFit immunoassay system. 10/27/2020 4:29 PM EST No Tavares INDUSTRIAL PSYCHOLOGY PROFESSOR LAB BLOOD ORDERABLES Final Re sult [facility] [address] * Lipid Panel, Standard (09/29/2018) Triglycerides 122 40 - 160 mg/dL Cholesterol 184 0 - 200 mg/dL HDL Cholesterol 44 35 - 70 mg/dL LDL Cholesterol 116 mg/dL Blood Venous blood specimen / Unknown Historical Provider LAB BLOOD ORDERABLES June l Result * Hepatitis C Antibody (05/23/2017 3:07 PM EDT) Pathologist [facility] Hepatitis C Antibody Nonreactive Comment:negative Blood 05/23/2017 3:07 PM EDT Historical Provider POINT OF CARE TEST ENTER/ EDIT ORDERABLES Final Result from Last 3 Months or Most Recently Relevant to Health Maintenance Insurance [employer] Care Teams Cotton Weigher Relationship Specialty Start Date End Date No Tavares CNP [address] [place] [address] PCP - General Family Medicine 10/21/22
--- OUTSIDE RECORDS SUMMARY | 2025-03-06 16:41 | XMS_ITS | Encounter Summary ---
Author Organization [employer] Address [address] [place] [address] Care Team Providers Care Teletype Or Varitype Keyboard Operator Name Role Phone No Tavares CNP Primary Care Provider [phone] Reason for Visit * Reason Onset Date Comments Documents from Fax folder 03/01/2025 Encounter Details Date Type Department Care Team (Late st Contact Info) Description 03/01/2025 Telephone [facility] MEDICAL [address] [place] [address] No Tavares CNP [address] [place] [address] Documents from Fax folder Social History Tobacco Use Types Packs/Day Years [...] on file documented as of this encounter Miscellaneous Notes * Telephone Encounter - Emely Arcos LPN - 03/04/2025 1:53 PM EDT Spoke with patient. Patient will have labs done 03/06 at [facility]. Video appointment scheduled for 03/08 * Telephone Encounter - Yola Ureña LPN - 03/04/2025 8:14 AM EDT Please obtain ED medical records from [facility] from 02/28/25. TY! * Telephone Encounter - No Tavares CNP - 03/04/2025 7:26 AM EDT Seen at [facility] ER for hypokalemia and rhabdomyolosis; to nursing for ER follow up, thanks * Telephone Encounter - Amanda Miller CMA - 03/01/2025 9:37 AM EDT [facility] fax folder: From [facility] a CT head without contrast DOS 02/28/25 and central lineplacement note DOS 02/28/25. Documents to your desk to review. documented in this encounter Plan of Treatment Upcoming Encounters Date Type Department Care Team (Late st Contact Info) Description 03/07/2025 1:30 PM EDT Telemedicine [facility] MEDICAL [address] [place] [id number] No Tavares CNP [address] [place] [address] documented as of this encounter Visit Diagnoses Not on filedocumented in this encounter Care Teams Teletype Or Varitype Keyboard Operator Relationship Specialty Start Date End Date No Tavares CNP [address] [place] [address] PCP - General Family Medicine 10/21/22 documented as of this encounter
--- OUTSIDE RECORDS SUMMARY | 2025-03-06 16:41 | XMS_ITS | Encounter Summary ---
Author Organization [employer] Address [address] [place] [address] Care Team Providers Care Device Sales Consultant Name Role Phone No Tavares CNP Primary Care Provider [phone] Encounter Details Date Type Department Care Team (Late st Contact Info) Description 03/04/2025 Orders Only [facility] [address] [place] [address] No Tavares CNP [address] [place] [address] Social History Tobacco Use Types Packs/Day Years [...] as of this encounter Plan of Treatment Upcoming Encounters Date Type Department Care Team (Late st Contact Info) Description 03/07/2025 1:30 PM EDT Telemedicine [facility] MEDICAL [address] [place] [phone] No Tavares CNP [address] [place] [address] documented as of this encounter Procedures Procedure Name Priority Date/Time Associated Diagnosis Comments CBC WITH AUTO DIFFERENTIAL Routine 02/28/2025 11:06 AM EDT XR CHEST 1 VIEW Routine 02/28/2025 11:[address] HEAD WO CONTRAST Routine 02/28/2025 1 1:04 AM EDT ECG 12-LEAD Routine 02/28/2025 11:03 AM EDT documented in this encounter Results * CBC auto differential (02/28/2025 11:06 AM EDT) Blood Venous blood specimen / Unknown No Tavares [facility] LAB BLOOD ORDERABLES Final Re sult * XR Chest 1 View (02/28/2025 11:05 AM EDT) Anatomical Region Laterality Modality Chest Radiographic Guerita ging No Tavares [facility] IMG XR PROCEDURES Final Resul t * CT HEAD WO CONTRAST (02/28/2025 11:04 AM EDT) Anatomical Region Laterality Modality Computed Tomogra phy No Tavares [facility] IMG CT PROCEDURES Final Resul t * ECG 12 lead (02/28/2025 11:03 AM EDT) No Tavares [facility] ECG ORDERABLES Final Result documented in this encounter Visit Diagnoses Not on filedocumented in this encounter Care Teams Device Sales Consultant Relationship Specialty Start Date End Date No Tavares CNP [address] [place] [address] PCP - General Family Medicine 10/21/22 documented as of this encounter
--- OUTSIDE RECORDS SUMMARY | 2025-03-06 16:41 | XMS_ITS | Encounter Summary ---
Author Organization [employer] Address [address] [place] [address] Care Team Providers Care Line Decorator Name Role Phone No Tavares CNP Primary Care Provider [phone] Encounter Details Date Type Department Care Team (Late st Contact Info) Description 10/26/2024 Orders Only [facility] [address] [place] [address] No Tavares CNP [address] [place] [address] Social History Tobacco Use Types Packs/Day Years [...] Info) Description 03/07/2025 1:30 PM EDT Telemedicine [facility] [address] [place] [id number] No Tavares CNP [address] [place] [address] documented as of this encounter Procedures Procedure [...] Modality Chest Radiographic Guerita ging No Tavares [facility] IM XR PROCEDURES Final Resul t * CT angiogram chest interpretation (10/19/2024 11:36 AM EST) Anatomical Region Laterality Modality Computed Tomogra phy No Tavares [facility] IM CT PROCEDURES Final Resul t * CT Abdomen Pelvis w/ Contrast (10/19/2024 11:35 AM EST) Anatomical Region Laterality Modality Body, Pelvis, Abdomen Computed T omography No Tavares [facility] CT PROCEDURES Final Resul t documented in this encounter Visit Diagnoses Not on filedocumented in this encounter Care Teams Line Decorator Relationship Specialty Start Date End Date No Tavares CNP [address] [place] [address] PCP - General Family Medicine 10/21/22 documented as of this encounter
--- OUTSIDE RECORDS SUMMARY | 2025-03-06 16:41 | XMS_ITS | Encounter Summary ---
Author Organization [employer] [facility] Address [address] [place] [address] [address] [place] [address] Care Team Providers Care Supervisor Drilling And Shooting Name Role Phone No Tavares CNP Primary Care Provider [phone] Encounter Details Date Type Department Care Team (Late st Contact Info) Description 10/15/2022 Orders Only [facility] [address] [place] [address] Catalina Ortiz [place] Social History Tobacco Use Types [...] Info) Description 03/07/2025 1:[address] [facility] [address] [place] [address] No Tavares CNP [address] [place] [address] documented as of this encounter Visit Diagnoses Not on filedocumented in this encounter Care Teams Supervisor Drilling And Shooting Relationship Specialty Start Date End Date No Tavares CNP [address] [place] [address] PCP - General Family Medicine 10/21/22 documented as of this encounter
--- OUTSIDE RECORDS SUMMARY | 2025-03-06 16:41 | XMS_ITS | Encounter Summary ---
Author Organization [employer] Address [address] [facility] [address] [place] [address] Care Team Providers Care Construction Secretary Name Role Phone No Tavares CNP Primary Care Provider [phone] Reason for Visit * Reason Onset Date Comments Hospital Follow-up 03/04/2025 Care Coordination 03/04/2025 Encounter Details Date Type Department Care Team (Late st Contact Info) Description 03/04/2025 Telephone [place] [facility] [address] [place] [address] No Tavares CNP [address] [place] [address] Hospital Follow-up; Care Coordination Social History Tobacco Use Types Packs/Day Years [...] is your housing situation today? I have jarekprateek saleh 07/14/[address] you [...] encounter Miscellaneous Notes * Telephone Encounter - Rochelle Bullard - 03/04/2025 8:45 AM EDT Patient called Patient was admitted to [facility] on 02/28 and discharged on 03/03 Patient is requesting a video visit with for the hospital follow up Please obtain medical records documented in this encounter Plan of Treatment Upcoming Encounters Date Type Department Care Team (Late st Contact Info) Description 03/07/2025 1:30 PM EDT Telemedicine [facility] MEDICAL [address] [place] [id number] No Tavares CNP [address] [place] [address] documented as of this encounter Visit Diagnoses Not on filedocumented in this encounter Care Teams Construction Secretary Relationship Specialty Start Date End Date No Tavares CNP [address] [place] [address] PCP - General Family Medicine 10/21/22 documented as of this encounter
[2025-03-06 17:27] LABS: Anion Gap 13 (12-20); Blood Urea Nitrogen 9 mg/dL (9-16); Calcium 9.4 mg/dL (8.4-10.2); Carbon Dioxide 22 mmol/L (22-29); Chloride 106 mmol/L (96-108); Estimated Glomerular Filt Rate > 60; Glucose Random 94 mg/dL (60-115); Sodium 137 mmol/L (135-145)
== END 2025-03-06 16:39 | disposition home or self-care (01) ==
LOC: HO.LAB 16:38
PROVIDERS: PCP Nurse Practitioner Family; Visit Provider Nurse Practitioner Acute Care
DX: E87.6 Hypokalemia (principal); M62.82 Rhabdomyolysis
CPT/HCPCS: 36415; 80048; 82550

== ENCOUNTER 2025-03-14 15:49 | Outpatient (REF) | payer BC, SELFPAY ==
--- OUTSIDE RECORDS SUMMARY | 2025-03-14 15:53 | XMS_ITS | Clinical Summary ---
Author Organization [facility] Address [address] [place] [address] Care Team Providers Care Fire Marshal [employer]inery Name Role Phone Unavailable Primary Care Provider [...]
[2025-03-14 17:39] LABS: Alanine Aminotransferase 23 U/L (0-31); Albumin Level 4.4 g/dL (3.5-5.0); Alkaline Phosphatase 65 U/L (39-117); Anion Gap 11 (12-20); Aspartate Amino Transferase 19 U/L (5-31); Bilirubin Total 0.2 mg/dL (0.0-1.0); Blood Urea Nitrogen 13 mg/dL (9-16); Calcium 9.3 mg/dL (8.4-10.2); Carbon Dioxide 24 mmol/L (22-29); Chloride 111 mmol/L (96-108); Estimated Glomerular Filt Rate > 60; Glucose Random 88 mg/dL (60-115); Potassium 3.6 mmol/L (3.3-5.1); Sodium 142 mmol/L (135-145)
== END 2025-03-14 15:50 | disposition home or self-care (01) ==
LOC: HO.LAB 15:49
PROVIDERS: PCP Nurse Practitioner Family; Visit Provider Nurse Practitioner Family
DX: T79.6XXD Traumatic ischemia of muscle, subsequent encounter (principal)
CPT/HCPCS: 36415; 80053; 82550